=== PATIENT | female | born 1950 | race Caucasian/White ===

== ENCOUNTER 2017-11-05 11:03 | Emergency (ER) | payer MEDICARE, SELFPAY ==
[2017-11-05 11:03] VITALS: BP 169/95; PULSE 98; RESP 16; TEMP 37.2; O2SAT 100; BMI 16.8
--- NOTE | 2017-11-05 11:24 | ED.DCSUM_ITS ---
- ER Visit Summary Date of Service: 11/05/17 Chief Complaint: [] Left ankle injury stepping down from step stool History of Present Illness: The patient is a 67 F [] no past history no other complaints reports she was stepping down from a step stool and interested her left ankle this morning has pain laterally no other complaints Physical Examination: [] Head neck chest abdomen unremarkable she has full range of motion of lower extremities only issue is the left ankle laterally she complains of some discomfort here dorsi and plantar flexion limited noticeably deformity minimal foot calcaneal pain no Achilles pain the tib-fib and knee and hip are unremarkable skin is intact sensations intact Test Results: [] Emergency Department Course and Treatment: [] X-rays obtained [facility] for pain , the x-ray shows a nondisplaced calcaneus fracture nothing acute ankle x-ray unremarkable, discussed although the patient this time she is placed in a long walking boot crutches ice elevation [facility] for the rescue medicine she will follow-up with Dr. Martínez orthopedics and return for change in symptoms Treatment Plan: [] Disposition: [] Home stable Impression: [] Nondisplaced calcaneus fracture after fall above This note was generated with [employer] dictation software. It may contain incorrect words, spelling, and punctuation that were not noted in review of the chart prior to signing ED Disposition - Plan for ED Patient: Chief Complaint: Lower Extremity Injury Referrals: Larry Rich MD [Primary Care Provider] -
[2017-11-05] MEDS: Naproxen 500 MG Tablet PO (11:25)
--- NOTE | 2017-11-05 11:28 | RAD_ITS ---
STUDY: X-RAY - LEFT ANKLE REASON FOR EXAM: Female, 67 years old. Trauma, status post fall with lateral pain TECHNIQUE: 3 view(s) of the ankle. COMPARISON: None. FINDINGS: The bones are demineralized. Normal medial and lateral malleoli. Normal tibiotalar articulation and ankle mortise. There is a nondisplaced fracture through the calcaneus. This appears to extend into the subtalar joint. The visualized subtalar, talonavicular, calcaneocuboid and tarsal articulations are normal. The soft tissue structures are unremarkable. RAD/Ankle min 3 Views IMPRESSION: Nondisplaced calcaneal fracture. Electronically Signed: Harley Chi DO at 12:10 EDT Tel , Service support ,
--- NOTE | 2017-11-05 12:45 | RAD_ITS ---
STUDY: X-RAY - LEFT FOOT CLINICAL: Female, 67 years old. Trauma, pain TECHNIQUE: 3 view(s) of the foot. COMPARISON: Left ankle films, same date FINDINGS: There is a comminuted fracture of the calcaneus. No significant impaction. The fracture appears to extend into the subtalar joint. Normal metatarsi. Normal metatarsophalangeal joint of the great toe. Normal tibial and fibular sesamoid bones. Normal interphalangeal joint of the great toe. Normal phalanges of the great toe. Normal second through fifth metatarsophalangeal joints. Normal interphalangeal joints and phalanges of the lesser toes. There may be some soft tissue swelling along the plantar aspect of the foot. RAD/Foot min 3 Views IMPRESSION: Comminuted, nondisplaced calcaneal fracture. Electronically Signed: Harley Chi DO at 14:02 EDT Tel , Service support ,
--- NOTE | 2017-11-05 12:49 | ED.DEP ---
ED Disposition - Plan for ED Patient: Chief Complaint: Lower Extremity Injury Instructions: ED Fx Foot Prescriptions: Hydrocodone Bitart/Apap 5-325 [[place] 5MG-325MG] 1 tab PO Q4H PRN PRN 2 Days #10 tab PRN Reason: Pain Naproxen [Naprosyn] 500 mg PO BID PRN #20 tab Referrals: Larry Rich MD [Primary Care Provider] - Neil Martínez MD [STAFF PHYSICIAN] -
[2017-11-05 14:30] VITALS: BP 161/74; PULSE 78; RESP 18; O2SAT 97
== END 2017-11-05 14:31 | disposition home or self-care (01) ==
PROVIDERS: Emergency Provider Emergency Medicine; Family Provider Family Medicine; PCP Family Medicine
DX: S92.002A Unspecified fracture of left calcaneus, initial encounter for closed fracture (principal); W17.89XA Other fall from one level to another, initial encounter; Y93.9 Activity, unspecified; Y92.9 Unspecified place or not applicable
CPT/HCPCS: 73610; 73630; 99284

== ENCOUNTER → 2017-11-12 06:51 | Outpatient (CLI) | payer MEDICARE, SELFPAY ==
--- NOTE | 2017-11-12 07:00 | CT_ITS ---
STUDY: CT LEFT FOOT REASON FOR EXAM: Female, 67 years old. Status post fall. Left calcaneal fracture. RADIATION DOSAGE (If Supplied By Facility): CTDIvol = ( 15.35 ) mGy, DLP = ( 384.46 ) mGycm TECHNIQUE: Thin section transaxial imaging of the foot was obtained, with sagittal and coronal reconstructed images. Individualized dose optimization techniques were used for this CT. COMPARISON: X-ray left foot: 11/05/2017. FINDINGS: There is a minimally displaced intra-articular/subtalar comminuted fracture of the calcaneus demonstrated with somewhat sclerotic fracture margins. Bones are diffusely demineralized. The talus and tarsal bones appear intact. There is mild subluxation of the talonavicular articulation. Normal visualized tibiotalar, calcaneocuboid, tarsal and tarsometatarsal articulations. There is demineralization of the metatarsi. There is mild/moderate degenerative arthrosis of the metatarsophalangeal joint of the great toe. Normal tibial and fibular sesamoid bones. Normal interphalangeal joint of the great toe. Unremarkable phalanges of the great toe and lesser toes. Normal second through fifth metatarsophalangeal joints. There is soft tissue edema/swelling of the hindfoot and in dorsum foot. CT/Extremity Lower without Contra IMPRESSION: 1. Intra-articular/subtalar minimally displaced comminuted fractures of the calcaneus. 2. Diffuse bony demineralization. 3. Soft tissue swelling of the ankle and foot.. Electronically Signed: Nitza Lam MD at 7:47 EDT Tel , Service support ,
== END ==
PROVIDERS: Family Provider Family Medicine; PCP Family Medicine; Visit Provider Physician Assistant Surgical
DX: S92.015A Nondisplaced fracture of body of left calcaneus, initial encounter for closed fracture (principal)
CPT/HCPCS: 73700

== ENCOUNTER 2017-12-24 20:11 | Inpatient (IN) | payer MEDICARE, SELFPAY ==
[2017-12-24 20:12] VITALS: BP 149/93; PULSE 90; RESP 16; TEMP 36.7; O2SAT 95; BMI 16.2
--- NOTE | 2017-12-24 20:12 | RAD_ITS ---
STUDY: X-RAY - PELVIS AND RIGHT HIP REASON FOR EXAM: Female, 67 years old. Pain after fall. TECHNIQUE: Radiological exam, hip, unilateral, with pelvis when performed; 2 or 3 views. COMPARISON: None. FINDINGS: There is a non-specific bowel gas pattern. There are multiple calcified phleboliths. The bones are diffusely demineralized. There is an oblique fracture within the proximal right femur that extends into the right greater trochanter. There is no dislocation visualized. RAD/HIP, UNI W/ Pelvis 2-3 Views IMPRESSION: Proximal right femur fracture. Electronically Signed: Sheila Astorga MD at 21:32 EDT Tel , Service support ,
--- NOTE | 2017-12-24 21:04 | RAD_ITS ---
STUDY: X-RAY CHEST REASON FOR EXAM: Female, 67 years old. Cough. TECHNIQUE: Portable upright COMPARISON: None. FINDINGS: The lungs are hyperinflated. There is a density projecting over the left hemithorax which may be a surgical clip. Normal size heart. Normal mediastinum and julius. Normal visualized pulmonary arteries. Normal visualized aortic arch and descending thoracic aorta. Normal visualized thoracic spine. Normal visualized ribs, clavicles, and shoulders. There is no demonstrated abnormality of the visualized soft tissue structures of the upper abdomen. RAD/Chest 1 View (Portable) IMPRESSION: Hyperinflated lungs suggestive of underlying COPD. Electronically Signed: Sheila Astorga MD at 22:04 EDT Tel , Service support ,
--- NOTE | 2017-12-24 21:04 | EKG12_ITS ---
Test Reason : LOWER EXTREMITY Blood Pressure : / mmHG Vent. Rate : 091 BPM Atrial Rate : 091 BPM P-R Int : 126 ms QRS Dur : 082 ms QT Int : 360 ms P-R-T Axes : 063 -30 053 degrees QTc Int : 442 ms Normal sinus rhythm Left axis deviation Abnormal ECG Confirmed by SAVITA GIVENS, MINA ([id number]), writer editor CHARLES CEBALLOS ([id number]) on 12/26/2017 3:31:41 PM Referred By: MATTHEW Confirmed By:MINA BARNEY MD
[2017-12-24] MEDS: Morphine 4 MG/ML Syringe IV ×2 (21:19→21:59)
[2017-12-24] MEDS: Ondansetron 4 MG/2 ML Vial IV (21:19)
[2017-12-24 21:27] LABS: Absolute Lymphocyte Count 1.58 X10^3/ul (0.83-4.51); Absolute Neutrophil Count 6.8 X10^3/uL (2.0-7.7); Basophil# 0.02 X10^3/uL; Basophil% 0.2 % (0-1); Eosinophil# 0.05 X10^3/uL; Eosinophils% 0.6 % (0-5); Hematocrit 39.7 % (37-47); Hemoglobin 13.5 g/dl (12.0-15.0); Lymphocyte # 1.58 X10^3/ul (4.0); Lymphocyte % 17.6 % (19-41); Mean Corpuscular Hgb 31.8 pg (27.0-32.0); Mean Corpuscular Volume 93.4 fL (81-99); Mean Platelet Vol. 9.2 fl (6.2-12.0); Monocyte# 0.54 X10^3/uL; Neutrophil # 6.77 X10^3/uL (2.7-7.7); Neutrophil % 75.5 % (47-70); Platelet Count 443 K/mm3 (150-450); RBC Distribution Width CV 12.6 % (11.6-14.6); Red Blood Count 4.25 M/mm3 (4.2-5.4)
[2017-12-24 21:28] LABS: POSITIVE COUNT NO; POSITIVE DIFFERENTIAL NO; POSITIVE MORPHOLOGY NO
[2017-12-24 21:34] LABS: Prothrombin Time (Protime)PT. 12.7 SECONDS (11.7-14.9)
[2017-12-24 21:43] LABS: Anion Gap 8 (5-15); BUN 9 mg/dL (7-18); BUN/Creat Ratio 15.7 RATIO (10-20); Chloride 96 mmol/L (98-107); Creatinine, Serum 0.57 mg/dL (0.55-1.02); EST Glomerular Filtration Rate 112 mL/min (>60); Est Glom Filt Rate - Afr Amer 136 mL/min (>60); Estimated Creatinine Clearance 37.64 ml/min; Glucose 87 mg/dL (74-106); Sodium Level 132 mmol/L (136-145)
--- NOTE | 2017-12-24 21:53 | ED.VISSUMM ---
- ER Visit Summary Date of Service: 12/24/17 Chief Complaint: Right hip pain History of Present Illness: The patient is a 67 F who presents with right hip pain. She recently had a fall and had a calcaneus fracture on the left. She is using crutches. Her crutch slipped and she fell injuring her right hip today. She has been unable to bear weight. She complains of pain at 6-7 out of 10 currently in the right hip. No other injuries. No head injury. She is not anticoagulated. Physical Examination: Afebrile vitals unremarkable Heart regular rate and rhythm Lungs clear Abdomen soft Right hip is shortened and rotated she has limited painful range of motion of the pelvis is stable to compression she has a palpable dorsalis pedis pulse brisk capillary refill and normal sensation to light touch Test Results: EKG shows sinus rhythm at a rate of 91. Right hip x-ray does show an intertrochanteric hip fracture. Chest x-ray on my review shows no acute process. CBC BMP unremarkable and INR normal. Emergency Department Course and Treatment: Patient was treated with morphine and Zofran. She began to have some spasm and increased pain and was given a second dose of morphine. We will also place a Wolf catheter. I did speak to Dr. Sharma who asked that we admit the patient to the hospitalist service and keep the patient n.p.o. after midnight. Treatment Plan: [] Disposition: Admit Impression: Right hip fracture This note was generated with [employer] dictation software. It may contain incorrect words, spelling, and punctuation that were not noted in review of the chart prior to signing ED Disposition - Plan for ED Patient: Chief Complaint: Lower Extremity Injury Referrals: Larry Rich MD [Primary Care Provider] -
--- NOTE | 2017-12-24 22:13 | PCM.HP.STD ---
Problem List (1) Hip fracture, right Status: Acute (2) HTN (hypertension) Status: Chronic History of Present Illness Date of Admission: 12/24/17 Chief Complaint: Fall The patient is a 67 year old F with a significant history of hypertension; and left calcaneus fracture in a boot immobilizer who presented to the emergency department today because of a fall. Patient uses clutches to walk. Patient reported that while walking her dog, her clutches slid on weights grass and she fell. She landed on her right lower extremities. She complains of pain in her right thigh and the right hip. X-ray of pelvis and right hip showed proximal right femur fracture. Past Medical History Past Medical History (Chronic Problems): Chronic Problems HTN (hypertension) (Chronic) Allergies No Known Allergies Allergy (Verified 11/05/17 11:06) Home Medications: Ambulatory Orders Medication Instructions Recorded Acetaminophen [Tylenol] 650 mg PO Q6H PRN 12/24/17 Aspirin [Aspirin, Baby] 81 mg PO DAILY@0800 12/24/17 Surgical History: - - Hysterectomy Lives: With Family Smoking Status: Current every day smoker Alcohol: Occasional - *Family History Maternal History Items: No pertinent history Paternal History Items: No pertinent history Review of Systems Constitutional: Denies: Chills, Fever, Weight Change HEENT: Denies: Head Aches, Sinus Congestion, Sinus Drainage Cardiovascular: Denies: Chest Pain, Palpitations Respiratory: Denies: Cough, Shortness of breath at rest, Sputum production Gastrointestinal: Denies: Abdominal Pain, Nausea, Vomiting Genitourinary: Denies: Dysuria Musculoskeletal: Reports: - - right hip and right thigh pain, - Skin: Denies: Rash, Wounds Neurological: Denies: Numbness, Tingling, Focal weakness Psychiatric: Denies: Anxiety, Depression, Homicidal Ideations, Suicidal Ideations Hematologic/ Lymphatic: Denies: Easy Bruising, Easy Bleeding VTE Information - Inpt Only VTE Present on Admission: No VTE Mechan Device Prophylaxis: None VTE Pharm Prophylaxis ordered?: Yes Patient Problems: Active and Suspected Problems Hip fracture, right (Acute) - Physical Exam General: Alert, Oriented x3, Cooperative HEENT: Atraumatic, PERRLA, EOMI, Normocephalic Neck: Supple, No JVD, Negative Carotid Bruits Lungs: Clear to auscultation, Normal air movement Cardiovascular: Regular rate, No murmurs Abdomen: Bowel Sounds Present, Soft, Non Tender Extremities: Tenderness - Right hip and right thigh; no swelling or redness noted., - - Left lower leg and left foot in immobilizer boots Skin: No rashes, No breakdown Musculoskeletal: No Tenderness to Palpation of Joints or Extremities Neurological: Cranial nerves II-XII grossly intact Psych/Mental Status: Normal Affect, Appropriate Vital Signs Temp Pulse Resp BP Pulse Ox 98.1 F 90 16 149/93 H 95 12/24/17 20:12 12/24/17 20:12 12/24/17 20:12 12/24/17 20:12 12/24/17 20:12 Oxygen Delivery Method Room Air Weight: 43.091 kg Body Mass Index (BMI) 16.2 Laboratory Tests Past 24 Hrs 12/24/17 12/24/17 12/24/17 21:20 21:20 21:20 WBC 9.0 RBC 4.25 Hgb 13.5 Hct 39.7 MCV 93.4 MCH 31.8 MCHC 34.0 RDW 12.6 RDW Differential 43.0 Plt Count 443 MPV 9.2 Immature Gran % (Auto) 0.100 Neut % (Auto) 75.5 H Lymph % (Auto) 17.6 L [place] % (Auto) 6.0 Eos % (Auto) 0.6 Baso % (Auto) 0.2 Absolute Neuts (auto) 6.8 Absolute Lymphs (auto) 1.58 Total Counted Not Reportable PT 12.7 INR 1.0 Sodium 132 L Potassium 4.0 Chloride 96 L Carbon Dioxide 28.0 Anion Gap 8 BUN 9 Creatinine 0.57 Estim Creat Clear Calc 37.64 Est GFR (MDRD) Af Amer 136 Est GFR (MDRD) Non-Af 112 BUN/Creatinine Ratio 15.7 Glucose 87 Calcium 9.0 Assessment/Plan All Active Problems Hip fracture, right (Acute) The patient is a 67 year old F with a significant history of hypertension; and left calcaneus fracture in a boot immobilizer who presented to the emergency department today because of a fall landing on her right side and found to have radiographic evidence of proximal right femur fracture.. Proximal right femur fracture Pain control with as needed oxycodone and as needed morphine. Orthopedic doctor consulted. N.p.o. after midnight for possible orthopedic procedure Orthopedic surgery consult. Preop evaluation Patient has no active chest pain or previous history of heart disease or lung disease. EKG is unremarkable Hip surgery is not of high risk. Patient may proceed with hip surgery. Hypertension Blood pressure at admission was done within goal. Low blood pressure medication on file Amlodipine 5 mg started Labetalol as needed Left calcaneal fracture Placed in mobilizing boots 5 weeks ago. Patient to follow outpatient with orthopedic doctor. Moderate to severe protein calorie malnutrition N.p.o. for surgery consulted Dietitian consult for recommendation. DVT prophylaxis Subcutaneous heparin Code Visit Inpatient E&M: 07900 Init Hosp L3
[2017-12-24 22:14] VITALS: BP 159/108; PULSE 91; RESP 18; O2SAT 92
[2017-12-24 22:30] VITALS: O2SAT 86
[2017-12-24 22:32] VITALS: O2SAT 98
--- NOTE | 2017-12-24 22:46 | ED.RN ---
called to inform of room number and pt update.
[2017-12-24 23:26] VITALS: BMI 16.1
[2017-12-24 23:40] VITALS: BP 162/96; PULSE 85; RESP 18; TEMP 37.4; O2SAT 86
[2017-12-24 23:41] VITALS: BMI 16.2
[2017-12-24 23:54] VITALS: O2SAT 96
[2017-12-25] VITALS (14 sets, daily range): BP systolic 104–156; BP diastolic 69–86; PULSE 69–93; RESP 16–19; TEMP 36.1–37.6; O2SAT 91–100; BMI 16.0; BMI 16.2
[2017-12-25] MEDS: Lactated Ringers 1,000 ML 90 ML IV ×2 (01:38→12:40)
[2017-12-25] MEDS: Morphine 2 MG/ML Syringe IV ×5 (01:39→18:37)
[2017-12-25 04:24] LABS: Absolute Lymphocyte Count 2.32 X10^3/ul (0.83-4.51); Basophil# 0.01 X10^3/uL; Basophil% 0.1 % (0-1); Eosinophil# 0.05 X10^3/uL; Eosinophils% 0.5 % (0-5); Hematocrit 35.8 % (37-47); Hemoglobin 12.1 g/dl (12.0-15.0); Lymphocyte # 2.32 X10^3/ul (4.0); Lymphocyte % 24.6 % (19-41); Mean Corp Hgb Conc 33.8 g/gl (32-36); Mean Corpuscular Hgb 31.9 pg (27.0-32.0); Mean Corpuscular Volume 94.5 fL (81-99); Mean Platelet Vol. 9.3 fl (6.2-12.0); Monocyte# 1.01 X10^3/uL; Monocyte% 10.7 % (0-10); Neutrophil # 6.04 X10^3/uL (2.7-7.7); Platelet Count 416 K/mm3 (150-450); RBC Distribution Width CV 12.7 % (11.6-14.6); RBC Distribution Width SD 43.6 fl (35.1-43.9); Red Blood Count 3.79 M/mm3 (4.2-5.4); White Blood Count 9.4 K/mm3 (4.4-11.0)
[2017-12-25 04:25] LABS: POSITIVE COUNT NO; POSITIVE DIFFERENTIAL NO; POSITIVE MORPHOLOGY NO
[2017-12-25 05:18] LABS: Anion Gap 7 (5-15); BUN 11 mg/dL (7-18); BUN/Creat Ratio 18.7 RATIO (10-20); Calcium,Total 8.9 mg/dL (8.5-10.1); Chloride 100 mmol/L (98-107); Creatinine, Serum 0.59 mg/dL (0.55-1.02); EST Glomerular Filtration Rate 109 mL/min (>60); Est Glom Filt Rate - Afr Amer 132 mL/min (>60); Estimated Creatinine Clearance 37.33 ml/min; Glucose 104 mg/dL (74-106); Potassium 4.4 mmol/L (3.5-5.1); Sodium Level 136 mmol/L (136-145)
--- NOTE | 2017-12-25 07:15 | PCM.PN.HOSP ---
Patient Problems: Active and Suspected Problems Hip fracture, right (Acute) Subjective: Patient states she has ongoing discomfort to the right lower extremity hip region but primarily with movement and is currently able to sit upright and appears comfortable. She states that she fell when she was returning inside and suspects that likely her crutch was wet from the grass while taking her dog out. She states that she is still supposed to be nonweightbearing to the left lower extremity and is in a boot currently following with orthopedic surgery outpatient secondary to calcaneal fracture. Patient understands planned operative intervention per Dr. Sharma shortly. Discussed suspected chronic COPD which patient will laughed but did not decline set up of aerosols. Also discussed importance of nutrition as patient is cachectic appearing. Patient denies fevers, chills, nausea, emesis, abdominal pain, chest pain or dyspnea. Objective: Physical Examination: General: awake, alert, oriented x 3 and cooperative, seated upright in bed in no apparent distress despite awaiting operative intervention for right hip fracture. Skin: normal color, turgor, no icterus, cyanosis. HEENT: AT/NC, EOMI, PERRLA, MMM. Lungs: Breath sounds bilaterally, greater bilateral bases, poor effort, no rales, ronchi or wheezing. Heart: Regular rate and rhythm; no gallop, rub audible. Abdomen: soft, thin, cachectic habitus, NTTP, ND. Extremities: no cyanosis, clubbing, or edema. Neurological: patient awake, alert, oriented x 3; cognitive function intact; pupils equally reactive to light and accomodation; cranial nerves II-XII grossly normal, moving all 4 extremities limited right lower extremity secondary to recent hip fracture and left lower extremity secondary to recent calcaneal fracture with heel boot in place, accordingly severely globally decreased. Psychiatric: affect appears normal, no acute evidence of depressive or anxiety feelings. Vitals/I&O's: Vital Signs Temp Pulse Resp BP Pulse Ox 98.9 F 74 18 151/83 H 95 12/25/17 05:51 12/25/17 05:51 12/25/17 05:51 12/25/17 05:51 12/25/17 05:51 Oxygen Flow Rate (L/min) 2 Oxygen Delivery Method Nasal Cannula Weight: 94 lb 3.2 oz Body Mass Index (BMI) 16.0 Intake and Output for Last 24 Hours 12/23/17 12/24/17 12/25/17 23:59 23:59 23:59 Intake Total 476 / 476 Output Total 1250 / 1250 Balance -774 / -774 Laboratory Results 12/25/17 04:00: WBC 9.4, RBC 3.79 L, Hgb 12.1, Hct 35.8 L, MCV 94.5, MCH 31.9, MCHC 33.8, RDW 12.7, RDW Differential 43.6, Plt Count 416, MPV 9.3, Immature Gran % (Auto) 0.100, Neut % (Auto) 64.0, Lymph % (Auto) 24.6, [place] % (Auto) 10.7 H, Eos % (Auto) 0.5, Baso % (Auto) 0.1, Absolute Neuts (auto) 6.0, Absolute Lymphs (auto) 2.32, Total Counted Not Reportable 12/25/17 04:00: Sodium 136, Potassium 4.4, Chloride 100, Carbon Dioxide 29.0, Anion Gap 7, BUN 11, Creatinine 0.59, Estim Creat Clear Calc 37.33, Est GFR (MDRD) Af Amer 132, Est GFR (MDRD) Non-Af 109, BUN/Creatinine Ratio 18.7, Glucose 104, Calcium 8.9 12/25/17 04:00: Blood Type A POSITIVE, Antibody Screen NEGATIVE Current Medications Acetaminophen (Tylenol) 650 mg PO Q6H PRN PRN PRN Reason: PAIN Amlodipine Besylate (Norvasc) 5 mg PO DAILY [facility] Last Admin: 12/25/17 05:57 Dose: Not Given Heparin Sodium (Porcine) (Heparin Na) 5,000 unit SC Q8 [facility] Last Admin: 12/25/17 04:44 Dose: Not Given Sodium Chloride () 250 mls @ 15 mls/hr IV .[id number] PRN PRN Reason: SALINE FLUSH Lactated Ringer's () 1,000 mls @ 90 mls/hr IV .[id number] [facility] Last Admin: 12/25/17 01:38 Dose: 90 mls/hr Labetalol HCl (Trandate) 10 mg IV Q4H PRN PRN PRN Reason: SBP > 160 Magnesium Hydroxide (Milk Of Magnesia) 30 ml PO DAILY PRN PRN PRN Reason: Constipation Morphine Sulfate () 1 - 3 mg IV Q3H PRN PRN PRN Reason: SEVERE PAIN (6-10/10) Last Admin: 12/25/17 06:01 Dose: 2 mg Nicotine (Nicoderm Cq (Pbkc)) 14 mg TRANSDERM. DAILY DIANE Nutritional Formula (Lactose Free) (Ensure Enlive) 120 ml PO 4X/DAY DIANE Ondansetron HCl (Zofran) 4 mg IV Q8H PRN PRN PRN Reason: NAUSEA Oxycodone HCl (Oxyir) 5 mg PO Q6H PRN PRN PRN Reason: MODERATE PAIN (4-5/10) Sodium Chloride () 5 - 30 ml IV UD PRN PRN Reason: SALINE FLUSH Medical Necessity - Tobacco Use Smoking Status: Current every day smoker Tobacco Use: Cigarettes Assessment/Plan All Active Problems Hip fracture, right (Acute) The patient is a 67 y/o F w/ PMHx: HTN, Recent L Calcaneous Fx in boot, Tobacco use, Severe Protein-Calorie Malnutrition who presents to the [facility] ED on 12/24/17 with history of falling while walking her dog secondary to her crutches sliding on wet grass, falling on her right side with intractable R hip pain following. (1) General debility, R hip pain s/p mechanical fall w/ Proximal R Femur fracture: Plain film noting proximal right femur fracture. Orthopedic surgery consulted from ED, Dr. Sharma. Admitted to [place], maintained NPO for OR this AM 12/25/17, continue gentle IVFs, will obtain TSH, Mag level, UA, post placement, monitor I/Os, frequent positioning, fall precautions. Pain, anti-emetic regimen. PT/OT following operative intervention. CM consulted for discharge planning. (2) Suspected Chronic COPD: CXR w/ chronic COPD changes, initiate ATC duonebs, PRN albuterol, HOB, IS parameters. (3) Tobacco Abuse: Encouraged cessation, inpatient consultation per RT, NR if desired. (4) Hypertension: Continue home regimen including Norvasc, PRN beta loll. (5) Recent L Calcaneal Fx: Continue usage of immobilization boot, continue outpatient evaluation w/ Orthopedic surgery. (6) Severe Protein-Calorie Malnutrition: Evidenced per habitus, low BMI, muscle and fat loss, nutrition consulted, supplementations. (7) DVT Prophylaxis: SCDs, lovenox w/ hold on day of OR. Code Visit Inpatient E&M: 24269 Subs Hosp L2
--- NOTE | 2017-12-25 07:23 | PN_ITS ---
Patient Problems: Active and Suspected Problems Hip fracture, right (Acute) Subjective: Patient states she has ongoing discomfort to the right lower extremity hip region but primarily with movement and is currently able to sit upright and appears comfortable. She states that she fell when she was returning inside and suspects that likely her crutch was wet from the grass while taking her dog out. She states that she is still supposed to be nonweightbearing to the left lower extremity and is in a boot currently following with orthopedic surgery outpatient secondary to calcaneal fracture. Patient understands planned operative intervention per Dr. Sharma shortly. Discussed suspected chronic COPD which patient will laughed but did not decline set up of aerosols. Also discussed importance of nutrition as patient is cachectic appearing. Patient denies fevers, chills, nausea, emesis, abdominal pain, chest pain or dyspnea. Objective: Physical Examination: General: awake, alert, oriented x 3 and cooperative, seated upright in bed in no apparent distress despite awaiting operative intervention for right hip fracture. Skin: normal color, turgor, no icterus, cyanosis. HEENT: AT/NC, EOMI, PERRLA, MMM. Lungs: Breath sounds bilaterally, greater bilateral bases, poor effort, no rales , ronchi or wheezing. Heart: Regular rate and rhythm; no gallop, rub audible. Abdomen: soft, thin, cachectic habitus, NTTP, ND. Extremities: no cyanosis, clubbing, or edema. Neurological: patient awake, alert, oriented x 3; cognitive function intact; pupils equally reactive to light and accomodation; cranial nerves II-XII grossly normal, moving all 4 extremities limited right lower extremity secondary to recent hip fracture and left lower extremity secondary to recent calcaneal fracture with heel boot in place, accordingly severely globally decreased. Psychiatric: affect appears normal, no acute evidence of depressive or anxiety feelings. Vitals/I&O's: Vital Signs Temp Pulse Resp BP Pulse Ox 98.9 F 74 18 151/83 H 95 12/25/17 05:51 12/25/17 05:51 12/25/17 05:51 12/25/17 05:51 12/25/17 05:51 Oxygen Flow Rate (L/min) 2 Oxygen Delivery Method Nasal Cannula Weight: 94 lb 3.2 oz Body Mass Index (BMI) 16.0 Intake and Output for Last 24 Hours 12/23/17 12/24/17 12/25/17 23:59 23:59 23:59 Intake Total 476 / 476 Output Total 1250 / 1250 Balance -774 / -774 Laboratory Results 12/25/17 04:00: WBC 9.4, RBC 3.79 L, Hgb 12.1, Hct 35.8 L, MCV 94.5, MCH 31.9, MCHC 33.8, RDW 12.7, RDW Differential 43.6, Plt Count 416, MPV 9.3, Immature Gran % (Auto) 0.100, Neut % (Auto) 64.0, Lymph % (Auto) 24.6, [place] % (Auto) 10.7 H, Eos % (Auto) 0.5, Baso % (Auto) 0.1, Absolute Neuts (auto) 6.0, Absolute Lymphs (auto) 2.32, Total Counted Not Reportable 12/25/17 04:00: Sodium 136, Potassium 4.4, Chloride 100, Carbon Dioxide 29.0, Anion Gap 7, BUN 11, Creatinine 0.59, Estim Creat Clear Calc 37.33, Est GFR ( MDRD) Af Amer 132, Est GFR (MDRD) Non-Af 109, BUN/Creatinine Ratio 18.7, Glucose 104, Calcium 8.9 12/25/17 04:00: Blood Type A POSITIVE, Antibody Screen NEGATIVE Current Medications Acetaminophen (Tylenol) 650 mg PO Q6H PRN PRN PRN Reason: PAIN Amlodipine Besylate (Norvasc) 5 mg PO DAILY [facility] Last Admin: 12/25/17 05:57 Dose: Not Given Heparin Sodium (Porcine) (Heparin Na) 5,000 unit SC Q8 [facility] Last Admin: 12/25/17 04:44 Dose: Not Given Sodium Chloride () 250 mls @ 15 mls/hr IV .[id number] PRN PRN Reason: SALINE FLUSH Lactated Ringer's () 1,000 mls @ 90 mls/hr IV .[id number] [facility] Last Admin: 12/25/17 01:38 Dose: 90 mls/hr Labetalol HCl (Trandate) 10 mg IV Q4H PRN PRN PRN Reason: SBP > 160 Magnesium Hydroxide (Milk Of Magnesia) 30 ml PO DAILY PRN PRN PRN Reason: Constipation Morphine Sulfate () 1 - 3 mg IV Q3H PRN PRN PRN Reason: SEVERE PAIN (6-10/10) Last Admin: 12/25/17 06:01 Dose: 2 mg Nicotine (Nicoderm Cq (Pbkc)) 14 mg TRANSDERM. DAILY DIANE Nutritional Formula (Lactose Free) (Ensure Enlive) 120 ml PO 4X/DAY DIANE Ondansetron HCl (Zofran) 4 mg IV Q8H PRN PRN PRN Reason: NAUSEA Oxycodone HCl (Oxyir) 5 mg PO Q6H PRN PRN PRN Reason: MODERATE PAIN (4-5/10) Sodium Chloride () 5 - 30 ml IV UD PRN PRN Reason: SALINE FLUSH Medical Necessity - Tobacco Use Smoking Status: Current every day smoker Tobacco Use: Cigarettes Assessment/Plan All Active Problems Hip fracture, right (Acute) The patient is a 67 y/o F w/ PMHx: HTN, Recent L Calcaneous Fx in boot, Tobacco use, Severe Protein-Calorie Malnutrition who presents to the [facility] ED on 12/24/17 with history of falling while walking her dog secondary to her crutches sliding on wet grass, falling on her right side with intractable R hip pain following. (1) General debility, R hip pain s/p mechanical fall w/ Proximal R Femur fracture: Plain film noting proximal right femur fracture. Orthopedic surgery consulted from ED, Dr. Sharma. Admitted to [facility], maintained NPO for OR this AM , continue gentle IVFs, will obtain TSH, Mag level, UA, post placement, monitor I/Os, frequent positioning, fall precautions. Pain, anti-emetic regimen. PT/OT following operative intervention. CM consulted for discharge planning. (2) Suspected Chronic COPD: CXR w/ chronic COPD changes, initiate ATC duonebs, PRN albuterol, HOB, IS parameters. (3) Tobacco Abuse: Encouraged cessation, inpatient consultation per RT, NR if desired. (4) Hypertension: Continue home regimen including Norvasc, PRN beta loll. (5) Recent L Calcaneal Fx: Continue usage of immobilization boot, continue outpatient evaluation w/ Orthopedic surgery. (6) Severe Protein-Calorie Malnutrition: Evidenced per habitus, low BMI, muscle and fat loss, nutrition consulted, supplementations. (7) DVT Prophylaxis: SCDs, lovenox w/ hold on day of OR. Code Visit Inpatient E&M: 55050 Subs Hosp L2
[2017-12-25 07:55] LABS: Magnesium 1.7 mg/dL (1.6-2.6); Thyroid Stim Hormone (TSH) 4.16 uIU/mL (0.358-3.74)
[2017-12-25] MEDS: 0.9% NaCl Peripheral Flush Adult/Peds IV ×2 (09:06→16:27)
[2017-12-25 09:43] LABS: Bacteria 0 SEEN /hpf (None Seen); Mucous, Urine 0 SEEN /hpf (<or=2+); Red Blood Cells-Urine 0 SEEN /hpf (0-5); Squamous Epithelial Cells - UA 0 SEEN /hpf (5-10); White Blood Cells 0 SEEN /hpf (0-5)
[2017-12-25 09:47] LABS: Color, Urine Yellow (Yellow); Glucose, Dipstick Normal (Normal); Ketone-Dipstick Negative (Negative); Leukocyte Esterase-Dipstick Negative /ul (Negative); Nitrite-Dipstick Negative (Negative); Occult Blood-Urine Negative /ul (Negative); Protein-Dipstick Negative (Negative); Urine Bilirubin Dipstick Negative (Negative); Urine Clarity Clear (Clear); Urine Urobilinogen Normal (Normal)
--- NOTE | 2017-12-25 10:15 | RAD_ITS ---
STUDY: X-RAY - PELVIS AND RIGHT HIP REASON FOR EXAM: Female, 67 years old. ORIF right hip. TECHNIQUE: 5 fluoroscopic images of the right hip. COMPARISON: December 24, 2017. FINDINGS: Postoperative changes of right hip pinning for intertrochanteric fracture. An intramedullary mari is present. Compression screw terminates in the femoral head. The femur is in near normal anatomic alignment. RAD/Hip Min 2 Views (Portable) IMPRESSION: Postoperative changes of ORIF intertrochanteric fracture. Electronically Signed: Dejan Pruitt MD at 7:24 EDT , Service support ,
[2017-12-25] MEDS: Cefazolin 1 GM/50 ML BAG IV ×3 (10:24→22:15)
--- NOTE | 2017-12-25 11:40 | PCM.OP.BLANK ---
Operative Report Date of Procedure: 12/25/17 Preoperative diagnosis: Right hip displaced unstable intertrochanteric fracture Postoperative diagnosis: Same Title of operation: Right hip open reduction internal fixation, intramedullary nail fixation, locked Surgeon: Dr. John Sharma Senior Technical Trainer: Nalini Terrazas PA-C Anesthesia: Spinal Anesthesiologist Dr. Ihsan Lyons Medications: Ancef Indications for surgery: Patient is an 67-year-old female sustained a Right hip fracture yesterday. Patient explained diagnosis and treatment options. Patient evaluated by the medical services. Patient did wish to have surgery. Appropriate informed consent obtained and signed. Findings: Patient had a displaced unstable intertrochanteric hip fracture. They underwent standard reduction, internal fixation using a [place] long gamma nail. X-rays taken throughout. learning and development assistant, physician unit assistant, was utilized throughout the entire procedure. They were vital to the procedure from beginning to end. They help with patient transfer, patient padding and positioning, fracture reduction, maintenance of fracture reduction, internal fixation of implants, wound closure, bandage application, patient transfer. Without medical assistant prn, surgical time would have been significantly increased and surgical outcome could have been less optimal. Procedure: Patient was taken to the operating room. Placed under a general anesthetic and transferred to the operating table with the help of the unit assistant. With the help of the unit assistant patient was prepped and padded for surgery. Left foot was well-padded and placed in the traction boot. Right lower extremity was abducted and flexed out of harm's way. LENIN hose and SCDs utilized. Fluoroscopy was brought in. With the help of the unit assistant and manipulation of the limb, reduction was nicely obtained as verified under AP lateral and oblique fluoroscopic images. Reduction was improved with anterior to posterior pressure on the fracture site. Was also done throughout the procedure with the help of the unit assistant as needed. Left hip was prepped padded draped in usual orthopedic sterile fashion for the procedure. Longitudinal incision was made just proximal to the greater trochanter. Taken through skin and subcutaneous tissue. Sharp awl was placed on the tip of the greater trochanter. Position verified under AP and lateral fluoroscopic images. This was then taken down inside the bone. Slightly bent ball-tipped guide mari was then placed from the tip of the greater trochanter into the intra-medullary canal of the femur. Its position verified radiographically. We placed the tip of the mari at about the level of the upper patella. We measured this. We decided to use an 11 x 3 60 mm nail. Reamer was then done over the tip of this with the help of the unit assistant holding the soft tissue protector appropriately. Distal reaming was done up to a size 12.5 mm reamer. Once reaming was done we placed the long 125? angle device over the guidepin. This was easily introduced. Guide mari removed. Outrigger device was utilized to position a guidepin from the lateral cortex of the femur across the fracture site and into the femoral head in a good position centrally, as noted on AP lateral and oblique fluoroscopic images. This was measured. Appropriate reaming done. Appreciate length lag screw was placed from the lateral cortex of the femur into the femoral head. A small amount of the screw was noted to be protruding laterally as planned. No cartilage penetration of the femoral head noted on any x-ray. Fracture was then compressed with the outrigger device. Screw was placed seated down completely, confirmed, and then loosened one fourth turn. Distal locking screw placed under standard technique using fluoroscopic image. Although the screw was a bit oblique it had excellent purchase in bone and was felt to be very acceptable.. This was confirmed to be of adequate length in good position on AP and lateral images. Outrigger device been previously removed. Final set of AP and lateral proximal x-rays taken and saved. His were thoroughly irrigated. Closing by the unit assistant with deep 0 Vicryl, mid layer 0 Vicryl, inverted 2-0 Vicryl, skin jose ramon. Puncture wounds closed with inverted 2-0 Vicryl and jose ramon. Xeroform 4 x 4's ABD tape applied. Patient was awoken from their anesthetic, transferred back to their own bed with the help of the unit assistant and into recovery room in satisfactory condition. Patient will continue to be admitted to the hospital under the hospitalist service.
--- NOTE | 2017-12-25 11:45 | OP.PCM_ITS ---
Operative Report Date of Procedure: 12/25/17 Preoperative diagnosis: Right hip displaced unstable intertrochanteric fracture Postoperative diagnosis: Same Title of operation: Right hip open reduction internal fixation, intramedullary nail fixation, locked Surgeon: Dr. John Sharma Stone Product Fabricator: Nalini Terrazas PA-C Anesthesia: Spinal Anesthesiologist Dr. Ihsan Lyons Medications: Ancef Indications for surgery: Patient is an 67-year-old female sustained a Right hip fracture yesterday. Patient explained diagnosis and treatment options. Patient evaluated by the medical services. Patient did wish to have surgery. Appropriate informed consent obtained and signed. Findings: Patient had a displaced unstable intertrochanteric hip fracture. They underwent standard reduction, internal fixation using a [place] long gamma nail. X-rays taken throughout. assistant shift supervisor, physician bricklayer's assistant, was utilized throughout the entire procedure. They were vital to the procedure from beginning to end. They help with patient transfer, patient padding and positioning, fracture reduction, maintenance of fracture reduction, internal fixation of implants, wound closure, bandage application, patient transfer. Without ophthalmology surgical technician, surgical time would have been significantly increased and surgical outcome could have been less optimal. Procedure: Patient was taken to the operating room. Placed under a general anesthetic and transferred to the operating table with the help of the bricklayer's assistant. With the help of the bricklayer's assistant patient was prepped and padded for surgery. Left foot was well-padded and placed in the traction boot. Right lower extremity was abducted and flexed out of harm's way. LENIN hose and SCDs utilized. Fluoroscopy was brought in. With the help of the bricklayer's assistant and manipulation of the limb, reduction was nicely obtained as verified under AP lateral and oblique fluoroscopic images. Reduction was improved with anterior to posterior pressure on the fracture site. Was also done throughout the procedure with the help of the bricklayer's assistant as needed. Left hip was prepped padded draped in usual orthopedic sterile fashion for the procedure. Longitudinal incision was made just proximal to the greater trochanter. Taken through skin and subcutaneous tissue. Sharp awl was placed on the tip of the greater trochanter. Position verified under AP and lateral fluoroscopic images. This was then taken down inside the bone. Slightly bent ball-tipped guide mari was then placed from the tip of the greater trochanter into the intra- medullary canal of the femur. Its position verified radiographically. We placed the tip of the mari at about the level of the upper patella. We measured this. We decided to use an 11 x 3 60 mm nail. Reamer was then done over the tip of this with the help of the bricklayer's assistant holding the soft tissue protector appropriately. Distal reaming was done up to a size 12.5 mm reamer. Once reaming was done we placed the long 125? angle device over the guidepin. This was easily introduced. Guide mari removed. Outrigger device was utilized to position a guidepin from the lateral cortex of the femur across the fracture site and into the femoral head in a good position centrally, as noted on AP lateral and oblique fluoroscopic images. This was measured. Appropriate reaming done. Appreciate length lag screw was placed from the lateral cortex of the femur into the femoral head. A small amount of the screw was noted to be protruding laterally as planned. No cartilage penetration of the femoral head noted on any x-ray. Fracture was then compressed with the outrigger device. Screw was placed seated down completely, confirmed, and then loosened one fourth turn. Distal locking screw placed under standard technique using fluoroscopic image. Although the screw was a bit oblique it had excellent purchase in bone and was felt to be very acceptable.. This was confirmed to be of adequate length in good position on AP and lateral images. Outrigger device been previously removed. Final set of AP and lateral proximal x-rays taken and saved. His were thoroughly irrigated. Closing by the bricklayer's assistant with deep 0 Vicryl, mid layer 0 Vicryl, inverted 2-0 Vicryl, skin jose ramon. Puncture wounds closed with inverted 2-0 Vicryl and jose ramon. Xeroform 4 x 4's ABD tape applied. Patient was awoken from their anesthetic, transferred back to their own bed with the help of the bricklayer's assistant and into recovery room in satisfactory condition. Patient will continue to be admitted to the hospital under the hospitalist service.
--- NOTE | 2017-12-25 11:48 | PCM.CONS.GEN ---
Reason for Consult Date of Consultation: 12/25/17 History of Present Illness: The patient is a 67 year old female that fell yesterday injuring her right hip. She denies significant previous right hip pain. She has been wearing a boot on her left heel due to calcaneus fracture. She has been trying to stay off her left heel. Her crutches slipped and she fell injuring her right hip. Denies chest pain or shortness of breath. She was admitted the medical service. Orthopedics was consulted for right hip fracture. Patient does admit to smoking about 10 cigarettes per day. [] Past Medical History Past Medical History (Chronic Problems): Chronic Problems HTN (hypertension) (Chronic) Allergies No Known Allergies Allergy (Verified 11/05/17 11:06) Home Medications: Ambulatory Orders Medication Instructions Recorded Acetaminophen [Tylenol] 650 mg PO Q6H PRN 12/24/17 Aspirin [Aspirin, Baby] 81 mg PO DAILY@0800 12/24/17 Surgical History: - - Hysterectomy Lives: With Family Smoking Status: Current every day smoker Tobacco Use: Cigarettes Alcohol: Occasional - *Family History Maternal History Items: No pertinent history Paternal History Items: No pertinent history Patient Problems: Active and Suspected Problems Hip fracture, right (Acute) Objective: Right hip has mild shortening and external rotation. Right hip has pain with palpation. No pain at the left hip. No pain throughout the left lower extremity. Moving the right lower extremity causes right hip and upper thigh pain. Distal pulses and sensation are intact. She has a boot on her left lower extremity. No calf pain or swelling bilaterally. Negative Homans sign bilaterally. Legs are grossly neurovascular intact. Laboratory work reviewed. Chest x-ray and EKG reports reviewed Notes from hospitalist reviewed case had been discussed with them. X-rays AP pelvis AP and lateral right hip shows a comminuted displaced intertrochanteric fracture with a large lesser trochanteric fracture fragment extending well below the lesser trochanter. Displacement noted. Osteopenia noted. - Physical Exam Vital Signs Temp Pulse Resp BP Pulse Ox 98.3 F 74 19 H 137/74 H 94 12/25/17 08:57 12/25/17 08:57 12/25/17 08:57 12/25/17 08:57 12/25/17 10:53 Oxygen Flow Rate (L/min) 2 Oxygen Delivery Method Nasal Cannula Weight: 42.728 kg Body Mass Index (BMI) 16.0 Intake and Output for Last 24 Hours 12/23/17 12/24/17 12/25/17 23:59 23:59 23:59 Intake Total 476 / 476 Output Total 1250 / 1250 Balance -774 / -774 Laboratory Tests Past 24 Hrs 12/25/17 12/25/17 12/25/17 04:00 04:00 04:00 WBC 9.4 RBC 3.79 L Hgb 12.1 Hct 35.8 L MCV 94.5 MCH 31.9 MCHC 33.8 RDW 12.7 RDW Differential 43.6 Plt Count 416 MPV 9.3 Immature Gran % (Auto) 0.100 Neut % (Auto) 64.0 Lymph % (Auto) 24.6 [place] % (Auto) 10.7 H Eos % (Auto) 0.5 Baso % (Auto) 0.1 Absolute Neuts (auto) 6.0 Absolute Lymphs (auto) 2.32 Total Counted Not Reportable Sodium 136 Potassium 4.4 Chloride 100 Carbon Dioxide 29.0 Anion Gap 7 BUN 11 Creatinine 0.59 Estim Creat Clear Calc 37.33 Est GFR (MDRD) Af Amer 132 Est GFR (MDRD) Non-Af 109 BUN/Creatinine Ratio 18.7 Glucose 104 Calcium 8.9 Magnesium TSH Urine Color Urine Clarity Urine pH Ur Specific [place] Urine Protein Urine Glucose (UA) Urine Ketones Urine Occult Blood Urine Nitrite Urine Bilirubin Urine Urobilinogen Ur Leukocyte Esterase Urine RBC Urine WBC Ur Squamous Epith Cells Urine Bacteria Urine Mucus Blood Type A POSITIVE Antibody Screen NEGATIVE 12/25/17 12/25/17 04:00 08:50 WBC RBC Hgb Hct MCV MCH MCHC RDW RDW Differential Plt Count MPV Immature Gran % (Auto) Neut % (Auto) Lymph % (Auto) [place] % (Auto) Eos % (Auto) Baso % (Auto) Absolute Neuts (auto) Absolute Lymphs (auto) Total Counted Sodium Potassium Chloride Carbon Dioxide Anion Gap BUN Creatinine Estim Creat Clear Calc Est GFR (MDRD) Af Amer Est GFR (MDRD) Non-Af BUN/Creatinine Ratio Glucose Calcium Magnesium 1.7 TSH 4.16 H Urine Color Yellow Urine Clarity Clear Urine pH 6.0 Ur Specific [place] 1.010 Urine Protein Negative Urine Glucose (UA) Normal Urine Ketones Negative Urine Occult Blood Negative Urine Nitrite Negative Urine Bilirubin Negative Urine Urobilinogen Normal Ur Leukocyte Esterase Negative Urine RBC 0 SEEN Urine WBC 0 SEEN Ur Squamous Epith Cells 0 SEEN Urine Bacteria 0 SEEN Urine Mucus 0 SEEN Blood Type Antibody Screen Assessment/Plan All Active Problems Hip fracture, right (Acute) Right hip intertrochanteric fracture displaced and unstable. Surgical options discussed. She did consent for right hip open reduction internal fixation, long intramedullary nail planned. Risk of surgery including but not limited to from operative or postoperative complications. Risk of anesthetic complications such as heart attacks, strokes, seizures, or . Risk of infections. Risk of damage to nerves arteries tendons. Risk of inadvertent fractures or dislocations. Risk of bone or wound healing complications. Possibility of nonunion malunion pain stiffness weakness. Possible need for further surgery such as hardware removal. Risk of DVT PE and other potential complications could lead to or disability explained. No guarantees were stated or implied. All of their questions were answered. Appropriate informed consent was obtained and signed for surgical intervention. She will continue under the care of the medical service. Standard plan for postoperative antibiotic and DVT preventive devices. Importance of her stopping smoking discussed.
[2017-12-25] MEDS: Ipratropium/Albuterol Sulfate 3 ML AMPUL.NEB INHALATION ×2 (13:03→20:43)
[2017-12-25] MEDS: oxyCODONE 5 MG Tablet PO (15:09)
[2017-12-25] MEDS: LORazepam 2 MG/ML Syringe 0.5 MG IV (16:27)
[2017-12-25] MEDS: Acetaminophen 325 MG Tablet 650 MG PO (18:37)
[2017-12-26] VITALS (8 sets, daily range): BP systolic 110–137; BP diastolic 58–69; PULSE 82–115; RESP 16–20; TEMP 36.9–37.2; O2SAT 94–99
[2017-12-26] MEDS: oxyCODONE 5 MG Tablet PO ×5 (00:17→23:23)
[2017-12-26] MEDS: Lactated Ringers 1,000 ML 90 ML IV (00:17)
[2017-12-26] MEDS: Acetaminophen 325 MG Tablet 650 MG PO ×4 (00:18→19:15)
[2017-12-26] MEDS: Morphine 2 MG/ML Syringe IV (01:22)
[2017-12-26] MEDS: Cefazolin 1 GM/50 ML BAG IV (04:14)
[2017-12-26] MEDS: Enoxaparin 30 MG/0.3 ML Syringe SC (06:44)
[2017-12-26] MEDS: Ipratropium/Albuterol Sulfate 3 ML AMPUL.NEB INHALATION ×3 (07:00→18:57)
[2017-12-26 07:01] LABS: Absolute Lymphocyte Count 1.61 X10^3/ul (0.83-4.51); Absolute Neutrophil Count 4.7 X10^3/uL (2.0-7.7); Basophil# 0.02 X10^3/uL; Basophil% 0.3 % (0-1); Eosinophil# 0.08 X10^3/uL; Eosinophils% 1.1 % (0-5); Hematocrit 31.1 % (37-47); Hemoglobin 10.2 g/dl (12.0-15.0); Lymphocyte # 1.61 X10^3/ul (4.0); Lymphocyte % 21.2 % (19-41); Mean Corp Hgb Conc 32.8 g/gl (32-36); Mean Corpuscular Hgb 32.1 pg (27.0-32.0); Mean Corpuscular Volume 97.8 fL (81-99); Mean Platelet Vol. 9.4 fl (6.2-12.0); Monocyte# 1.17 X10^3/uL; Monocyte% 15.4 % (0-10); Neutrophil # 4.71 X10^3/uL (2.7-7.7); Neutrophil % 61.9 % (47-70); Platelet Count 388 K/mm3 (150-450); RBC Distribution Width CV 12.5 % (11.6-14.6); Red Blood Count 3.18 M/mm3 (4.2-5.4); White Blood Count 7.6 K/mm3 (4.4-11.0)
[2017-12-26 07:05] LABS: POSITIVE COUNT NO; POSITIVE DIFFERENTIAL NO; POSITIVE MORPHOLOGY NO
[2017-12-26 07:24] LABS: Anion Gap 4 (5-15); BUN 8 mg/dL (7-18); BUN/Creat Ratio 15.5 RATIO (10-20); Calcium,Total 8.5 mg/dL (8.5-10.1); Chloride 103 mmol/L (98-107); Creatinine, Serum 0.52 mg/dL (0.55-1.02); EST Glomerular Filtration Rate 126 mL/min (>60); Est Glom Filt Rate - Afr Amer 153 mL/min (>60); Estimated Creatinine Clearance 37.33 ml/min; Glucose 102 mg/dL (74-106); Potassium 4.4 mmol/L (3.5-5.1); Sodium Level 137 mmol/L (136-145)
--- NOTE | 2017-12-26 09:37 | PCM.PN.HOSP ---
Patient Problems: Active and Suspected Problems Hip fracture, right (Acute) Subjective: still with pain in right hip as well as left heel. Vitals/I&O's: Vital Signs Temp Pulse Resp BP Pulse Ox 37.2 C 101 H 20 H 137/59 H 98 12/26/17 09:23 12/26/17 09:23 12/26/17 09:23 12/26/17 09:23 12/26/17 09:23 Oxygen Flow Rate (L/min) 2 Oxygen Delivery Method Nasal Cannula Weight: 42.728 kg Body Mass Index (BMI) 16.0 Intake and Output for Last 24 Hours 12/24/17 12/25/17 12/26/17 23:59 23:59 23:59 Intake Total 2331 / 2331 1835 / 1835 Output Total 2099 / 2099 1175 / 1175 Balance 231 / 231 660 / 660 General: Alert, No apparent distress HEENT: Atraumatic, Normocephalic Oral: Moist Mucosa, No Gingival or Mucosal Lesions/ Ulcerations Neck: No Nodes, Thyroid Normal Size and Texture Lungs: Clear to auscultation, Normal air movement, No rhonchi, No wheeze Cardiovascular: Regular rate, Regular Rhythm, Normal S1, Normal S2, No murmurs Abdomen: Bowel Sounds Present, Soft, Non Tender, Non-Distended, No Hepato-splenomegaly Extremities: No edema, No Calf Tenderness Musculoskeletal: - - immobilizer boot left leg. Psych/Mental Status: Normal Affect, Appropriate Laboratory Results 12/25/17 08:50: Urine Color Yellow, Urine Clarity Clear, Urine pH 6.0, Ur Specific [place] 1.010, Urine Protein Negative, Urine Glucose (UA) Normal, Urine Ketones Negative, Urine Occult Blood Negative, Urine Nitrite Negative, Urine Bilirubin Negative, Urine Urobilinogen Normal, Ur Leukocyte Esterase Negative, Urine RBC 0 SEEN, Urine WBC 0 SEEN, Ur Squamous Epith Cells 0 SEEN, Urine Bacteria 0 SEEN, Urine Mucus 0 SEEN 12/26/17 06:40: WBC 7.6, RBC 3.18 L, Hgb 10.2 L, Hct 31.1 L, MCV 97.8, MCH 32.1 H, MCHC 32.8, RDW 12.5, RDW Differential 43.0, Plt Count 388, MPV 9.4, Immature Gran % (Auto) 0.100, Neut % (Auto) 61.9, Lymph % (Auto) 21.2, [place] % (Auto) 15.4 H, Eos % (Auto) 1.1, Baso % (Auto) 0.3, Absolute Neuts (auto) 4.7, Absolute Lymphs (auto) 1.61, Total Counted Not Reportable 12/26/17 06:40: Sodium 137, Potassium 4.4, Chloride 103, Carbon Dioxide 30.0, Anion Gap 4 L, BUN 8, Creatinine 0.52 L, Estim Creat Clear Calc 37.33, Est GFR (MDRD) Af Amer 153, Est GFR (MDRD) Non-Af 126, BUN/Creatinine Ratio 15.5, Glucose 102, Calcium 8.5 Current Medications Acetaminophen (Tylenol) 650 mg PO Q6H PRN PRN PRN Reason: PAIN Last Admin: 12/26/17 06:44 Dose: 650 mg Albuterol Sulfate (Ventolin Aerosols) 2.5 mg INHALATION Q2H PRN PRN PRN Reason: dyspnea, wheezing Albuterol/Ipratropium (Duoneb) 3 ml INHALATION Q6HWA.RT [facility] Last Admin: 12/26/17 07:00 Dose: 3 ml Amlodipine Besylate (Norvasc) 5 mg PO DAILY [facility] Last Admin: 12/25/17 09:03 Dose: Not Given Aspirin (Aspirin, Baby) 81 mg PO DAILY@0800 [facility] Last Admin: 12/25/17 09:02 Dose: Not Given Enoxaparin Sodium (Lovenox) 30 mg SC DAILY@0600 [facility] Last Admin: 12/26/17 06:44 Dose: 30 mg Sodium Chloride () 250 mls @ 15 mls/hr IV .[id number] PRN PRN Reason: SALINE FLUSH Lactated Ringer's () 1,000 mls @ 90 mls/hr IV .[id number] [facility] Last Admin: 12/26/17 00:17 Dose: 90 mls/hr Labetalol HCl (Trandate) 10 mg IV Q4H PRN PRN PRN Reason: SBP > 160 Lorazepam (Ativan) 0.5 mg IV Q4H PRN PRN PRN Reason: MUSCLE SPASM Last Admin: 12/25/17 16:27 Dose: 0.5 mg Magnesium Hydroxide (Milk Of Magnesia) 30 ml PO DAILY PRN PRN PRN Reason: Constipation Morphine Sulfate () 1 - 3 mg IV Q3H PRN PRN PRN Reason: SEVERE PAIN (6-10/10) Last Admin: 12/26/17 01:22 Dose: 2 mg Nicotine (Nicoderm Cq (Pbkc)) 14 mg TRANSDERM. DAILY [facility] Last Admin: 12/25/17 12:38 Dose: 14 mg Nutritional Formula (Lactose Free) (Ensure Enlive) 120 ml PO 4X/DAY [facility] Last Admin: 12/25/17 22:15 Dose: 120 ml Ondansetron HCl (Zofran) 4 mg IV Q8H PRN PRN PRN Reason: NAUSEA Oxycodone HCl (Oxyir) 5 mg PO Q6H PRN PRN PRN Reason: MODERATE PAIN (4-5/10) Last Admin: 12/26/17 06:45 Dose: 5 mg Sodium Chloride () 5 - 30 ml IV UD PRN PRN Reason: SALINE FLUSH Last Admin: 12/25/17 16:27 Dose: 10 ml Medical Necessity - Tobacco Use Smoking Status: Current every day smoker Tobacco Use: Cigarettes Assessment/Plan All Active Problems Hip fracture, right (Acute) 1. Right intertrochanteric fracture s/p ORIF on 12/25 with IM nail fixation activity complicated by recent left calcaneus fracture in immobilizer explained to patient about pain control, but also being functional. Notified by nursing later that patient was requesting pain medication while somnolent activity per ortho check 25 OH d level Too somnolent with morphine, will DC. 2. Left calcaneal fracture. immobilizer weight bearing per ortho 3. DVT proph: Lovenox 4. Disposition: Pt insists on going home, stating that her and son will assist If so, then will need HHC. Code Visit Inpatient E&M: 52803 Subs Hosp L2
[2017-12-26] MEDS: Aspirin 81 MG TAB.CHEW PO (09:39)
[2017-12-26] MEDS: amLODIPine 5 MG Tablet PO (09:39)
[2017-12-26] MEDS: 0.9% NaCl Peripheral Flush Adult/Peds IV (09:40)
--- NOTE | 2017-12-26 09:47 | PN_ITS ---
Patient Problems: Active and Suspected Problems Hip fracture, right (Acute) Subjective: still with pain in right hip as well as left heel. Vitals/I&O's: Vital Signs Temp Pulse Resp BP Pulse Ox 37.2 C 101 H 20 H 137/59 H 98 12/26/17 09:23 12/26/17 09:23 12/26/17 09:23 12/26/17 09:23 12/26/17 09:23 Oxygen Flow Rate (L/min) 2 Oxygen Delivery Method Nasal Cannula Weight: 42.728 kg Body Mass Index (BMI) 16.0 Intake and Output for Last 24 Hours 12/24/17 12/25/17 12/26/17 23:59 23:59 23:59 Intake Total 2331 / 2331 1835 / 1835 Output Total 2099 / 2099 1175 / 1175 Balance 231 / 231 660 / 660 General: Alert, No apparent distress HEENT: Atraumatic, Normocephalic Oral: Moist Mucosa, No Gingival or Mucosal Lesions/ Ulcerations Neck: No Nodes, Thyroid Normal Size and Texture Lungs: Clear to auscultation, Normal air movement, No rhonchi, No wheeze Cardiovascular: Regular rate, Regular Rhythm, Normal S1, Normal S2, No murmurs Abdomen: Bowel Sounds Present, Soft, Non Tender, Non-Distended, No Hepato- splenomegaly Extremities: No edema, No Calf Tenderness Musculoskeletal: - - immobilizer boot left leg. Psych/Mental Status: Normal Affect, Appropriate Laboratory Results 12/25/17 08:50: Urine Color Yellow, Urine Clarity Clear, Urine pH 6.0, Ur Specific [place] 1.010, Urine Protein Negative, Urine Glucose (UA) Normal, Urine Ketones Negative, Urine Occult Blood Negative, Urine Nitrite Negative, Urine Bilirubin Negative, Urine Urobilinogen Normal, Ur Leukocyte Esterase Negative, Urine RBC 0 SEEN, Urine WBC 0 SEEN, Ur Squamous Epith Cells 0 SEEN, Urine Bacteria 0 SEEN, Urine Mucus 0 SEEN 12/26/17 06:40: WBC 7.6, RBC 3.18 L, Hgb 10.2 L, Hct 31.1 L, MCV 97.8, MCH 32.1 H, MCHC 32.8, RDW 12.5, RDW Differential 43.0, Plt Count 388, MPV 9.4, Immature Gran % (Auto) 0.100, Neut % (Auto) 61.9, Lymph % (Auto) 21.2, [place] % (Auto) 15.4 H, Eos % (Auto) 1.1, Baso % (Auto) 0.3, Absolute Neuts (auto) 4.7, Absolute Lymphs (auto) 1.61, Total Counted Not Reportable 12/26/17 06:40: Sodium 137, Potassium 4.4, Chloride 103, Carbon Dioxide 30.0, Anion Gap 4 L, BUN 8, Creatinine 0.52 L, Estim Creat Clear Calc 37.33, Est GFR ( MDRD) Af Amer 153, Est GFR (MDRD) Non-Af 126, BUN/Creatinine Ratio 15.5, Glucose 102, Calcium 8.5 Current Medications Acetaminophen (Tylenol) 650 mg PO Q6H PRN PRN PRN Reason: PAIN Last Admin: 12/26/17 06:44 Dose: 650 mg Albuterol Sulfate (Ventolin Aerosols) 2.5 mg INHALATION Q2H PRN PRN PRN Reason: dyspnea, wheezing Albuterol/Ipratropium (Duoneb) 3 ml INHALATION Q6HWA.RT [facility] Last Admin: 12/26/17 07:00 Dose: 3 ml Amlodipine Besylate (Norvasc) 5 mg PO DAILY [facility] Last Admin: 12/25/17 09:03 Dose: Not Given Aspirin (Aspirin, Baby) 81 mg PO DAILY@0800 [facility] Last Admin: 12/25/17 09:02 Dose: Not Given Enoxaparin Sodium (Lovenox) 30 mg SC DAILY@0600 [facility] Last Admin: 12/26/17 06:44 Dose: 30 mg Sodium Chloride () 250 mls @ 15 mls/hr IV .[id number] PRN PRN Reason: SALINE FLUSH Lactated Ringer's () 1,000 mls @ 90 mls/hr IV .Q11H7M [facility] Last Admin: 12/26/17 00:17 Dose: 90 mls/hr Labetalol HCl (Trandate) 10 mg IV Q4H PRN PRN PRN Reason: SBP > 160 Lorazepam (Ativan) 0.5 mg IV Q4H PRN PRN PRN Reason: MUSCLE SPASM Last Admin: 12/25/17 16:27 Dose: 0.5 mg Magnesium Hydroxide (Milk Of Magnesia) 30 ml PO DAILY PRN PRN PRN Reason: Constipation Morphine Sulfate () 1 - 3 mg IV Q3H PRN PRN PRN Reason: SEVERE PAIN (6-10/10) Last Admin: 12/26/17 01:22 Dose: 2 mg Nicotine (Nicoderm Cq (Pbkc)) 14 mg TRANSDERM. DAILY [facility] Last Admin: 12/25/17 12:38 Dose: 14 mg Nutritional Formula (Lactose Free) (Ensure Enlive) 120 ml PO 4X/DAY [facility] Last Admin: 12/25/17 22:15 Dose: 120 ml Ondansetron HCl (Zofran) 4 mg IV Q8H PRN PRN PRN Reason: NAUSEA Oxycodone HCl (Oxyir) 5 mg PO Q6H PRN PRN PRN Reason: MODERATE PAIN (4-5/10) Last Admin: 12/26/17 06:45 Dose: 5 mg Sodium Chloride () 5 - 30 ml IV UD PRN PRN Reason: SALINE FLUSH Last Admin: 12/25/17 16:27 Dose: 10 ml Medical Necessity - Tobacco Use Smoking Status: Current every day smoker Tobacco Use: Cigarettes Assessment/Plan All Active Problems Hip fracture, right (Acute) 1. Right intertrochanteric fracture * s/p ORIF on 12/25 with IM nail fixation * activity complicated by recent left calcaneus fracture in immobilizer * explained to patient about pain control, but also being functional. Notified by nursing later that patient was requesting pain medication while somnolent * activity per ortho * check 25 OH d level * Too somnolent with morphine, will DC. 2. Left calcaneal fracture. * immobilizer * weight bearing per ortho 3. DVT proph: * Lovenox 4. Disposition: * Pt insists on going home, stating that her and son will assist * If so, then will need C. Code Visit Inpatient E&M: 38317 Subs Hosp L2
[2017-12-26 11:39] LABS: Vitamin D,25 Hydroxy 15.5 ng/mL (29.95-100.01)
--- NOTE | 2017-12-26 13:00 | CASEMGMT ---
Addendum entered by Casper Warner 12/26/17 13:41: Left message w/CHITRA, Breonna Porter re: pt's decision to go to SNF and on pt's preferences of facility. Original Note: RN MARIAH NOTE: Introduced self and role to ALICIA LEMUS. Pt resting in bed, talking with @ bedside. Pt agreeable to going to SNF. Pt and state [facility] of facility [facility] and 2nd choice is [facility]. Nubia MARTINEZ RN, CM
--- NOTE | 2017-12-26 14:14 | CASEMGMT ---
Per CHITRA Ravi, referral to be sent to [facility] and if [facility] can accept patient, pre-cert can be started. Voicemail with same info left for Keren at [facility]. Referral faxed, confirmation received. Catalina Wright LPN Clinical Support
--- NOTE | 2017-12-26 19:30 | PN.ORTHO_ITS ---
Patient Problems: Active and Suspected Problems Hip fracture, right (Acute) Subjective: Patient states she is having some right hip pain. Denies chest pain or shortness of breath. Denies productive cough. She states she is planning on quitting smoking. She is hoping for discharge to home soon. Reportedly she did not tolerate transferred to a wheelchair today. Objective: Right hip and thigh bandage on clean dry. Good rotation of the right hip. No pain with gentle axial loading of the right hip. Some pain with hip flexion to 90?. Some hip pain with internal and external rotation 10?. No calf pain or swelling bilaterally. Negative Homans sign bilaterally. Boot on left ankle region. Legs are neurovascularly intact. Notes from hospitalist reviewed Vital signs and laboratory work reviewed - Physical Exam Vital Signs Temp Pulse Resp BP Pulse Ox 98.7 F 117 H 18 110/69 96 12/26/17 15:44 12/26/17 18:58 12/26/17 18:58 12/26/17 15:44 12/26/17 15:44 Oxygen Flow Rate (L/min) 2 Oxygen Delivery Method Nasal Cannula Weight: 42.728 kg Body Mass Index (BMI) 16.0 Intake and Output for Last 24 Hours 12/24/17 12/25/17 12/26/17 23:59 23:59 23:59 Intake Total 2331 / 2331 1835 / 1835 Output Total 2100 / 2100 2575 / 2575 Balance 231 / 231 -740 / -740 Laboratory Tests Past 24 Hrs 12/26/17 12/26/17 12/26/17 06:40 06:40 11:05 WBC 7.6 RBC 3.18 L Hgb 10.2 L Hct 31.1 L MCV 97.8 MCH 32.1 H MCHC 32.8 RDW 12.5 RDW Differential 43.0 Plt Count 388 MPV 9.4 Immature Gran % (Auto) 0.100 Neut % (Auto) 61.9 Lymph % (Auto) 21.2 [place] % (Auto) 15.4 H Eos % (Auto) 1.1 Baso % (Auto) 0.3 Absolute Neuts (auto) 4.7 Absolute Lymphs (auto) 1.61 Total Counted Not Reportable Sodium 137 Potassium 4.4 Chloride 103 Carbon Dioxide 30.0 Anion Gap 4 L BUN 8 Creatinine 0.52 L Estim Creat Clear Calc 37.33 Est GFR (MDRD) Af Amer 153 Est GFR (MDRD) Non-Af 126 BUN/Creatinine Ratio 15.5 Glucose 102 Calcium 8.5 Vitamin D 25-Hydroxy 15.5 L Medical Necessity - Tobacco Use Smoking Status: Current every day smoker Tobacco Use: Cigarettes Assessment/Plan All Active Problems Hip fracture, right (Acute) Postoperative day #1 right hip fracture internal fixation with long intramedullary nail for intertrochanteric fracture. Left calcaneus fracture- remote. Will discuss case with Jonathan Colbert regarding left calcaneus fracture. Continue with Lovenox. Continue with ice. Pain medications as needed. Therapy for transfers. Continue light touchdown weightbearing on right and left lower extremity for transferring. All of her questions answered.
[2017-12-27] VITALS (7 sets, daily range): BP systolic 108–120; BP diastolic 61–72; PULSE 96–108; RESP 16–18; TEMP 36.9–37.4; O2SAT 87–97
[2017-12-27] MEDS: Acetaminophen 325 MG Tablet 650 MG PO ×3 (02:32→16:36)
[2017-12-27] MEDS: oxyCODONE 5 MG Tablet PO ×3 (04:52→13:52)
[2017-12-27] MEDS: Enoxaparin 30 MG/0.3 ML Syringe SC (04:53)
[2017-12-27] MEDS: Ipratropium/Albuterol Sulfate 3 ML AMPUL.NEB INHALATION ×2 (07:47→13:13)
--- NOTE | 2017-12-27 08:39 | PCM.PN.HOSP ---
Patient Problems: Active and Suspected Problems Hip fracture, right (Acute) Subjective: Says a ghost is moving her TV, and if she remains here another night, that she'll need another room. Vitals/I&O's: Vital Signs Temp Pulse Resp BP Pulse Ox 37.4 C H 102 H 16 108/65 96 12/27/17 02:42 12/27/17 02:42 12/27/17 02:42 12/27/17 02:42 12/27/17 07:11 Oxygen Flow Rate (L/min) 2 Oxygen Delivery Method Nasal Cannula Weight: 42.728 kg Body Mass Index (BMI) 16.0 Intake and Output for Last 24 Hours 12/25/17 12/26/17 12/27/17 23:59 23:59 23:59 Intake Total 2331 / 2331 1835 / 1835 400 / 400 Output Total 2099 / 2099 3175 / 3175 650 / 650 Balance 231 / 231 -1340 / -1340 -250 / -250 General: Alert, No apparent distress HEENT: Atraumatic, Normocephalic Oral: Moist Mucosa, No Gingival or Mucosal Lesions/ Ulcerations Neck: No Nodes, Thyroid Normal Size and Texture Lungs: Clear to auscultation, Normal air movement, No rhonchi, No wheeze Cardiovascular: Regular rate, Regular Rhythm, Normal S1, Normal S2, No murmurs Abdomen: Bowel Sounds Present, Soft, Non Tender, Non-Distended, No Hepato-splenomegaly Extremities: - - left leg in immobilizer Psych/Mental Status: Normal Affect, Appropriate Laboratory Results 12/26/17 11:05: Vitamin D 25-Hydroxy 15.5 L Current Medications Acetaminophen (Tylenol) 650 mg PO Q6H PRN PRN PRN Reason: PAIN Last Admin: 12/27/17 02:32 Dose: 650 mg Albuterol Sulfate (Ventolin Aerosols) 2.5 mg INHALATION Q2H PRN PRN PRN Reason: dyspnea, wheezing Albuterol/Ipratropium (Duoneb) 3 ml INHALATION Q6HWA.RT [facility] Last Admin: 12/27/17 07:47 Dose: 3 ml Amlodipine Besylate (Norvasc) 5 mg PO DAILY [facility] Last Admin: 12/26/17 09:39 Dose: 5 mg Aspirin (Aspirin, Baby) 81 mg PO DAILY@0800 [facility] Last Admin: 12/26/17 09:39 Dose: 81 mg Enoxaparin Sodium (Lovenox) 30 mg SC DAILY@0600 [facility] Last Admin: 12/27/17 04:53 Dose: 30 mg Ergocalciferol (Vitamin D) 50,000 unit PO Tu@1000 [facility] Labetalol HCl (Trandate) 10 mg IV Q4H PRN PRN PRN Reason: SBP > 160 Magnesium Hydroxide (Milk Of Magnesia) 30 ml PO DAILY PRN PRN PRN Reason: Constipation Nicotine (Nicoderm Cq (Pbkc)) 14 mg TRANSDERM. DAILY [facility] Last Admin: 12/26/17 09:39 Dose: 14 mg Nutritional Formula (Lactose Free) (Ensure Enlive) 120 ml PO 4X/DAY [facility] Last Admin: 12/26/17 21:23 Dose: 120 ml Ondansetron HCl (Zofran) 4 mg IV Q8H PRN PRN PRN Reason: NAUSEA Oxycodone HCl (Oxyir) 5 mg PO Q4H PRN PRN PRN Reason: MODERATE PAIN (4-5/10) Last Admin: 12/27/17 04:52 Dose: 5 mg Sodium Chloride () 5 - 30 ml IV UD PRN PRN Reason: SALINE FLUSH Last Admin: 12/26/17 09:40 Dose: 10 ml Medical Necessity - Tobacco Use Smoking Status: Current every day smoker Tobacco Use: Cigarettes Assessment/Plan All Active Problems Hip fracture, right (Acute) 1. Right intertrochanteric fracture s/p ORIF on 12/25 with IM nail fixation activity complicated by recent left calcaneus fracture in immobilizer explained to patient about pain control, but also being functional. Notified by nursing later that patient was requesting pain medication while somnolent activity per ortho Too somnolent with morphine, will DC. 2. Left calcaneal fracture. immobilizer weight bearing per ortho 3. DVT proph: Lovenox for 30 days, or when the immobilizer can be removed, which ever comes last. 4. Disposition: to SNF, pending precertification 5. Vitamin D deficiency Ergocalciferol 50,000 units weekly through 02/14/18, then cholecalciferol 2000 units daily starting 02/21. check 25 OH-D level in 3 months Code Visit Inpatient E&M: [id number] Subs Hosp L2
[2017-12-27] MEDS: amLODIPine 5 MG Tablet PO (08:43)
[2017-12-27] MEDS: Aspirin 81 MG TAB.CHEW PO (08:43)
--- NOTE | 2017-12-27 08:43 | PN_ITS ---
Patient Problems: Active and Suspected Problems Hip fracture, right (Acute) Subjective: Says a ghost is moving her TV, and if she remains here another night, that she' ll need another room. Vitals/I&O's: Vital Signs Temp Pulse Resp BP Pulse Ox 37.4 C H 102 H 16 108/65 96 12/27/17 02:42 12/27/17 02:42 12/27/17 02:42 12/27/17 02:42 12/27/17 07:11 Oxygen Flow Rate (L/min) 2 Oxygen Delivery Method Nasal Cannula Weight: 42.728 kg Body Mass Index (BMI) 16.0 Intake and Output for Last 24 Hours 12/25/17 12/26/17 12/27/17 23:59 23:59 23:59 Intake Total 2331 / 2331 1835 / 1835 400 / 400 Output Total 2099 / 2099 3175 / 3175 650 / 650 Balance 231 / 231 -1340 / -1340 -250 / -250 General: Alert, No apparent distress HEENT: Atraumatic, Normocephalic Oral: Moist Mucosa, No Gingival or Mucosal Lesions/ Ulcerations Neck: No Nodes, Thyroid Normal Size and Texture Lungs: Clear to auscultation, Normal air movement, No rhonchi, No wheeze Cardiovascular: Regular rate, Regular Rhythm, Normal S1, Normal S2, No murmurs Abdomen: Bowel Sounds Present, Soft, Non Tender, Non-Distended, No Hepato- splenomegaly Extremities: - - left leg in immobilizer Psych/Mental Status: Normal Affect, Appropriate Laboratory Results 12/26/17 11:05: Vitamin D 25-Hydroxy 15.5 L Current Medications Acetaminophen (Tylenol) 650 mg PO Q6H PRN PRN PRN Reason: PAIN Last Admin: 12/27/17 02:32 Dose: 650 mg Albuterol Sulfate (Ventolin Aerosols) 2.5 mg INHALATION Q2H PRN PRN PRN Reason: dyspnea, wheezing Albuterol/Ipratropium (Duoneb) 3 ml INHALATION Q6HWA.RT [facility] Last Admin: 12/27/17 07:47 Dose: 3 ml Amlodipine Besylate (Norvasc) 5 mg PO DAILY [facility] Last Admin: 12/26/17 09:39 Dose: 5 mg Aspirin (Aspirin, Baby) 81 mg PO DAILY@0800 [facility] Last Admin: 12/26/17 09:39 Dose: 81 mg Enoxaparin Sodium (Lovenox) 30 mg SC DAILY@0600 [facility] Last Admin: 12/27/17 04:53 Dose: 30 mg Ergocalciferol (Vitamin D) 50,000 unit PO Tu@1000 [facility] Labetalol HCl (Trandate) 10 mg IV Q4H PRN PRN PRN Reason: SBP > 160 Magnesium Hydroxide (Milk Of Magnesia) 30 ml PO DAILY PRN PRN PRN Reason: Constipation Nicotine (Nicoderm Cq (Pbkc)) 14 mg TRANSDERM. DAILY [facility] Last Admin: 12/26/17 09:39 Dose: 14 mg Nutritional Formula (Lactose Free) (Ensure Enlive) 120 ml PO 4X/DAY [facility] Last Admin: 12/26/17 21:23 Dose: 120 ml Ondansetron HCl (Zofran) 4 mg IV Q8H PRN PRN PRN Reason: NAUSEA Oxycodone HCl (Oxyir) 5 mg PO Q4H PRN PRN PRN Reason: MODERATE PAIN (4-5/10) Last Admin: 12/27/17 04:52 Dose: 5 mg Sodium Chloride () 5 - 30 ml IV UD PRN PRN Reason: SALINE FLUSH Last Admin: 12/26/17 09:40 Dose: 10 ml Medical Necessity - Tobacco Use Smoking Status: Current every day smoker Tobacco Use: Cigarettes Assessment/Plan All Active Problems Hip fracture, right (Acute) 1. Right intertrochanteric fracture * s/p ORIF on 12/25 with IM nail fixation * activity complicated by recent left calcaneus fracture in immobilizer * explained to patient about pain control, but also being functional. Notified by nursing later that patient was requesting pain medication while somnolent * activity per ortho * Too somnolent with morphine, will DC. 2. Left calcaneal fracture. * immobilizer * weight bearing per ortho 3. DVT proph: * Lovenox for 30 days, or when the immobilizer can be removed, which ever comes last. 4. Disposition: * to SNF, pending precertification 5. Vitamin D deficiency * Ergocalciferol 50,000 units weekly through 02/14/18, then cholecalciferol 2000 units daily starting 02/21. * check 25 OH-D level in 3 months Code Visit Inpatient E&M: [id number] Subs Hosp L2
--- NOTE | 2017-12-27 08:48 | PCM.TXEXTCAR ---
- Diet 12/25/17 16:45 Diet: Regular Diet Is pt able to select menu?: Yes - Routine Orders/Code Status O2 Frequency: PRN Routine Lab Work: CBC, BMP Code Status: Full Code - Wound(s) 4TH TOE RT FOOT Wound Type: Surgical Incision Dressing Change: Dry Sterile Dressing LEFT FOREARM Wound Type: Abrasion RIGHT HIP Wound Type: Surgical Incision Dressing Change: Dry Sterile Dressing RIGHT THIGH Wound Type: Surgical Incision Dressing Change: Dry Sterile Dressing - Therapies Weight Bearing: Toe-touch weight bearing Extremity Affected:: Bilateral Lower - immobilizer of LLE when up. Physical Therapy: Eval and Treat Occupational Therapy: Eval and Treat - Allergies/Procedures Done in Hospital Allergies/Adverse Reactions: Allergies No Known Allergies Allergy (Verified 11/05/17 11:06) Procedures: - - Right hip open reduction internal fixation, intramedullary nail fixation, locked - Type of Care/Length of Stay Estimated LOS: Convalescent Care Less Than 30 days Type of Care Needed: Skilled Rehab Potential: Fair Prognosis: Fair - Additional Orders/Day of Discharge Day of Discharge: 12/27/17 - Dietary and Speech Recommendations Dietitian Recommendations/Changes: As medically able, rec RED to liberal Regular diet w/ ONS medpass. Will offer ensure pudding or magic cup w/ lunch and dinner for increased nutrition if consumed - Follow Up Care Primary Care Physician: Larry Rich MD [Primary Care Provider] - Within 2 Weeks Please Follow Up With: John Sharma MD When: 2 weeks
--- NOTE | 2017-12-27 08:52 | CASEMGMT ---
Keren at [facility] left voicemail that they can accept patient as long as patient is ok with [facility] being a non-smoking facility. CHITRA Ravi updated of same and will speak with patient. Catalina Wright LPN Clinical Support
--- NOTE | 2017-12-27 08:56 | DS.PCM_ITS ---
Discharge Date and Diagnosis - Problem List Patient Problems: Active and Suspected Problems Hip fracture, right (Acute) Date of Admission: 12/24/17 Date of Discharge: 12/27/17 - Primary Discharge Diagnosis Active and Suspected Problems Hip fracture, right (Acute) - Secondary Discharge Diagnosis Chronic Problems HTN (hypertension) (Chronic) Hospital Course and Treatment Imaging Results: Clinical Impression(s) from Imaging Studies Hip/Pelvis X-Ray 12/24/17 20:12 IMPRESSION: Proximal right femur fracture. Electronically Signed: Sheila Astorga MD at 21:32 EDT Tel , Service support , Chest X-Ray 12/24/17 21:04 IMPRESSION: Hyperinflated lungs suggestive of underlying COPD. Electronically Signed: Sheila Astorga MD at 22:04 EDT Tel , Service support , Hip X-Ray 12/25/17 10:15 IMPRESSION: Postoperative changes of ORIF intertrochanteric fracture. Electronically Signed: Dejan Pruitt MD at 7:24 EDT , Service support , Operations: - - Right hip open reduction internal fixation, intramedullary nail fixation, locked Procedures: None Summary of Care Provided: The patient is a 67 year old F who fell and sustained a proximal right femur fracture. 1. Right intertrochanteric fracture * s/p ORIF on 12/25 with IM nail fixation * activity complicated by recent left calcaneus fracture in immobilizer * explained to patient about pain control, but also being functional. Notified by nursing later that patient was requesting pain medication while somnolent * toe-touch weight bearing per ortho 2. Left calcaneal fracture. * immobilizer * weight bearing per ortho 3. DVT proph: * Lovenox for 30 days, or when the immobilizer can be removed, which ever comes last. 4. Disposition: * to SNF, pending precertification 5. Vitamin D deficiency * Ergocalciferol 50,000 units weekly through 02/14/18, then cholecalciferol 2000 units daily starting 02/21. * check 25 OH-D level in 3 months[] Discharge Diet: No Restrictions Discharge Activity: Return to Normal Activity Weight Bearing Status: Toe touch weight bearing Keep extremity elevated above heart level: Left Leg, Right Leg Call your doctor if your incision/area has: Continuous Slow Oozing, Sudden Increased Bleeding, Increased Pain/ Swelling Home Medications: Medications to take at Discharge Acetaminophen [Tylenol] 650 mg PO Q6H PRN 12/24/17 Aspirin [Aspirin, Baby] 81 mg PO DAILY@0800 12/24/17 Albuterol Aerosols [Ventolin Aerosols] 2.5 mg INHALATION Q2H PRN PRN vial.neb. 12/27/17 Amlodipine [Norvasc] 5 mg PO DAILY tablet 12/27/17 Enoxaparin [Lovenox] 30 mg SC DAILY@0600 syringe 12/27/17 Ensure Enlive 120 ml PO 4X/DAY liquid 12/27/17 Ergocalciferol [Vitamin D] 50,000 unit PO Tu@1000 capsule 12/27/17 Oxycodone [Oxyir] 5 mg PO Q6H PRN 3 Days #12 tab 12/27/17 Following Prescrptions Were Given to Patient: Oxycodone [Oxyir] 5 mg PO Q6H PRN 3 Days #12 tab PRN Reason: Moderate Pain (4-5/10) Primary Care Physician: Larry Rich MD [Primary Care Provider] - Within 2 Weeks Please Follow Up With: John Sharma MD When: 2 weeks Disposition: Jail facility Minutes spent on discharge:: 32 Patient Condition:: Fair Medical Necessity - Tobacco Use Smoking Status: Current every day smoker Tobacco Use: Cigarettes Meaningful Use Info Meaningful Use Diagnoses (Choose all that apply): None applicable Code Visit Inpatient E&M: 04127 Disch Hosp
--- NOTE | 2017-12-27 10:14 | CASEMGMT ---
Social Work Note SW in to update pt that [facility] has accepted pt. SW informed pt that [facility] is non smoking facility and that she won't be permitted to smoke at facility. Pt states understanding. Pt states I guess I will have to be fine with it. CHITRA placed a call to Keren at [facility] and updated her of this. Keren states that she will submit for pre-cert. Plan: [facility] pending pre-cert Breonna Porter CLIENT EXPERIENCE SPECIALIST, DIRECTOR TRADING
--- NOTE | 2017-12-27 15:45 | CASEMGMT ---
Social Work Note CHITRA received call from Keren at [facility] stating that pre-cert has been obtained and pt is able to discharge today to [facility]. Physician had put discharge order in earlier today. CHITRA faxed completed discharge paperwork to [facility] including transfer to extended care facility, signed medication list and any scripts. Originals in SNF folder and copy on pt's chart. CHITRA completed [facility] in [facility]. Original in SNF folder and copy on pt's chart. Guard Rail Installer Sully set up transportation for 5:00pm. CHITRA updated Keren at [facility] of transportation time. Plan: Pt to discharge to [facility] today under skilled for rehabilitation at 5:00pm Breonna Porter MSW, HEALTH EDUCATION SPECIALIST
== END 2017-12-27 17:21 | disposition skilled nursing facility (03) | DRG 480 ==
LOC: ED 21:03 → MS2 22:42
PROVIDERS: Family Medicine; Orthopaedic Surgery; Admitting Provider Hospitalist; Emergency Provider Emergency Medicine; Family Provider Family Medicine; PCP Family Medicine
PROC: 0QS606Z Reposition Right Upper Femur with Intramedullary Internal Fixation Device, Open Approach (ICD-10-PCS; CPT 27245; principal; 2017-12-25 10:00)
DX: S72.141A Displaced intertrochanteric fracture of right femur, initial encounter for closed fracture (principal); E43 Unspecified severe protein-calorie malnutrition; Z68.1 Body mass index [BMI] 19.9 or less, adult; W18.30XA Fall on same level, unspecified, initial encounter; Y93.K1 Activity, walking an animal; S92.002D Unspecified fracture of left calcaneus, subsequent encounter for fracture with routine healing; W19.XXXD Unspecified fall, subsequent encounter; I10 Essential (primary) hypertension; F17.210 Nicotine dependence, cigarettes, uncomplicated; E55.9 Vitamin D deficiency, unspecified
CPT/HCPCS: 36415; 51702; 71045; 73502; 76000; 80048; 81001; 82306; 83735; 84443; 85025; 85610; 86850; 86900; 93005; 94640; 94762; 97110; 97162; 97166; 97802; 99285; C1713; J7120; A4216; J2405

== ENCOUNTER 2017-12-29 08:50 | Inpatient (IN) | payer MEDICARE, SELFPAY ==
[2017-12-29] VITALS (7 sets, daily range): BP systolic 124–165; BP diastolic 68–94; PULSE 84–109; RESP 16–18; TEMP 37–37.5; O2SAT 94–99; BMI 17.2; BMI 17.9
--- NOTE | 2017-12-29 08:59 | ED.RN ---
PT W/HALLUCINATIONS. STATES THERE WAS A GANG AT THE [facility] LAST NIGHT THAT WAS GOING TO SHOOT UP THE PLACE. CURRENTLY SEEING BUGS CRAWLING OUT OF SINK IN HOSP ROOM, A MAN STANDING HOLDING THE PAPER TOWEL DISPENSER, A DOG IN THE CORNER, VOMIT ON THE FLOOR NEXT TO THE BUGS. NONE OF THESE THINGS ARE IN THE ROOM. PT STATES IT'S NOVEMBER 29, 1819.
--- NOTE | 2017-12-29 09:18 | CT_ITS ---
STUDY: CT BRAIN WITHOUT CONTRAST REASON FOR EXAM: Female, 67 years old. Confusion. Hallucinations. RADIATION DOSAGE (If Supplied By Facility): CTDIvol = ( 44.99 ) mGy, DLP = ( 745.49 ) mGycm TECHNIQUE: Transaxial CT imaging of the brain was performed without administration of intravenous contrast material. Individualized dose optimization techniques were used for this CT. COMPARISON: None. FINDINGS: Normal soft tissue structures. Normal calvarium. There is mild cerebral atrophy with widening of the extra-axial spaces and ventricular dilatation. There are areas of decreased attenuation within the white matter tracts of the supratentorial brain, consistent with microvascular disease changes. Small lacunar infarct in the insular cortex of the right temporal lobe. This most likely is old. Normal basal ganglia and thalami. Normal brainstem. Normal cerebellum. There is no intracranial hemorrhage. There are no findings of an acute ischemic infarction. Atherosclerotic calcification of the vertebral arteries and cavernous portions of the internal carotid arteries bilaterally. Mild degree of mucosal thickening at the base of the left maxillary sinus. CT/Brain/Head without Contrast IMPRESSION: Chronic involutional changes of the brain. 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 Electronically Signed: Sunny Forde MD at 10:28 EDT Tel [phone], Service support ,
--- NOTE | 2017-12-29 09:19 | RAD_ITS ---
STUDY: X-RAY CHEST REASON FOR EXAM: Female, 67 years old. Altered mental status TECHNIQUE: AP and lateral COMPARISON: 12/24/2017 FINDINGS: Hyperlucency and hyperinflation of lungs with flattening of the hemidiaphragms and diffuse mild coarsening of interstitium consistent with COPD/emphysema, stable compared to prior imaging, with no acute superimposed pulmonary abnormality. No acute osseous or upper abdominal process. Normal cardiomediastinal silhouette, julius and pleural margins. Normal cardiomediastinal silhouette, julius and pleural margins. No acute osseous or upper abdominal process. RAD/Chest PA and Lateral IMPRESSION: COPD/emphysema without acute superimposed cardiopulmonary process. Electronically Signed: Brad Reynoso, at 16:57 EDT Tel , Service support ,
[2017-12-29] MEDS: LORazepam 2 MG/ML Syringe 1 MG IV (09:32)
[2017-12-29 09:44] LABS: Bacteria 0 SEEN /hpf (None Seen); Mucous, Urine 0 SEEN /hpf (<or=2+); Red Blood Cells-Urine 0 SEEN /hpf (0-5); Squamous Epithelial Cells - UA 0 SEEN /hpf (5-10); White Blood Cells 0 SEEN /hpf (0-5)
[2017-12-29 09:49] LABS: Basophil# 0.02 X10^3/uL; Basophil% 0.2 % (0-1); Eosinophil# 0.03 X10^3/uL; Eosinophils% 0.3 % (0-5); Hematocrit 30.1 % (37-47); Lymphocyte % 11.1 % (19-41); Mean Corp Hgb Conc 33.2 g/gl (32-36); Mean Corpuscular Hgb 31.7 pg (27.0-32.0); Mean Corpuscular Volume 95.6 fL (81-99); Mean Platelet Vol. 9.2 fl (6.2-12.0); Monocyte# 0.91 X10^3/uL; Monocyte% 10.1 % (0-10); Neutrophil # 7.04 X10^3/uL (2.7-7.7); Neutrophil % 78.1 % (47-70); Platelet Count 587 K/mm3 (150-450); RBC Distribution Width CV 13.1 % (11.6-14.6); RBC Distribution Width SD 45.5 fl (35.1-43.9); Red Blood Count 3.15 M/mm3 (4.2-5.4)
[2017-12-29 09:49] LABS: Color, Urine Yellow (Yellow); Glucose, Dipstick Normal (Normal); Ketone-Dipstick Negative (Negative); Leukocyte Esterase-Dipstick Negative /ul (Negative); Nitrite-Dipstick Negative (Negative); Occult Blood-Urine 10 /ul (Negative); Protein-Dipstick 30 mg/dl (Negative); Urine Bilirubin Dipstick Negative (Negative); Urine Clarity Clear (Clear); Urine Urobilinogen Normal (Normal)
[2017-12-29 09:52] LABS: POSITIVE COUNT NO; POSITIVE DIFFERENTIAL NO; POSITIVE MORPHOLOGY NO
[2017-12-29 09:58] LABS: ALB/GLOB Ratio 0.8 RATIO (0.9-2.4); AST(SGOT) 91 U/L (15-37); Alanine Aminotransfer ALT/SGPT 78 U/L (13-56); Albumin, Serum 3.3 g/dL (3.2-5.0); Alkaline Phosphatase 281 U/L (45-117); Anion Gap 9 (5-15); BUN 14 mg/dL (7-18); BUN/Creat Ratio 30.8 RATIO (10-20); Calcium,Total 9.6 mg/dL (8.5-10.1); Chloride 99 mmol/L (98-107); Creatinine, Serum 0.46 mg/dL (0.55-1.02); EST Glomerular Filtration Rate 146 mL/min (>60); Est Glom Filt Rate - Afr Amer 177 mL/min (>60); Estimated Creatinine Clearance 39.75 ml/min; Globulin 4.2 g/dL (2.2-4.2); Glucose 97 mg/dL (74-106); Potassium 3.6 mmol/L (3.5-5.1); Protein, Total 7.5 g/dL (6.4-8.2); Sodium Level 135 mmol/L (136-145)
--- NOTE | 2017-12-29 11:39 | ED.VISSUMM ---
- ER Visit Summary Date of Service: 12/29/17 Chief Complaint: Hallucinations History of Present Illness: The patient is a 67 F presenting from a retirement facility with hallucinations and agitation. She suffered a right hip fracture from a fall on 915 and was admitted here for surgery. She has now been at the retirement facility for inpatient rehab for 2 days. Her reports that the day of the surgery, she began to experience slight hallucinations and these have become much worse over the past 2 days. She has been agitated and somewhat combative with staff as well. She has been having visual hallucinations as well as auditory. She is apparently talking to several people who were not really in the room and was upset about animals in the room that were also not there. Her states that this has never happened to her before. The only change in medication is that she has been taking oxycodone for pain control but she has taken this in the past without difficulty. Her does note that she typically drinks anywhere from 3-6 beers per day, sometimes more, sometimes less depending on the weather. She has not had any beer to drink since the day of her fall. Physical Examination: She is slightly hypertensive and tachycardic. She is in mild distress. There is no sign of head trauma or dehydration. Her right hip incision looks great. No evidence of infection. There is ecchymosis surrounding it but no erythema or warmth. Strong pulses distally and compartments are soft. No abdominal tenderness. No focal or lateralizing neuro findings. Moving all extremities without difficulty. On mental status examination, she does have abnormal thought content. She has visual hallucinations and somewhat paranoid. Test Results: CBC and chemistries essentially unremarkable except for slight anemia and slight elevated liver enzymes, likely secondary to chronic alcohol use. MCV slightly elevated as well. Chest x-ray interpreted independently by me is negative for acute infiltrate. CT brain is negative for acute process. There is evidence of an old temporal lobe infarct but nothing acute appearing. Platelets slightly high. Urine does not appear infected. Emergency Department Course and Treatment: No evidence of an acute infection or obvious other cause for her delirium. She likely is experiencing some element of alcohol withdrawal given the timing of her symptoms but this could also be medication related. The differential diagnosis remains quite broad but I presume alcohol withdrawal to be highest on the differential at this time. I gave her a dose of IV Ativan here and she did have improvement. Given her comorbidities and nature of her presentation, I do feel she meets criteria for hospitalization, treatment of her withdrawal, and evaluation of other causes. Treatment Plan: Admit Disposition: Full admission Impression: Initial encounter acute delirium, alcohol withdrawal This note was generated with [employer] dictation software. It may contain incorrect words, spelling, and punctuation that were not noted in review of the chart prior to signing ED Disposition - Plan for ED Patient: Chief Complaint: Mental Status Change Referrals: Larry Rich MD [Primary Care Provider] -
--- NOTE | 2017-12-29 11:46 | ED.DCSUM_ITS ---
- ER Visit Summary Date of Service: 12/29/17 Chief Complaint: Hallucinations History of Present Illness: The patient is a 67 F presenting from a residential facility with hallucinations and agitation. She suffered a right hip fracture from a fall on 915 and was admitted here for surgery. She has now been at the residential facility for inpatient rehab for 2 days. Her reports that the day of the surgery, she began to experience slight hallucinations and these have become much worse over the past 2 days. She has been agitated and somewhat combative with staff as well. She has been having visual hallucinations as well as auditory. She is apparently talking to several people who were not really in the room and was upset about animals in the room that were also not there. Her states that this has never happened to her before. The only change in medication is that she has been taking oxycodone for pain control but she has taken this in the past without difficulty. Her does note that she typically drinks anywhere from 3-6 beers per day, sometimes more, sometimes less depending on the weather. She has not had any beer to drink since the day of her fall. Physical Examination: She is slightly hypertensive and tachycardic. She is in mild distress. There is no sign of head trauma or dehydration. Her right hip incision looks great. No evidence of infection. There is ecchymosis surrounding it but no erythema or warmth. Strong pulses distally and compartments are soft. No abdominal tenderness. No focal or lateralizing neuro findings. Moving all extremities without difficulty. On mental status examination, she does have abnormal thought content. She has visual hallucinations and somewhat paranoid. Test Results: CBC and chemistries essentially unremarkable except for slight anemia and slight elevated liver enzymes, likely secondary to chronic alcohol use. MCV slightly elevated as well. Chest x-ray interpreted independently by me is negative for acute infiltrate. CT brain is negative for acute process. There is evidence of an old temporal lobe infarct but nothing acute appearing. Platelets slightly high. Urine does not appear infected. Emergency Department Course and Treatment: No evidence of an acute infection or obvious other cause for her delirium. She likely is experiencing some element of alcohol withdrawal given the timing of her symptoms but this could also be medication related. The differential diagnosis remains quite broad but I presume alcohol withdrawal to be highest on the differential at this time. I gave her a dose of IV Ativan here and she did have improvement. Given her comorbidities and nature of her presentation, I do feel she meets criteria for hospitalization, treatment of her withdrawal, and evaluation of other causes. Treatment Plan: Admit Disposition: Full admission Impression: Initial encounter acute delirium, alcohol withdrawal This note was generated with Clear[employer] dictation software. It may contain incorrect words, spelling, and punctuation that were not noted in review of the chart prior to signing ED Disposition - Plan for ED Patient: Chief Complaint: Mental Status Change Referrals: Larry Rich MD [Primary Care Provider] -
--- NOTE | 2017-12-29 12:50 | CASEMGMT ---
Addendum entered by Jessica Foreman 12/29/17 13:16: SW spoke w/Keren at [facility], she states it will depend on pt's behavior and diagnoses if they will take pt back. She states pt was exit seeking at [facility], and that pt was hallucinating. SW explained will keep [facility] informed as to how pt is doing. SW will continue to follow. ASHVIN Cristina, [employer] CONVERTER HELPER Original Note: Pt is here from [facility] with hallucinations and agitation. SW called [facility], message left for Keren inquiring if they will take pt back. SW will continue to follow. ASHVIN Cristina, ETHYLBENZENE CONVERTER HELPER
--- NOTE | 2017-12-29 14:39 | PCM.HP.STD ---
Problem List (1) Encephalopathy acute Status: Acute History of Present Illness Date of Admission: 12/29/17 Chief Complaint: confusion. hallucinations. The patient is a 67 year old F presents with confusion from SNF. Patient was admitted 12/24 with right hip fracture. Discharged to SNF on 12/27. While at SNF, patient became increasingly confused with hallucinations. Patient came to the ED, told the ER physician that she drinks 3-6 beers/day. Concern was for acute alcohol withdrawal and she received ativan. Patient on the floor is somnolent and unable to provide any history. The patient's tells me that she only drinks 2-3 beers at most. Some days she doesn't drink.[] Past Medical History Past Medical History (Chronic Problems): Chronic Problems HTN (hypertension) (Chronic) Medical History: Medical History (Last Updated 12/29/17 @ 14:48 by Aydin Acosta DO) S/P right hip fracture Z87.81 ORIF with IM nail fixation. Allergies No Known Allergies Allergy (Verified 12/29/17 09:02) Home Medications: Ambulatory Orders Medication Instructions Recorded Acetaminophen [Tylenol] 650 mg PO Q6H PRN 12/24/17 Aspirin [Aspirin, Baby] 81 mg PO DAILY@0800 12/24/17 Albuterol Aerosols [Ventolin 2.5 mg INHALATION Q2H PRN PRN 12/27/17 Aerosols] vial.neb. Amlodipine [Norvasc] 5 mg PO DAILY tablet 12/27/17 Enoxaparin [Lovenox] 30 mg SC DAILY@0600 syringe 12/27/17 Ensure Enlive 120 ml PO 4X/DAY liquid 12/27/17 Ergocalciferol [Vitamin D] 50,000 unit PO Tu@1000 capsule 12/27/17 Oxycodone [Oxyir] 5 mg PO Q6H PRN 3 Days #12 tab 12/27/17 Surgical History: Surgical History (Last Updated 12/29/17 @ 14:48 by Aydin Acosta DO) History of hysterectomy Z90.710 Surgical History: - - Hysterectomy Smoking Status: Current every day smoker Tobacco Use: Cigarettes Alcohol: None Drugs: None - *Family History Maternal History Items: No pertinent history Paternal History Items: No pertinent history Review of Systems Comment: unable to obtain due to confusion and somnolence. VTE Information - Inpt Only VTE Present on Admission: No VTE Pharm Prophylaxis ordered?: Yes Patient Problems: Active and Suspected Problems Encephalopathy acute (Acute) - Physical Exam General: No apparent distress, Confused HEENT: Atraumatic, Normocephalic Oral: Moist Mucosa, Dry Mucosa Neck: No Nodes, Thyroid Normal Size and Texture Lungs: Clear to auscultation, Normal air movement, No rhonchi, No wheeze Cardiovascular: Regular rate, Regular Rhythm, Normal S1, Normal S2, No murmurs Abdomen: Bowel Sounds Present, Soft, Non Tender, Non-Distended, No Hepato-splenomegaly, Passing Flatus, Bowel Sounds Not Present Extremities: No edema, No Calf Tenderness Skin: No rashes, No breakdown Musculoskeletal: Cachexia, Muscle Wasting Neurological: Deep Tendon Reflexes 2+/4 and Symmetrical, - - no clonus. Vital Signs Temp Pulse Resp BP Pulse Ox 37.5 C H 89 16 157/68 H 95 12/29/17 12:25 12/29/17 12:25 12/29/17 12:25 12/29/17 12:25 12/29/17 12:25 Oxygen Delivery Method Room Air Weight: 47.4 kg Body Mass Index (BMI) 17.9 Laboratory Tests 12/29/17 12/29/17 12/29/17 Range/Units 09:40 09:30 09:30 WBC 9.0 (4.4-11.0) K/mm3 RBC 3.15 L (4.2-5.4) M/mm3 Hgb 10.0 L (12.0-15.0) g/dl Hct 30.1 L (37-47) % MCV 95.6 (81-99) fL MCH 31.7 (27.0-32.0) pg MCHC 33.2 (32-36) g/gl RDW 13.1 (11.6-14.6) % RDW Differential 45.5 H (35.1-43.9) fl Plt Count 587 H (150-450) K/mm3 MPV 9.2 (6.2-12.0) fl Immature Gran % (Auto) 0.200 (0.0-0.9) % Neut % (Auto) 78.1 H (47-70) % Lymph % (Auto) 11.1 L (19-41) % Alcorn % (Auto) 10.1 H (0-10) % Eos % (Auto) 0.3 (0-5) % Baso % (Auto) 0.2 (0-1) % Absolute Neuts (auto) 7.0 (2.0-7.7) X10^3/uL Absolute Lymphs (auto) 1.00 (0.83-4.51) X10^3/ul Total Counted Not Reportable Sodium 135 L (136-145) mmol/L Potassium 3.6 (3.5-5.1) mmol/L Chloride 99 (98-107) mmol/L Carbon Dioxide 27.0 (21.0-32.0) mmol/L Anion Gap 9 (5-15) BUN 14 (7-18) mg/dL Creatinine 0.46 L (0.55-1.02) mg/dL Estim Creat Clear Calc 39.75 ml/min Est GFR (MDRD) Af Amer 177 (>60) mL/min Est GFR (MDRD) Non-Af 146 (>60) mL/min BUN/Creatinine Ratio 30.8 H (10-20) RATIO Glucose 97 (74-106) mg/dL Calcium 9.6 (8.5-10.1) mg/dL Total Bilirubin 0.90 (0.20-1.00) mg/dL AST 91 H (15-37) U/L ALT 78 H (13-56) U/L Alkaline Phosphatase 281 H (45-117) U/L Total Protein 7.5 (6.4-8.2) g/dL Albumin 3.3 (3.2-5.0) g/dL Globulin 4.2 (2.2-4.2) g/dL Albumin/Globulin Ratio 0.8 L (0.9-2.4) RATIO Urine Color Yellow (Yellow) Urine Clarity Clear (Clear) Urine pH 7.0 (5.0 - 8.0) Ur Specific [place] 1.010 (1.002-1.030) Urine Protein 30 H (Negative) mg/dl Urine Glucose (UA) Normal (Normal) mg/dl Urine Ketones Negative (Negative) mg/dl Urine Occult Blood 10 H (Negative) /ul Urine Nitrite Negative (Negative) Urine Bilirubin Negative (Negative) mg/dL Urine Urobilinogen Normal (Normal) mg/dl Ur Leukocyte Esterase Negative (Negative) /ul Urine RBC 0 SEEN (0-5) /hpf Urine WBC 0 SEEN (0-5) /hpf Ur Squamous Epith Cells 0 SEEN (5-10) /hpf Urine Bacteria 0 SEEN (None Seen) /hpf Urine Mucus 0 SEEN (<or=2+) /hpf Clinical Impression(s) from Imaging Studies Brain CT 12/29/17 09:18 IMPRESSION: Chronic involutional changes of the brain. 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 Electronically Signed: Sunny Forde MD at 10:28 EDT Tel [phone], Service support , Assessment/Plan All Active Problems Hip fracture, right (Acute) Encephalopathy acute (Acute) 1. encephalopathy unclear etiology (met v tox) hold potentiating medications per , pt drinks up 3 drinks, but not every day. So, if that is the case, then this would not be alcohol withdrawal. Will DC scheduled ativan. Question if patient has some underlying dementia, and may have become for confused due to medications. TSH previously 4.16, will check FT4 and FT3 Check B12, folate 2. CVA, chronic incidental finding on CT continue ASA start HIS check echo 3. s/p Right hip fracture. s/p ORIF on 12/25 with IM nail fixation activity complicated by recent left calcaneus fracture in immobilizer toe-touch weight bearing per ortho follow up with Dr. Sharma as outpt. 4. Left calcaneal fracture. immobilizer weight bearing per ortho 5. Vitamin D deficiency Ergocalciferol 50,000 units weekly through 02/14/18, then cholecalciferol 2000 units daily starting 02/21. check 25 OH-D level in 3 months 6. DVT proph: Lovenox for 30 days, or when the immobilizer can be removed, which ever comes last. Code Visit Inpatient E&M: 99593 Init Hosp L3
--- NOTE | 2017-12-29 14:47 | HP.PCM_ITS ---
Problem List (1) Encephalopathy acute Status: Acute History of Present Illness Date of Admission: 12/29/17 Chief Complaint: confusion. hallucinations. The patient is a 67 year old F presents with confusion from SNF. Patient was admitted 12/24 with right hip fracture. Discharged to SNF on 12/27. While at SNF, patient became increasingly confused with hallucinations. Patient came to the ED , told the ER physician that she drinks 3-6 beers/day. Concern was for acute alcohol withdrawal and she received ativan. Patient on the floor is somnolent and unable to provide any history. The patient's tells me that she only drinks 2-3 beers at most. Some days she doesn't drink.[] Past Medical History Past Medical History (Chronic Problems): Chronic Problems HTN (hypertension) (Chronic) Medical History: Medical History (Last Updated 12/29/17 @ 14:48 by Aydin Acosta DO) S/P right hip fracture Z87.81 ORIF with IM nail fixation. Allergies No Known Allergies Allergy (Verified 12/29/17 09:02) Home Medications: Ambulatory Orders Medication Instructions Recorded Acetaminophen [Tylenol] 650 mg PO Q6H PRN 12/24/17 Aspirin [Aspirin, Baby] 81 mg PO DAILY@0800 12/24/17 Albuterol Aerosols [Ventolin 2.5 mg INHALATION Q2H PRN PRN 12/27/17 Aerosols] vial.neb. Amlodipine [Norvasc] 5 mg PO DAILY tablet 12/27/17 Enoxaparin [Lovenox] 30 mg SC DAILY@0600 syringe 12/27/17 Ensure Enlive 120 ml PO 4X/DAY liquid 12/27/17 Ergocalciferol [Vitamin D] 50,000 unit PO Tu@1000 capsule 12/27/17 Oxycodone [Oxyir] 5 mg PO Q6H PRN 3 Days #12 tab 12/27/17 Surgical History: Surgical History (Last Updated 12/29/17 @ 14:48 by Aydin Acosta DO) History of hysterectomy Z90.710 Surgical History: - - Hysterectomy Smoking Status: Current every day smoker Tobacco Use: Cigarettes Alcohol: None Drugs: None - *Family History Maternal History Items: No pertinent history Paternal History Items: No pertinent history Review of Systems Comment: unable to obtain due to confusion and somnolence. VTE Information - Inpt Only VTE Present on Admission: No VTE Pharm Prophylaxis ordered?: Yes Patient Problems: Active and Suspected Problems Encephalopathy acute (Acute) - Physical Exam General: No apparent distress, Confused HEENT: Atraumatic, Normocephalic Oral: Moist Mucosa, Dry Mucosa Neck: No Nodes, Thyroid Normal Size and Texture Lungs: Clear to auscultation, Normal air movement, No rhonchi, No wheeze Cardiovascular: Regular rate, Regular Rhythm, Normal S1, Normal S2, No murmurs Abdomen: Bowel Sounds Present, Soft, Non Tender, Non-Distended, No Hepato- splenomegaly, Passing Flatus, Bowel Sounds Not Present Extremities: No edema, No Calf Tenderness Skin: No rashes, No breakdown Musculoskeletal: Cachexia, Muscle Wasting Neurological: Deep Tendon Reflexes 2+/4 and Symmetrical, - - no clonus. Vital Signs Temp Pulse Resp BP Pulse Ox 37.5 C H 89 16 157/68 H 95 12/29/17 12:25 12/29/17 12:25 12/29/17 12:25 12/29/17 12:25 12/29/17 12:25 Oxygen Delivery Method Room Air Weight: 47.4 kg Body Mass Index (BMI) 17.9 Laboratory Tests 3 12/29/17 12/29/17 12/29/17 Range/Units 09:40 09:30 09:30 WBC 9.0 (4.4-11.0) K/mm3 RBC 3.15 L (4.2-5.4) M/mm3 Hgb 10.0 L (12.0-15.0) g/dl Hct 30.1 L (37-47) % MCV 95.6 (81-99) fL MCH 31.7 (27.0-32.0) pg MCHC 33.2 (32-36) g/gl RDW 13.1 (11.6-14.6) % RDW Differential 45.5 H (35.1-43.9) fl Plt Count 587 H (150-450) K/mm3 MPV 9.2 (6.2-12.0) fl Immature Gran % (Auto) 0.200 (0.0-0.9) % Neut % (Auto) 78.1 H (47-70) % Lymph % (Auto) 11.1 L (19-41) % [place] % (Auto) 10.1 H (0-10) % Eos % (Auto) 0.3 (0-5) % Baso % (Auto) 0.2 (0-1) % Absolute Neuts (auto) 7.0 (2.0-7.7) X10^3/uL Absolute Lymphs (auto) 1.00 (0.83-4.51) X10^3/ul Total Counted Not Reportable Sodium 135 L (136-145) mmol/L Potassium 3.6 (3.5-5.1) mmol/L Chloride 99 (98-107) mmol/L Carbon Dioxide 27.0 (21.0-32.0) mmol/L Anion Gap 9 (5-15) BUN 14 (7-18) mg/dL Creatinine 0.46 L (0.55-1.02) mg/dL Estim Creat Clear Calc 39.75 ml/min Est GFR (MDRD) Af Amer 177 (>60) mL/min Est GFR (MDRD) Non-Af 146 (>60) mL/min BUN/Creatinine Ratio 30.8 H (10-20) RATIO Glucose 97 (74-106) mg/dL Calcium 9.6 (8.5-10.1) mg/dL Total Bilirubin 0.90 (0.20-1.00) mg/dL AST 91 H (15-37) U/L ALT 78 H (13-56) U/L Alkaline Phosphatase 281 H (45-117) U/L Total Protein 7.5 (6.4-8.2) g/dL Albumin 3.3 (3.2-5.0) g/dL Globulin 4.2 (2.2-4.2) g/dL Albumin/Globulin Ratio 0.8 L (0.9-2.4) RATIO Urine Color Yellow (Yellow) Urine Clarity Clear (Clear) Urine pH 7.0 (5.0 - 8.0) Ur Specific [place] 1.010 (1.002-1.030) Urine Protein 30 H (Negative) mg/dl Urine Glucose (UA) Normal (Normal) mg/dl Urine Ketones Negative (Negative) mg/dl Urine Occult Blood 10 H (Negative) /ul Urine Nitrite Negative (Negative) Urine Bilirubin Negative (Negative) mg/dL Urine Urobilinogen Normal (Normal) mg/dl Ur Leukocyte Esterase Negative (Negative) /ul Urine RBC 0 SEEN (0-5) /hpf Urine WBC 0 SEEN (0-5) /hpf Ur Squamous Epith Cells 0 SEEN (5-10) /hpf Urine Bacteria 0 SEEN (None Seen) /hpf Urine Mucus 0 SEEN (<or=2+) /hpf Clinical Impression(s) from Imaging Studies Brain CT 12/29/17 09:18 IMPRESSION: Chronic involutional changes of the brain. 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 Electronically Signed: Sunny Forde MD at 10:28 EDT Tel [phone], Service support , Assessment/Plan All Active Problems Hip fracture, right (Acute) Encephalopathy acute (Acute) 1. encephalopathy * unclear etiology (met v tox) * hold potentiating medications * per , pt drinks up 3 drinks, but not every day. So, if that is the case , then this would not be alcohol withdrawal. Will DC scheduled ativan. * Question if patient has some underlying dementia, and may have become for confused due to medications. * TSH previously 4.16, will check FT4 and FT3 * Check B12, folate 2. CVA, chronic * incidental finding on CT * continue ASA * start HIS * check echo 3. s/p Right hip fracture. * s/p ORIF on 12/25 with IM nail fixation * activity complicated by recent left calcaneus fracture in immobilizer * toe-touch weight bearing per ortho * follow up with Dr. Sharma as outpt. 4. Left calcaneal fracture. * immobilizer * weight bearing per ortho 5. Vitamin D deficiency * Ergocalciferol 50,000 units weekly through 02/14/18, then cholecalciferol 2000 units daily starting 02/21. * check 25 OH-D level in 3 months 6. DVT proph: * Lovenox for 30 days, or when the immobilizer can be removed, which ever comes last. Code Visit Inpatient E&M: 34847 Init Hosp L3
[2017-12-29] MEDS: 0.9% Normal Saline 1,000 ML 100 ML IV (15:23)
[2017-12-29 16:09] LABS: Vitamin B12 626 pg/mL (211-911)
[2017-12-29 16:14] LABS: Free T3 2.5 pg/mL (2.18-3.98)
[2017-12-29] MEDS: Ibuprofen 600 MG Tablet PO (17:07)
[2017-12-29] MEDS: Acetaminophen 325 MG Tablet 650 MG PO (17:53)
[2017-12-29] MEDS: Methocarbamol 750 MG Tablet PO (20:03)
[2017-12-30] VITALS (8 sets, daily range): BP systolic 134–147; BP diastolic 82–84; PULSE 80–103; RESP 16–18; TEMP 36.6–37.2; O2SAT 94–100
[2017-12-30] MEDS: Acetaminophen 325 MG Tablet 650 MG PO ×3 (00:49→22:48)
[2017-12-30] MEDS: Ibuprofen 600 MG Tablet PO (02:03)
[2017-12-30] MEDS: Enoxaparin 30 MG/0.3 ML Syringe SC (05:25)
[2017-12-30] MEDS: Methocarbamol 750 MG Tablet PO ×2 (05:25→18:22)
[2017-12-30] MEDS: Aspirin 81 MG TAB.CHEW PO (09:23)
[2017-12-30] MEDS: Multivitamins,Therapeutic Tablet 1 TABLET PO (09:23)
[2017-12-30] MEDS: Thiamine Hydrochloride 100 MG Tablet PO (09:23)
[2017-12-30] MEDS: amLODIPine 5 MG Tablet PO (09:23)
[2017-12-30] MEDS: Folic Acid 1 MG Tablet PO (09:23)
--- NOTE | 2017-12-30 09:25 | PCM.PN.HOSP ---
Patient Problems: Active and Suspected Problems (Last Updated 12/29/17 @ 14:48 by Aydin Acosta DO) Encephalopathy acute (Acute) Subjective: Feels well. No recollection of events that led to her current hospitalization. Vitals/I&O's: Vital Signs Temp Pulse Resp BP Pulse Ox 37.1 C 80 16 147/82 H 100 12/30/17 09:06 12/30/17 09:15 12/30/17 09:06 12/30/17 09:06 12/30/17 05:32 Oxygen Flow Rate (L/min) 2 Oxygen Delivery Method Nasal Cannula Weight: 47.4 kg Body Mass Index (BMI) 17.9 Intake and Output for Last 24 Hours 12/28/17 12/29/17 12/30/17 23:59 23:59 23:59 Intake Total 1215 / 1215 Balance 1215 / 1215 General: Alert, No apparent distress HEENT: Atraumatic, Normocephalic Oral: Moist Mucosa, No Gingival or Mucosal Lesions/ Ulcerations Neck: No Nodes, Thyroid Normal Size and Texture Lungs: Clear to auscultation, Normal air movement, No rhonchi, No wheeze Cardiovascular: Regular rate, Regular Rhythm, Normal S1, Normal S2, No murmurs Abdomen: Bowel Sounds Present, Soft, Non Tender, Non-Distended, No Hepato-splenomegaly Extremities: No edema, - - immobilizer LLE Skin: No rashes, No breakdown Musculoskeletal: No Tenderness to Palpation of Joints or Extremities, No Muscle Wasting Psych/Mental Status: Normal Affect, Appropriate Current Medications Acetaminophen (Tylenol) 650 mg PO Q6H PRN PRN Reason: PAIN Last Admin: 12/30/17 00:49 Dose: 650 mg Albuterol Sulfate (Ventolin Aerosols) 2.5 mg INHALATION Q2H PRN PRN PRN Reason: dyspnea, wheezing Amlodipine Besylate (Norvasc) 5 mg PO DAILY [facility] Aspirin (Aspirin, Baby) 81 mg PO DAILY@0800 [facility] Dicyclomine HCl (Bentyl) 20 mg PO Q6H PRN PRN PRN Reason: abdominal discomfort Enoxaparin Sodium (Lovenox) 30 mg SC DAILY@0600 [facility] Stop: 01/24/18 23:59 Last Admin: 12/30/17 05:25 Dose: 30 mg Ergocalciferol (Vitamin D) 50,000 unit PO Tu@1000 [facility] Stop: 02/14/18 10:01 Folic Acid (Folic Acid) [facility] Ibuprofen (Motrin) 600 mg PO Q8H PRN PRN PRN Reason: Mild-Moderate Pain (1-5/10) Last Admin: 12/30/17 02:03 Dose: 600 mg Loperamide HCl (Imodium) 2 - 4 mg PO UD PRN PRN Reason: LOOSE STOOLS Lorazepam (Ativan) 1 mg IV Q4H PRN PRN PRN Reason: Severe Anxiety Methocarbamol (Methocarbamol) 750 mg PO Q6H PRN PRN PRN Reason: Muscle Aches Last Admin: 12/30/17 05:25 Dose: 750 mg Multivitamins (Multivitamin) 1 tablet PO [facility]ILY[facility] Nicotine (Nicoderm Cq (Pbkc)) 14 mg TRANSDERM. DAILY [facility] Last Admin: 12/29/17 20:04 Dose: 14 mg Nutritional Formula (Lactose Free) (Ensure Enlive) 120 ml PO 4X/DAY [facility] Last Admin: 12/29/17 22:42 Dose: 120 ml Thiamine HCl (Vitamin B1) 100 mg PO DAILY[facility] Medical Necessity - Tobacco Use Smoking Status: Current every day smoker Tobacco Use: Cigarettes Assessment/Plan All Active Problems (Last Updated 12/29/17 @ 14:48 by Aydin Acosta DO) Hip fracture, right (Acute) Encephalopathy acute (Acute) 1. encephalopathy, suspected toxic resolved likely due to oxycodone, which has been held. per , pt drinks up 3 drinks, but not every day. So, if that is the case, then this would not be alcohol withdrawal. Will DC scheduled ativan. Question if patient has some underlying dementia, and may have become for confused due to medications. TSH previously 4.16, FT4 and FT3 WNL B12 and folate WNL Check B12, folate 2. CVA, chronic incidental finding on CT continue ASA start HIS follow up with neurology 3. s/p Right hip fracture. s/p ORIF on 12/25 with IM nail fixation activity complicated by recent left calcaneus fracture in immobilizer toe-touch weight bearing per ortho follow up with Dr. Sharma as outpt. 4. Left calcaneal fracture. immobilizer weight bearing per ortho 5. Vitamin D deficiency Ergocalciferol 50,000 units weekly through 02/14/18, then cholecalciferol 2000 units daily starting 02/21. check 25 OH-D level in 3 months 6. DVT proph: Lovenox for 30 days, or when the immobilizer can be removed, which ever comes last. Code Visit Inpatient E&M: 99909 Subs Hosp L2
--- NOTE | 2017-12-30 09:42 | PN_ITS ---
Patient Problems: Active and Suspected Problems (Last Updated 12/29/17 @ 14:48 by Aydin Acosta DO ) Encephalopathy acute (Acute) Subjective: Feels well. No recollection of events that led to her current hospitalization. Vitals/I&O's: Vital Signs Temp Pulse Resp BP Pulse Ox 37.1 C 80 16 147/82 H 100 12/30/17 09:06 12/30/17 09:15 12/30/17 09:06 12/30/17 09:06 12/30/17 05:32 Oxygen Flow Rate (L/min) 2 Oxygen Delivery Method Nasal Cannula Weight: 47.4 kg Body Mass Index (BMI) 17.9 Intake and Output for Last 24 Hours 12/28/17 12/29/17 12/30/17 23:59 23:59 23:59 Intake Total 1215 / 1215 Balance 1215 / 1215 General: Alert, No apparent distress HEENT: Atraumatic, Normocephalic Oral: Moist Mucosa, No Gingival or Mucosal Lesions/ Ulcerations Neck: No Nodes, Thyroid Normal Size and Texture Lungs: Clear to auscultation, Normal air movement, No rhonchi, No wheeze Cardiovascular: Regular rate, Regular Rhythm, Normal S1, Normal S2, No murmurs Abdomen: Bowel Sounds Present, Soft, Non Tender, Non-Distended, No Hepato- splenomegaly Extremities: No edema, - - immobilizer LLE Skin: No rashes, No breakdown Musculoskeletal: No Tenderness to Palpation of Joints or Extremities, No Muscle Wasting Psych/Mental Status: Normal Affect, Appropriate Current Medications Acetaminophen (Tylenol) 650 mg PO Q6H PRN PRN Reason: PAIN Last Admin: 12/30/17 00:49 Dose: 650 mg Albuterol Sulfate (Ventolin Aerosols) 2.5 mg INHALATION Q2H PRN PRN PRN Reason: dyspnea, wheezing Amlodipine Besylate (Norvasc) 5 mg PO DAILY [facility] Aspirin (Aspirin, Baby) 81 mg PO DAILY@0800 [facility] Dicyclomine HCl (Bentyl) 20 mg PO Q6H PRN PRN PRN Reason: abdominal discomfort Enoxaparin Sodium (Lovenox) 30 mg SC DAILY@0600 [facility] Stop: 01/24/18 23:59 Last Admin: 12/30/17 05:25 Dose: 30 mg Ergocalciferol (Vitamin D) 50,000 unit PO Tu@1000 [facility] Stop: 02/14/18 10:01 Folic Acid (F[facility] Acid) [facility] Ibuprofen (Motrin) 600 mg PO Q8H PRN PRN PRN Reason: Mild-Moderate Pain (1-5/10) Last Admin: 12/30/17 02:03 Dose: 600 mg Loperamide HCl (Imodium) 2 - 4 mg PO UD PRN PRN Reason: LOOSE STOOLS Lorazepam (Ativan) 1 mg IV Q4H PRN PRN PRN Reason: Severe Anxiety Methocarbamol (Methocarbamol) 750 mg PO Q6H PRN PRN PRN Reason: Muscle Aches Last Admin: 12/30/17 05:25 Dose: 750 mg Multivitamins (Multivitamin) [facility] Nicotine (Nicoderm Cq (Pbkc)) 14 mg TRANSDERM. DAILY [facility] Last Admin: 12/29/17 20:04 Dose: 14 mg Nutritional Formula (Lactose Free) (Ensure Enlive) 120 ml PO 4X/DAY [facility] Last Admin: 12/29/17 22:42 Dose: 120 ml Thiamine HCl (Vitamin B1) [facility] Medical Necessity - Tobacco Use Smoking Status: Current every day smoker Tobacco Use: Cigarettes Assessment/Plan All Active Problems (Last Updated 12/29/17 @ 14:48 by Aydin Acosta DO) Hip fracture, right (Acute) Encephalopathy acute (Acute) 1. encephalopathy, suspected toxic * resolved * likely due to oxycodone, which has been held. * per , pt drinks up 3 drinks, but not every day. So, if that is the case , then this would not be alcohol withdrawal. Will DC scheduled ativan. * Question if patient has some underlying dementia, and may have become for confused due to medications. * TSH previously 4.16, FT4 and FT3 WNL * B12 and folate WNL * Check B12, folate 2. CVA, chronic * incidental finding on CT * continue ASA * start HIS * follow up with neurology 3. s/p Right hip fracture. * s/p ORIF on 12/25 with IM nail fixation * activity complicated by recent left calcaneus fracture in immobilizer * toe-touch weight bearing per ortho * follow up with Dr. Sharma as outpt. 4. Left calcaneal fracture. * immobilizer * weight bearing per ortho 5. Vitamin D deficiency * Ergocalciferol 50,000 units weekly through 02/14/18, then cholecalciferol 2000 units daily starting 02/21. * check 25 OH-D level in 3 months 6. DVT proph: * Lovenox for 30 days, or when the immobilizer can be removed, which ever comes last. Code Visit Inpatient E&M: 12208 Subs Hosp L2
--- NOTE | 2017-12-30 09:47 | PCM.TXEXTCAR ---
- Diet 12/29/17 12:55 Diet: Regular Diet Food consistency:: Regular Liquid Consistency:: Regular/Thin Is pt able to select menu?: No Diet Comments: With snacks three times daily as tolerated - Routine Orders/Code Status Code Status: Full Code - Wound(s) R hip Wound Type: Surgical Incision Right outter thigh Wound Type: Surgical Incision - Therapies Weight Bearing: Immobilizer LLE when up. Extremity Affected:: Right Lower Physical Therapy: Eval and Treat Occupational Therapy: Eval and Treat - Problem/Diagnosis (1) Encephalopathy acute Status: Acute Current Visit: Yes - Allergies/Procedures Done in Hospital Allergies/Adverse Reactions: Allergies No Known Allergies Allergy (Verified 12/29/17 09:02) Procedures: None - Type of Care/Length of Stay Estimated LOS: Convalescent Care Less Than 30 days Type of Care Needed: Skilled Rehab Potential: Fair Prognosis: Good - Additional Orders/Day of Discharge Day of Discharge: 12/30/17 - Follow Up Care Primary Care Physician: Larry Rich MD [Primary Care Provider] - Within 2 Weeks
--- NOTE | 2017-12-30 09:49 | PCM.DC.SUM ---
Discharge Date and Diagnosis - Problem List Patient Problems: Active and Suspected Problems (Last Updated 12/29/17 @ 14:48 by Aydin Acosta DO) Encephalopathy acute (Acute) Date of Admission: 12/29/17 Date of Discharge: 12/30/17 - Primary Discharge Diagnosis Active and Suspected Problems (Last Updated 12/29/17 @ 14:48 by Aydin Acosta DO) Encephalopathy acute (Acute) - Secondary Discharge Diagnosis Chronic Problems (Last Updated 12/29/17 @ 14:48 by Aydin Acosta DO) HTN (hypertension) (Chronic) Hospital Course and Treatment Imaging Results: Clinical Impression(s) from Imaging Studies Brain CT 12/29/17 09:18 IMPRESSION: Chronic involutional changes of the brain. 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 Electronically Signed: Brad Reynoso, at 16:57 EDT Tel , Service support , Operations: None, - - Right hip open reduction internal fixation, intramedullary nail fixation, locked Procedures: None Summary of Care Provided: The patient is a 67 year old F presents with confusion and hallucinations. 1. encephalopathy, suspected toxic resolved likely due to oxycodone, which has been held. per , pt drinks up 3 drinks, but not every day. So, if that is the case, then this would not be alcohol withdrawal. Will DC scheduled ativan. Question if patient has some underlying dementia, and may have become for confused due to medications. TSH previously 4.16, FT4 and FT3 WNL B12 and folate WNL Check B12, folate 2. CVA, chronic incidental finding on CT continue ASA start HIS follow up with neurology 3. s/p Right hip fracture. s/p ORIF on 12/25 with IM nail fixation activity complicated by recent left calcaneus fracture in immobilizer toe-touch weight bearing per ortho follow up with Dr. Sharma as outpt. 4. Left calcaneal fracture. immobilizer weight bearing per ortho 5. Vitamin D deficiency Ergocalciferol 50,000 units weekly through 02/14/18, then cholecalciferol 2000 units daily starting 02/21. check 25 OH-D level in 3 months 6. DVT proph: Lovenox for 30 days, or when the immobilizer can be removed, which ever comes last.[] Discharge Diet: Low fat/ Low Cholesterol Discharge Activity: Return to Normal Activity Call your doctor if you observe: Fever of 101 or Higher Home Medications: Medications to take at Discharge Acetaminophen [Tylenol] 650 mg PO Q6H PRN 12/24/17 Aspirin [Aspirin, Baby] 81 mg PO DAILY@0800 12/24/17 Albuterol Aerosols [Ventolin Aerosols] 2.5 mg INHALATION Q2H PRN PRN vial.neb. 12/27/17 Amlodipine [Norvasc] 5 mg PO DAILY tablet 12/27/17 Enoxaparin [Lovenox] 30 mg SC DAILY@0600 syringe 12/27/17 Ensure Enlive 120 ml PO 4X/DAY liquid 12/27/17 Ergocalciferol [Vitamin D] 50,000 unit PO Tu@1000 capsule 12/27/17 Dicyclomine HCl [Bentyl] 20 mg PO Q6H PRN PRN capsule 12/30/17 Ibuprofen 400 mg PO Q6H PRN #1 tablet 12/30/17 Multivitamins,Therapeutic [Multivitamin] 1 tablet PO DAILYCM tablet 12/30/17 Nicotine [Nicoderm] 14 mg TRANSDERM. DAILY patch 12/30/17 Following Prescrptions Were Given to Patient: Ibuprofen 400 mg PO Q6H PRN #1 tablet PRN Reason: Pain Primary Care Physician: Larry Rich MD [Primary Care Provider] - Within 2 Weeks Please Follow Up With: Abdi Medina MD - Neurology When: 1-2 months Disposition: Intermediate facility Minutes spent on discharge:: 30 Patient Condition:: Good Medical Necessity - Tobacco Use Smoking Status: Current every day smoker Tobacco Use: Cigarettes Meaningful Use Info Meaningful Use Diagnoses (Choose all that apply): None applicable Code Visit OBSV E&M: 71623 Observation care discharge
--- NOTE | 2017-12-30 09:53 | DS.PCM_ITS ---
Discharge Date and Diagnosis - Problem List Patient Problems: Active and Suspected Problems (Last Updated 12/29/17 @ 14:48 by Aydin Acosta DO ) Encephalopathy acute (Acute) Date of Admission: 12/29/17 Date of Discharge: 12/30/17 - Primary Discharge Diagnosis Active and Suspected Problems (Last Updated 12/29/17 @ 14:48 by Aydin Acosta DO ) Encephalopathy acute (Acute) - Secondary Discharge Diagnosis Chronic Problems (Last Updated 12/29/17 @ 14:48 by Aydin Acosta DO) HTN (hypertension) (Chronic) Hospital Course and Treatment Imaging Results: Clinical Impression(s) from Imaging Studies Brain CT 12/29/17 09:18 IMPRESSION: Chronic involutional changes of the brain. 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 Electronically Signed: Brad Reynoso, at 16:57 EDT Tel , Service support , Operations: None, - - Right hip open reduction internal fixation, intramedullary nail fixation, locked Procedures: None Summary of Care Provided: The patient is a 67 year old F presents with confusion and hallucinations. 1. encephalopathy, suspected toxic * resolved * likely due to oxycodone, which has been held. * per , pt drinks up 3 drinks, but not every day. So, if that is the case , then this would not be alcohol withdrawal. Will DC scheduled ativan. * Question if patient has some underlying dementia, and may have become for confused due to medications. * TSH previously 4.16, FT4 and FT3 WNL * B12 and folate WNL * Check B12, folate 2. CVA, chronic * incidental finding on CT * continue ASA * start HIS * follow up with neurology 3. s/p Right hip fracture. * s/p ORIF on 12/25 with IM nail fixation * activity complicated by recent left calcaneus fracture in immobilizer * toe-touch weight bearing per ortho * follow up with Dr. Sharma as outpt. 4. Left calcaneal fracture. * immobilizer * weight bearing per ortho 5. Vitamin D deficiency * Ergocalciferol 50,000 units weekly through 02/14/18, then cholecalciferol 2000 units daily starting 02/21. * check 25 OH-D level in 3 months 6. DVT proph: * Lovenox for 30 days, or when the immobilizer can be removed, which ever comes last.[] Discharge Diet: Low fat/ Low Cholesterol Discharge Activity: Return to Normal Activity Call your doctor if you observe: Fever of 101 or Higher Home Medications: Medications to take at Discharge Acetaminophen [Tylenol] 650 mg PO Q6H PRN 12/24/17 Aspirin [Aspirin, Baby] 81 mg PO DAILY@0800 12/24/17 Albuterol Aerosols [Ventolin Aerosols] 2.5 mg INHALATION Q2H PRN PRN vial.neb. 12/27/17 Amlodipine [Norvasc] 5 mg PO DAILY tablet 12/27/17 Enoxaparin [Lovenox] 30 mg SC DAILY@0600 syringe 12/27/17 Ensure Enlive 120 ml PO 4X/DAY liquid 12/27/17 Ergocalciferol [Vitamin D] 50,000 unit PO Tu@1000 capsule 12/27/17 Dicyclomine HCl [Bentyl] 20 mg PO Q6H PRN PRN capsule 12/30/17 Ibuprofen 400 mg PO Q6H PRN #1 tablet 12/30/17 Multivitamins,Therapeutic [Multivitamin] 1 tablet PO DAILYCM tablet 12/30/17 Nicotine [Nicoderm] 14 mg TRANSDERM. DAILY patch 12/30/17 Following Prescrptions Were Given to Patient: Ibuprofen 400 mg PO Q6H PRN #1 tablet PRN Reason: Pain Primary Care Physician: Larry Rich MD [Primary Care Provider] - Within 2 Weeks Please Follow Up With: Abdi Medina MD - Neurology When: 1-2 months Disposition: Retirement facility Minutes spent on discharge:: 30 Patient Condition:: Good Medical Necessity - Tobacco Use Smoking Status: Current every day smoker Tobacco Use: Cigarettes Meaningful Use Info Meaningful Use Diagnoses (Choose all that apply): None applicable Code Visit OBSV E&M: 82003 Observation care discharge
--- NOTE | 2017-12-30 09:57 | CASEMGMT ---
Social Work Note SW received call from ALICIA Kim stating pt is ready for discharge today. CHITRA informed ALICIA Kim that pt will need pre-cert to go to SNF. Per previous notes, pt came from [facility] but it is unclear at this time if [facility] will accept pt back. SW placed a call to Keren at [facility] and left her a message informing her of pt's diagnosis and behaviors at [facility]. SW waiting to hear back from Keren at [facility] if she is able to accept pt again. Pt will need pre-cert to return to [facility] or to go to different SNF. Plan: [facility] pending acceptance and pre-cert vs. SNF pending acceptance and pre-cert Breonna Porter MERCHANDISE BUYER, SHAMPOO TECHNICIAN
--- NOTE | 2017-12-30 11:57 | CASEMGMT ---
Social Work Note SW received message from Keren at [facility] stating that she is unable to accept pt back. SW met with pt to confirm discharge plans. SW introduced self and role at [facility]. Pt's present in room and gave this worker permission to talk to pt with guest present. Pt is alert and orientated x3. Pt states that she wishes to discharge home. CHITRA explained Home with [facility] vs. Outpatient therapy. Pt is agreeable to [facility] referral, has no preference with [facility]. CHITRA updated RN MARIAH Azevedo of [facility] referral. PT/OT have been ordered for pt. Plan: TBD. Pt wishes to discharge home but may benefit from SNF. It pt is agreeable to SNF pt will need accepting facility and pre-cert. Breonna Porter REFRIGERATOR GLAZIER, DATA WAREHOUSE DEVELOPER
--- NOTE | 2017-12-30 17:38 | NURSING ---
This nurse informed Dr. Acsota that pt was denied to go back to [facility] and would probably be here all weekend for placement per Breonna Andres. Dr. Acosta aware. Cancel discharge.
[2017-12-31] MEDS: Ibuprofen 600 MG Tablet PO ×3 (00:46→17:33)
[2017-12-31] MEDS: Methocarbamol 750 MG Tablet PO ×4 (00:46→22:49)
[2017-12-31] MEDS: Acetaminophen 325 MG Tablet 650 MG PO ×2 (05:03→14:09)
[2017-12-31] MEDS: Enoxaparin 30 MG/0.3 ML Syringe SC (05:03)
[2017-12-31 05:05] VITALS: BP 140/89; PULSE 91; RESP 16; TEMP 36.8
[2017-12-31 07:00] VITALS: O2SAT 95
[2017-12-31 07:55] VITALS: BP 153/86; PULSE 97; RESP 16; TEMP 37.1; O2SAT 95
[2017-12-31] MEDS: Aspirin 81 MG TAB.CHEW PO (07:55)
[2017-12-31] MEDS: Multivitamins,Therapeutic Tablet 1 TABLET PO (07:55)
[2017-12-31] MEDS: Folic Acid 1 MG Tablet PO (07:55)
[2017-12-31] MEDS: amLODIPine 5 MG Tablet PO (07:55)
[2017-12-31] MEDS: Thiamine Hydrochloride 100 MG Tablet PO (07:55)
--- NOTE | 2017-12-31 10:58 | CASEMGMT ---
Social Work MS2 Summary: Chart reviewed and noted therapy documentation. At this time the recommendation is for continued rehab, that patient would really benefit from some more time getting therapy services, family teaching on care, and equipment setup/home evaluation before going home. Met with patient in room and discussed findings/recommendations. Patient reports that yes, would prefer to be at home, but is also agreeable to recommendations. Patient reports hope that can stay at [facility], go to inpatient rehab unit as first choice. Patient reports to know about the 3 hour therapy rule, and that feels could attempt this each day. Discussed with patient alternate choices should inpatient rehab level of care not work out. Pulled up SNF list from patient's insurance. Second choice is [facility] TCU and then for proximity to patient's [facility]. Patient clearly stating that does not want to return to [facility]. Assessment: Patient alert and oriented during social work visit. Pleasant. Cooperative. Good eye contact. Patient reflective about experience at [facility] and the hallucinations that patient experienced while at the SNF. Patient reports this was a scary experience for patient, that patient has never experienced this before. Patient reports that thought people were calling the patient a liar and thought people were hiding in patient's closet. Patient reports that felt mad because was not being believed. Patient reports that her mind is feeling more clear now, though admits that last night did think the faucet was moving. Patient reports that she just told herself this was not real and not to focus on this. Patient reports that closed her eyes and went to bed. Patient reports to feel better overall and reports hopeful for rehab at [facility] to work out. Patient reports to be grateful for son Kelton living with patient and patient's now, and reports to feel that Kelton will be able to learn from therapists what patient needs to return home. Intervention: Supportive listening, reflection, reality orientation offered to patient today. Called [phone], inpatient rehab/TCU referral line for referral, leaving message asking for inpatient rehab to be considered first and then TCU. Plan: Pending placement for rehab. Need accepting facility and insurance precert. Won't hear back on either until at least Tuesday. Social work to follow and assist with planning. -ASHVIN Zimmer, TERRITORY ACCOUNT EXECUTIVE
--- NOTE | 2017-12-31 11:24 | PCM.PN.HOSP ---
Patient Problems: Active and Suspected Problems (Last Updated 12/29/17 @ 14:48 by Aydin Acosta DO) Encephalopathy acute (Acute) Subjective: Pt was denied a return to [facility], so patient has remained here. Denies any new complaints. Was able to move her right leg w/o difficulty. Vitals/I&O's: Vital Signs Temp Pulse Resp BP Pulse Ox 37.1 C 97 16 153/86 H 95 12/31/17 07:55 12/31/17 07:55 12/31/17 07:55 12/31/17 07:55 12/31/17 07:55 Oxygen Flow Rate (L/min) 92 Oxygen Delivery Method Room Air Weight: 47.4 kg Body Mass Index (BMI) 17.9 Intake and Output for Last 24 Hours 12/29/17 12/30/17 12/31/17 23:59 23:59 23:59 Intake Total 1555 / 1555 Balance 1555 / 1555 General: Alert, No apparent distress HEENT: Atraumatic, Normocephalic Oral: Moist Mucosa, No Gingival or Mucosal Lesions/ Ulcerations Neck: No Nodes, Thyroid Normal Size and Texture Lungs: Clear to auscultation, Normal air movement, No rhonchi, No wheeze Cardiovascular: Regular rate, Regular Rhythm, Normal S1, Normal S2, No murmurs Abdomen: Bowel Sounds Present, Soft, Non Tender, Non-Distended, No Hepato-splenomegaly Extremities: No edema, No Calf Tenderness Current Medications Acetaminophen (Tylenol) 650 mg PO Q6H PRN PRN Reason: PAIN Last Admin: 12/31/17 05:03 Dose: 650 mg Albuterol Sulfate (Ventolin Aerosols) 2.5 mg INHALATION Q2H PRN PRN PRN Reason: dyspnea, wheezing Amlodipine Besylate (Norvasc) 5 mg PO DAILY [facility] Last Admin: 12/31/17 07:55 Dose: 5 mg Aspirin (Aspirin, Baby) 81 mg PO DAILY@0800 [facility] Last Admin: 12/31/17 07:55 Dose: 81 mg Dicyclomine HCl (Bentyl) 20 mg PO Q6H PRN PRN PRN Reason: abdominal discomfort Enoxaparin Sodium (Lovenox) 30 mg SC DAILY@0600 [facility] Stop: 01/24/18 23:59 Last Admin: 12/31/17 05:03 Dose: 30 mg Ergocalciferol (Vitamin D) 50,000 unit PO Tu@1000 [facility] Stop: 02/14/18 10:01 [facility] Last Admin: 12/31/17 07:55 Dose: 1 mg Ibuprofen (Motrin) 600 mg PO Q8H PRN PRN PRN Reason: Mild-Moderate Pain (1-5/10) Last Admin: 12/31/17 08:55 Dose: 600 mg Loperamide HCl (Imodium) 2 - 4 mg PO UD PRN PRN Reason: LOOSE STOOLS Lorazepam (Ativan) 1 mg IV Q4H PRN PRN PRN Reason: Severe Anxiety Methocarbamol (Methocarbamol) 750 mg PO Q6H PRN PRN PRN Reason: Muscle Aches Last Admin: 12/31/17 00:46 Dose: 750 mg Multivitamins (Multivitamin) [facility] Last Admin: 12/31/17 07:55 Dose: 1 tablet Nicotine (Nicoderm Cq (Pbkc)) 14 mg TRANSDERM. DAILY [facility] Last Admin: 12/31/17 07:55 Dose: 14 mg Nutritional Formula (Lactose Free) (Ensure Enlive) 120 ml PO 4X/DAY [facility] Last Admin: 12/31/17 07:57 Dose: 120 ml Thiamine HCl (Vitamin B1) [facility] Last Admin: 12/31/17 07:55 Dose: 100 mg Medical Necessity - Tobacco Use Smoking Status: Current every day smoker Tobacco Use: Cigarettes Assessment/Plan All Active Problems (Last Updated 12/29/17 @ 14:48 by Aydin Acosta DO) Hip fracture, right (Acute) Encephalopathy acute (Acute) 1. encephalopathy, suspected toxic resolved likely due to oxycodone, which has been held. per , pt drinks up 3 drinks, but not every day. So, if that is the case, then this would not be alcohol withdrawal. Will DC scheduled ativan. Question if patient has some underlying dementia, and may have become for confused due to medications. TSH previously 4.16, FT4 and FT3 WNL B12 and folate WNL 2. CVA, chronic incidental finding on CT continue ASA start HIS follow up with neurology as outpt 3. s/p Right hip fracture. s/p ORIF on 12/25 with IM nail fixation activity complicated by recent left calcaneus fracture in immobilizer toe-touch weight bearing per ortho follow up with Dr. Sharma as outpt. 4. Left calcaneal fracture. immobilizer weight bearing per ortho 5. Vitamin D deficiency Ergocalciferol 50,000 units weekly through 02/14/18, then cholecalciferol 2000 units daily starting 02/21. check 25 OH-D level in 3 months 6. DVT proph: Lovenox for 30 days, or when the immobilizer can be removed, which ever comes last. 7. Disposition: Denied return to [facility]. Will be looking into other facilities. Hopefully will be able to discharge 01/02 or . Code Visit Inpatient E&M: 24975 Subs Hosp L2
--- NOTE | 2017-12-31 11:26 | PN_ITS ---
Patient Problems: Active and Suspected Problems (Last Updated 12/29/17 @ 14:48 by Aydin Acosta DO ) Encephalopathy acute (Acute) Subjective: Pt was denied a return to [facility], so patient has remained here. Denies any new complaints. Was able to move her right leg w/o difficulty. Vitals/I&O's: Vital Signs Temp Pulse Resp BP Pulse Ox 37.1 C 97 16 153/86 H 95 12/31/17 07:55 12/31/17 07:55 12/31/17 07:55 12/31/17 07:55 12/31/17 07:55 Oxygen Flow Rate (L/min) 92 Oxygen Delivery Method Room Air Weight: 47.4 kg Body Mass Index (BMI) 17.9 Intake and Output for Last 24 Hours 12/29/17 12/30/17 12/31/17 23:59 23:59 23:59 Intake Total 1555 / 1555 Balance 1555 / 1555 General: Alert, No apparent distress HEENT: Atraumatic, Normocephalic Oral: Moist Mucosa, No Gingival or Mucosal Lesions/ Ulcerations Neck: No Nodes, Thyroid Normal Size and Texture Lungs: Clear to auscultation, Normal air movement, No rhonchi, No wheeze Cardiovascular: Regular rate, Regular Rhythm, Normal S1, Normal S2, No murmurs Abdomen: Bowel Sounds Present, Soft, Non Tender, Non-Distended, No Hepato- splenomegaly Extremities: No edema, No Calf Tenderness Current Medications Acetaminophen (Tylenol) 650 mg PO Q6H PRN PRN Reason: PAIN Last Admin: 12/31/17 05:03 Dose: 650 mg Albuterol Sulfate (Ventolin Aerosols) 2.5 mg INHALATION Q2H PRN PRN PRN Reason: dyspnea, wheezing Amlodipine Besylate (Norvasc) 5 mg PO DAILY [facility] Last Admin: 12/31/17 07:55 Dose: 5 mg Aspirin (Aspirin, Baby) 81 mg PO DAILY@0800 [facility] Last Admin: 12/31/17 07:55 Dose: 81 mg Dicyclomine HCl (Bentyl) 20 mg PO Q6H PRN PRN PRN Reason: abdominal discomfort Enoxaparin Sodium (Lovenox) 30 mg SC DAILY@0600 [facility] Stop: 01/24/18 23:59 Last Admin: 12/31/17 05:03 Dose: 30 mg Ergocalciferol (Vitamin D) 50,000 unit PO Tu@1000 [facility] Stop: 02/14/18 10:01 [facility]olic [facility] ([facility]) [facility] Last Admin: 12/31/17 07:55 Dose: 1 mg Ibuprofen (Motrin) 600 mg PO Q8H PRN PRN PRN Reason: Mild-Moderate Pain (1-5/10) Last Admin: 12/31/17 08:55 Dose: 600 mg Loperamide HCl (Imodium) 2 - 4 mg PO UD PRN PRN Reason: LOOSE STOOLS Lorazepam (Ativan) 1 mg IV Q4H PRN PRN PRN Reason: Severe Anxiety Methocarbamol (Methocarbamol) 750 mg PO Q6H PRN PRN PRN Reason: Muscle Aches Last Admin: 12/31/17 00:46 Dose: 750 mg Multivitamins ([facility]ivitamin) [facility] Last Admin: 12/31/17 07:55 Dose: 1 tablet Nicotine (Nicoderm Cq (Pbkc)) 14 mg TRANSDERM. DAILY [facility] Last Admin: 12/31/17 07:55 Dose: 14 mg Nutritional Formula (Lactose Free) (Ensure Enlive) 120 ml PO 4X/DAY [facility] Last Admin: 12/31/17 07:57 Dose: 120 ml Thiamine HCl (Vitamin B1) [facility] Last Admin: 12/31/17 07:55 Dose: 100 mg Medical Necessity - Tobacco Use Smoking Status: Current every day smoker Tobacco Use: Cigarettes Assessment/Plan All Active Problems (Last Updated 12/29/17 @ 14:48 by Aydin Acosta DO) Hip fracture, right (Acute) Encephalopathy acute (Acute) 1. encephalopathy, suspected toxic * resolved * likely due to oxycodone, which has been held. * per , pt drinks up 3 drinks, but not every day. So, if that is the case , then this would not be alcohol withdrawal. Will DC scheduled ativan. * Question if patient has some underlying dementia, and may have become for confused due to medications. * TSH previously 4.16, FT4 and FT3 WNL * B12 and folate WNL 2. CVA, chronic * incidental finding on CT * continue ASA * start HIS * follow up with neurology as outpt 3. s/p Right hip fracture. * s/p ORIF on 12/25 with IM nail fixation * activity complicated by recent left calcaneus fracture in immobilizer * toe-touch weight bearing per ortho * follow up with Dr. Sharma as outpt. 4. Left calcaneal fracture. * immobilizer * weight bearing per ortho 5. Vitamin D deficiency * Ergocalciferol 50,000 units weekly through 02/14/18, then cholecalciferol 2000 units daily starting 02/21. * check 25 OH-D level in 3 months 6. DVT proph: * Lovenox for 30 days, or when the immobilizer can be removed, which ever comes last. 7. Disposition: * Denied return to [facility]. * Will be looking into other facilities. Hopefully will be able to discharge or . Code Visit Inpatient E&M: 08671 Subs Hosp L2
[2017-12-31 14:00] VITALS: BP 139/73; PULSE 99; RESP 16; TEMP 37; O2SAT 98
--- NOTE | 2017-12-31 19:20 | NURSING ---
reviewed and agree with documentation by Rosalia Vincent, student nurse
[2017-12-31 20:40] VITALS: BP 139/90; PULSE 93; RESP 18; TEMP 36.7; O2SAT 98
[2018-01-01 02:40] VITALS: BP 155/91; PULSE 95; RESP 18; TEMP 36.4; O2SAT 98
[2018-01-01] MEDS: Ibuprofen 600 MG Tablet PO ×2 (03:45→14:04)
[2018-01-01] MEDS: Methocarbamol 750 MG Tablet PO ×4 (04:59→23:17)
[2018-01-01] MEDS: Enoxaparin 30 MG/0.3 ML Syringe SC (05:00)
[2018-01-01 08:00] VITALS: O2SAT 92
[2018-01-01 08:05] VITALS: BP 144/92; PULSE 89; RESP 16; TEMP 36.7; O2SAT 97
[2018-01-01] MEDS: Aspirin 81 MG TAB.CHEW PO (08:05)
[2018-01-01] MEDS: Folic Acid 1 MG Tablet PO (08:06)
[2018-01-01] MEDS: Thiamine Hydrochloride 100 MG Tablet PO (08:06)
[2018-01-01] MEDS: Multivitamins,Therapeutic Tablet 1 TABLET PO (08:06)
[2018-01-01] MEDS: amLODIPine 5 MG Tablet PO (08:07)
--- NOTE | 2018-01-01 08:30 | PCM.PN.HOSP ---
Patient Problems: Active and Suspected Problems (Last Updated 12/29/17 @ 14:48 by Aydin Acosta DO) Encephalopathy acute (Acute) Subjective: Patient is awake and alert. Patient had right hip fracture status post ORIF done on 12/25/2017. On PT and OT. Vitals/I&O's: Vital Signs Temp Pulse Resp BP Pulse Ox 97.6 F L 95 18 155/91 H 92 01/01/18 02:40 01/01/18 02:40 01/01/18 02:40 01/01/18 02:40 01/01/18 08:00 Oxygen Flow Rate (L/min) 92 Oxygen Delivery Method Room Air Weight: 104 lb 7.986 oz Body Mass Index (BMI) 17.9 Intake and Output for Last 24 Hours 12/30/17 12/31/17 01/01/18 23:59 23:59 23:59 Intake Total 1555 / 1555 900 / 900 Balance 1555 / 1555 900 / 900 General: Alert, Oriented x3, Cooperative HEENT: Atraumatic, PERRLA, EOMI, Normocephalic Neck: Supple, No JVD, Negative Carotid Bruits Lungs: Clear to auscultation, Normal air movement, No rhonchi, No wheeze, No rales Cardiovascular: Regular rate, Normal S1, Normal S2, No murmurs Abdomen: Bowel Sounds Present, Soft, Non Tender, Non-Distended Extremities: No edema, Capillary Refill Less than 3 Seconds Skin: - - Dressing present on the right hip after right ovary surgery. Musculoskeletal: Arthritic Changes, Muscle Wasting Neurological: Cranial nerves II-XII grossly intact Psych/Mental Status: Normal Affect, Appropriate Current Medications Acetaminophen (Tylenol) 650 mg PO Q6H PRN PRN Reason: PAIN Last Admin: 12/31/17 14:09 Dose: 650 mg Albuterol Sulfate (Ventolin Aerosols) 2.5 mg INHALATION Q2H PRN PRN PRN Reason: dyspnea, wheezing Amlodipine Besylate (Norvasc) 5 mg PO DAILY [facility] Last Admin: 01/01/18 08:07 Dose: 5 mg Aspirin (Aspirin, Baby) 81 mg PO DAILY@0800 [facility] Last Admin: 01/01/18 08:05 Dose: 81 mg Dicyclomine HCl (Bentyl) 20 mg PO Q6H PRN PRN PRN Reason: abdominal discomfort Enoxaparin Sodium (Lovenox) 30 mg SC DAILY@0600 [facility] Stop: 01/24/18 23:59 Last Admin: 01/01/18 05:00 Dose: 30 mg Ergocalciferol (Vitamin D) 50,000 unit PO Tu@1000 [facility] Stop: 02/14/18 10:01 Folic Acid (Folic Acid) [facility] Last Admin: 01/01/18 08:06 Dose: 1 mg Ibuprofen (Motrin) 600 mg PO Q8H PRN PRN PRN Reason: Mild-Moderate Pain (1-5/10) Last Admin: 01/01/18 03:45 Dose: 600 mg Loperamide HCl (Imodium) 2 - 4 mg PO UD PRN PRN Reason: LOOSE STOOLS Lorazepam (Ativan) 1 mg IV Q4H PRN PRN PRN Reason: Severe Anxiety Methocarbamol (Methocarbamol) 750 mg PO Q6H PRN PRN PRN Reason: Muscle Aches Last Admin: 01/01/18 04:59 Dose: 750 mg Multivitamins (Multivitamin) 1 tablet [facility] Last Admin: 01/01/18 08:06 Dose: 1 tablet Nicotine (Nicoderm Cq (Pbkc)) 14 mg TRANSDERM. DAILY [facility] Last Admin: 01/01/18 08:07 Dose: 14 mg Nutritional Formula (Lactose Free) (Ensure Enlive) 120 ml PO 4X/DAY [facility] Last Admin: 01/01/18 08:06 Dose: 120 ml Thiamine HCl (Vitamin B1) 100 mg [facility] Last Admin: 01/01/18 08:06 Dose: 100 mg Medical Necessity - Tobacco Use Smoking Status: Current every day smoker Tobacco Use: Cigarettes Assessment/Plan All Active Problems (Last Updated 12/29/17 @ 14:48 by Aydin Acosta DO) Hip fracture, right (Acute) Encephalopathy acute (Acute) This 67-year-old female was admitted with confusion and hallucination, suggestive of acute encephalopathy most probably secondary to oxycodone. 1. encephalopathy, suspected toxic resolved likely due to oxycodone, which has been held. As per pt drinks up 3 drinks, but not every day. This was not consistent with alcohol withdrawal. No need for scheduled Ativan. Question if patient has some underlying dementia, and may have become for confused due to medications. TSH previously 4.16, FT4 and FT3 WNL B12 and folate WNL 2. CVA, chronic incidental finding on CT continue ASA start HIS follow up with neurology as outpt 3. s/p Right hip fracture. s/p ORIF on 12/25 with IM nail fixation activity complicated by recent left calcaneus fracture in immobilizer toe-touch weight bearing per ortho follow up with Dr. Sharma as outpt. 4. Left calcaneal fracture. immobilizer weight bearing per ortho 5. Vitamin D deficiency Ergocalciferol 50,000 units weekly through 02/14/18, then cholecalciferol 2000 units daily starting 02/21. check 25 OH-D level in 3 months 6. DVT proph: Lovenox for 30 days, or when the immobilizer can be removed, which ever comes last. 7. Disposition: The [facility] refused to take her back. Will be looking into other facilities. Hopefully will be able to discharge 01/02 or . Code Visit Inpatient E&M: 10245 Subs Hosp L2
--- NOTE | 2018-01-01 08:31 | PN_ITS ---
Patient Problems: Active and Suspected Problems (Last Updated 12/29/17 @ 14:48 by Aydin Acosta DO ) Encephalopathy acute (Acute) Subjective: Patient is awake and alert. Patient had right hip fracture status post ORIF done on 12/25/2017. On PT and OT. Vitals/I&O's: Vital Signs Temp Pulse Resp BP Pulse Ox 97.6 F L 95 18 155/91 H 92 01/01/18 02:40 01/01/18 02:40 01/01/18 02:40 01/01/18 02:40 01/01/18 08:00 Oxygen Flow Rate (L/min) 92 Oxygen Delivery Method Room Air Weight: 104 lb 7.986 oz Body Mass Index (BMI) 17.9 Intake and Output for Last 24 Hours 12/30/17 12/31/17 01/01/18 23:59 23:59 23:59 Intake Total 1555 / 1555 900 / 900 Balance 1555 / 1555 900 / 900 General: Alert, Oriented x3, Cooperative HEENT: Atraumatic, PERRLA, EOMI, Normocephalic Neck: Supple, No JVD, Negative Carotid Bruits Lungs: Clear to auscultation, Normal air movement, No rhonchi, No wheeze, No rales Cardiovascular: Regular rate, Normal S1, Normal S2, No murmurs Abdomen: Bowel Sounds Present, Soft, Non Tender, Non-Distended Extremities: No edema, Capillary Refill Less than 3 Seconds Skin: - - Dressing present on the right hip after right ovary surgery. Musculoskeletal: Arthritic Changes, Muscle Wasting Neurological: Cranial nerves II-XII grossly intact Psych/Mental Status: Normal Affect, Appropriate Current Medications Acetaminophen (Tylenol) 650 mg PO Q6H PRN PRN Reason: PAIN Last Admin: 12/31/17 14:09 Dose: 650 mg Albuterol Sulfate (Ventolin Aerosols) 2.5 mg INHALATION Q2H PRN PRN PRN Reason: dyspnea, wheezing Amlodipine Besylate (Norvasc) [address] [facility] Last Admin: 01/01/18 08:07 Dose: 5 mg Aspirin (Aspirin, Baby) 81 mg PO DAILY@0800 [facility] Last Admin: 01/01/18 08:05 Dose: 81 mg Dicyclomine HCl (Bentyl) 20 mg PO Q6H PRN PRN PRN Reason: abdominal discomfort Enoxaparin Sodium (Lovenox) 30 mg SC DAILY@0600 [facility] Stop: 01/24/18 23:59 Last Admin: 01/01/18 05:00 Dose: 30 mg Ergocalciferol (Vitamin D) 50,000 unit PO Tu@1000 [facility] Stop: 02/14/18 10:01 Folic Acid ([facility]) [facility] Last Admin: 01/01/18 08:06 Dose: 1 mg Ibuprofen (Motrin) 600 mg PO Q8H PRN PRN PRN Reason: Mild-Moderate Pain (1-5/10) Last Admin: 01/01/18 03:45 Dose: 600 mg Loperamide HCl (Imodium) 2 - 4 mg PO UD PRN PRN Reason: LOOSE STOOLS Lorazepam (Ativan) 1 mg IV Q4H PRN PRN PRN Reason: Severe Anxiety Methocarbamol (Methocarbamol) 750 mg PO Q6H PRN PRN PRN Reason: Muscle Aches Last Admin: 01/01/18 04:59 Dose: 750 mg Multivitamins (Multivitamin) [facility] Last Admin: 01/01/18 08:06 Dose: 1 tablet Nicotine (Nicoderm Cq (Pbkc)) [address] [facility] Last Admin: 01/01/18 08:07 Dose: 14 mg Nutritional Formula (Lactose Free) (Ensure Enlive) 120 ml PO 4X/DAY [facility] Last Admin: 01/01/18 08:06 Dose: 120 ml Thiamine HCl (Vitamin B1) [facility] Last Admin: 01/01/18 08:06 Dose: 100 mg Medical Necessity - Tobacco Use Smoking Status: Current every day smoker Tobacco Use: Cigarettes Assessment/Plan All Active Problems (Last Updated 12/29/17 @ 14:48 by Aydin Acosta DO) Hip fracture, right (Acute) Encephalopathy acute (Acute) This 67-year-old female was admitted with confusion and hallucination , suggestive of acute encephalopathy most probably secondary to oxycodone. 1. encephalopathy, suspected toxic * resolved * likely due to oxycodone, which has been held. * As per pt drinks up 3 drinks, but not every day. This was not consistent with alcohol withdrawal. No need for scheduled Ativan. * Question if patient has some underlying dementia, and may have become for confused due to medications. * TSH previously 4.16, FT4 and FT3 WNL * B12 and folate WNL 2. CVA, chronic * incidental finding on CT * continue ASA * start HIS * follow up with neurology as outpt 3. s/p Right hip fracture. * s/p ORIF on 12/25 with IM nail fixation * activity complicated by recent left calcaneus fracture in immobilizer * toe-touch weight bearing per ortho * follow up with Dr. Sharma as outpt. 4. Left calcaneal fracture. * immobilizer * weight bearing per ortho 5. Vitamin D deficiency * Ergocalciferol 50,000 units weekly through 02/14/18, then cholecalciferol 2000 units daily starting 02/21. * check 25 OH-D level in 3 months 6. DVT proph: * Lovenox for 30 days, or when the immobilizer can be removed, which ever comes last. 7. Disposition: * The SN[facility] refused to take her back. * Will be looking into other facilities. Hopefully will be able to discharge or . Code Visit Inpatient E&M: 22730 Subs Hosp L2
[2018-01-01 14:00] VITALS: BP 124/75; PULSE 88; RESP 16; TEMP 36.7; O2SAT 96
[2018-01-01 20:15] VITALS: BP 138/86; PULSE 94; RESP 16; TEMP 36.8; O2SAT 97
[2018-01-02] MEDS: Ibuprofen 600 MG Tablet PO ×3 (01:32→18:15)
[2018-01-02 01:50] VITALS: BP 135/80; PULSE 83; RESP 18; TEMP 37.1; O2SAT 96
[2018-01-02] MEDS: Enoxaparin 30 MG/0.3 ML Syringe SC (06:20)
[2018-01-02] MEDS: Methocarbamol 750 MG Tablet PO ×3 (06:22→21:48)
[2018-01-02 06:35] VITALS: O2SAT 92
[2018-01-02 08:12] VITALS: BP 143/80; PULSE 82; RESP 18; TEMP 36.8; O2SAT 96
[2018-01-02] MEDS: Multivitamins,Therapeutic Tablet 1 TABLET PO (08:14)
[2018-01-02] MEDS: Thiamine Hydrochloride 100 MG Tablet PO (08:14)
[2018-01-02] MEDS: Aspirin 81 MG TAB.CHEW PO (08:14)
[2018-01-02] MEDS: Folic Acid 1 MG Tablet PO (08:14)
--- NOTE | 2018-01-02 09:35 | PCM.TXEXTCAR ---
- Diet 12/29/17 12:55 Diet: Regular Diet Food consistency:: Regular Liquid Consistency:: Regular/Thin Is pt able to select menu?: No Diet Comments: With snacks three times daily as tolerated - Routine Orders/Code Status Suppository Type: Dulcolax 10mg Suppository Frequency: Daily PRN Routine Lab Work: CBC - Every 2 weeks while on Lovenox, BMP - Every 2 weeks Code Status: Full Code - Wound(s) R hip Wound Type: Surgical Incision Right outter thigh Wound Type: Surgical Incision - Therapies Weight Bearing: Immobilizer LLE when up. Extremity Affected:: Right Lower Physical Therapy: Eval and Treat Occupational Therapy: Eval and Treat - Allergies/Procedures Done in Hospital Allergies/Adverse Reactions: Allergies No Known Allergies Allergy (Verified 12/29/17 09:02) Procedures: None - Type of Care/Length of Stay Estimated LOS: Convalescent Care Less Than 30 days Type of Care Needed: Skilled Rehab Potential: Fair Prognosis: Good - Additional Orders/Day of Discharge Additional Orders: Check vitamin D 25-hydroxy after 3 months Day of Discharge: 01/02/18 - Follow Up Care Primary Care Physician: Larry Rich MD [Primary Care Provider] - Within 2 Weeks Please Follow Up With: Abdi Medina MD - Neurology When: 1-2 months
--- NOTE | 2018-01-02 09:37 | DS.PCM_ITS ---
Discharge Date and Diagnosis - Problem List Patient Problems: Active and Suspected Problems (Last Updated 12/29/17 @ 14:48 by Aydin Acosta DO) Encephalopathy acute (Acute) Date of Admission: 12/29/17 Date of Discharge: 01/03/18 - Primary Discharge Diagnosis Active and Suspected Problems (Last Updated 12/29/17 @ 14:48 by Aydin Acosta DO) Encephalopathy acute (Acute) - Secondary Discharge Diagnosis Chronic Problems (Last Updated 12/29/17 @ 14:48 by Aydin Acosta DO) HTN (hypertension) (Chronic) Hospital Course and Treatment Operations: None, - - Right hip open reduction internal fixation, intramedullary nail fixation, locked Summary of Care Provided: [] This 67-year-old female was admitted with confusion and hallucination, suggestive of acute encephalopathy most probably secondary to oxycodone. 1. encephalopathy, suspected toxic * resolved * likely due to oxycodone, which has been held. * As per pt drinks up 3 drinks, but not every day. This was not consistent with alcohol withdrawal. No need for scheduled Ativan. * Question if patient has some underlying dementia, and may have become for confused due to medications. * TSH previously 4.16, FT4 and FT3 WNL * B12 and folate WNL 2. CVA, chronic * incidental finding on CT * continue ASA * start HIS * follow up with neurology as outpt 3. s/p Right hip fracture. * s/p ORIF on 12/25 with IM nail fixation * activity complicated by recent left calcaneus fracture in immobilizer * toe-touch weight bearing per ortho * follow up with Dr. Sharma as outpatient in 2 weeks 4. Left calcaneal fracture. * immobilizer * Patient is on nonweightbearing as per orthopedics. * Follow-up instruction as per orthopedic surgeon when to start partial weightbearing 5. Vitamin D deficiency * Ergocalciferol 50,000 units weekly through 02/14/18, then cholecalciferol 2000 units daily starting 02/21. * check 25 OH-D level in 3 months 6. DVT proph: * Lovenox for 30 days, or when the immobilizer can be removed, which ever comes last. Discharge medication reconciliation done. Follow-up instructions completed. Total time spent, exact 35 minutes on discharge meds reconciliation, examination, review of imaging and blood test and discussion with the patient on follow-up instructions. Discharge Diet: Low fat/ Low Cholesterol Discharge Activity: Return to Normal Activity Call your doctor if you observe: Fever of 101 or Higher Home Medications: Medications to take at Discharge Acetaminophen [Tylenol] 650 mg PO Q6H PRN 12/24/17 Aspirin [Aspirin, Baby] 81 mg PO DAILY@0800 12/24/17 Albuterol Aerosols [Ventolin Aerosols] 2.5 mg INHALATION Q2H PRN PRN vial.neb. 12/27/17 Amlodipine [Norvasc] 5 mg PO DAILY tablet 12/27/17 Enoxaparin [Lovenox] 30 mg SC DAILY@0600 syringe 12/27/17 Ensure Enlive 120 ml PO 4X/DAY liquid 12/27/17 Ergocalciferol [Vitamin D] 50,000 unit PO Tu@1000 capsule 12/27/17 Atorvastatin Calcium 40 mg PO QHS #1 tablet 12/30/17 Dicyclomine HCl [Bentyl] 20 mg PO Q6H PRN PRN capsule 12/30/17 Ibuprofen 400 mg PO Q6H PRN #1 tablet 12/30/17 Multivitamins,Therapeutic [Multivitamin] 1 tablet PO DAILYCM tablet 12/30/17 Nicotine [Nicoderm] 14 mg TRANSDERM. DAILY patch 12/30/17 Enoxaparin [Lovenox] 30 mg SC DAILY@0600 #28 syringe 01/02/18 Folic Acid 1 mg PO DAILYCM tablet 01/02/18 Following Prescrptions Were Given to Patient: Atorvastatin Calcium 40 mg PO QHS #1 tablet Enoxaparin [Lovenox] 30 mg SC DAILY@0600 #28 syringe Ibuprofen 400 mg PO Q6H PRN #1 tablet PRN Reason: Pain Primary Care Physician: Larry Rich MD [Primary Care Provider] - Within 2 Weeks Please Follow Up With: Abdi Medina MD - Neurology When: 1-2 months Disposition: Halfway facility Medical Necessity - Tobacco Use Smoking Status: Current every day smoker Tobacco Use: Cigarettes Meaningful Use Info Meaningful Use Diagnoses (Choose all that apply): None applicable Code Visit Inpatient E&M: 15682 Disch Hosp
[2018-01-02] MEDS: amLODIPine 5 MG Tablet PO (10:54)
--- NOTE | 2018-01-02 13:33 | CASEMGMT ---
Addendum entered by Breonna Porter 01/02/18 15:49: SW received message from Marie at [facility] who is covering for Sully who states that she is able to accept pt and will submit for pre-cert. Original Note: Social Work Note SW received call from Ramonita with [facility] stating pt doesn't meet criteria for [facility] and TCU doesn't have any beds until . Per previous notes, pt's third choice if [facility] or TCU can't accept pt is [facility]. CHITRA faxed referral to Sully at [facility]. Plan: [facility] pending acceptance and pre-cert Breonna Porter GENERATOR OPERATOR, GOLDSMITH APPRENTICE
--- NOTE | 2018-01-02 13:45 | PCM.PN.HOSP ---
Patient Problems: Active and Suspected Problems (Last Updated 12/29/17 @ 14:48 by Aydin Acosta DO) Encephalopathy acute (Acute) Subjective: Patient seen and examined. She is doing good with the physical therapy. Waiting for case folder waiting for precertification for SNF. Vitals/I&O's: Vital Signs Temp Pulse Resp BP Pulse Ox 98.2 F 82 18 143/80 H 96 01/02/18 08:12 01/02/18 08:12 01/02/18 08:12 01/02/18 08:12 01/02/18 08:12 Oxygen Flow Rate (L/min) 92 Oxygen Delivery Method Room Air Weight: 104 lb 7.986 oz Body Mass Index (BMI) 17.9 Intake and Output for Last 24 Hours 12/31/17 01/01/18 01/02/18 23:59 23:59 23:59 Intake Total 900 / 900 1989 800 / 800 Balance 900 / 900 1989 800 / 800 General: Alert, Oriented x3, Cooperative HEENT: Atraumatic, PERRLA, EOMI, Normocephalic Neck: Supple, No JVD, Negative Carotid Bruits Lungs: Clear to auscultation, Normal air movement Cardiovascular: Regular rate, Normal S1, Normal S2, No murmurs Abdomen: Bowel Sounds Present, Soft, Non Tender, Non-Distended Extremities: No edema, Capillary Refill Less than 3 Seconds Skin: No rashes, No breakdown Musculoskeletal: No Tenderness to Palpation of Joints or Extremities, Arthritic Changes Neurological: Cranial nerves II-XII grossly intact Psych/Mental Status: Normal Affect, Appropriate Current Medications Acetaminophen (Tylenol) 650 mg PO Q6H PRN PRN Reason: PAIN Last Admin: 12/31/17 14:09 Dose: 650 mg Albuterol Sulfate (Ventolin Aerosols) 2.5 mg INHALATION Q2H PRN PRN PRN Reason: dyspnea, wheezing Amlodipine Besylate (Norvasc) 5 mg PO DAILY [facility] Last Admin: 01/02/18 10:54 Dose: 5 mg Aspirin (Aspirin, Baby) 81 mg PO DAILY@0800 [facility] Last Admin: 01/02/18 08:14 Dose: 81 mg Dicyclomine HCl (Bentyl) 20 mg PO Q6H PRN PRN PRN Reason: abdominal discomfort Enoxaparin Sodium (Lovenox) 30 mg SC DAILY@0600 [facility] Stop: 01/24/18 23:59 Last Admin: 01/02/18 06:20 Dose: 30 mg Ergocalciferol (Vitamin D) 50,000 unit PO Tu@1000 [facility] Stop: 02/14/18 10:01 [facility]olic [facility] ([facility]) [facility] Last Admin: 01/02/18 08:14 Dose: 1 mg Ibuprofen (Motrin) 600 mg PO Q8H PRN PRN PRN Reason: Mild-Moderate Pain (1-5/10) Last Admin: 01/02/18 10:55 Dose: 600 mg Loperamide HCl (Imodium) 2 - 4 mg PO UD PRN PRN Reason: LOOSE STOOLS Lorazepam (Ativan) 1 mg IV Q4H PRN PRN PRN Reason: Severe Anxiety Methocarbamol (Methocarbamol) 750 mg PO Q6H PRN PRN PRN Reason: Muscle Aches Last Admin: 01/02/18 06:22 Dose: 750 mg Multivitamins (Multivitamin) [facility] Last Admin: 01/02/18 08:14 Dose: 1 tablet Nicotine (Nicoderm Cq (Pbkc)) 14 mg TRANSDERM. DAILY [facility] Last Admin: 01/02/18 10:54 Dose: 14 mg Nutritional Formula (Lactose Free) (Ensure Enlive) 120 ml PO 4X/DAY [facility] Last Admin: 01/02/18 10:54 Dose: 120 ml Thiamine HCl (Vitamin B1) [facility] Last Admin: 01/02/18 08:14 Dose: 100 mg Medical Necessity - Tobacco Use Smoking Status: Current every day smoker Tobacco Use: Cigarettes Assessment/Plan All Active Problems (Last Updated 12/29/17 @ 14:48 by Aydin Acosta DO) Hip fracture, right (Acute) Encephalopathy acute (Acute) This 67-year-old female was admitted with confusion and hallucination, suggestive of acute encephalopathy most probably secondary to oxycodone. 1. encephalopathy, suspected toxic resolved likely due to oxycodone, which has been held. As per pt drinks up 3 drinks, but not every day. This was not consistent with alcohol withdrawal. No need for scheduled Ativan. Question if patient has some underlying dementia, and may have become for confused due to medications. TSH previously 4.16, FT4 and FT3 WNL B12 and folate WNL 2. CVA, chronic incidental finding on CT continue ASA start HIS follow up with neurology as outpt 3. s/p Right hip fracture. s/p ORIF on 12/25 with IM nail fixation activity complicated by recent left calcaneus fracture in immobilizer toe-touch weight bearing per ortho follow up with Dr. Sharma as outpt. Waiting for further rehab and subacute setting 4. Left calcaneal fracture. immobilizer weight bearing per ortho 5. Vitamin D deficiency Ergocalciferol 50,000 units weekly through 02/14/18, then cholecalciferol 2000 units daily starting 02/21. check 25 OH-D level in 3 months 6. DVT proph: Lovenox for 30 days, or when the immobilizer can be removed, which ever comes last. 7. Disposition: The SNF [facility] refused to take her back. Waiting for precertification. Code Visit Inpatient E&M: 23848 Subs Hosp L2
--- NOTE | 2018-01-02 13:48 | PN_ITS ---
Patient Problems: Active and Suspected Problems (Last Updated 12/29/17 @ 14:48 by Aydin Acosta DO ) Encephalopathy acute (Acute) Subjective: Patient seen and examined. She is doing good with the physical therapy. Waiting for rehabilitation caseworker waiting for precertification for SNF. Vitals/I&O's: Vital Signs Temp Pulse Resp BP Pulse Ox 98.2 F 82 18 143/80 H 96 01/02/18 08:12 01/02/18 08:12 01/02/18 08:12 01/02/18 08:12 01/02/18 08:12 Oxygen Flow Rate (L/min) 92 Oxygen Delivery Method Room Air Weight: 104 lb 7.986 oz Body Mass Index (BMI) 17.9 Intake and Output for Last 24 Hours 12/31/17 01/01/18 01/02/18 23:59 23:59 23:59 Intake Total 900 / 900 1989 800 / 800 Balance 900 / 900 1989 800 / 800 General: Alert, Oriented x3, Cooperative HEENT: Atraumatic, PERRLA, EOMI, Normocephalic Neck: Supple, No JVD, Negative Carotid Bruits Lungs: Clear to auscultation, Normal air movement Cardiovascular: Regular rate, Normal S1, Normal S2, No murmurs Abdomen: Bowel Sounds Present, Soft, Non Tender, Non-Distended Extremities: No edema, Capillary Refill Less than 3 Seconds Skin: No rashes, No breakdown Musculoskeletal: No Tenderness to Palpation of Joints or Extremities, Arthritic Changes Neurological: Cranial nerves II-XII grossly intact Psych/Mental Status: Normal Affect, Appropriate Current Medications Acetaminophen (Tylenol) 650 mg PO Q6H PRN PRN Reason: PAIN Last Admin: 12/31/17 14:09 Dose: 650 mg Albuterol Sulfate (Ventolin Aerosols) 2.5 mg INHALATION Q2H PRN PRN PRN Reason: dyspnea, wheezing Amlodipine Besylate (Norvasc) 5 mg PO DAILY [facility] Last Admin: 01/02/18 10:54 Dose: 5 mg Aspirin (Aspirin, Baby) 81 mg PO DAILY@0800 [facility] Last Admin: 01/02/18 08:14 Dose: 81 mg Dicyclomine HCl (Bentyl) 20 mg PO Q6H PRN PRN PRN Reason: abdominal discomfort Enoxaparin Sodium (Lovenox) 30 mg SC DAILY@0600 [facility] Stop: 01/24/18 23:59 Last Admin: 01/02/18 06:20 Dose: 30 mg Ergocalciferol (Vitamin D) 50,000 unit PO Tu@1000 [facility] Stop: 02/14/18 10:01 Folic [facility] ([facility] Acid) [facility] Last Admin: 01/02/18 08:14 Dose: 1 mg Ibuprofen (Motrin) 600 mg PO Q8H PRN PRN PRN Reason: Mild-Moderate Pain (1-5/10) Last Admin: 01/02/18 10:55 Dose: 600 mg Loperamide HCl (Imodium) 2 - 4 mg PO UD PRN PRN Reason: LOOSE STOOLS Lorazepam (Ativan) 1 mg IV Q4H PRN PRN PRN Reason: Severe Anxiety Methocarbamol (Methocarbamol) 750 mg PO Q6H PRN PRN PRN Reason: Muscle Aches Last Admin: 01/02/18 06:22 Dose: 750 mg Multivitamins (Multivitamin) [facility] Last Admin: 01/02/18 08:14 Dose: 1 tablet Nicotine (Nicoderm Cq (Pbkc)) 14 mg TRANSDERM. DAILY [facility] Last Admin: 01/02/18 10:54 Dose: 14 mg Nutritional Formula (Lactose Free) (Ensure Enlive) 120 ml PO 4X/DAY [facility] Last Admin: 01/02/18 10:54 Dose: 120 ml Thiamine HCl (Vitamin B1) [facility] Last Admin: 01/02/18 08:14 Dose: 100 mg Medical Necessity - Tobacco Use Smoking Status: Current every day smoker Tobacco Use: Cigarettes Assessment/Plan All Active Problems (Last Updated 12/29/17 @ 14:48 by Aydin Acosta DO) Hip fracture, right (Acute) Encephalopathy acute (Acute) This 67-year-old female was admitted with confusion and hallucination , suggestive of acute encephalopathy most probably secondary to oxycodone. 1. encephalopathy, suspected toxic * resolved * likely due to oxycodone, which has been held. * As per pt drinks up 3 drinks, but not every day. This was not consistent with alcohol withdrawal. No need for scheduled Ativan. * Question if patient has some underlying dementia, and may have become for confused due to medications. * TSH previously 4.16, FT4 and FT3 WNL * B12 and folate WNL 2. CVA, chronic * incidental finding on CT * continue ASA * start HIS * follow up with neurology as outpt 3. s/p Right hip fracture. * s/p ORIF on 12/25 with IM nail fixation * activity complicated by recent left calcaneus fracture in immobilizer * toe-touch weight bearing per ortho * follow up with Dr. Sharma as outpt. * Waiting for further rehab and subacute setting 4. Left calcaneal fracture. * immobilizer * weight bearing per ortho 5. Vitamin D deficiency * Ergocalciferol 50,000 units weekly through 02/14/18, then cholecalciferol 2000 units daily starting 02/21. * check 25 OH-D level in 3 months 6. DVT proph: * Lovenox for 30 days, or when the immobilizer can be removed, which ever comes last. 7. Disposition: * The SNF [facility] refused to take her back. * Waiting for precertification. Code Visit Inpatient E&M: 47937 Subs Hosp L2
[2018-01-02 15:38] VITALS: BP 127/77; PULSE 84; RESP 18; TEMP 36.9; O2SAT 97
[2018-01-02 21:52] VITALS: BP 115/67; PULSE 92; RESP 16; TEMP 36.7; O2SAT 96
[2018-01-03] MEDS: Ibuprofen 600 MG Tablet PO ×3 (01:32→18:40)
[2018-01-03 01:40] VITALS: BP 141/81; PULSE 85; RESP 16; TEMP 36.9; O2SAT 99
[2018-01-03] MEDS: Methocarbamol 750 MG Tablet PO ×2 (07:37→13:36)
[2018-01-03 08:25] VITALS: BP 131/86; PULSE 81; RESP 18; TEMP 36.7; O2SAT 100
[2018-01-03] MEDS: Aspirin 81 MG TAB.CHEW PO (08:26)
[2018-01-03] MEDS: amLODIPine 5 MG Tablet PO (08:26)
[2018-01-03] MEDS: Thiamine Hydrochloride 100 MG Tablet PO (08:26)
[2018-01-03] MEDS: Multivitamins,Therapeutic Tablet 1 TABLET PO (08:26)
[2018-01-03] MEDS: Folic Acid 1 MG Tablet PO (08:26)
--- NOTE | 2018-01-03 12:14 | NURSING ---
assist patient up to wheelchair. States she is bored sitting in the bed. [place] self around room and hallways. No needs at this time.
[2018-01-03 14:02] VITALS: O2SAT 97
--- NOTE | 2018-01-03 14:22 | CASEMGMT ---
Social Work Note CHITRA spoke with Marie at [facility] who states she hasn't heard anything from pt's insurance yet. CHITRA faxed updated clinicals to Marie at [facility]. Plan: [facility] pending pre-cert Breonna Porter EMPLOYEE BENEFITS INSURANCE AGENT, HEAD OF RESEARCH & INSIGHTS
--- NOTE | 2018-01-03 14:24 | PN_ITS ---
Patient Problems: Active and Suspected Problems (Last Updated 12/29/17 @ 14:48 by Aydin Acosta DO) Encephalopathy acute (Acute) Subjective: Patient is doing good with physical therapy still on nonweightbearing for right calcaneal fracture. Patient also had left hip fracture. Vitals/I&O's: Vital Signs Temp Pulse Resp BP Pulse Ox 98.1 F 81 18 131/86 H 97 01/03/18 08:25 01/03/18 08:25 01/03/18 08:25 01/03/18 08:25 01/03/18 14:02 Oxygen Flow Rate (L/min) 92 Oxygen Delivery Method Room Air Weight: 104 lb 7.986 oz Body Mass Index (BMI) 17.9 Intake and Output for Last 24 Hours 01/01/18 01/02/18 01/03/18 23:59 23:59 23:59 Intake Total 1989 1650 / 1650 400 / 400 Balance 1989 1650 / 1650 400 / 400 General: Alert, Oriented x3, Cooperative HEENT: Atraumatic, PERRLA, EOMI, Normocephalic Neck: Supple, No JVD, Negative Carotid Bruits Lungs: Clear to auscultation, Normal air movement Cardiovascular: Regular rate, Normal S1, Normal S2, No murmurs Abdomen: Bowel Sounds Present, Soft, Non Tender Extremities: No edema, Capillary Refill Less than 3 Seconds Skin: No rashes, No breakdown Musculoskeletal: No Tenderness to Palpation of Joints or Extremities, Arthritic Changes, - - Left leg boot Neurological: Cranial nerves II-XII grossly intact Psych/Mental Status: Normal Affect, Appropriate Current Medications Acetaminophen (Tylenol) 650 mg PO Q6H PRN PRN Reason: PAIN Last Admin: 12/31/17 14:09 Dose: 650 mg Albuterol Sulfate (Ventolin Aerosols) 2.5 mg INHALATION Q2H PRN PRN PRN Reason: dyspnea, wheezing Amlodipine Besylate (Norvasc) 5 mg PO DAILY [facility] Last Admin: 01/03/18 08:26 Dose: 5 mg Aspirin (Aspirin, Baby) 81 mg PO DAILY@0800 [facility] Last Admin: 01/03/18 08:26 Dose: 81 mg Dicyclomine HCl (Bentyl) 20 mg PO Q6H PRN PRN PRN Reason: abdominal discomfort Enoxaparin Sodium (Lovenox) 30 mg SC DAILY@0600 [facility] Stop: 01/24/18 23:59 Last Admin: 01/02/18 21:58 Dose: Not Given Ergocalciferol (Vitamin D) 50,000 unit PO Tu@1000 [facility] Stop: 02/14/18 10:01 Last Admin: 01/03/18 08:27 Dose: 50,000 unit [facility] Last Admin: 01/03/18 08:26 Dose: 1 mg Ibuprofen (Motrin) 600 mg PO Q8H PRN PRN PRN Reason: Mild-Moderate Pain (1-5/10) Last Admin: 01/03/18 10:54 Dose: 600 mg Loperamide HCl (Imodium) 2 - 4 mg PO UD PRN PRN Reason: LOOSE STOOLS Lorazepam (Ativan) 1 mg IV Q4H PRN PRN PRN Reason: Severe Anxiety Methocarbamol (Methocarbamol) 750 mg PO Q6H PRN PRN PRN Reason: Muscle Aches Last Admin: 01/03/18 13:36 Dose: 750 mg Multivitamins (Mult[facility]itamin) [facility] Last Admin: 01/03/18 08:26 Dose: 1 tablet Nicotine (Nicoderm Cq (Pbkc)) 14 mg TRANSDERM. DAILY [facility] Last Admin: 01/03/18 08:26 Dose: 14 mg Nutritional Formula (Lactose Free) (Ensure Enlive) 120 ml PO 4X/DAY [facility] Last Admin: 01/03/18 13:33 Dose: 120 ml Thiamine HCl (Vitamin B1) [facility] Last Admin: 01/03/18 08:26 Dose: 100 mg Medical Necessity - Tobacco Use Smoking Status: Current every day smoker Tobacco Use: Cigarettes Assessment/Plan All Active Problems (Last Updated 12/29/17 @ 14:48 by Aydin Acosta DO) Hip fracture, right (Acute) Encephalopathy acute (Acute) This 67-year-old female was admitted with confusion and hallucination, suggestive of acute encephalopathy most probably secondary to oxycodone. 1. encephalopathy, suspected toxic * resolved * likely due to oxycodone, which has been held. * As per pt drinks up 3 drinks, but not every day. This was not consistent with alcohol withdrawal. No need for scheduled Ativan. * Question if patient has some underlying dementia, and may have become for conf used due to medications. * TSH previously 4.16, FT4 and FT3 WNL * B12 and folate WNL 2. CVA, chronic * incidental finding on CT * continue ASA * start HIS * follow up with neurology as outpt 3. s/p Right hip fracture. * s/p ORIF on 12/25 with IM nail fixation * activity complicated by recent left calcaneus fracture in immobilizer * toe-touch weight bearing per ortho * follow up with Dr. Sharma as outpt. * Waiting for further rehab and subacute setting 4. Left calcaneal fracture. * immobilizer * weight bearing per ortho 5. Vitamin D deficiency * Ergocalciferol 50,000 units weekly through 02/14/18, then cholecalciferol 2000 units daily starting 02/21. * check 25 OH-D level in 3 months 6. DVT proph: * Lovenox for 30 days, or when the immobilizer can be removed, which ever comes last. 7. Disposition: * The [facility] refused to take her back. * Waiting for precertification. Code Visit Inpatient E&M: 14406 Subs Hosp L2
[2018-01-03 14:40] VITALS: BP 112/71; PULSE 90; RESP 16; TEMP 37; O2SAT 98
--- NOTE | 2018-01-03 16:22 | CASEMGMT ---
Social Work Note SW received message from Marie at [facility] that pre-cert has been obtained and pt is able to discharge today. CHITRA updated CHITRA Hallie as this worker is leaving for the day. Plan: Pt to discharge to [facility] today under skilled for rehabilitation Breonna Porter BIOMETRICS TECHNICIAN, PAN DEVULCANIZER HELPER
--- NOTE | 2018-01-03 16:25 | PCM.DC.SUM ---
Discharge Date and Diagnosis - Problem List Patient Problems: Active and Suspected Problems (Last Updated 12/29/17 @ 14:48 by Aydin Acosta DO) Encephalopathy acute (Acute) Date of Admission: 12/29/17 Date of Discharge: 01/03/18 - Primary Discharge Diagnosis Active and Suspected Problems (Last Updated 12/29/17 @ 14:48 by Aydin Acosta DO) Encephalopathy acute (Acute) - Secondary Discharge Diagnosis Chronic Problems (Last Updated 12/29/17 @ 14:48 by Aydin Acosta DO) HTN (hypertension) (Chronic) Hospital Course and Treatment Operations: None, - - Right hip open reduction internal fixation, intramedullary nail fixation, locked Summary of Care Provided: [] This 67-year-old female was admitted with confusion and hallucination, suggestive of acute encephalopathy most probably secondary to oxycodone. 1. encephalopathy, suspected toxic resolved likely due to oxycodone, which has been held. As per pt drinks up 3 drinks, but not every day. This was not consistent with alcohol withdrawal. No need for scheduled Ativan. Question if patient has some underlying dementia, and may have become for confused due to medications. TSH previously 4.16, FT4 and FT3 WNL B12 and folate WNL 2. CVA, chronic incidental finding on CT continue ASA start HIS follow up with neurology as outpt 3. s/p Right hip fracture. s/p ORIF on 12/25 with IM nail fixation activity complicated by recent left calcaneus fracture in immobilizer toe-touch weight bearing per ortho follow up with Dr. Sharma as outpatient in 2 weeks 4. Left calcaneal fracture. immobilizer Patient is on nonweightbearing as per orthopedics. Follow-up instruction as per orthopedic surgeon when to start partial weightbearing 5. Vitamin D deficiency Ergocalciferol 50,000 units weekly through 02/14/18, then cholecalciferol 2000 units daily starting 02/21. check 25 OH-D level in 3 months 6. DVT proph: Lovenox for 30 days, or when the immobilizer can be removed, which ever comes last. Discharge medication reconciliation done. Follow-up instructions completed. Total time spent, exact 35 minutes on discharge meds reconciliation, examination, review of imaging and blood test and discussion with the patient on follow-up instructions. Discharge Diet: Low fat/ Low Cholesterol Discharge Activity: Return to Normal Activity Call your doctor if you observe: Fever of 101 or Higher Home Medications: Medications to take at Discharge Acetaminophen [Tylenol] 650 mg PO Q6H PRN 12/24/17 Aspirin [Aspirin, Baby] 81 mg PO DAILY@0800 12/24/17 Albuterol Aerosols [Ventolin Aerosols] 2.5 mg INHALATION Q2H PRN PRN vial.neb. 12/27/17 Amlodipine [Norvasc] 5 mg PO DAILY tablet 12/27/17 Enoxaparin [Lovenox] 30 mg SC DAILY@0600 syringe 12/27/17 Ensure Enlive 120 ml PO 4X/DAY liquid 12/27/17 Ergocalciferol [Vitamin D] 50,000 unit PO Tu@1000 capsule 12/27/17 Atorvastatin Calcium 40 mg PO QHS #1 tablet 12/30/17 Dicyclomine HCl [Bentyl] 20 mg PO Q6H PRN PRN capsule 12/30/17 Ibuprofen 400 mg PO Q6H PRN #1 tablet 12/30/17 Multivitamins,Therapeutic [Multivitamin] 1 tablet PO DAILYCM tablet 12/30/17 Nicotine [Nicoderm] 14 mg TRANSDERM. DAILY patch 12/30/17 Enoxaparin [Lovenox] 30 mg SC DAILY@0600 #28 syringe 01/02/18 Folic Acid 1 mg PO DAILYCM tablet 01/02/18 Following Prescrptions Were Given to Patient: Atorvastatin Calcium 40 mg PO QHS #1 tablet Enoxaparin [Lovenox] 30 mg SC DAILY@0600 #28 syringe Ibuprofen 400 mg PO Q6H PRN #1 tablet PRN Reason: Pain Primary Care Physician: Larry Rich MD [Primary Care Provider] - Within 2 Weeks Please Follow Up With: Abdi Medina MD - Neurology When: 1-2 months Disposition: Group Home facility Medical Necessity - Tobacco Use Smoking Status: Current every day smoker Tobacco Use: Cigarettes Meaningful Use Info Meaningful Use Diagnoses (Choose all that apply): None applicable Code Visit Inpatient E&M: 25970 Disch Hosp
--- NOTE | 2018-01-03 16:38 | CASEMGMT ---
Faxed orders to [facility]. Completed convalescent on [facility]. [facility] and arranged for patient to get picked up at 6p via cot. SW notified RN who notified patient, left a message for Marie at [facility], and travel nurse. Plan: d/c to [facility] under skilled level of care on a convalescent stay. [facility]. Hallie MESA
--- NOTE | 2018-01-03 17:14 | NURSING ---
REPORT CALLED TO ALICIA CHERY AT [facility] FOR DISCHARGE.
== END 2018-01-03 19:19 | disposition skilled nursing facility (03) | DRG 92 ==
LOC: ED 09:27 → MS2 12:01
PROVIDERS: Emergency Provider Emergency Medicine; Family Provider Family Medicine; PCP Family Medicine; Visit Provider Internal Medicine
DX: G92 Toxic encephalopathy (principal); Z68.1 Body mass index [BMI] 19.9 or less, adult; R64 Cachexia; S72.001D Fracture of unspecified part of neck of right femur, subsequent encounter for closed fracture with routine healing; S92.002D Unspecified fracture of left calcaneus, subsequent encounter for fracture with routine healing; E55.9 Vitamin D deficiency, unspecified; W19.XXXD Unspecified fall, subsequent encounter; T40.2X5A Adverse effect of other opioids, initial encounter; R63.6 Underweight; R44.1 Visual hallucinations
CPT/HCPCS: 70450; 71046; 80053; 81001; 82607; 82746; 84439; 84481; 85025; 97110; 97163; 97166; 97530; 99285; 99406; J7030; J7040; P9612; A4216

== ENCOUNTER 2019-07-17 15:33 | Emergency (ER) | payer MEDICARE, SELFPAY ==
[2019-07-17 15:35] VITALS: BP 164/105; PULSE 107; PULSE 108; RESP 18; TEMP 36.5; O2SAT 95; BMI 15.6
--- NOTE | 2019-07-17 15:49 | ED.VIS.GEN ---
History of Present Illness Chief Complaint: Back Informant: Patient Onset: Yesterday Current Severity: Mild Maximum Severity: Moderate Narrative: Patient presents with upper back pain that started last evening. She states last night it seemed to dry off but then woke this morning with increased pain again. Pain does seem to be worse with movement. She denies shortness of breath. She is a smoker. She denies any known injury to her back. She denies radiation of pain to her arms. She took Tylenol this morning with mild improvement. - Past Medical History (1) Hip fracture, right Status: Resolved (2) HTN (hypertension) Status: Chronic Past Medical History - Allergies and Home Meds Allergies/Adverse Reactions: Allergies oxycodone Adverse Reaction (Verified 07/17/19 15:59) hallucinations Primary Care Physician: Larry Rich MD [Primary Care Provider] - Prior records reviewed: Yes Surgical History: - - Hysterectomy Smoking Status: Current every day smoker - Family History Maternal Family History: Reports: No pertinent history Paternal Family History: Reports: No pertinent history Review of Systems General: Denies: Chills, Fever Eyes: Denies: Visual changes - bilaterally ENT: Denies: Bilateral ear pain Cardiovascular: Denies: Chest pain Respiratory: Denies: Dyspnea, Cough Gastrointestinal: Denies: Abdominal pain, Nausea, Vomiting, Diarrhea Genitourinary: Denies: Dysuria Musculoskeletal: Reports: Back pain Skin: Denies: Rash Neurological: Denies: Weakness, Parasthesia, Numbness Hematologic: Denies: Easy bruising Allergy: Denies: Uticaria Physical Exam Vital Signs/Narrative: Vital Signs Temp Pulse Resp BP Pulse Ox 07/17/19 15:35 97.7 F L 108 H 18 164/105 H 95 Inital Vital Signs reviewed: Yes General: Well nourished, Well developed Head: Normocephalic ENT: Moist mucous membranes Neck: Supple Cardiovascular: Regular rate, Regular rhythm, - - Strong distal pulses throughout. Respiratory: No distress, CTA bilaterally Abdomen: Soft, Nontender Back: - - Mild tenderness of the upper thoracic paraspinal muscles. No overlying skin changes. Extremities: Nontender Skin: Normal color Neurological: Alert, Oriented x3, Normal Strength, Normal Sensation Psychological: Normal affect Diagnostic/Tx/Re-eval Impressions Chest X-Ray 07/17/19 16:00 IMPRESSION: 1. Emphysema without pneumonia or atelectasis. 2. Worsening thoracic spine compression fractures which may be acute, subacute, chronic. Clinical correlation and correlation MRI may be useful. Electronically Signed: Brad Lino MD at 16:28 EDT Tel , Service support , 07/17/19 16:00 Chest PA and Lateral [RAD] Stat - Medical Decision Making Patient was given 1 tab of [place] here for pain. On oars report she had not had any prescriptions since November 2017. On repeat evaluation she is resting comfortably. We did discuss her x-ray findings. She has had a couple falls over the past 2 years that may have led to the compression fractures. She will be treated with a course of [place]. She is referred to Dr. Ny if not improving. ED Disposition - Plan for ED Patient: Disposition: Home or Assisted Living Diagnosis: Back pain Instructions: ED Neck Back Pain General Prescriptions: Hydrocodone Bitart/Apap 5-325 [[place] 5MG-325MG] 1 tablet PO Q6H PRN PRN 3 Days #10 tablet PRN Reason: Pain Transmission Status: Sent to [facility] Referrals: Larry Rich MD [Primary Care Provider] - Elvie Thomas MD [STAFF PHYSICIAN] - As Needed
[2019-07-17] MEDS: HYDROcodone Bitartrate/Apap 5/325 Tablet PO (15:57)
--- NOTE | 2019-07-17 16:00 | RAD_ITS ---
STUDY: X-RAY CHEST REASON FOR EXAM: Female, 68 years old. CHEST PAINS POSTERIORLY ACROSS UPPER BACK. TECHNIQUE: PA and lateral views of the chest. COMPARISON: 12/29/2017 FINDINGS: There is hyperinflation of the lungs consistent with chronic obstructive lung disease (COPD). Bilateral apical scarring. There is no demonstrated pleural abnormality. Normal size heart. Normal mediastinum and julius. Normal visualized pulmonary arteries. Normal visualized aortic arch and descending thoracic aorta. Increase in the number of compression fractures of the thoracic spine any which may be acute, subacute, or chronic. Normal visualized ribs, clavicles, and shoulders. There is no demonstrated abnormality of the visualized soft tissue structures of the upper abdomen. RAD/Chest PA and Lateral IMPRESSION: 1. Emphysema without pneumonia or atelectasis. 2. Worsening thoracic spine compression fractures which may be acute, subacute, chronic. Clinical correlation and correlation MRI may be useful. Electronically Signed: Brad Lino MD at 16:28 EDT Tel , Service support ,
[2019-07-17 17:11] VITALS: BP 144/97; PULSE 112; RESP 18; O2SAT 97
== END 2019-07-17 17:12 | disposition home or self-care (01) ==
PROVIDERS: Emergency Provider Emergency Medicine; PCP Family Medicine
DX: M54.9 Dorsalgia, unspecified (principal); I10 Essential (primary) hypertension; J43.9 Emphysema, unspecified; Z91.81 History of falling; Z79.82 Long term (current) use of aspirin; Z79.899 Other long term (current) drug therapy; F17.200 Nicotine dependence, unspecified, uncomplicated
CPT/HCPCS: 71046; 99283

== ENCOUNTER 2020-05-19 19:08 | Emergency (ER) | payer MEDICARE, SELFPAY ==
[2020-05-19 19:08] VITALS: RESP 18
[2020-05-19 19:09] VITALS: BP 145/86; PULSE 108; RESP 16; TEMP 36.2; O2SAT 97; BMI 22.0
--- NOTE | 2020-05-19 19:24 | RAD_ITS ---
STUDY: X-RAY - RIGHT WRIST REASON FOR EXAM: Female, 69 years old. FELL ON ICE THIS EVENING. WRIST PAIN TECHNIQUE: 3 view(s) of the wrist were obtained. COMPARISON: None. FINDINGS: There is comminuted intra-articular mildly impacted distal radial metaphyseal fracture with moderate dorsal angulation of the articular surface. Nondisplaced fracture through the base of the ulnar styloid. Diffuse demineralization. No dislocation. Grossly normal carpal bones and metacarpals. Diffuse soft tissue swelling. RAD/Wrist min 3 Views IMPRESSION: Fracture of the distal radial metaphysis and the ulnar styloid. Electronically Signed: Ricardo Hanson MD at 19:48 EST , Service support ,
[2020-05-19] MEDS: HYDROcodone Bitartrate/Apap 5/325 Tablet PO (19:52)
--- NOTE | 2020-05-19 20:16 | ED.VIS.GEN ---
History of Present Illness Chief Complaint: Upper Extremity Injury Informant: Patient Narrative: 69-year-old female slipped and fell on the ice landing on right wrist. She notes deformity and swelling. She denies any other injuries. She is right-handed. - Past Medical History (1) HTN (hypertension) Status: Chronic Past Medical History - Allergies and Home Meds Allergies/Adverse Reactions: Allergies oxycodone Adverse Reaction (Verified 05/19/20 19:08) hallucinations Primary Care Physician: Larry Rich MD [Primary Care Provider] - Surgical History: noncontributory, - - Hysterectomy Smoking Status: Current every day smoker Drugs: None - Family History Maternal Family History: Reports: No pertinent history Paternal Family History: Reports: No pertinent history Review of Systems General: Denies: Chills, Fever, Sweats Eyes: Denies: Visual changes - bilaterally, Diplopia ENT: Denies: Rhinorrhea, Sore throat Cardiovascular: Denies: Chest pain, Palpitations Respiratory: Denies: Dyspnea, Cough, Dyspnea on exertion Gastrointestinal: Denies: Abdominal pain, Nausea, Vomiting, Diarrhea, Melena, Hematochezia Genitourinary: Denies: Dysuria, Hematuria, Frequency Musculoskeletal: Reports: Swelling, Extremity Pain. Denies: Back pain Skin: Denies: Rash, Wounds Neurological: Denies: Headache, Weakness, Numbness Physical Exam Vital Signs/Narrative: Vital Signs Temp Pulse Resp BP Pulse Ox 05/19/20 19:09 97.2 F L 108 H 16 145/86 H 97 05/19/20 19:08 18 Inital Vital Signs reviewed: Yes General: Well nourished, Well developed, No Acute Distress Head: Normocephalic, Atraumatic Eyes: Perrl, EOMI ENT: Moist mucous membranes, No rhinorrhea Neck: Supple, Nontender Cardiovascular: Regular rate, Regular rhythm, No murmurs Respiratory: No distress, CTA bilaterally, Chest nontender Abdomen: Soft, Nontender, Nondistended, Normal bowel sounds Back: Nontender, Normal Inspection Extremities: Tenderness - Tenderness and swelling over the dorsum of the right wrist. Limited range of motion due to pain. Neurovascular intact distal. Skin: Normal color, No rash Neurological: Alert, Oriented x3, Cranial nerves II-XII grossly intact, Normal Strength, Normal Sensation Psychological: Normal affect, Normal Mood Diagnostic/Tx/Re-eval Clinical Impression(s) from Imaging Studies Wrist X-Ray 05/19/20 19:24 IMPRESSION: Fracture of the distal radial metaphysis and the ulnar styloid. Electronically Signed: Ricardo Hanson MD at 19:48 EST , Service support , - Medical Decision Making My interpretation of the wrist x-rays are for ulnar styloid fracture and distal radius fracture. Patient was placed in AP plaster splint made by this physician. She will follow-up with orthopedics. ED Disposition - Plan for ED Patient: Disposition: Home or Assisted Living Diagnosis: Right wrist fracture Instructions: ED Fracture, Wrist, General Prescriptions: Hydrocodone Bitart/Apap 5-325 [[place] 5MG-325MG] 1 tab PO Q6H PRN PRN 3 Days #12 tab PRN Reason: Pain Prescription Printed Referrals: Larry Rich MD [Primary Care Provider] - John Sharma MD [STAFF PHYSICIAN] - As soon as possible Additional Instructions: Follow-up with Dr. Sharma (referral above) order with orthopedist of your choice
[2020-05-19 20:33] VITALS: RESP 18
== END 2020-05-19 20:34 | disposition home or self-care (01) ==
PROVIDERS: Emergency Provider Emergency Medicine; PCP Family Medicine
DX: S52.611A Displaced fracture of right ulna styloid process, initial encounter for closed fracture (principal); S52.501A Unspecified fracture of the lower end of right radius, initial encounter for closed fracture; W00.0XXA Fall on same level due to ice and snow, initial encounter; Y93.9 Activity, unspecified; Y92.9 Unspecified place or not applicable; I10 Essential (primary) hypertension; Z79.82 Long term (current) use of aspirin; Z79.899 Other long term (current) drug therapy; F17.200 Nicotine dependence, unspecified, uncomplicated
CPT/HCPCS: 29125; 73110; 99283

== ENCOUNTER 2020-09-07 13:24 | Emergency (ER) | payer MEDICARE, SELFPAY ==
[2020-09-07 13:25] VITALS: BP 147/82; PULSE 106; RESP 17; TEMP 37.2; O2SAT 91; BMI 16.8
--- NOTE | 2020-09-07 13:50 | EX.ED.GENINJ ---
HPI History of Present Illness Chief Complaint: Fall Detail of Chief Complaint: Fall with injury to left arm Informant: patient Onset/Context/Timing Onset: Yesterday Narrative Narrative: Patient presents to the emergency department complaint of left shoulder and arm pain. She had a fall last evening and states that she was playing with her grandson and think she may have slipped on an Easter egg that he was playing with causing her to fall. Patient landed on her left shoulder. She denies wreck in her head or loss of consciousness. She is right-hand dominant. She denies neck pain or chest pain or abdominal pain. [facility] Medical History (Updated 09/07/20 @ 15:[address] Yadiel Albert, DO) Hypertension S/P right hip fracture Home Medications aspirin 81 mg PO DAILY@0800 12/24/17 [History Last Taken 12/24/17 08:00] amlodipine 5 mg PO DAILY tablet 12/27/17 [Rx Last Taken Unknown] hydrocodone-acetaminophen 1 tab PO Q4H PRN PRN 3 Days #15 tablet 09/07/20 [Rx Last Taken Unknown] Allergy/AdvReac Type Severity Reaction Status Date / Time oxycodone AdvReac hallucinati Verified 09/07/20 13:25 ons Surgical History History of hysterectomy Social History Smoking Status: Current every day smoker tobacco type: cigarettes ROS ROS ED Constitutional Constitutional ED: Reports systems reviewed and no addt'l complaints, except as documented; Denies body ache(s), change in weight or chills Eyes Eyes: Denies acute decrease in peripheral vision, change in vision, double vision or loss of vision ENT ENT ED: Reports none; Denies ear pain, lip swelling, loss taste/smell, neck pain, otalgia or sore throat Cardiovascular Cardiovascular: Reports none; Denies abdominal pain, chest pain with activity, leg edema, lightheadedness, palpitations, rapid heart rate or syncope Respiratory/Chest Respiratory/Chest: Reports none; Denies change in mental status, dry cough, dyspnea, hemoptysis, shortness of breath at rest or shortness of breath with exertion Gastrointestinal Gastrointestinal: Reports none; Denies abdominal pain, change in stool character, diarrhea, hematemesis, hematochezia, melena, rectal bleeding or vomiting Genitourinary Genitourinary ED: Reports none; Denies abdominal discomfort, anuria, dysuria, genital pain or polyuria Musculoskeletal Musculoskeletal: Reports none and other Details: Left arm pain ; Denies arthralgias, back pain, difficulty walking, extremity pain, muscle weakness or myalgias Integumentary Reports none; Denies abscess or rash Neurologic Neurologic: Reports none; Denies abnormal gait, confusion, focal weakness, frequent falls, headache(s), loss of vision, numbness, paresthesias, radicular pain, vertigo or weakness Psychiatric Psychiatric: Reports systems reviewed and no addt'l complaints, except as documented and none; Denies behavioral changes, confusion, difficulty concentrating, hallucinations, suicidal ideation, tactile hallucinations or visual hallucinations Endocrine Endocrinology: Denies none, cold intolerance, excessive sweating, fatigue or heat intolerance Hematologic/Lymphatic Hematologic/Lymphatic: Reports none; Denies anemia, easy bleeding or easy bruising Allergic/Immunologic Allergic/Immunologic ED: Denies as per HPI, none, lip swelling, mouth swelling, throat swelling, tongue swelling or hives EXAM Physical Exam Const Vital Signs: 09/07/20 13:25 Temperature 98.9 F Temperature Source Temporal Pulse Rate 106 H Respiratory Rate 17 Blood Pressure 147/82 H Blood Pressure Mean 103 Pulse Ox 91 Oxygen Delivery Method Room Air Positive well nourished and well developed General Appearance ED: well developed and NAD HEENT Reports TM's clear and moist mucous membranes normocephalic and atraumatic; Negative for trauma or tenderness Tympanic Membrane ED: Yes TM's clear Eyes PERRL and EOMs intact bilaterally General Eye ED: Negative for pale conjunctiva or scleral icterus Neck no lymphadenopathy, supple and no JVD General: Negative for tenderness Chest Wall inspection of chest normal and palpation of chest normal Chest: Negative for tenderness Resp normal respiratory effort and clear to auscultation bilaterally Effort and Inspection: Negative for respiratory distress or pain with movement Auscultation: Negative for rhonchi, wheezes or diminished lung sounds Cardio regular rate, regular rhythm, S1 normal heart sound, S2 normal heart sound and no murmurs Peripheral Pulses: pulses 2+ throughout GI normal to inspection, nondistended, normoactive bowel sounds, soft to palpation, non-tender, non-distended and no masses Back/Spine no CVA tenderness and no thoracic nor lumbar tenderness Extremity Extremity Narrative: Left arm-patient has tenderness to the proximal humerus and shoulder at the glenohumeral joint. She has limited range of motion secondary to pain. Mild soft tissue swelling noted. No significant ecchymosis or bruising noted. No sulcus sign noted. She is neurovascular intact distally. General Extremety ED: Negative for edema General Extremity: Negative for edema Neuro oriented x3, CN's II-XII intact bilaterally, no sensory deficits noted and gait normal Sensorium / Orientation: awake, alert, oriented to person, oriented to place and oriented to time Motor Exam: strength 5/5 throughout and strength abnormal Psych mental status grossly normal Skin no rashes or lesions noted and no wounds MDM MDM MDM Narrative Medical decision making narrative: Patient will be given a sling. Patient will be given a prescription for [place]. She will be given referral to orthopedics for follow-up. Radiography Diagnostic Testing: Radiology Impression Humerus X-Ray 09/07/20 13:55 IMPRESSION: Acute impacted humeral neck fracture. Electronically Signed: Brad Lino MD at 14:37 EDT Tel , Service support , 2 view x-rays of the left humerus obtained showed an impacted humeral neck fracture. Radiology in agreement. Discharge Plan Triage Chief Complaint: Fall ED Provider: Yadiel Albert Dx/Rx/DC Orders Clinical Impression: Fracture of proximal end of left humerus Instructions: ED Mechanical Fall, ED Fracture, Upper Extremity, ED Fracture, Shoulder Prescriptions: New hydrocodone-acetaminophen [hydrocodone-acetaminophen] 1 TABLET tablet 1 tab PO Q4H PRN PRN (Reason: Pain) 3 Days Qty: 15 RF: 0 No Action aspirin 81 MG tablet,chewable 81 mg PO DAILY@0800 RF: 0 amlodipine 5 MG tablet 5 mg PO DAILY RF: 0 Primary Care Provider: Larry Rich Referrals: John Sharma MD [STAFF PHYSICIAN] - Larry Rich MD [Primary Care Provider] - Disposition Disposition: Home, self care
--- NOTE | 2020-09-07 13:55 | RAD_ITS ---
STUDY: X-RAY - LEFT HUMERUS REASON FOR EXAM: Female, 69 years old. injury TECHNIQUE: 2 view(s) of the humerus. COMPARISON: None. FINDINGS: Acute impacted fracture the humeral neck. There is no demonstrated fracture or osseous destructive process. There is no demonstrated soft tissue abnormality. RAD/Humerus min 2 Views IMPRESSION: Acute impacted humeral neck fracture. Electronically Signed: Brad Lino MD at 14:37 EDT Tel , Service support ,
[2020-09-07] MEDS: Ondansetron ODT 4 MG Tablet PO (14:45)
[2020-09-07] MEDS: HYDROcodone Bitartrate/Apap 5/325 Tablet PO (14:45)
== END 2020-09-07 15:19 | disposition home or self-care (01) ==
PROVIDERS: Emergency Provider Emergency Medicine; PCP Family Medicine
DX: S42.202A Unspecified fracture of upper end of left humerus, initial encounter for closed fracture (principal); W01.0XXA Fall on same level from slipping, tripping and stumbling without subsequent striking against object, initial encounter; Y93.9 Activity, unspecified; Y92.9 Unspecified place or not applicable; I10 Essential (primary) hypertension; Z79.82 Long term (current) use of aspirin; Z79.899 Other long term (current) drug therapy; F17.210 Nicotine dependence, cigarettes, uncomplicated
CPT/HCPCS: 73060; 99284; A4216

== ENCOUNTER 2021-02-08 11:45 | Observation (INO) | payer MEDICARE, MEDICAID, SELFPAY ==
[2021-02-08] VITALS (16 sets, daily range): BP systolic 131–166; BP diastolic 63–108; PULSE 94–115; RESP 16–26; TEMP 36.6–37.1; O2SAT 91–98; BMI 17.9; BMI 33.6
--- NOTE | 2021-02-08 12:02 | EKG12_ITS ---
Test Reason : SOB Blood Pressure : / mmHG Vent. Rate : 099 BPM Atrial Rate : 099 BPM P-R Int : 108 ms QRS Dur : 076 ms QT Int : 346 ms P-R-T Axes : 058 -14 066 degrees QTc Int : 444 ms Sinus rhythm with short IL Low voltage QRS (Limb Leads) Septal NH, age undetermined, cannot be excluded Inferior NH, age undetermined, cannot be excluded Confirmed by MERCED GIVENS, CHELSEA ([id number]), map editor ANMOL NORMAN ([id number]) on 02/10/2021 9:43:41 AM Referred By: SANTINO/MOHAN Confirmed By:CHELSEA BLACKWOOD MD
--- NOTE | 2021-02-08 12:03 | ED.VIS.DYS ---
HPI History of Present Illness Chief Complaint: Cough Narrative Narrative: 70-year-old female presenting with cough which developed on Tuesday. She also has associated shortness of breath. Patient states she initially coughed so hard that her lower back started to hurt but this resolved. She has not had a fever, chills, body aches, change in taste or smell. She states he has 1 sick contact who was evaluated and did not have Covid or other illness. Patient states that last evening she started to have chest pain which initially felt like a pressure and then started feeling like a sharp stabbing pain. She points to the center of her chest. She denies any cardiac history. She states she is a smoker but does not have any history of COPD. [facility] Medical History Hypertension S/P right hip fracture Home Medications aspirin 81 mg PO DAILY@0800 12/24/17 [History Last Taken 12/24/17 08:00] amlodipine 5 mg PO DAILY tablet 12/27/17 [Rx Last Taken Unknown] Allergy/AdvReac Type Severity Reaction Status Date / Time oxycodone AdvReac hallucinati Verified 02/08/21 12:08 ons Surgical History History of hysterectomy Social History Smoking Status: Current every day smoker tobacco type: cigarettes ROS ROS ED Constitutional Constitutional ED: Denies chills or fever(s) Eyes Eyes: Denies blurry vision or diplopia ENT ENT ED: Denies rhinorrhea or sore throat Cardiovascular Cardiovascular: Reports chest pain Respiratory/Chest Respiratory/Chest: Reports cough, dyspnea and dyspnea on exertion Gastrointestinal Gastrointestinal: Denies abdominal pain, nausea or vomiting Genitourinary Genitourinary ED: Denies dysuria or hematuria Musculoskeletal Musculoskeletal: Denies arthralgias or myalgias Integumentary Denies abscess or rash Neurologic Neurologic: Denies headache(s) or weakness Psychiatric Psychiatric: Denies anxiety or depression EXAM Physical Exam Const Vital Signs: 02/08/21 11:46 02/08/21 11:49 02/08/21 12:14 Temperature 98.8 F 98 F Temperature Source Temporal Oral Pulse Rate 115 H 102 H Respiratory Rate 20 H 19 H Respiratory Effort Normal Respiratory Pattern Normal Blood Pressure 145/98 H 157/99 H Blood Pressure Mean 113 118 Pulse Ox 95 94 Oxygen Delivery Method Room Air Room Air Room Air Oxygen Flow Rate (L/min) 02/08/21 12:34 02/08/21 12:49 02/08/21 13:46 Temperature 98 F Temperature Source Oral Pulse Rate 94 96 112 H Respiratory Rate 18 19 H 19 H Respiratory Effort Respiratory Pattern Blood Pressure 147/83 H 166/96 H Blood Pressure Mean 104 119 Pulse Ox 96 96 93 Oxygen Delivery Method Room Air Room Air Room Air Oxygen Flow Rate (L/min) 02/08/21 14:38 02/08/21 15:00 02/08/21 15:49 Temperature 98.3 F Temperature Source Oral Pulse Rate 113 H 105 H 106 H Respiratory Rate 18 18 20 H Respiratory Effort Respiratory Pattern Blood Pressure 147/85 H 147/90 H Blood Pressure Mean 105 109 Pulse Ox 91 91 93 Oxygen Delivery Method Room Air Room Air Room Air Oxygen Flow Rate (L/min) 02/08/21 16:19 Temperature Temperature Source Pulse Rate 109 H Respiratory Rate 26 H Respiratory Effort Respiratory Pattern Blood Pressure 150/86 H Blood Pressure Mean 107 Pulse Ox 94 Oxygen Delivery Method Nasal Cannula Oxygen Flow Rate (L/min) 2 Positive well nourished General Appearance ED: NAD; Negative for pallor HEENT Reports moist mucous membranes atraumatic Eyes PERRL and EOMs intact bilaterally Resp normal respiratory effort Auscultation: wheezes scattered wheezes and diminished lung sounds Cardio regular rate and regular rhythm Extremity normal to inspection General Extremety ED: Negative for tenderness Neuro oriented x3 Sensorium / Orientation: alert Psych mental status grossly normal Thought Process: normal thought process Skin General Skin Exam: Negative for jaundice or pallor MDM MDM MDM Narrative Medical decision making narrative: Patient seen and evaluated for shortness of breath. She is a long-term smoker without any diagnosis of COPD. She had an ambulatory pulse ox of 84% upon arrival. On place to the bed her oxygen did rise. She had scattered wheezes on initial examination and was given Solu-Medrol and breathing treatments. I did obtain blood work due to the dyspnea and her CBC is normal. BNP is within normal limits. Troponin is 6. EKG on my interpretation shows a sinus rhythm with a ventricular rate of 99 bpm without sign of ischemic changes. Chest x-ray my interpretation shows no acute cardiopulmonary process and the radiologist does agree. Patient's D-dimer was elevated and she did have a CTA which did not show a PE or dissection however did identify a spiculated lesion versus scarring in the right apical lung. This was interpreted by the radiologist. Patient ambulated to the bathroom after initial breathing treatment and her ambulatory pulse ox was 88%. She was given another breathing treatment and then monitored. Her pulse ox did drop to 88% while sitting in bed. Her initial rapid Covid was negative and I did obtain a Covid PCR which were both negative. At this point the patient will need to stay in the hospital for aerosols and Solu-Medrol. Although she has no diagnosis of COPD I believe that is the most likely cause of her symptoms due to cigarette smoking. Impression: 1. Hypoxic respiratory failure 2. Reactive airway disease Lab Data Labs: Laboratory Results - last 24 hr 02/08/21 02/08/21 02/08/21 12:10 12:10 12:10 WBC 9.3 RBC 4.76 Hgb 15.0 Hct 45.4 MCV 95.4 MCH 31.5 MCHC 33.0 RDW Std Deviation 42.0 RDW Coeff of Sandra 11.9 Plt Count 830 H* MPV 9.9 Immature Gran % (Auto) 0.400 Neut % (Auto) 74.2 H Lymph % (Auto) 17.9 L Kay % (Auto) 6.5 Eos % (Auto) 0.6 Baso % (Auto) 0.4 Absolute Neuts (auto) 6.9 Absolute Lymphs (auto) 1.67 Nucleated RBC % 0 Diff Path Review May foll Platelet Estimate MKD INC Plt Morphology Comment LARGE D-Dimer Quant (PE/DVT) 1.40 H* Sodium Potassium Chloride Carbon Dioxide Anion Gap BUN Creatinine Estim Creat Clear Calc Est GFR (MDRD) Af Amer Est GFR (MDRD) Non-Af BUN/Creatinine Ratio Glucose Calcium Total Bilirubin AST ALT Alkaline Phosphatase Troponin I High Sens B-Natriuretic Peptide 53.1 Total Protein Albumin Globulin Albumin/Globulin Ratio COVID-19 (RYAN) 02/08/21 02/08/21 02/08/21 12:10 14:30 14:35 WBC RBC Hgb Hct MCV MCH MCHC RDW Std Deviation RDW Coeff of Sandra Plt Count MPV Immature Gran % (Auto) Neut % (Auto) Lymph % (Auto) Kay % (Auto) Eos % (Auto) Baso % (Auto) Absolute Neuts (auto) Absolute Lymphs (auto) Nucleated RBC % Diff Path Review Platelet Estimate Plt Morphology Comment D-Dimer Quant (PE/DVT) Sodium 133 L Potassium 4.1 Chloride 98 Carbon Dioxide 23.0 Anion Gap 12 BUN 17 Creatinine 0.65 Estim Creat Clear Calc 37.26 Est GFR (MDRD) Af Amer 116 Est GFR (MDRD) Non-Af 96 BUN/Creatinine Ratio 26.2 H Glucose 87 Calcium 10.2 H Total Bilirubin 0.70 AST 33 ALT 31 Alkaline Phosphatase 226 H Troponin I High Sens 5 6 B-Natriuretic Peptide Total Protein 8.7 H Albumin 3.8 Globulin 4.9 H Albumin/Globulin Ratio 0.8 L COVID-19 (RYAN) Not Detected Radiography Diagnostic Testing: Clinical Impression(s) from Imaging Studies Chest X-Ray 02/08/21 12:21 IMPRESSION: Mild interstitial scarring of the lung apices. There is no acute pulmonary abnormality. at 1306 Reported and signed by: Juan Carlos An MD Electronically Signed: Juan Carlos An MD at 13:05 EDT Tel , Service support , Chest CTA 02/08/21 12:51 IMPRESSION: 1. No evidence of pulmonary embolus. 2. Pulmonary hyperinflation with emphysematous changes. There is a spiculated lesion in the right apex which may represent scar however malignancy cannot be excluded. Indicated further evaluation with PET CT scan may be beneficial. Individualized dose optimization techniques were used for this CT. at 1435 Reported and signed by: Juan Carlos An MD Electronically Signed: Juan Carlos An MD at 14:33 EDT Tel , Service support , Discharge Plan Disposition Disposition: Acute Care [facility] Discharge Date/Time: 02/08/21 17:26
[2021-02-08] MEDS: MethylPREDNISolone 125 MG/2 ML Vial IV (12:17)
--- NOTE | 2021-02-08 12:21 | RAD_ITS ---
EXAM: XR CHEST, 1 VIEW : 1950 CLINICAL INDICATION: cough TECHNIQUE: Frontal view of the chest. This report was created using [employer] report generation technology. COMPARISON: 07/17/2019 FINDINGS: LUNGS AND PLEURAL SPACES: There is biapical interstitial scarring. No pneumothorax. No effusion. HEART: Unremarkable. Cardiac silhouette not enlarged. MEDIASTINUM: Central airways and mediastinal contour are unremarkable. BONES/JOINTS: Unremarkable. SOFT TISSUES: Unremarkable. RAD/Chest 1 View (Portable) IMPRESSION: Mild interstitial scarring of the lung apices. There is no acute pulmonary abnormality. at 1306 Reported and signed by: Juan Carlos An MD Electronically Signed: Juan Carlos An MD at 13:05 EDT Tel , Service support ,
[2021-02-08] MEDS: Ipratropium/Albuterol Sulfate 3 ML AMPUL.NEB INHALATION ×2 (12:32→19:32)
[2021-02-08] MEDS: Albuterol 2.5 MG/3 ML VIAL.NEB. INHALATION ×2 (12:32→14:37)
[2021-02-08 12:39] LABS: ALB/GLOB Ratio 0.8 RATIO (0.9-2.4); AST(SGOT) 33 U/L (15-37); Alanine Aminotransfer ALT/SGPT 31 U/L (13-56); Albumin, Serum 3.8 g/dL (3.2-5.0); Alkaline Phosphatase 226 U/L (45-117); Anion Gap 12 (5-15); BUN 17 mg/dL (7-18); BUN/Creat Ratio 26.2 RATIO (10-20); Calcium,Total 10.2 mg/dL (8.5-10.1); Chloride 98 mmol/L (98-107); Creatinine, Serum 0.65 mg/dL (0.55-1.02); EST Glomerular Filtration Rate 96 mL/min (>60); Est Glom Filt Rate - Afr Amer 116 mL/min (>60); Estimated Creatinine Clearance 37.26 ml/min; Globulin 4.9 g/dL (2.2-4.2); Glucose 87 mg/dL (74-106); Potassium 4.1 mmol/L (3.5-5.1); Protein, Total 8.7 g/dL (6.4-8.2); Sodium Level 133 mmol/L (136-145); Troponin-I HS 5 pg/mL (3.0-54.0)
[2021-02-08 12:40] LABS: Absolute Lymphocyte Count 1.67 X10^3/uL (0.83-4.51); Absolute Neutrophil Count 6.9 X10^3/uL (2.0-7.7); BNP,B-Type NATRIURETIC PEPTIDE 53.1 pg/mL (0-100); Basophil# 0.04 X10^3/uL; Basophil% 0.4 % (0-1); Eosinophil# 0.06 X10^3/uL; Eosinophils% 0.6 % (0-5); Hematocrit 45.4 % (37-47); Lymphocyte # 1.67 X10^3/ul (0.83-4.51); Lymphocyte % 17.9 % (19-41); Mean Corpuscular Hgb 31.5 pg (27.0-32.0); Mean Corpuscular Volume 95.4 fL (81-99); Mean Platelet Vol. 9.9 fl (6.2-12.0); Monocyte# 0.61 X10^3/uL; Monocyte% 6.5 % (0-10); NRBC Flagged by Analyzer 0 % (0-5); Neutrophil # 6.91 X10^3/uL (2.7-7.7); Neutrophil % 74.2 % (47-70); POSITIVE COUNT YES; RBC Distribution Width CV 11.9 % (11.6-14.6); Red Blood Count 4.76 M/mm3 (4.2-5.4); White Blood Count 9.3 K/mm3 (4.4-11.0)
[2021-02-08 12:42] LABS: Differential Indicated SCAN CRITERIA MET; Platelet Count 830 K/mm3 (150-450)
--- NOTE | 2021-02-08 12:51 | CT_ITS ---
EXAM: CT ANGIOGRAPHY CHEST WITHOUT AND WITH INTRAVENOUS CONTRAST : 1950 CLINICAL INDICATION: chest pain TECHNIQUE: Helically acquired angiography images were obtained of the chest without and with intravenous contrast. This CT exam was performed using one or more of the following dose reduction techniques: automated exposure control, adjustment of the mA and/or kV according to patient size, and/or use of iterative reconstruction technique. This report was created using [employer] report generation technology. MIP reconstructed images were created and reviewed. CONTRAST: IV 75mL [id number] COMPARISON: None. FINDINGS: PULMONARY ARTERIES: Unremarkable. Normal in caliber. No evidence of pulmonary embolism. AORTA: Unremarkable. Normal in caliber. No evidence of dissection. GREAT VESSELS OF AORTIC ARCH: Unremarkable. Normal in caliber. No evidence of dissection. LUNGS AND PLEURAL SPACES: The lungs are hyperinflated. There are emphysematous changes in the lung apices. There is a slightly spiculated lesion in the right apex that measures 1.5 x 1.5 x 1.2 cm this may represent an area of scar however malignancy cannot be excluded. No pleural effusion or thickening. No pneumothorax. HEART: Unremarkable. Heart size is normal. No pericardial effusion. No signs of right heart strain, ratio of right ventricle to left ventricle measures less than 1. MEDIASTINUM: Unremarkable. No mediastinal or hilar adenopathy. Esophagus is unremarkable. No hiatal hernia. THYROID: Unremarkable. No thyroid lesions. BONES/JOINTS: Unremarkable. No suspicious lytic or blastic abnormality. CT/CTA Chest W/WO Contrast IMPRESSION: 1. No evidence of pulmonary embolus. 2. Pulmonary hyperinflation with emphysematous changes. There is a spiculated lesion in the right apex which may represent scar however malignancy cannot be excluded. Indicated further evaluation with PET CT scan may be beneficial. Individualized dose optimization techniques were used for this CT. at 1435 Reported and signed by: Juan Carlos An MD Electronically Signed: Juan Carlos An MD at 14:33 EDT Tel , Service support ,
[2021-02-08 13:02] LABS: Platelet Estimate MKD INC (ADEQ)
[2021-02-08 13:03] LABS: Platelet Morphology LARGE
[2021-02-08] MEDS: Ketorolac 15 MG/ML Vial IV (14:47)
[2021-02-08 14:59] LABS: Troponin-I HS 6 pg/mL (3.0-54.0)
--- NOTE | 2021-02-08 17:03 | NURSING ---
DR FONSECA FOR DR DE
--- NOTE | 2021-02-08 17:12 | NURSING ---
MED SURG OBS TERELETSRUBEN COPD, HYPOXIC RESP FAILURE
--- NOTE | 2021-02-08 17:48 | HP.PCM.HOS_ITS ---
Documented by User: Vinicius BARNEY 02/08/21 18:16 HPI - General General Date of Admission: 02/08/21 HPI Narrative NUBIA PIERRE is a 70-year-old female who presents to the ED at [facility] on 02/08/2021 with a chief complaint of shortness of breath. Patient reports that for the past 5 days she has been suffering from progressively worsening shortness of breath. Patient reports that the shortness of breath is worse with exertion, however is not aggravated or relieved with position change. Patient also endorses a productive cough, which she reports as not being too thick and white in color. Patient denies any wheezing, hemoptysis, fever, N /V/D. Patient denies prior history of COPD, does endorse a 50-year smoking history of smoking 1 pack/day. Patient is not on any breathing treatments at home and does not use supplemental oxygen. Vital signs in the ED are a temperature of 98.1 ?F, HR of 107, BP of 139/63, RR of 24. Patient is currently satting 95% on 2 L via nasal cannula. Chest x-ray does demonstrate bilaterally enlarged lungs with biapical interstitial scarring, heart is unremarkable and does not appear to be enlarged. D-dimer was elevated in the ED, CTA of the chest did not demonstrate any evidence of PE, however was consistent with hyperinflation/emphysematous change. Of note, there was also a spiculated lesion in the right apex which could represent malignancy. Patient was placed on supplemental oxygen and was given breathing treatments in the ED which did help with her shortness of breath. [facility] Medical History (Updated 02/08/21 @ 17:59 by Vinicius BARNEY) Hip fracture, right Humerus fracture Hypertension S/P right hip fracture Home Medications aspirin 81 mg PO DAILY@0800 12/24/17 [History Last Taken 02/08/21 06:30] amlodipine 5 mg PO DAILY tablet 12/27/17 [Rx Last Taken 02/08/21 06:30] Allergy/AdvReac Type Severity Reaction Status Date / Time oxycodone AdvReac hallucinati Verified 02/08/21 12:08 ons Family History Father Heart disease Cancer Mother Hypertension Surgical History (Updated 02/08/21 @ 17:57 by Vinicius BARNEY) History of hip surgery History of hysterectomy Social History (Updated 02/08/21 @ 17:58 by Vinicius BARNEY) Smoking Status: Current every day smoker tobacco type: cigarettes alcohol intake: current alcohol intake frequency: a few times a month Alcohol type: beer substance use type: does not use ROS Constitutional Constitutional: Denies anorexia, change in weight, chills, fatigue, fever(s), malaise, night sweats, weakness or other Eyes Eyes: Denies blurry vision, change in eye color, change in vision, discharge from eye(s), double vision, erythema, eye pain, loss of vision or other ENT HEENT: Denies abnormal hearing, dysphagia, ear pain, epistaxis, headache(s), hearing loss, nasal congestion, nasal discharge, post nasal drip, sinus pressure, sore throat or other Cardiovascular Cardiovascular: Reports dyspnea on exertion; Denies chest pain, claudication, edema, lightheadedness, orthopnea, palpitations, paroxysmal nocturnal dyspnea, rapid heart rate, syncope or other Respiratory/Chest Respiratory/Chest: Reports cough, dyspnea, excessive phlegm production, productive cough and shortness of breath with exertion; Denies hemoptysis, shortness of breath at rest, wheezing or other Gastrointestinal Gastrointestinal: Denies abdominal pain, coffee ground emesis, constipation, diarrhea, dyspepsia, hematemesis, hematochezia, loose stools, melena, nausea, vomiting or other Genitourinary Genitourinary: Denies burning urination, difficulty urinating, dysuria, hematuria, nocturia, urinary frequency, urinary hesitancy, urinary incontinence, urinary urgency or other Musculoskeletal Musculoskeletal: Denies arthralgias, back pain, joint pain, joint stiffness, ethel nt swelling, myalgias, neck pain or other Neurologic Neurologic: Denies abnormal gait, abnormal speech, confusion, disequilibrium, dizziness, focal weakness, headache(s), numbness, paresthesias, seizure-like activity, seizures, syncope, tingling, tremor(s) or other Psychiatric Psychiatric: Denies anxiety, depression, homicidal ideation, suicidal ideation or other Endocrine Endocrinology: Denies change in body appearance, cold intolerance, excessive sweating, heat intolerance, polydipsia, polyuria or other Hematologic/Lymphatic Hematologic/Lymphatic: Denies anemia, easy bleeding, easy bruising, lymphad enopathy or other Allergic/Immunologic Allergic/Immunologic: Denies rhinitis, hives, eczemia, asthma or other Vital Signs Vital Signs Vital Signs: 02/08/21 11:46 02/08/21 11:49 02/08/21 12:14 Temperature 98.8 F 98 F Temperature Source Temporal Oral Pulse Rate 115 H 102 H Respiratory Rate 20 H 19 H Respiratory Effort Normal Respiratory Pattern Normal Blood Pressure 145/98 H 157/99 H Blood Pressure Mean 113 118 Pulse Ox 95 94 Oxygen Delivery Method Room Air Room Air Room Air Oxygen Flow Rate (L/min) 02/08/21 12:34 02/08/21 12:49 02/08/21 13:46 Temperature 98 F Temperature Source Oral Pulse Rate 94 96 112 H Respiratory Rate 18 19 H 19 H Respiratory Effort Respiratory Pattern Blood Pressure 147/83 H 166/96 H Blood Pressure Mean 104 119 Pulse Ox 96 96 93 Oxygen Delivery Method Room Air Room Air Room Air Oxygen Flow Rate (L/min) 02/08/21 14:38 02/08/21 15:00 02/08/21 15:49 Temperature 98.3 F Temperature Source Oral Pulse Rate 113 H 105 H 106 H Respiratory Rate 18 18 20 H Respiratory Effort Respiratory Pattern Blood Pressure 147/85 H 147/90 H Blood Pressure Mean 105 109 Pulse Ox 91 91 93 Oxygen Delivery Method Room Air Room Air Room Air Oxygen Flow Rate (L/min) 02/08/21 16:19 02/08/21 17:23 Temperature 98.1 F Temperature Source Temporal Pulse Rate 109 H 107 H Respiratory Rate 26 H 24 H Respiratory Effort Respiratory Pattern Blood Pressure 150/86 H 139/63 H Blood Pressure Mean 107 88 Pulse Ox 94 95 Oxygen Delivery Method Nasal Cannula Nasal Cannula Oxygen Flow Rate (L/min) 2 2 Weight Weight: 98 lb Body Mass Index (BMI) 17.9 Physical Exam Const alert and oriented x3 General Appearance: cooperative HEENT normocephalic, head/scalp atraumatic and hearing grossly normal bilaterally Eyes PERRL, EOMs intact bilaterally and conjunctivae normal Neck no lymphadenopathy, supple and no JVD Resp normal respiratory effort, no retractions, no use of accessory muscles and clear to auscultation bilaterally Cardio regular rate, regular rhythm, no murmurs and no JVD GI normal to inspection, nondistended, normoactive bowel sounds, soft to palpation and non-tender Extremity normal to inspection, full ROM and no clubbing, cyanosis or edema Skin no rashes or lesions noted, no wounds, skin turgor normal and no jaundice Neuro CN's II-XII intact bilaterally Psych affect normal Results Lab / Micro Data Result Diagrams: 02/08/21 12:10 02/08/21 12:10 Labs: Laboratory Results - last 24 hr 02/08/21 12:10: B-Natriuretic Peptide 53.1 02/08/21 12:10: WBC 9.3, RBC 4.76, Hgb 15.0, Hct 45.4, MCV 95.4, MCH 31.5, MCHC 33.0, RDW Std Deviation 42.0, RDW Coeff of Sandra 11.9, Plt Count 830 H*, MPV 9.9, Immature Gran % (Auto) 0.400, Neut % (Auto) 74.2 H, Lymph % (Auto) 17.9 L, [place] % (Auto) 6.5, Eos % (Auto) 0.6, Baso % (Auto) 0.4, Absolute Neuts (auto) 6.9, Absolute Lymphs (auto) 1.67, Nucleated RBC % 0, Diff Path Review May anam, Platelet Estimate [employer], Plt Morphology Comment LARGE 02/08/21 12:10: D-Dimer Quant (PE/DVT) 1.40 H* 02/08/21 12:10: Sodium 133 L, Potassium 4.1, Chloride 98, Carbon Dioxide 23.0, Anion Gap 12, BUN 17, Creatinine 0.65, Estim Creat Clear Calc 37.26, Est GFR (MDRD) Af Amer 116, Est GFR (MDRD) Non-Af 96, BUN/Creatinine Ratio 26.2 H, Glucose 87, Calcium 10.2 H, Total Bilirubin 0.70, AST 33, ALT 31, Alkaline Phosphatase 226 H, Troponin I High Sens 5, Total Protein 8.7 H, Albumin 3.8, Globulin 4.9 H, Albumin/Globulin Ratio 0.8 L 02/08/21 14:30: Troponin I High Sens 6 02/08/21 14:35: COVID-19 (RYAN) Not Detected Micro: Microbiology 02/08/21 12:10 Nasal Secretion SARS-CoV-2 Antigen (Rapid) - Final Radiology Impression Chest X-Ray 02/08/21 12:21 IMPRESSION: Mild interstitial scarring of the lung apices. There is no acute pulmonary abnormality. at 1306 Reported and signed by: Juan Carlos An MD Electronically Signed: Juan Carlos An MD at 13:05 EDT Tel , Service support , Chest CTA 02/08/21 12:51 IMPRESSION: 1. No evidence of pulmonary embolus. 2. Pulmonary hyperinflation with emphysematous changes. There is a spiculated lesion in the right apex which may represent scar however malignancy cannot be excluded. Indicated further evaluation with PET CT scan may be beneficial. Individualized dose optimization techniques were used for this CT. at 1435 Reported and signed by: Juan Carlos An MD Electronically Signed: Juan Carlos An MD at 14:33 EDT Tel , Service support , Assessment & Plan Assessment/Plan (1) Smoking greater than 40 pack years: (2) HTN (hypertension): (3) Lesion of lung: (4) COPD (chronic obstructive pulmonary disease): PLAN: Patient is a 70-year-old female presents to the ED at [facility] on 02/08/2021 with a chief complaint of shortness of breath. Patient will be admitted for management of COPD exacerbation. 1) acute on chronic COPD exacerbation Patient presents with a 5-day history of progressively worsening shortness of breath and nonpurulent sputum production. Patient denies any fever, chills, N/V/D. Patient was tachypneic and tachycardic in the ED. Patient was not hypoxic on presentation, however his saturations did drop with exertion. Chest x-ray was consistent with emphysematous change and showed hyperinflated lungs, however did not demonstrate any acute cardiopulmonary process. D-dimer was elevated on presentation, but chest CTA did not demonstrate any evidence of PE. High-sensitivity troponins not elevated. BNP not elevated. CBC did demonstrate a thrombocytosis with platelets at 830,000, but did not demonstrate a leukocytosis. Rapid Covid negative. Plan; placed on MS 3 for observation, initiate Solu-Medrol, initiate breathing treatments. 2) spiculated lesion in the right lung apices Spiculated lesion was seen in the right apices and may represent a scar, however, given patient's 50-year smoking history, malignancy cannot be excluded. Patient will be referred to pulmonology for appropriate outpatient work-up. 3) HTN BP has been elevated since presenting to the ED. Amlodipine continued, as needed hydralazine ordered. 4) tobacco abuse Patient endorses smoking 1 pack/day for 50 years. Cessation advised, nicotine patch ordered. 5) hyponatremia Sodium currently 133, likely due to poor oral intake. Continue to trend BMP. CODE STATUS:DNRCC-A, no intubation Vaccination status: Patient has not been vaccinated for COVID-19, and was not interested in registering for vaccination at this time. Patient was advised of the risk/benefits of being vaccinated. Patient voiced understanding and was told that if she change her mind about vaccination that she could make an appointment while here in the hospital.' Patient seen by Vinicius Tamayo PA-C, under the supervision of Dr. Melendez Documented by User: Dr. Mannie Melendez, 02/08/21 18:57 HPI - General General Date of Admission: 02/08/21 [facility] Medical History (Updated 02/08/21 @ 17:59 by Vinicius BARNEY) Hip fracture, right Humerus fracture Hypertension S/P right hip fracture Home Medications aspirin 81 mg PO DAILY@0800 12/24/17 [History Last Taken 02/08/21 06:30] amlodipine 5 mg PO DAILY tablet 12/27/17 [Rx Last Taken 02/08/21 06:30] Allergy/AdvReac Type Severity Reaction Status Date / Time oxycodone AdvReac hallucinati Verified 02/08/21 12:08 ons Family History Father Heart disease Cancer Mother Hypertension Surgical History (Updated 02/08/21 @ 17:57 by Vinicius BARENY) History of hip surgery History of hysterectomy Social History (Updated 02/08/21 @ 17:58 by Vinicius BARNEY) Smoking Status: Current every day smoker tobacco type: cigarettes alcohol intake: current alcohol intake frequency: a few times a month Alcohol type: beer substance use type: does not use Results Lab / Micro Data Result Diagrams: 02/08/21 12:10 02/08/21 12:10 Charges/Coding Addendum Addendum: Patient was seen and examined independently of Vinicius Tamayo, she came to the ER today with complaints of shortness of breath, work-up in the emergency room included a CT of the chest which showed no evidence of pulmonary embolism but there was noted to be a lung lesion in the right upper lobe and evidence of emphysema. Patient required oxygen due to a desaturation when walking to 83% on room air. Patient was given aerosol treatments in the ER but remained hypoxic. Patient states that she has been short of breath for quite some time at home and she notices it more when walking upstairs or on exertion. Patient still smokes cigarettes. On examination she appeared in good health and spirits, she does not appear to be in any distress on 2 L oxygen, she appeared cachectic and older than her stated age. Patient appears cachectic. Vital signs as documented. Skin warm and dry and without overt rashes. Neck without JVD, thyroid appears normal, trachea is midline, neck is supple. Lungs clear, decreased breath sounds were noted bilaterally. Heart exam notable for regular rhythm, normal sounds and absence of murmurs, rubs or gallops. Abdomen unremarkable and without evidence of organomegaly, masses, or abdominal aortic enlargement, bowel sounds are present in all 4 quadrants, no abdominal tenderness was noted. Extremities nonedematous, no cyanosis was noted, no clubbing was noted. Neuro: Cranial nerves II through XII are grossly intact, no focal motor deficits were noted, sensation to light touch and pinprick is intact, motor exam 5/5 throughout. Psych: Patient is alert and oriented x3, she does not appear anxious or depressed, she does not appear agitated. I talked with the patient at length about taking the Covid vaccine, she finally agreed to take it and I ordered the [employer] 1 dose regimen Covid vaccination. Patient was placed in the observation status on PCU, she received aerosol treatments and IV corticosteroids, she will be seen by pulmonary medicine concerning her right lung apical spiculated lesion-this is 1.5 x 1.5 x 1.2 cm. Patient knows about this lung lesion because I informed her it was present, I told her she will need follow-up concerning this. I have reviewed Vinicius Tamayo's history and physical including his medical assessment and plan of care and endorse it. Visit Charges OBSV E&M: 38409 Initial observation care L3
[2021-02-08] MEDS: COVID-19 VAC,AD26(JANSSEN)/PF 0.5 ML SYRINGE IM (19:54)
[2021-02-08] MEDS: Acetaminophen 325 MG Tablet 650 MG PO (20:26)
[2021-02-09] VITALS (11 sets, daily range): BP systolic 136–144; BP diastolic 84–98; PULSE 94–111; RESP 16–20; TEMP 36.3–37; O2SAT 92–98
[2021-02-09] MEDS: Ipratropium/Albuterol Sulfate 3 ML AMPUL.NEB INHALATION ×5 (00:27→23:51)
[2021-02-09] MEDS: Acetaminophen 325 MG Tablet 650 MG PO ×3 (02:26→19:42)
--- NOTE | 2021-02-09 07:08 | CON.PCM.CC_ITS ---
Assessment & Plan Assessment/Plan (1) Lung nodule: PLAN: RECOMMENDATIONS: 1. Proceed with CT-guided lung biopsy. Orders have been placed accordingly. 2. Continue scheduled bronchodilator therapy and steroids. 3. Wean supplemental oxygen as tolerated. 4. Perform walking oximetry study prior to consideration for discharge home. 5. Continue nicotine replacement therapy. 6. Follow-up in the pulmonary medicine clinic within 2 weeks of discharge. IMPRESSIONS: 1. Right upper lobe lung nodule CT imaging of the chest revealed a spiculated lung nodule in excess of 1 cm in the right lung apex. These findings are concerning given the patient's extensive smoking history and upper lobe location. Accordingly, I would recommend that we proceed with CT-guided lung biopsy. Given the upper lobe predominant emphysematous changes, CT-guided biopsy would be safest completed while the patient is still admitted to the hospital. I did explain that pneumothorax is a potential complication of the procedure. The patient is in agreement to proceed. 2. Chronic tobacco dependency The patient has an extensive smoking history and likely has a component of underlying obstructive lung disease. I would recommend that she follow-up in the pulmonary medicine clinic after discharge so that baseline PFTs can be obta ined. She could then be placed on an inhaler regimen to optimize her respiratory status and help eliminate symptoms. I personally spent 3 minutes discussing the deleterious effects of continued tobacco use with the patient, including modalities which could be utilized to achieve a smoke-free lifestyle. I do anticipate that the patient may have a home-going supplemental oxygen requirement as well. For now, it is reasonable to continue scheduled bronchodilators and steroids. This note was generated with [employer] dictation software. It may contain incorrect words, spelling, and punctuation that were not noted in checking the note before signing. HPI Consult Data Date of Consult: 02/09/21 HPI Narrative Reason for Consultation: Lung mass HPI Narrative: The patient is a 70-year-old female, with a history as outlined below, who presented to the emergency department on February 08 with cough, back pain and dyspnea. The patient does have an extensive smoking history of 1.5 packs of cigarettes per day since the age of 16. She denies that she utilizes supplemental oxygen at her baseline. 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 She does not utilize supplemental oxygen at her baseline. On presentation to the emergency department, the patient was noted to be afebrile but was tachycardic and tachypneic. Laboratory evaluation revealed an elevated platelet count 830,000. D-dimer was mildly elevated at 1.4. Chemistry profile was unrevealing. Coronavirus PCR was negative. CTA chest showed no evidence for pulmonary embolism. The lung [place] were hyperinflated bilaterally with bilateral upper lobe predominant emphysematous changes and a spiculated lung nodule in the right lung apex. The patient was placed on scheduled bronchodilators and IV steroids. She was admitted to the progressive care unit for further management. [facility] Medical History (Updated 02/09/21 @ 13:[address] Keegan Preston DO) Hip fracture, right Humerus fracture Hypertension S/P right hip fracture Home Medications aspirin 81 mg PO DAILY@0800 12/24/17 [History Last Taken 02/08/21 06:30] amlodipine 5 mg PO DAILY tablet 12/27/17 [Rx Last Taken 02/08/21 06:30] Allergy/AdvReac Type Severity Reaction Status Date / Time oxycodone AdvReac hallucinati Verified 02/08/21 12:08 ons Family History Father Heart disease Cancer Mother Hypertension Surgical History (Updated 02/08/21 @ 17:57 by Vinicius BARNEY) History of hip surgery History of hysterectomy Social History (Updated 02/08/21 @ 17:58 by Vinicius BARNEY) Smoking Status: Current every day smoker tobacco type: cigarettes alcohol intake: current alcohol intake frequency: a few times a month Alcohol type: beer substance use type: does not use ROS Constitutional Constitutional: Denies chills, fatigue or fever(s) Eyes Eyes: Denies blurry vision or change in vision ENT HEENT: Denies dysphagia or headache(s) Cardiovascular Cardiovascular: Reports dyspnea; Denies chest pain Respiratory/Chest Respiratory/Chest: Reports cough and dyspnea Gastrointestinal Gastrointestinal: Denies abdominal pain, diarrhea, nausea or vomiting Genitourinary Genitourinary: Denies difficulty urinating Musculoskeletal Musculoskeletal: Reports back pain; Denies arthralgias Integumentary Integumentary: Denies lesions, rash or skin ulcer Neurologic Neurologic: Denies abnormal gait or abnormal speech Psychiatric Psychiatric: Denies anxiety or depression Endocrine Endocrinology: Denies fatigue or polydipsia Hematologic/Lymphatic Hematologic/Lymphatic: Denies easy bleeding or easy bruising Physical Exam Const alert and no apparent distress General Appearance: cooperative HEENT normocephalic and head/scalp atraumatic Eyes PERRL, EOMs intact bilaterally and conjunctivae normal Neck supple General: trachea midline Chest inspection of chest normal Chest Narrative: Increased AP diameter. Resp Resp Narrative: Globally diminished air movement throughout all lung [place]. Prolonged expiratory phase. Cardio S1 normal heart sound and S2 normal heart sound Rate: tachycardic GI normal to inspection, nondistended, normoactive bowel sounds Extremity no clubbing, cyanosis or edema Skin no rashes or lesions noted Neuro moves all extremities and no focal motor deficits Psych cooperative and affect normal Lab / Micro Data Result Diagrams: 02/08/21 12:10 02/08/21 12:10 Labs: Laboratory Results - last 24 hr 02/08/21 12:10: B-Natriuretic Peptide 53.1 02/08/21 12:10: WBC 9.3, RBC 4.76, Hgb 15.0, Hct 45.4, MCV 95.4, MCH 31.5, MCHC 33.0, RDW Std Deviation 42.0, RDW Coeff of Sandra 11.9, Plt Count 830 H*, MPV 9.9, Immature Gran % (Auto) 0.400, Neut % (Auto) 74.2 H, Lymph % (Auto) 17.9 L, [place] % (Auto) 6.5, Eos % (Auto) 0.6, Baso % (Auto) 0.4, Absolute Neuts (auto) 6.9, Absolute Lymphs (auto) 1.67, Nucleated RBC % 0, Diff Path Review May anam, Platelet Estimate [employer], Plt Morphology Comment LARGE 02/08/21 12:10: D-Dimer Quant (PE/DVT) 1.40 H* 02/08/21 12:10: Sodium 133 L, Potassium 4.1, Chloride 98, Carbon Dioxide 23.0, Anion Gap 12, BUN 17, Creatinine 0.65, Estim Creat Clear Calc 37.26, Est GFR (MDRD) Af Amer 116, Est GFR (MDRD) Non-Af 96, BUN/Creatinine Ratio 26.2 H, Glucose 87, Calcium 10.2 H, Total Bilirubin 0.70, AST 33, ALT 31, Alkaline Phosphatase 226 H, Troponin I High Sens 5, Total Protein 8.7 H, Albumin 3.8, G lobulin 4.9 H, Albumin/Globulin Ratio 0.8 L 02/08/21 14:30: Troponin I High Sens 6 02/08/21 14:35: COVID-19 (RYAN) Not Detected Micro: Microbiology 02/08/21 12:10 Nasal Secretion SARS-CoV-2 Antigen (Rapid) - Final Radiology Impression Chest X-Ray 02/08/21 12:21 IMPRESSION: Mild interstitial scarring of the lung apices. There is no acute pulmonary abnormality. at 1306 Reported and signed by: Juan Carlos An MD Electronically Signed: Juan Carlos An MD at 13:05 EDT Tel , Service support , Chest CTA 02/08/21 12:51 IMPRESSION: 1. No evidence of pulmonary embolus. 2. Pulmonary hyperinflation with emphysematous changes. There is a spiculated lesion in the right apex which may represent scar however malignancy cannot be excluded. Indicated further evaluation with PET CT scan may be beneficial. Individualized dose optimization techniques were used for this CT. at 1435 Reported and signed by: Juan Carlos An MD Electronically Signed: Juan Carlos An MD at 14:33 EDT Tel , Service support , Charges/Coding Visit Charges Inpatient E&M: 09731 Init Hosp L3 Behavior Interventions Behavior Intervention: 69374 Smoking Cessation 3-10 min
[2021-02-09] MEDS: Aspirin 81 MG TAB.CHEW PO (08:43)
[2021-02-09] MEDS: amLODIPine 5 MG Tablet PO (08:44)
--- NOTE | 2021-02-09 11:41 | PCM.PN.HOSP ---
Documented by User: Vinicius BARNEY 02/09/21 11:47 Subjective Subjective Patient is a 70-year-old female comfortably resting in bed, alert and oriented x3. Patient reports significant improvement in her shortness of breath and cough from admission. Denies development of any new symptoms overnight. Does not appear to be in acute distress. Objective Data Objective Data Vital Signs: Vital Signs Temp Pulse Resp BP Pulse Ox 97.4 F L 111 H 20 H 144/98 H 98 02/09/21 07:23 02/09/21 07:23 02/09/21 07:29 02/09/21 07:23 02/09/21 07:23 Oxygen Flow Rate (L/min) 2 Oxygen Delivery Method Nasal Cannula Weight: 190 lb 0.615 oz Body Mass Index (BMI) 33.6 Lab / Micro Data Result Diagrams: 02/08/21 12:10 02/08/21 12:10 Labs: Laboratory Results - last 24 hr 02/08/21 12:10: B-Natriuretic Peptide 53.1 02/08/21 12:10: WBC 9.3, RBC 4.76, Hgb 15.0, Hct 45.4, MCV 95.4, MCH 31.5, MCHC 33.0, RDW Std Deviation 42.0, RDW Coeff of Sandra 11.9, Plt Count 830 H*, MPV 9.9, Immature Gran % (Auto) 0.400, Neut % (Auto) 74.2 H, Lymph % (Auto) 17.9 L, Chilton % (Auto) 6.5, Eos % (Auto) 0.6, Baso % (Auto) 0.4, Absolute Neuts (auto) 6.9, Absolute Lymphs (auto) 1.67, Nucleated RBC % 0, Diff Path Review May anam, Platelet Estimate [employer], Plt Morphology Comment LARGE 02/08/21 12:10: D-Dimer Quant (PE/DVT) 1.40 H* 02/08/21 12:10: Sodium 133 L, Potassium 4.1, Chloride 98, Carbon Dioxide 23.0, Anion Gap 12, BUN 17, Creatinine 0.65, Estim Creat Clear Calc 37.26, Est GFR (MDRD) Af Amer 116, Est GFR (MDRD) Non-Af 96, BUN/Creatinine Ratio 26.2 H, Glucose 87, Calcium 10.2 H, Total Bilirubin 0.70, AST 33, ALT 31, Alkaline Phosphatase 226 H, Troponin I High Sens 5, Total Protein 8.7 H, Albumin 3.8, Globulin 4.9 H, Albumin/Globulin Ratio 0.8 L 02/08/21 14:30: Troponin I High Sens 6 02/08/21 14:35: COVID-19 (RYAN) Not Detected Micro: Microbiology 02/08/21 12:10 Nasal Secretion SARS-CoV-2 Antigen (Rapid) - Final Radiography Diagnostic Testing: Radiology Impression Chest X-Ray 02/08/21 12:21 IMPRESSION: Mild interstitial scarring of the lung apices. There is no acute pulmonary abnormality. at 1306 Reported and signed by: Juan Carlos An MD Electronically Signed: Juan Carlos An MD at 13:05 EDT Tel , Service support , Chest CTA 02/08/21 12:51 IMPRESSION: 1. No evidence of pulmonary embolus. 2. Pulmonary hyperinflation with emphysematous changes. There is a spiculated lesion in the right apex which may represent scar however malignancy cannot be excluded. Indicated further evaluation with PET CT scan may be beneficial. Individualized dose optimization techniques were used for this CT. at 1435 Reported and signed by: Juan Carlos An MD Electronically Signed: Juan Carlos An MD at 14:33 EDT Tel , Service support , Physical Exam Const alert, oriented x3 and no apparent distress HEENT head/scalp atraumatic, moist oral mucous membranes and oropharynx normal Head and Scalp: normocephalic Eyes PERRL, EOMs intact bilaterally and conjunctivae normal Neck no lymphadenopathy, supple and no JVD Resp normal respiratory effort, no retractions and no use of accessory muscles Resp Narrative: Tachypneic at a respiratory rate of 20, although satting at 98% on 2 L via nasal cannula. Auscultation: diminished lung sounds bilateral lower Cardio regular rate, regular rhythm, no murmurs and no JVD GI normal to inspection, nondistended, normoactive bowel sounds, soft to palpation and non-tender Extremity normal to inspection, full ROM and no clubbing, cyanosis or edema Skin no rashes or lesions noted, no wounds, skin turgor normal and no jaundice Neuro CN's II-XII intact bilaterally Psych affect normal Assessment & Plan Assessment/Plan (1) Lesion of lung: (2) COPD (chronic obstructive pulmonary disease): QUALIFIERS: COPD type: COPD with acute exacerbation Qualified Code(s): J44.1 - Chronic obstructive pulmonary disease with (acute) exacerbation PLAN: Day 1 Discharge planning: Current plan is for patient to return home, possible discharge on 02/10 pending patient course. 1) acute on chronic COPD exacerbation Patient reports significant improvement in her shortness of breath and cough from admission. Patient's respiratory rate is elevated at 20 breaths/min, although it patient is currently satting 98% on 2 L via nasal cannula. Chest x-ray was consistent with emphysematous change and showed hyperinflated lungs, however did not demonstrate any acute cardiopulmonary process. D-dimer was elevated on presentation, but chest CTA did not demonstrate any evidence of PE. High-sensitivity troponins not elevated. BNP not elevated. CBC did demonstrate a thrombocytosis with platelets at 830,000, but did not demonstrate a leukocytosis. Rapid Covid negative. Plan; remain admitted overnight for monitoring, continue breathing treatments, continue steroids, 2) spiculated lesion in the right lung apices Spiculated lesion was seen in the right apices and may represent a scar, however, given patient's 50-year smoking history, malignancy cannot be excluded. Pulmonology consulted. 3) HTN Currently 144/98, stable. Amlodipine continued, as needed hydralazine ordered. 4) tobacco abuse Patient endorses smoking 1 pack/day for 50 years. Cessation advised, nicotine patch ordered. 5) hyponatremia Sodium currently 133, likely due to poor oral intake. Continue to trend BMP. Vaccination status: Patient was initially reluctant to receive the Covid vaccine, however was able to be convinced by admitting clinician team. [employer] vaccine schedule for patient. Patient seen by Vinicius Tamayo PA-C, under the supervision of Dr. Randle. Documented by User: Dr. John Randle MD 02/09/21 17:32 Subjective Subjective Patient has improvement in her shortness of breath. Still a smoker since teenage. CT showed 1 cm right lung apex spiculated lung nodule. Supervisor [employer] consulted. Objective Data Lab / Micro Data Result Diagrams: 02/08/21 12:10 02/08/21 12:10 Physical Exam Narrative General: Alert, Oriented x3, Cooperative, BMI 15.3 kg/m? HEENT: Atraumatic, PERRLA, EOMI, Normocephalic Oral: No Gingival or Mucosal Lesions/ Ulcerations Neck: Supple, No JVD, Negative Carotid Bruits Lungs: Air entry severely diminished in bilateral lung bases. Bilateral expiratory rhonchi. Cardiovascular: Regular rate, Regular Rhythm, Normal S1, Normal S2, No murmurs Abdomen: Bowel Sounds Present, Soft, Non Tender, Non-Distended : No renal angle tenderness. No suprapubic tenderness. Extremities: No edema, Capillary Refill Less than 3 Seconds Skin: No rashes, No breakdown Musculoskeletal: Mild atrophy of muscles of extremity. Loss of subcutaneous fat. No Tenderness to Palpation of Joints or Extremities Neurological: Cranial nerves II-XII grossly intact, DTR 2+/4 and Symmetrical, Neuro grossly intact Psych/Mental Status: Normal Affect, Appropriate. Assessment & Plan Assessment/Plan (1) COPD (chronic obstructive pulmonary disease): QUALIFIERS: COPD type: COPD with acute exacerbation Qualified Code(s): J44.1 - Chronic obstructive pulmonary disease with (acute) exacerbation (2) Lung nodule: PLAN: This patient was seen in conjunction with ECTOR Oneal. I have independently interviewed and examined the patient and reviewed pertinent history, examination findings, laboratory and plan of management. I have reviewed the note and agree with the documented findings with the few additional points. In brief, patient is admitted for COPD exacerbation with extensive smoking history since teenage. Patient currently on scheduled bronchodilator along with steroid. On oxygen therapy. Supervisor [employer] consult reviewed and appreciated. Advised CT-guided biopsy of the spiculated nodule of more than 1 cm of right lung apex with potential complication of pneumothorax. CT shows upper lobe predominant emphysematous changes. Overall patient respiratory status is improved after admission. Patient other comorbidities as mentioned above. I have discussed my assessment with ECTOR Oneal and orders have been reviewed. Charges/Coding Visit Charges Inpatient E&M: 61752 Subs Hosp L2
--- NOTE | 2021-02-09 11:50 | CASEMGMT ---
ALICIA LEMUS assessment: Face to Face with patient for initial transition planning/care coordination assessment. ALICIA LEMUS introduced self and role at [facility], pt voices understanding and consents to assessment. Pt is sitting up in bed in no distress on 2L nc. Pt is A/Ox4 and answers all questions appropriately. Care providers, pharmacy, and demographics verified. Presentation: Increased SOB w/ exertion, increased cough/CP, low back pain Admitting dx: COPD exac PCP: Layla Specialists: None currently Preferred [facility]acy: [facility] Insurance: [facility] Prescription Benefit: Yes Living Will/HPOA: Pt states has LW/HPOA info at home but has not completed. Pt states plans to work on. LNOK: Reanna Fuller, granddaughter Living Arrangements: Pt lives with granddaughter in bilevel apt and pt states struggles with stairs at times but they are working on getting pt a 1 story apartment. Pt is independent w/ ADL's. Transportation: Pt states family drives and states no transportation concerns. DME/HHC: Pt states has grab bars and shower chair. Pt states no need for any further DME and states no preference for DME company, if qualifies for home oxygen at discharge. Pt states no hx of HHC but has been to [facility] in the past. Pt states no concerns with going home at time of discharge. Pt is retired. Pt smokes 1-1.5 pack cigarettes daily and drinks about a 12 pack beer monthly. Pt states no further concerns/needs. CM to follow for any further discharge planning/needs. Advised pt to ask for CM if any further questions/concerns/needs arise, voices understanding. Pt Goal: Home Plan[place] ALICIA LEMUS
[2021-02-09 13:36] LABS: Pathologist Review Reviewed
[2021-02-09] MEDS: 0.9% Saline Lock 10 ML Syringe IV ×2 (14:02→21:58)
--- NOTE | 2021-02-09 14:55 | NURSING ---
This RN reviewed all SN charting
[2021-02-10] VITALS (25 sets, daily range): BP systolic 118–180; BP diastolic 70–102; PULSE 63–133; RESP 14–36; TEMP 36.3–36.9; O2SAT 87–100; BMI 15.3
--- NOTE | 2021-02-10 | IMM_PTH ---
PATIENT: NUBIA PIERRE LOC: MS2 U#:[id number] AGE/SX: 70/F ROOM: [facility] [place] RE02/08/[address]: Dr. Ole Whitney MD : 1950 BED: 1 DIS: 02/21/2021 SPEC #: [id number] RECD: 02/11/21 10:30 STATUS: CLIFF REMatthew #: [id number] LORENA: 02/10/21 00:[address]: John Randle DEPT: IMMUNOHISTOCHEMISTRY RECD BY: Thea Allen ENTERED: 02/11/21 10:31 SP TYPE: IMMUNO OTHR DR: MD Dr. Keegan David, DO MD Dr. Mannie Talbot, DO MD Chen Espinoza, FEED MANAGEMENT ADVISOR-C Tissues: Right upper lobe of lung, NOS Procedures: BCL-2 (add) BCL-6 (add) CD10 (add) CD20 (add) CD23 (add) CD43 (add) CD45 (add) CD5 (add) CD79A (add) CYCLIN (add) KI-67 (add) CD3 (initial) PHYSICIAN & [place] [id number] SPECIMEN INFORMATION: Tissue Source: Right upper lobe of lung, CT-guided biopsy Clinical Info: Spiculated nodule Specimen Number: [id number] CPT code: 46748, 18377 x11 METHODOLOGY: Deparaffinized sections of prefer/formalin-fixed tissue or PAP/DQ stained slides are incubated with monoclonal/polyclonal antibodies/oligonucleotide probes. Localization is made via biotin free immunoperoxidase method. Appropriate controls are performed and reacted as expected. Results on target cell population are indicated in the following table: RESULTS: ANTIBODY / CLONE RESULT CD3 (PS1) negative CD5 (SP10) negative CD20 (L26) positive CD45 (RP2/18) positive CD79a (11E3) positive CD43 (L60) positive CD23 (1B12) negative CD10 (56C6) negative BCL-2 (bcl-2/100/D5) positive BCL-6 (HV352M/A8) negative Cyclin D1/BCL-1 (SP4) negative Ki-67 (30-9) positive, very low These tests were developed and their performance characteristics determined by [facility]. They may not have been cleared or approved by the U.S. Food and Drug Administration. The FDA has determined that such clearance or approval is not necessary. The above immunohistochemical/dualISH markers are ordered and reviewed by the Pathologist. INTERPRETATION: Lung, right upper lobe, needle core biopsy: Limited specimen showing multiple atypical B-cell rich lymphoid aggregates. 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 See comment. SJ:jose 02/13/2021 SJ:jose 04/16/2021 Comment: The specimen is sent to [facility] for expert opinion, reviewed by Dr. Morgan and the above diagnosis is rendered. The complete report is viewable in the patient's EMR. Clinical correlation and appropriate follow up are necessary. Case has been reviewed in consultation with Dr. Worrell who concurs with the above diagnosis. IDC:[email or web address]
--- NOTE | 2021-02-10 | IMM_PTH ---
PATIENT: NUBIA PIERRE LOC: MS2 U#:[id number] AGE/SX: 70/F ROOM: [place] RE02/08/[address]: Dr. Ole Whitney MD : 1950 BED: 1 DIS: 02/21/2021 SPEC #: [id number] RECD: 02/11/21 10:30 STATUS: CLIFF REMatthew #: [id number] LORENA: 02/10/21 00:[address]: John Randle DEPT: IMMUNOHISTOCHEMISTRY RECD BY: Thea Allen ENTERED: 02/11/21 10:31 SP TYPE: IMMUNO OTHR DR: MD Dr. Keegan David, DO MD Dr. Mannie Talbot, DO MD Chen Espinoza, COBBLER APPRENTICE-C Tissues: Right upper lobe of lung, NOS Procedures: BCL-2 (add) BCL-6 (add) CD10 (add) CD20 (add) CD23 (add) CD43 (add) CD45 (add) CD5 (add) CD79A (add) CYCLIN (add) KI-67 (add) CD3 (initial) PHYSICIAN & [place] [id number] SPECIMEN INFORMATION: Tissue Source: Right upper lobe of lung, CT-guided biopsy Clinical Info: Spiculated nodule Specimen Number: [id number] CPT code: 10948, 82211 x11 METHODOLOGY: Deparaffinized sections of prefer/formalin-fixed tissue or PAP/DQ stained slides are incubated with monoclonal/polyclonal antibodies/oligonucleotide probes. Localization is made via biotin free immunoperoxidase method. Appropriate controls are performed and reacted as expected. Results on target cell population are indicated in the following table: RESULTS: ANTIBODY / CLONE RESULT CD3 (PS1) negative CD5 (SP10) negative CD20 (L26) positive CD45 (RP2/18) positive CD79a (11E3) positive CD43 (L60) positive CD23 (1B12) negative CD10 (56C6) negative BCL-2 (bcl-2/100/D5) positive BCL-6 (TA054C/A8) negative Cyclin D1/BCL-1 (SP4) negative Ki-67 (30-9) positive, very low These tests were developed and their performance characteristics determined by [facility]. They may not have been cleared or approved by the U.S. Food and Drug Administration. The FDA has determined that such clearance or approval is not necessary. The above immunohistochemical/dualISH markers are ordered and reviewed by the Pathologist. 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 SJ:jose 02/13/2021 Comment: Clinical correlation is necessary. Case has been reviewed in consultation with Dr. Worrell who concurs with the above diagnosis. IDC:AM
[2021-02-10] MEDS: Acetaminophen 325 MG Tablet 650 MG PO ×2 (05:55→19:33)
[2021-02-10 06:09] LABS: Absolute Lymphocyte Count 0.68 X10^3/uL (0.83-4.51); Absolute Neutrophil Count 22.7 X10^3/uL (2.0-7.7); Basophil# 0.04 X10^3/uL; Basophil% 0.2 % (0-1); Hematocrit 41.2 % (37-47); Hemoglobin 13.6 g/dL (12.0-15.0); Lymphocyte # 0.68 X10^3/ul (0.83-4.51); Lymphocyte % 2.7 % (19-41); Mean Corpuscular Hgb 31.6 pg (27.0-32.0); Mean Corpuscular Volume 95.8 fL (81-99); Monocyte# 0.92 X10^3/uL; Monocyte% 3.7 % (0-10); NRBC Flagged by Analyzer 0 % (0-5); Neutrophil # 22.73 X10^3/uL (2.7-7.7); Neutrophil % 91.9 % (47-70); POSITIVE COUNT YES; POSITIVE DIFFERENTIAL YES; Platelet Count 940 K/mm3 (150-450); RBC Distribution Width CV 12.3 % (11.6-14.6); RBC Distribution Width SD 43.3 fl (35.1-43.9); White Blood Count 24.7 K/mm3 (4.4-11.0)
[2021-02-10 06:19] LABS: Differential Indicated SCAN CRITERIA MET
[2021-02-10 06:49] LABS: Differential Comment SCANNED; Platelet Estimate MKD INC (ADEQ)
[2021-02-10] MEDS: Ipratropium/Albuterol Sulfate 3 ML AMPUL.NEB INHALATION ×3 (06:50→19:50)
[2021-02-10] MEDS: amLODIPine 5 MG Tablet PO (07:58)
--- NOTE | 2021-02-10 08:44 | PCS.PANDOC ---
PANDEMIC DOCUMENTATION INITIATED: Date: 11/24/2020 Time: 190
--- NOTE | 2021-02-10 10:04 | NURSING ---
pt to radiology
[2021-02-10] MEDS: Midazolam 2 MG/2 ML Syringe IV (10:59)
[2021-02-10] MEDS: fentaNYL 100 MCG/2 ML Ampul IV (11:00)
--- NOTE | 2021-02-10 11:00 | ASPIGT_PTH ---
PATIENT: NUBIA PIERRE LOC: MS2 U#:[id number] AGE/SX: 70/F ROOM: [facility] [place]02/08/[address]: Dr. Ole Whitney MD : 1950 BED: 1 DIS: 02/21/2021 SPEC #: [id number] RECD: 02/10/21 11:38 STATUS: CLIFF BROOKS #: [id number] LORENA: 02/10/21 11:[address]: John Randle DEPT: SURGICAL PATHOLOGY RECD BY: Louann Rogers ENTERED: 02/10/21 11:39 SP TYPE: ASP RAD OTHR DR: MD Dr. Keegan David, DO Dr. Mannie Melendez, DO MD Chen Espinoza, CONCRETE PIPE PLANT SUPERVISOR-C Tissues: Lung, NOS Procedures: FNA Specimen Adequacy Elastin Stain (control) Trichrome (control) Special Stain Group II PAS Stain (control) Surgery Specimen Level IV Amyloid Stain (control) Retic (control) Iron Stain (control) Imprint (control) HEADER OPERATION: CT-guided lung biopsy PRE-OP DIAGNOSIS: Spiculated nodule TISSUE SUBMITTED: Right upper lobe 20-gauge x7 MICROSCOPIC DIAGNOSIS Lung, right upper lobe, needle core biopsy: Limited specimen showing multiple atypical B-cell rich lymphoid aggregates. 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 Lung tissue showing marked fibrosis and elastosis. See microscopic description and comment. SJ:rg 02/13/2021 SJ:rg 04/16/2021 COMMENT The specimen is evaluated at the time of biopsy by Dr. Mancera. Immediate Evaluation = Numerous lymphocytes are noted. Immunohistochemistry ([id number]) supports the above diagnosis. Flow cytometry study from [email or web address] was cancelled due to no viable cells present. The specimen is sent to [email or web address] for expert opinion, reviewed by Dr. Morgan and the above diagnosis is rendered. The complete report is viewable in the patient's EMR. Dr. Morgan commented that ?subsequent PCR (IgH) testing reveals molecular evidence of a clonal B-cell gene rearrangement. This positive result, in conjunction with the morphology, supports a diagnosis of a B-cell neoplasm. 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 There are no features to suggest a high grade or large cell lymphoma in the sample. Recommend clinical correlation.? This case is discussed with Dr. Cross on 03/04/21 and 04/15/21. This case is discussed with Dr. Preston on 02/13/2021. Case has been reviewed in consultation with Dr. Worrell who concurs with the above diagnosis. IDC:AM MICROSCOPIC DESCRIPTION Slides are reviewed. Sections of the lung needle core biopsy show predominantly lung tissue with marked fibrosis and elastosis with few foci of lymphoid aggregates. These lymphoid aggregates are composed of predominantly small CD20+ B-cells with fewer scattered small T-cells. These B-cells lack CD5 and CD10 and focally show equivocal CD43 expression. Although these aggregates are ultimately small, given the B-cell rich nature of these aggregates, a B-cell lymphoproliferative cannot be excluded. Trichrome, PAS, reticulin, elastin stains supports the diagnosis of fibrosis and elastosis. Iron stain is negative for iron deposition. Congo red stain is negative for amyloid deposition. All stains are performed with appropriate matched controls. GROSS DESCRIPTION Received is one container labeled with the patient's name and not further designated. The specimen consists of multiple irregular fragments of bishop soft tissue that in aggregate measure 1 x 0.2 x 0.1 cm. The specimen is totally submitted in one cassette. 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 Please see complete report in e-chart or EMR
--- NOTE | 2021-02-10 11:00 | ASPIGT_PTH ---
PATIENT: NUBIA PIERRE LOC: MS2 U#:[id number] AGE/SX: 70/F ROOM: [facility] [place] RE02/08/[address]: Dr. Ole Whitney MD : 1950 BED: 1 DIS: 02/21/2021 SPEC #: [id number] RECD: 02/10/21 11:38 STATUS: CLIFF BROOKS #: [id number] LORENA: 02/10/21 11:[address]: John Randle DEPT: SURGICAL PATHOLOGY RECD BY: Louann Rogers ENTERED: 02/10/21 11:39 SP TYPE: ASP RAD OTHR DR: MD Dr. Keegan David, DO Dr. 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 Extensive fibrosis and elastosis. Negative for carcinoma. See microscopic description and comment. SJ:jose 02/13/2021 COMMENT The specimen is evaluated at the time of biopsy by Dr. Mancera. Immediate Evaluation = Numerous lymphocytes are noted. Immunohistochemistry ([id number]) supports the above diagnosis. Flow cytometry study from [employer] was cancelled due to no viable cells present. This case is discussed with Dr. Cross on 03/04/21. This case is discussed with Dr. Preston on 02/13/2021. Case has been reviewed in consultation with Dr. Worrell who concurs with the above diagnosis. IDC:AM MICROSCOPIC DESCRIPTION Slides are reviewed. The specimen shows fragments of fibroconnective tissue with extensive fibrosis and elastosis and moderate lymphocytic infiltrates. The immunohistochemistry is consistent with involvement by B-cell lymphoproliferative disorder, unclassifiable. Trichrome, PAS, reticulin, elastin stains supports the diagnosis of fibrosis and elastosis. Iron stain is negative for iron deposition. Congo red stain is negative for amyloid deposition. All stains are performed with appropriate matched controls. GROSS DESCRIPTION Received is one container labeled with the patient's name and not further designated. The specimen consists of multiple irregular fragments of bishop soft tissue that in aggregate measure 1 x 0.2 x 0.1 cm. The specimen is totally submitted in one cassette. / SJ:rg 02/10/21 TC:5 CPT: 67318, 13013, 75329 x6 ADDENDUM ADDENDUM ADDENDUM ADDENDUM ADDENDUM ADDENDUM ADDENDUM 03/31/2021 10:16 ADDENDUM 03/31/2021 10:16 ADDENDUM 03/31/2021 10:16 ADDENDUM 03/31/2021 10:16 ADDENDUM 03/31/2021 10:16 B-CELL GENE REARRANGEMENT BY PCR FROM [employer] RESULTS: B-cell gene rearrangement: Positive - A clonal B-cell gene rearrangement is detected. Please see complete report in e-chart or EMR
[2021-02-10] MEDS: Lidocaine 2% (20 ml mdv) 20 ML Vial INFILT (11:02)
--- NOTE | 2021-02-10 11:20 | RAD_ITS ---
STUDY: X-RAY CHEST REASON FOR EXAM: Female, 70 years old. Pneumothorax -- immediately post lung biopsy TECHNIQUE: AP inspiration and expiration view. COMPARISON: Comparison is made with prior examination dated 02/08/2021. FINDINGS: 5-10% right pneumothorax and the immediate postright lung biopsy radiograph. The patient is asymptomatic. RAD/Chest Insp/Exp 2 View IMPRESSION: Immediate postright lung biopsy radiograph demonstrates a right-sided 5-10% pneumothorax. Electronically Signed: Sunny Forde MD at 13:06 EDT , Service support ,
--- NOTE | 2021-02-10 12:10 | CT_ITS ---
PROCEDURE: CT GUIDED CORE NEEDLE BIOPSY OF A right apical LUNG LESION INDICATION: Female, 70 years old. Spiculated Lung Nodule PHYSICIAN: Dr. TREMAINE Escobar CONSENT: Written informed consent was obtained having explained the risks, benefits and alternatives in detail with the patient who accepted the risks and agreed to proceed. Laboratory review and clinical assessment was performed. CONSCIOUS SEDATION PROTOCOL: The Drugs used were: 1 mg Versed, IV., and 25 mcg Fentanyl, IV. The sedation time was: 15 minutes. Conscious sedation was started at 11:00 AM and terminated at 11:15 a.m. The conscious sedation protocol was independently monitored. RADIATION DOSAGE (If Supplied By Facility): CTDIvol = ( 9.95 ) mGy, DLP = ( 178.76 ) mGycm Individualized dose optimization techniques were used for this CT. TECHNIQUE: The patient was placed in the prone position. A noncontrast CT was performed to localize the lesion in the right lung apex . The skin surface was prepped and draped in a sterile fashion. 1% lidocaine was used for local anesthesia. Using CT guidance, a 20-gauge coaxial biopsy device was advanced to the periphery of the lesion. A total of 7 core specimens were obtained. The specimens were placed in a formalin solution. A post procedure CT demonstrated no adverse sequelae or pneumothorax. The patient tolerated the procedure well without adverse event. A negative biopsy does not exclude malignancy. Further imaging or clinical followup based on patient condition and degree of clinical suspicion for malignancy. Suggest rebiopsy, if biopsy results do not match with clinical scenario. CT/Biopsy/Inj or Needle Placement IMPRESSION: 1. CT directed core needle biopsy of the right apical lung nodule using CT image guidance with image documentation as described. Pathology results are pending. 2. Conscious Sedation protocol utilized with independent monitoring. Electronically Signed: Sunny Forde MD at 11:27 EDT , Service support ,
--- NOTE | 2021-02-10 13:30 | RAD_ITS ---
STUDY: X-RAY CHEST REASON FOR EXAM: Female, 70 years old. Pneumothorax -- 2 hours post lung biopsy TECHNIQUE: AP inspiration and expiration views. COMPARISON: Comparison is made with prior examination done earlier today. FINDINGS: 2 hour post right lung biopsy radiograph demonstrates an approximately 50% right-sided pneumothorax. RAD/Chest Insp/Exp 2 View IMPRESSION: 50% right pneumothorax. This has progressed as compared to prior study. Electronically Signed: Sunny Forde MD at 14:13 EDT , Service support ,
[2021-02-10] MEDS: Metoprolol Tartrate 5 MG/5 ML Vial IV (13:32)
[2021-02-10 13:48] LABS: Pathologist Review Reviewed
--- NOTE | 2021-02-10 13:55 | CON.PCM.SX_ITS ---
Assessment & Plan Assessment/Plan (1) Pneumothorax after biopsy: (2) Lesion of lung: (3) COPD (chronic obstructive pulmonary disease): QUALIFIERS: COPD type: COPD with acute exacerbation Qualified Code(s): J44.1 - Chronic obstructive pulmonary disease with (acute) exacerbation PLAN: Discussed right percutaneous chest tube placement with the patient. Including risk of bleeding, need for a larger chest tube, need for transfer if leak continues for a thoracic surgeon. Patient no further questions this time. Agreed to proceed. Danitza Barr M.D. Pager: [phone] [facility] [address] [place] [address], [facility], [address] [place] [address] Office: [phone] HPI Consult Data Date of Consult: 02/10/21 HPI Narrative HPI Narrative: NUBIA PIERRE, is a 70 F who had a right lung biopsy this morning and she had a spiculated right lung lesion also has a history of COPD. Post biopsy chest x-ray showed a large right pneumothorax with no mediastinal shift. Patient is currently 94% on 4 L which prior to biopsy she was on room ai r. Patient does admit to some shortness of breath. [facility] Medical History (Updated 02/10/21 @ 14:05 by Vinicius BARNEY) Hip fracture, right Humerus fracture Hypertension S/P right hip fracture Home Medications aspirin 81 mg PO DAILY@0800 12/24/17 [History Last Taken 02/08/21 06:30] amlodipine 5 mg PO DAILY tablet 12/27/17 [Rx Last Taken 02/08/21 06:30] Allergy/AdvReac Type Severity Reaction Status Date / Time oxycodone AdvReac hallucinati Verified 02/08/21 12:08 ons Family History Father Heart disease Cancer Mother Hypertension Surgical History (Updated 02/08/21 @ 17:57 by Vinicius BARNEY) History of hip surgery History of hysterectomy Social History (Updated 02/08/21 @ 17:58 by Vinicius BARNEY) Smoking Status: Current every day smoker tobacco type: cigarettes alcohol intake: current alcohol intake frequency: a few times a month Alcohol type: beer substance use type: does not use ROS Constitutional Constitutional: Denies anorexia, chills or fatigue Eyes Eyes: Denies loss of vision Cardiovascular Cardiovascular: Denies palpitations Respiratory/Chest Respiratory/Chest: Reports shortness of breath at rest; Denies cough Gastrointestinal Gastrointestinal: Denies abdominal pain Genitourinary Genitourinary: Denies dysuria Musculoskeletal Musculoskeletal: Denies numbness Integumentary Integumentary: Denies jaundice Neurologic Neurologic: Denies focal weakness Hematologic/Lymphatic Hematologic/Lymphatic: Denies easy bleeding Physical Exam Const alert, oriented x3 and no apparent distress Constitutional Narrative: BMI 15.3 HEENT normocephalic and head/scalp atraumatic Resp Resp Narrative: decreased breath sounds on the right Cardio regular rate Rate: regular rate GI soft to palpation and non-tender; Negative for non-distended Palpation: Negative for guarding Extremity normal to inspection and no clubbing, cyanosis or edema Skin no rashes or lesions noted Neuro CN's II-XII intact bilaterally Psych mental status grossly normal Lab / Micro Data Result Diagrams: 02/10/21 05:42 02/08/21 12:10 Labs: Laboratory Results - last 24 hr 02/10/21 05:42: WBC 24.7 H, RBC 4.30, Hgb 13.6, Hct 41.2, MCV 95.8, MCH 31.6, MCHC 33.0, RDW Std Deviation 43.3, RDW Coeff of Sandra 12.3, Plt Count 940 H*, MPV 10.0, Immature Gran % (Auto) 1.500 H, Neut % (Auto) 91.9 H, Lymph % (Auto) 2.7 L , [place] % (Auto) 3.7, Eos % (Auto) 0.0, Baso % (Auto) 0.2, Absolute Neuts (auto) 22.7 H, Absolute Lymphs (auto) 0.68 L, Nucleated RBC % 0, Differential Comment SCANNED, Diff Path Review Reviewed, Platelet Estimate [employer] Radiology Impression Chest X-Ray 02/10/21 11:20 IMPRESSION: Immediate postright lung biopsy radiograph demonstrates a right-sided 5-10% pneumothorax. Electronically Signed: Sunny Forde MD at 13:06 EDT , Service support , Biopsy CT 02/10/21 12:10 IMPRESSION: 1. CT directed core needle biopsy of the right apical lung nodule using CT image guidance with image documentation as described. Pathology results are pending. 2. Conscious Sedation protocol utilized with independent monitoring. Electronically Signed: Sunny Forde MD at 11:27 EDT , Service support , Charges/Coding Visit Charges Inpatient E&M: 85647 Init Hosp L3
--- NOTE | 2021-02-10 13:58 | PN.HOSP_ITS ---
Documented by User: Vinicius BARNEY 02/10/21 14:02 Hospitalist Note Patient is a 70-year-old female who has returned from CT-guided biopsy of the right lung. On return back to room, patient began to develop shortness of breath and oxygen saturations were in the low 80s on room air and they were 92% this morning on room air. Biopsy revealed a pneumothorax at the right lung base. Hospitalist were notified patient and chest x-ray were reviewed. On- call general surgeon, Dr. Barr, was consulted and agreed to evaluate patient for chest tube placement. Patient seen by Vinicius Tamayo PA-C, under the supervision of Dr. Randle.
--- NOTE | 2021-02-10 13:58 | PCM.PN.HOSP ---
Documented by User: Vinicius BARNEY 02/10/21 14:10 Subjective Subjective On my evaluation this morning patient was comfortably resting in the bed, alert and orient x3. Upon returning from a CT-guided biopsy in the right lung, patient began to become short of breath and required oxygen to maintain oxygen saturations. This was a change from this morning as patient was satting 95% on room air. Objective Data Objective Data Vital Signs: Vital Signs Temp Pulse Resp BP Pulse Ox 98.2 F 102 H 24 H 155/96 H 93 02/10/21 13:51 02/10/21 13:51 02/10/21 13:51 02/10/21 13:51 02/10/21 13:51 Oxygen Flow Rate (L/min) [3] 2 Oxygen Flow Rate (L/min) [2] 2 Oxygen Flow Rate (L/min) [1 ( 2 Initial Baseline)] Oxygen Flow Rate (L/min) [At 2 REST with Oxygen] Oxygen Flow Rate (L/min) 4 Oxygen Delivery Method [3] Nasal Cannula Oxygen Delivery Method [2] Nasal Cannula Oxygen Delivery Method [1 ( Nasal Cannula Initial Baseline)] Oxygen Delivery Method Nasal Cannula Weight: 86 lb 3.212 oz Body Mass Index (BMI) 15.3 Intake & Output: Intake and Output for Last 24 Hours 02/08/21 02/09/21 02/10/21 23:59 23:59 23:59 Intake Total 600 / 600 50 / 50 Balance 600 / 600 50 / 50 Lab / Micro Data Result Diagrams: 02/10/21 05:42 02/08/21 12:10 Labs: Laboratory Results - last 24 hr 02/10/21 05:42: WBC 24.7 H, RBC 4.30, Hgb 13.6, Hct 41.2, MCV 95.8, MCH 31.6, MCHC 33.0, RDW Std Deviation 43.3, RDW Coeff of Sandra 12.3, Plt Count 940 H*, MPV 10.0, Immature Gran % (Auto) 1.500 H, Neut % (Auto) 91.9 H, Lymph % (Auto) 2.7 L, [place] % (Auto) 3.7, Eos % (Auto) 0.0, Baso % (Auto) 0.2, Absolute Neuts (auto) 22.7 H, Absolute Lymphs (auto) 0.68 L, Nucleated RBC % 0, Differential Comment SCANNED, Diff Path Review Reviewed, Platelet Estimate [employer] Micro: Microbiology 02/08/21 12:10 Nasal Secretion SARS-CoV-2 Antigen (Rapid) - Final Radiography Diagnostic Testing: Radiology Impression Chest X-Ray 02/10/21 11:20 IMPRESSION: Immediate postright lung biopsy radiograph demonstrates a right-sided 5-10% pneumothorax. Electronically Signed: Sunny Forde MD at 13:06 EDT , Service support , Biopsy CT 02/10/21 12:10 IMPRESSION: 1. CT directed core needle biopsy of the right apical lung nodule using CT image guidance with image documentation as described. Pathology results are pending. 2. Conscious Sedation protocol utilized with independent monitoring. Electronically Signed: Sunny Forde MD at 11:27 EDT , Service support , Physical Exam Const alert and oriented x3 Nutritional Appearance: cachectic HEENT head/scalp atraumatic and moist oral mucous membranes Head and Scalp: normocephalic Eyes PERRL, EOMs intact bilaterally and conjunctivae normal Neck no lymphadenopathy, supple and no JVD Resp Effort and Inspection: abnormal respiratory pattern, tachypneic and respiratory distress Auscultation: diminished lung sounds Cardio no murmurs and no JVD Rate: tachycardic GI normal to inspection, nondistended, normoactive bowel sounds, soft to palpation and non-tender Extremity normal to inspection, full ROM and no clubbing, cyanosis or edema Peripheral Pulses: Yes pulses 2+ throughout Skin no rashes or lesions noted, no wounds, skin turgor normal and no jaundice Neuro CN's II-XII intact bilaterally Psych affect normal Assessment & Plan Assessment/Plan (1) Lung nodule: (2) Lesion of lung: (3) COPD (chronic obstructive pulmonary disease): QUALIFIERS: COPD type: COPD with acute exacerbation Qualified Code(s): J44.1 - Chronic obstructive pulmonary disease with (acute) exacerbation (4) Pneumothorax after biopsy: PLAN: Day 2 Discharge planning: Current plan is for patient to return home, possible discharge on 02/10 pending patient course. 1) acute on chronic COPD exacerbation This morning patient was well and satting at 95% on room air. Course was complicated by #2. Plan; remain admitted overnight for monitoring, continue breathing treatments, continue steroids. 2) Pneumothorax of the right lung s/p CT guided biopsy Upon return from CT-guided biopsy of right lung, patient began to become hypoxic, tachycardic and dyspneic. Follow-up chest x-ray was ordered in pneumothorax was evident at the right lung base. General surgery was consulted and agreed to evaluate patient for possible chest tube placement. 3) spiculated lesion in the right lung apices Spiculated lesion was seen in the right apices and may represent a scar, however, given patient's 50-year smoking history, malignancy cannot be excluded. CT-guided biopsy completed and pathology reports are pending. 3) HTN Currently 144/98, stable. Amlodipine continued, as needed hydralazine ordered. 4) tobacco abuse Patient endorses smoking 1 pack/day for 50 years. Cessation advised, nicotine patch ordered. 5) hyponatremia Sodium currently 133, likely due to poor oral intake. Continue to trend BMP. 6) Thrombocytosis Platelets remain elevated, currently 940,000. Consider inpatient versus outpatient hematology follow-up. Vaccination status: Patient was initially reluctant to receive the Covid vaccine, however was able to be convinced by admitting clinician team. [employer] vaccine schedule for patient. Patient seen by Vinicius Tamayo PA-C, under the supervision of Dr. Randle. Documented by User: Dr. John Randle MD 02/10/21 15:43 Subjective Subjective Patient had CT-guided lung biopsy and after that patient very short of breath, dyspnea at rest, tachycardia, heart rate in 120s to 130s, tachypnea RR 26 to 36/min and chest x-ray revealed right-sided pneumothorax. Official report shows 50% right-sided pneumothorax 2 hours after lung biopsy. Surgeon was called and I was there when she was putting chest tube. Objective Data Lab / Micro Data Result Diagrams: 02/10/21 05:42 02/08/21 12:10 Physical Exam Narrative General: Alert, Oriented x3, Cooperative, BMI 15.3 kg/m? HEENT: Atraumatic, PERRLA, EOMI, Normocephalic Oral: No Gingival or Mucosal Lesions/ Ulcerations Neck: Supple, No JVD, Negative Carotid Bruits Lungs: Dyspnea at rest, tachycardia, tachypnea with large pneumothorax. Chest tube inserted. Cardiovascular: Sinus tachycardia, Normal S1, Normal S2, No murmurs Abdomen: Bowel Sounds Present, Soft, Non Tender, Non-Distended : No renal angle tenderness. No suprapubic tenderness. Extremities: No edema, Capillary Refill Less than 3 Seconds Skin: No rashes, No breakdown Musculoskeletal: Mild atrophy of muscles of extremity. Loss of subcutaneous fat. No Tenderness to Palpation of Joints or Extremities Neurological: Cranial nerves II-XII grossly intact, DTR 2+/4 and Symmetrical, Neuro grossly intact Psych/Mental Status: Normal Affect, Appropriate. Assessment & Plan Assessment/Plan (1) Lung nodule: (2) Pneumothorax after biopsy: PLAN: This patient was seen in conjunction with ECTOR Oneal. I have independently interviewed and examined the patient and reviewed pertinent history, examination findings, laboratory and plan of management. I have reviewed the note and agree with the documented findings with the few additional points. In brief, patient is admitted for COPD exacerbation with extensive smoking history since teenage. Patient on scheduled bronchodilator along with steroid. On oxygen therapy. Associate Professor Of Kinesiology consult reviewed and appreciated. Advised CT-guided biopsy of the spiculated nodule of more than 1 cm of right lung apex with potential complication of pneumothorax. CT shows upper lobe predominant emphysematous changes. 02/10: Patient had CT-guided lung biopsy subsequently developed large right-sided pneumothorax. Surgeon was consulted and she promptly did right percutaneous chest tube and appreciated. I was present there during the procedure. After chest tube patient had good air bubble and repeat chest x-ray shows significant improvement in pneumothorax. Patient suction was -40 and then decreased to -20. Plan for repeat chest x-ray tomorrow morning. Patient has improvement in shortness of breath, tachypnea and tachycardia after chest tube. Overall patient respiratory status is improved after admission. Patient other comorbidities as mentioned above. I have discussed my assessment with ECTOR Oneal and orders have been reviewed. Charges/Coding Visit Charges Inpatient E&M: 61538 Subs Hosp L2
--- NOTE | 2021-02-10 14:36 | OP.PCM_ITS ---
Report of Operation Date of Procedure: 02/10/21 Pre-Operative Diagnosis: Right pneumothorax status post right lung biopsy Post-Operative Diagnosis: Same Surgery/Procedure Performed:: Right percutaneous chest tube Surgeon: Danitza Barr Type of Anesthesia: Local Estimated Blood Loss (mL): < 10 cc Description of Procedure: Consent was obtained after procedure reviewed with patient. Patient no further questions. Right anterior lateral chest prepped and draped in the usual sterile fashion with chlorhexidine. Lidocaine 1% total of 10 cc were used. Small incision was made at planned site of injury. Percutaneous chest tube was placed over the rib and air was aspirated. Needle removed and the catheter placed. Did have up to a Pleur-evac and air leak was seen. This did slow down to only a slow couple bubbles occasionally. Will check chest x-ray. Catheter was sutured with 3-0 nylon to the skin. Patient tolerated procedure well. Addendum: Patient's chest x-ray that showed lung expanded laterally looks to still small pneumo at the apex. Did go in and adjust patient suction up to -40 and got additional air bubbles moved back to -20 and no further air bubbles even with patient coughing. We will not order another chest x-ray at this time we will plan to get one in the a.m. Unless patient has any changes. Patient sta kavya she is feeling better and it is easier to breathe.
--- NOTE | 2021-02-10 14:55 | RAD_ITS ---
STUDY: X-RAY CHEST REASON FOR EXAM: Female, 70 years old. Right PTx s/p tube -- portable TECHNIQUE: Single AP portable view of the chest. COMPARISON: Comparison is made with prior chest radiograph done earlier today. FINDINGS: A small caliber right-sided chest tube has been placed. The tip is in the mid lateral aspect of the right hemithorax. The pneumothorax has cleared. Small amount of subcutaneous emphysema overlying the inferior right lateral chest wall. RAD/Chest 1 View (Portable) IMPRESSION: Status post placement of a small-caliber chest tube along the right lateral chest with resolution of the right pneumothorax. Electronically Signed: Sunny Forde MD at 15:20 EDT , Service support ,
--- NOTE | 2021-02-10 17:33 | ONC.CONSULT ---
Assessment & Plan Assessment/Plan (1) Thrombocytosis: Status: Chronic Code(s): D75.839 - Thrombocytosis, unspecified Plan: First noted in December 2017, acutely developing. No records available between 2017 in 2020. Differential diagnosis is between reactive thrombocytosis or a primary myeloproliferative neoplasm. Patient has no history of arterial or venous thrombotic disease, she is above age 60, smoker and hypertensive. Even if she has a primary myeloproliferative neoplasm, she is considered intermediate risk and therefore urgent cytoreductive therapy is not indicated. Recommendation: 1. Continue low-dose aspirin daily. 2. VTE standard medical prophylaxis during hospital stay until she is fully ambulant for example low-dose Lovenox daily. 3. We will order a myeloproliferative reflexive panel to be drawn. 4. Follow-up as outpatient. Discussed with Dr. Lopez over the phone and with the patient at the bedside. (2) Lung nodule: Status: Acute Code(s): R91.1 - Solitary pulmonary nodule Plan: And a smoker concerning for primary lung cancer. Will review pathology once available and further work-up will be indicated if cancer is confirmed. This can be accomplished as outpatient (3) Pneumothorax after biopsy: Status: Acute Code(s): J95.811 - Postprocedural pneumothorax Plan: Patient has a chest tube, defer to surgery and primary service for further management. HPI Consult Data Date of Service:: 02/10/21 PCP / Referring Provider: Dr. Larry Rich MD Attending: Dr. John Randle MD Chief Complaint Chief Complaint: Cough, shortness of breath and chest pain History of Present Illness History of Present Illness: 70-year-old female smoker was hospitalized through the emergency room on 02/08/2021 presenting with increasing cough, increasing dyspnea and right-sided chest pain. Working diagnosis was acute exacerbation of COPD CT scan of the chest 02/08/2021 : IMPRESSION: 1. No evidence of pulmonary embolus. 2. Pulmonary hyperinflation with emphysematous changes. There is a spiculated lesion in the right apex which may represent scar however malignancy cannot be excluded. 02/10/2021 CT-guided core needle biopsy right apical nodule. 02/10/2021 chest x-ray: IMPRESSION: 50% right pneumothorax. This has progressed . 02/10/2021 patient had a chest tube placed. Patient was noted to have an elevated platelet count. She has no prior history of venous or arterial thrombotic disease. She is unaware of this abnormality although it has been noted since 2018. She has been on low-dose aspirin for vascular prophylaxis. 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 Andreea Cross MD) Hip fracture, right Humerus fracture Hypertension S/P right hip fracture Home Medications aspirin 81 mg PO DAILY@0800 12/24/17 [History Last Taken 02/08/21 06:30] amlodipine 5 mg PO DAILY tablet 12/27/17 [Rx Last Taken 02/08/21 06:30] Allergy/AdvReac Type Severity Reaction Status Date / Time oxycodone AdvReac hallucinati Verified 02/08/21 12:08 ons Family History Father Heart disease Cancer Mother Hypertension Surgical History (Updated 02/08/21 @ 17:57 by Vinicius BARNEY) History of hip surgery History of hysterectomy Social History (Updated 02/08/21 @ 17:58 by Vinicius BARNEY) Smoking Status: Current every day smoker tobacco type: cigarettes alcohol intake: current alcohol intake frequency: a few times a month Alcohol type: beer substance use type: does not use ROS Constitutional Constitutional: Denies fatigue, fever(s), night sweats, poor appetite or weight loss ENT HEENT: Denies dysphagia Cardiovascular Cardiovascular: Reports chest pain, dyspnea and dyspnea on exertion; Denies edema or palpitations Respiratory/Chest Respiratory/Chest: Reports cough and dyspnea; Denies chest tightness, hemoptysis, pain on inspiration or breast mass Gastrointestinal Gastrointestinal: Reports abdominal pain; Denies change in bowel habits, hematochezia, melena, nausea or vomiting Genitourinary Genitourinary: Reports change in urinary stream; Denies hematuria Musculoskeletal Musculoskeletal: Denies back pain or muscle weakness Integumentary Integumentary: Denies rash Neurologic Neurologic: Denies abnormal speech, focal weakness, headache(s), numbness or tingling Psychiatric Psychiatric: Denies anxiety Endocrine Endocrinology: Denies flushing Hematologic/Lymphatic Hematologic/Lymphatic: Denies easy bleeding, easy bruising or lymphadenopathy Physical Exam Narrative ECOG 1 Const alert, oriented x3 and no apparent distress General Appearance: appears older than stated age Nutritional Appearance: thin HEENT normocephalic and oropharynx normal Eyes conjunctivae normal and no scleral icterus Neck no lymphadenopathy and no JVD Lymph Lymphatic: no lymphadenopathy noted Chest Chest Narrative: Right chest tube Resp clear to auscultation bilaterally Auscultation: diminished lung sounds bilateral and diffuse Cardio regular rate, regular rhythm and no murmurs GI soft to palpation, non-tender and no masses Palpation: Negative for hepatomegaly or splenomegaly Bladder / Kidney Exam: no CVA tenderness Extremity no clubbing, cyanosis or edema Skin no rashes or lesions noted Neuro CN's II-XII intact bilaterally, moves all extremities and no focal motor deficits Psych mental status grossly normal and cooperative Vital Signs Temperature 98.3 F 02/10/21 14:36 Temperature Source Oral 02/10/21 14:36 Pulse Rate 106 H 02/10/21 16:39 Respiratory Rate 24 H 02/10/21 14:36 Respiratory Effort 02/10/21 08:06 Respiratory Depth Normal 02/10/21 08:06 Respiratory Pattern Tachypnea 02/10/21 14:36 Blood Pressure 153/97 H 02/10/21 14:36 Blood Pressure Mean 115 02/10/21 14:36 Blood Pressure Source Monitor 02/10/21 14:36 Blood Pressure Position Semi-Fowlers 02/10/21 14:36 Blood Pressure Location Left Arm 02/10/21 14:36 Baseline BP 137/70 02/10/21 12:00 Pulse Ox 98 02/10/21 14:36 Oxygen Delivery Method Venturi Mask 02/10/21 14:36 Oxygen Flow Rate (L/min) 4 02/10/21 14:36 Laboratory Results - last 24 hr 02/10/21 05:42: WBC 24.7 H, RBC 4.30, Hgb 13.6, Hct 41.2, MCV 95.8, MCH 31.6, MCHC 33.0, RDW Std Deviation 43.3, RDW Coeff of Sandra 12.3, Plt Count 940 H*, MPV 10.0, Immature Gran % (Auto) 1.500 H, Neut % (Auto) 91.9 H, Lymph % (Auto) 2.7 L, [place] % (Auto) 3.7, Eos % (Auto) 0.0, Baso % (Auto) 0.2, Absolute Neuts (auto) 22.7 H, Absolute Lymphs (auto) 0.68 L, Nucleated RBC % 0, Differential Comment SCANNED, Diff Path Review Reviewed, Platelet Estimate [employer] Laboratory Tests 12/26/17 12/29/17 12/29/17 06:40 05:45 09:30 WBC Hgb Plt Count 388 632 H 587 H 02/08/21 02/10/21 12:10 05:42 WBC 9.3 24.7 H Hgb 15.0 13.6 Plt Count 830 H* 940 H* Diagnostic Data I personally reviewed patient's CTA images and concur with the reported findings Chest CTA 02/08/21 12:51 IMPRESSION: 1. No evidence of pulmonary embolus. 2. Pulmonary hyperinflation with emphysematous changes. There is a spiculated lesion in the right apex which may represent scar however malignancy cannot be excluded. Indicated further evaluation with PET CT scan may be beneficial. Individualized dose optimization techniques were used for this CT. at 1435 Reported and signed by: Juan Carlos An MD Electronically Signed: Juan Carlos An MD at 14:33 EDT Tel , Service support , Biopsy CT 02/10/21 12:10 IMPRESSION: 1. CT directed core needle biopsy of the right apical lung nodule using CT image guidance with image documentation as described. Pathology results are pending. 2. Conscious Sedation protocol utilized with independent monitoring. Electronically Signed: Sunny Forde MD at 11:27 EDT , Service support , Chest X-Ray 02/10/21 14:55 IMPRESSION: Status post placement of a small-caliber chest tube along the right lateral chest with resolution of the right pneumothorax. Electronically Signed: Sunny Forde MD at 15:20 EDT , Service support ,
[2021-02-10] MEDS: 0.9% Saline Lock 10 ML Syringe IV (22:21)
[2021-02-11] VITALS (17 sets, daily range): BP systolic 152–159; BP diastolic 83–97; PULSE 97–110; RESP 16–20; TEMP 36.6–36.9; O2SAT 96–99
[2021-02-11 05:19] LABS: Absolute Lymphocyte Count 0.51 X10^3/uL (0.83-4.51); Absolute Neutrophil Count 17.3 X10^3/uL (2.0-7.7); Basophil# 0.01 X10^3/uL; Basophil% 0.1 % (0-1); Hematocrit 42.7 % (37-47); Hemoglobin 13.9 g/dL (12.0-15.0); Lymphocyte # 0.51 X10^3/ul (0.83-4.51); Lymphocyte % 2.8 % (19-41); Mean Corp Hgb Conc 32.6 g/dL (32-36); Mean Corpuscular Hgb 31.4 pg (27.0-32.0); Mean Corpuscular Volume 96.6 fL (81-99); Mean Platelet Vol. 9.9 fl (6.2-12.0); Monocyte# 0.52 X10^3/uL; Monocyte% 2.8 % (0-10); NRBC Flagged by Analyzer 0 % (0-5); Neutrophil % 93.2 % (47-70); POSITIVE COUNT YES; POSITIVE DIFFERENTIAL YES; Platelet Count 956 K/mm3 (150-450); RBC Distribution Width CV 12.6 % (11.6-14.6); RBC Distribution Width SD 44.6 fl (35.1-43.9); Red Blood Count 4.42 M/mm3 (4.2-5.4); White Blood Count 18.5 K/mm3 (4.4-11.0)
[2021-02-11 05:34] LABS: Differential Indicated SCAN CRITERIA MET
[2021-02-11 05:44] LABS: Anion Gap 6 (5-15); BUN 22 mg/dL (7-18); BUN/Creat Ratio 34.6 RATIO (10-20); Calcium,Total 9.9 mg/dL (8.5-10.1); Chloride 98 mmol/L (98-107); Creatinine, Serum 0.64 mg/dL (0.55-1.02); EST Glomerular Filtration Rate 99 mL/min (>60); Est Glom Filt Rate - Afr Amer 119 mL/min (>60); Estimated Creatinine Clearance 32.77 ml/min; Glucose 148 mg/dL (74-106); Sodium Level 133 mmol/L (136-145)
[2021-02-11] MEDS: 0.9% Saline Lock 10 ML Syringe IV ×2 (05:51→14:36)
--- NOTE | 2021-02-11 05:55 | RAD_ITS ---
STUDY: X-RAY CHEST REASON FOR EXAM: Female, 70 years old. Right PTX -- portable TECHNIQUE: Single AP portable view of the chest. COMPARISON: February 10, 2021, chest x-ray, CTA chest February 08, 2021 FINDINGS: There is a visualized right-sided chest tube mid right peripheral chest. There is subcutaneous gas. There is a small focal patchy density in the right middle lobe. There is a small focus of interstitial thickening in the right apex similar to the prior study. There is a suggestion of a trace right apical pneumothorax. Normal size heart. Normal mediastinum and julius. Normal visualized pulmonary arteries. Normal visualized aortic arch and descending thoracic aorta. There are diffuse degenerative changes of the visualized thoracic spine. Normal visualized ribs, clavicles, and shoulders. There is no demonstrated abnormality of the visualized soft tissue structures of the upper abdomen. RAD/Chest 1 View (Portable) IMPRESSION: Persistent right apical density. Persistent pulmonary emphysema chronic obstructive pulmonary disease. Small focus of density within the right middle lobe which may represent a small focus of atelectasis and/or infiltrate. Trace right apical pneumothorax. Right-sided small caliber chest tube. Electronically Signed: Edith Bob MD at 6:18 EDT Tel , Service support ,
[2021-02-11] MEDS: Acetaminophen 325 MG Tablet 650 MG PO ×2 (05:57→21:57)
--- NOTE | 2021-02-11 07:12 | PCM.PN.SRG ---
Subjective Subjective Patient's morning x-ray did show a trace pneumothorax at the apices. Patient did not have an air leak with coughing at -20 did move up to -30/40 for short bit and did have some air bubbles at that time. Patient is 97% on 4 L. She admits to coughing up some maroon-colored mucus Objective Data Objective Data Vital Signs: Vital Signs Temp Pulse Resp BP Pulse Ox 98.1 F 102 H 20 H 155/97 H 97 02/11/21 01:57 02/11/21 03:00 02/11/21 01:57 02/11/21 01:57 02/11/21 01:57 Oxygen Flow Rate (L/min) [3] 2 Oxygen Flow Rate (L/min) [2] 2 Oxygen Flow Rate (L/min) [1 ( 2 Initial Baseline)] Oxygen Flow Rate (L/min) [At 2 REST with Oxygen] Oxygen Flow Rate (L/min) 4 Oxygen Delivery Method [3] Nasal Cannula Oxygen Delivery Method [2] Nasal Cannula Oxygen Delivery Method [1 ( Nasal Cannula Initial Baseline)] Oxygen Delivery Method Nasal Cannula Weight: 86 lb 3.212 oz Body Mass Index (BMI) 15.3 Intake & Output: Intake and Output for Last 24 Hours 02/09/21 02/10/21 02/11/21 23:59 23:59 23:59 Intake Total 600 / 600 320 / 320 100 / 100 Output Total 100 / 100 Balance 600 / 600 220 / 220 100 / 100 Lab / Micro Data Result Diagrams: 02/11/21 04:38 02/11/21 04:38 Labs: Laboratory Results - last 24 hr 02/10/21 05:42: Diff Path Review Reviewed 02/11/21 04:38: WBC 18.5 H, RBC 4.42, Hgb 13.9, Hct 42.7, MCV 96.6, MCH 31.4, MCHC 32.6, RDW Std Deviation 44.6 H, RDW Coeff of Sandra 12.6, Plt Count 956 H*, MPV 9.9, Immature Gran % (Auto) 1.100 H, Neut % (Auto) 93.2 H, Lymph % (Auto) 2.8 L, [place] % (Auto) 2.8, Eos % (Auto) 0.0, Baso % (Auto) 0.1, Absolute Neuts (auto) 17.3 H, Absolute Lymphs (auto) 0.51 L, Nucleated RBC % 0, Diff Path Review August02/11/21 04:38: Sodium 133 L, Potassium 5.0, Chloride 98, Carbon Dioxide 29.0, Anion Gap 6, BUN 22 H, Creatinine 0.64, Estim Creat Clear Calc 32.77, Est GFR (MDRD) Af Amer 119, Est GFR (MDRD) Non-Af 99, BUN/Creatinine Ratio 34.6 H, Glucose 148 H, Calcium 9.9 Micro: Microbiology 02/08/21 12:10 Nasal Secretion SARS-CoV-2 Antigen (Rapid) - Final Radiography Diagnostic Testing: Radiology Impression Chest X-Ray 02/10/21 11:20 IMPRESSION: Immediate postright lung biopsy radiograph demonstrates a right-sided 5-10% pneumothorax. Electronically Signed: Sunny Forde MD at 13:06 EDT , Service support , Biopsy CT 02/10/21 12:10 IMPRESSION: 1. CT directed core needle biopsy of the right apical lung nodule using CT image guidance with image documentation as described. Pathology results are pending. 2. Conscious Sedation protocol utilized with independent monitoring. Electronically Signed: Sunny Forde MD at 11:27 EDT , Service support , Chest X-Ray 02/10/21 13:30 IMPRESSION: 50% right pneumothorax. This has progressed as compared to prior study. Electronically Signed: Sunny Forde MD at 14:13 EDT , Service support , Chest X-Ray 02/10/21 14:55 IMPRESSION: Status post placement of a small-caliber chest tube along the right lateral chest with resolution of the right pneumothorax. Electronically Signed: Sunny Forde MD at 15:20 EDT , Service support , Chest X-Ray 02/11/21 05:55 IMPRESSION: Persistent right apical density. Persistent pulmonary emphysema chronic obstructive pulmonary disease. Small focus of density within the right middle lobe which may represent a small focus of atelectasis and/or infiltrate. Trace right apical pneumothorax. Right-sided small caliber chest tube. Electronically Signed: Edith Bob MD at 6:18 EDT Tel , Service support , Physical Exam Const oriented x3 and no apparent distress Resp normal respiratory effort Resp Narrative: No leak right chest tube, currently on -30 Assessment & Plan Assessment/Plan (1) Pneumothorax after biopsy: (2) Lesion of lung: (3) COPD (chronic obstructive pulmonary disease): QUALIFIERS: COPD type: COPD with acute exacerbation Qualified Code(s): J44.1 - Chronic obstructive pulmonary disease with (acute) exacerbation PLAN: Did move up the suction to -30 plan to repeat chest x-ray in 2 hours see if this trace pneumothorax has improved. Danitza Barr M.D. Pager: [phone] [facility] [address] [place] [address], [facility], [address] [place] [id number] Office: [phone] Charges/Coding Visit Charges Inpatient E&M: 62446 Subs Hosp L3
[2021-02-11] MEDS: Ipratropium/Albuterol Sulfate 3 ML AMPUL.NEB INHALATION ×3 (07:14→19:06)
[2021-02-11] MEDS: Aspirin 81 MG TAB.CHEW PO (07:55)
--- NOTE | 2021-02-11 08:33 | PCM.PN.INT ---
Assessment & Plan Assessment/Plan (1) Lung nodule: PLAN: RECOMMENDATIONS: 1. Await pathology results from CT-guided lung biopsy. 2. Continue scheduled bronchodilator therapy and steroids. 3. Wean supplemental oxygen as tolerated. 4. Perform walking oximetry study prior to consideration for discharge home. 5. Continue nicotine replacement therapy. 6. Chest tube management per surgery. 7. Follow-up in the pulmonary medicine clinic within 2 weeks of discharge. IMPRESSIONS: 1. Right upper lobe lung nodule CT imaging of the chest revealed a spiculated lung nodule in excess of 1 cm in the right lung apex. These findings are concerning given the patient's extensive smoking history and upper lobe location. Accordingly, the patient underwent a CT-guided lung biopsy on February 10. Pathology is still pending. Unfortunately, she did develop an iatrogenic pneumothorax, which required tube thoracotomy. 2. Iatrogenic pneumothorax status post CT-guided lung biopsy The patient is status chest tube placement on February 10. General surgery is still following to assist with chest tube management. 3. Chronic tobacco dependency The patient has an extensive smoking history and likely has a component of underlying obstructive lung disease. I would recommend that she follow-up in the pulmonary medicine clinic after discharge so that baseline PFTs can be obtained. She could then be placed on an inhaler regimen to optimize her respiratory status and help eliminate symptoms. Smoking cessation counseling was provided. I do anticipate that the patient may have a home-going supplemental oxygen requirement as well. For now, it is reasonable to continue scheduled bronchodilators and steroids. This note was generated with [employer] dictation software. It may contain incorrect words, spelling, and punctuation that were not noted in checking the note before signing. Subjective Subjective The patient was seen and examined at the bedside this morning. Events from the last 24 hours have been reviewed. The patient is currently afebrile, hemodynamically stable and maintaining appropriate oxygen saturations on 4 L/min via nasal cannula. The patient did undergo successful CT-guided lung biopsy yesterday. Unfortunately, she developed an iatrogenic pneumothorax, which did require tube thoracotomy. Platelet count remains elevated at 956,000 this morning. Objective Data Objective Data The patient's most recent lab work, culture data and imaging studies have all been personally reviewed. Vital Signs: Vital Signs Temp Pulse Resp BP Pulse Ox 98.2 F 99 18 152/89 H 99 02/11/21 07:48 02/11/21 07:48 02/11/21 07:48 02/11/21 07:48 02/11/21 07:48 Oxygen Flow Rate (L/min) [3] 2 Oxygen Flow Rate (L/min) [2] 2 Oxygen Flow Rate (L/min) [1 ( 2 Initial Baseline)] Oxygen Flow Rate (L/min) [At 2 REST with Oxygen] Oxygen Flow Rate (L/min) 4 Oxygen Delivery Method [3] Nasal Cannula Oxygen Delivery Method [2] Nasal Cannula Oxygen Delivery Method [1 ( Nasal Cannula Initial Baseline)] Oxygen Delivery Method Nasal Cannula Weight: 39.1 kg Body Mass Index (BMI) 15.3 Intake & Output: Intake and Output for Last 24 Hours 02/09/21 02/10/21 02/11/21 23:59 23:59 23:59 Intake Total 600 / 600 320 / 320 100 / 100 Output Total 100 / 100 Balance 600 / 600 220 / 220 100 / 100 Lab / Micro Data Attestation: I reviewed the patient's lab results. Result Diagrams: 02/11/21 04:38 02/11/21 04:38 Labs: Laboratory Results - last 24 hr 02/10/21 05:42: Diff Path Review Reviewed 02/11/21 04:38: WBC 18.5 H, RBC 4.42, Hgb 13.9, Hct 42.7, MCV 96.6, MCH 31.4, MCHC 32.6, RDW Std Deviation 44.6 H, RDW Coeff of Sandra 12.6, Plt Count 956 H*, MPV 9.9, Immature Gran % (Auto) 1.100 H, Neut % (Auto) 93.2 H, Lymph % (Auto) 2.8 L, [place] % (Auto) 2.8, Eos % (Auto) 0.0, Baso % (Auto) 0.1, Absolute Neuts (auto) 17.3 H, Absolute Lymphs (auto) 0.51 L, Nucleated RBC % 0, Diff Path Review May 02/11/21 04:38: Sodium 133 L, Potassium 5.0, Chloride 98, Carbon Dioxide 29.0, Anion Gap 6, BUN 22 H, Creatinine 0.64, Estim Creat Clear Calc 32.77, Est GFR (MDRD) Af Amer 119, Est GFR (MDRD) Non-Af 99, BUN/Creatinine Ratio 34.6 H, Glucose 148 H, Calcium 9.9 Micro: Microbiology 02/08/21 12:10 Nasal Secretion SARS-CoV-2 Antigen (Rapid) - Final Radiography Diagnostic Testing: Radiology Impression Chest X-Ray 02/10/21 11:20 IMPRESSION: Immediate postright lung biopsy radiograph demonstrates a right-sided 5-10% pneumothorax. Electronically Signed: Sunny Forde MD at 13:06 EDT , Service support , Biopsy CT 02/10/21 12:10 IMPRESSION: 1. CT directed core needle biopsy of the right apical lung nodule using CT image guidance with image documentation as described. Pathology results are pending. 2. Conscious Sedation protocol utilized with independent monitoring. Electronically Signed: Sunny Forde MD at 11:27 EDT , Service support , Chest X-Ray 02/10/21 13:30 IMPRESSION: 50% right pneumothorax. This has progressed as compared to prior study. Electronically Signed: Sunny Forde MD at 14:13 EDT , Service support , Chest X-Ray 02/10/21 14:55 IMPRESSION: Status post placement of a small-caliber chest tube along the right lateral chest with resolution of the right pneumothorax. Electronically Signed: Sunny Forde MD at 15:20 EDT , Service support , Chest X-Ray 02/11/21 05:55 IMPRESSION: Persistent right apical density. Persistent pulmonary emphysema chronic obstructive pulmonary disease. Small focus of density within the right middle lobe which may represent a small focus of atelectasis and/or infiltrate. Trace right apical pneumothorax. Right-sided small caliber chest tube. Electronically Signed: Edith Bob MD at 6:18 EDT Tel , Service support , Physical Exam Const alert and no apparent distress General Appearance: cooperative HEENT normocephalic and head/scalp atraumatic Eyes PERRL, EOMs intact bilaterally and conjunctivae normal Neck supple General: trachea midline Chest inspection of chest normal Chest Narrative: Increased AP diameter. Chest: chest tube Resp Resp Narrative: Globally diminished air movement throughout all lung [place]. Prolonged expiratory phase. Cardio S1 normal heart sound and S2 normal heart sound Rate: tachycardic GI normal to inspection, nondistended, normoactive bowel sounds Extremity no clubbing, cyanosis or edema Skin no rashes or lesions noted Neuro moves all extremities and no focal motor deficits Psych cooperative and affect normal Charges/Coding Visit Charges Inpatient E&M: 45822 Subs Hosp L2
--- NOTE | 2021-02-11 08:54 | RAD_ITS ---
STUDY: X-RAY CHEST REASON FOR EXAM: Female, 70 years old. Pneumothorax TECHNIQUE: Single AP portable view of the chest. COMPARISON: Comparison is made with prior study dated 02/11/2021 at 5:54 AM. FINDINGS: EKG electrodes are seen. A small caliber chest tube is seen along the right lateral chest wall. Stable trace right apical pneumothorax. Mild residual right basilar atelectasis. Persistent nodular density in the right lung apex. Normal size heart. Normal mediastinum and julius. Normal visualized pulmonary arteries. There is atherosclerotic calcification of the aortic arch with tortuosity. There are diffuse degenerative changes of the visualized thoracic spine. Small amount of residual subcutaneous emphysema overlying the right lateral chest wall. There is no demonstrated abnormality of the visualized soft tissue structures of the upper abdomen. RAD/Chest 1 View (Portable) IMPRESSION: Stable trace right apical pneumothorax. Electronically Signed: Sunny Forde MD at 12:47 EDT , Service support ,
[2021-02-11] MEDS: amLODIPine 5 MG Tablet PO (09:40)
--- NOTE | 2021-02-11 12:42 | PCM.PN.HOSP ---
Documented by User: Vinicius BARNEY 02/11/21 12:53 Subjective Subjective Patient is a 70-year-old female comfortably resting in a chair, alert and orient x3. Patient reports her shortness of breath is stable, however still present. Patient denies development of any new symptoms overnight. Does not appear in acute distress. Objective Data Objective Data Vital Signs: Vital Signs Temp Pulse Resp BP Pulse Ox 98.4 F 103 H 18 156/84 H 96 02/11/21 11:15 02/11/21 12:23 02/11/21 11:15 02/11/21 11:15 02/11/21 11:15 Oxygen Flow Rate (L/min) [3] 2 Oxygen Flow Rate (L/min) [2] 2 Oxygen Flow Rate (L/min) [1 ( 2 Initial Baseline)] Oxygen Flow Rate (L/min) [At 2 REST with Oxygen] Oxygen Flow Rate (L/min) 4 Oxygen Delivery Method [3] Nasal Cannula Oxygen Delivery Method [2] Nasal Cannula Oxygen Delivery Method [1 ( Nasal Cannula Initial Baseline)] Oxygen Delivery Method Room Air Weight: 86 lb 3.212 oz Body Mass Index (BMI) 15.3 Intake & Output: Intake and Output for Last 24 Hours 02/09/21 02/10/21 02/11/21 23:59 23:59 23:59 Intake Total 600 / 600 320 / 320 340 / 340 Output Total 100 / 100 Balance 600 / 600 220 / 220 340 / 340 Lab / Micro Data Result Diagrams: 02/11/21 04:38 02/11/21 04:38 Labs: Laboratory Results - last 24 hr 02/10/21 05:42: Diff Path Review Reviewed 02/11/21 04:38: WBC 18.5 H, RBC 4.42, Hgb 13.9, Hct 42.7, MCV 96.6, MCH 31.4, MCHC 32.6, RDW Std Deviation 44.6 H, RDW Coeff of Sandra 12.6, Plt Count 956 H*, MPV 9.9, Immature Gran % (Auto) 1.100 H, Neut % (Auto) 93.2 H, Lymph % (Auto) 2.8 L, [place] % (Auto) 2.8, Eos % (Auto) 0.0, Baso % (Auto) 0.1, Absolute Neuts (auto) 17.3 H, Absolute Lymphs (auto) 0.51 L, Nucleated RBC % 0, Diff Path Review August02/11/21 04:38: Sodium 133 L, Potassium 5.0, Chloride 98, Carbon Dioxide 29.0, Anion Gap 6, BUN 22 H, Creatinine 0.64, Estim Creat Clear Calc 32.77, Est GFR (MDRD) Af Amer 119, Est GFR (MDRD) Non-Af 99, BUN/Creatinine Ratio 34.6 H, Glucose 148 H, Calcium 9.9 Micro: Microbiology 02/08/21 12:10 Nasal Secretion SARS-CoV-2 Antigen (Rapid) - Final Radiography Diagnostic Testing: Radiology Impression Chest X-Ray 02/10/21 11:20 IMPRESSION: Immediate postright lung biopsy radiograph demonstrates a right-sided 5-10% pneumothorax. Electronically Signed: Sunny Forde MD at 13:06 EDT , Service support , Chest X-Ray 02/10/21 13:30 IMPRESSION: 50% right pneumothorax. This has progressed as compared to prior study. Electronically Signed: Sunny Forde MD at 14:13 EDT , Service support , Chest X-Ray 02/10/21 14:55 IMPRESSION: Status post placement of a small-caliber chest tube along the right lateral chest with resolution of the right pneumothorax. Electronically Signed: Sunny Forde MD at 15:20 EDT , Service support , Chest X-Ray 02/11/21 05:55 IMPRESSION: Persistent right apical density. Persistent pulmonary emphysema chronic obstructive pulmonary disease. Small focus of density within the right middle lobe which may represent a small focus of atelectasis and/or infiltrate. Trace right apical pneumothorax. Right-sided small caliber chest tube. Electronically Signed: Edith Bob MD at 6:18 EDT Tel , Service support , Physical Exam Const alert, oriented x3 and no apparent distress HEENT head/scalp atraumatic and moist oral mucous membranes Head and Scalp: normocephalic Eyes PERRL, EOMs intact bilaterally and conjunctivae normal Neck no lymphadenopathy, supple and no JVD Resp normal respiratory effort, no retractions, no use of accessory muscles and clear to auscultation bilaterally Cardio regular rhythm, no murmurs and no JVD Rate: tachycardic GI normal to inspection, nondistended, normoactive bowel sounds, soft to palpation and non-tender Extremity normal to inspection, full ROM and no clubbing, cyanosis or edema Peripheral Pulses: Yes pulses 2+ throughout Skin no rashes or lesions noted, no wounds and skin turgor normal Neuro CN's II-XII intact bilaterally Psych affect normal Assessment & Plan Assessment/Plan (1) Thrombocytosis: (2) Lung nodule: (3) Pneumothorax after biopsy: (4) COPD (chronic obstructive pulmonary disease): QUALIFIERS: COPD type: COPD with acute exacerbation Qualified Code(s): J44.1 - Chronic obstructive pulmonary disease with (acute) exacerbation PLAN: Day 3 Discharge planning: Current plan is for patient to return home, possible discharge on 02/11 pending patient course and chest tube removal. 1) acute on chronic COPD exacerbation Currently satting at 96% on room air, no longer requiring oxygen. Overall, course was complicated by #2. Plan; remain admitted overnight for monitoring, continue breathing treatments, continue steroids, ambulatory pulse ox in a.m. 2) Pneumothorax of the right lung s/p CT guided biopsy Management per general surgery, trace pneumothorax has improved after suction was increased. Pending removal at this time. 3) spiculated lesion in the right lung apices Spiculated lesion was seen in the right apices and may represent a scar, however, given patient's 50-year smoking history, malignancy cannot be excluded. CT-guided biopsy completed and pathology reports are pending. 3) HTN Currently 144/98, stable. Amlodipine continued, as needed hydralazine ordered. 4) tobacco abuse Patient endorses smoking 1 pack/day for 50 years. Cessation advised, nicotine patch ordered. 5) hyponatremia Sodium currently 133, likely due to poor oral intake. Continue to trend BMP. 6) Thrombocytosis Platelets remain elevated, currently 940,000. Possibly due to reactive thrombocytosis or primary myeloproliferative neoplasm. Dr. Doran was consulted and agreed to follow-up on an outpatient basis, recommendations are to continue low-dose aspirin and current VTE prophylaxis. Vaccination status: Patient was initially reluctant to receive the Covid vaccine, however was able to be convinced by admitting clinician team. [facility] vaccine schedule for patient. Patient seen by Vinicius Tamayo PA-C, under the supervision of Dr. Randle. Documented by User: Dr. John Randle MD 02/11/21 15:46 Subjective Subjective Patient had chest x-ray in the morning shows stable trace right apical pneumothorax. Patient did not want to take Lovenox but agreed for Eliquis 2.5 mg twice daily. Shortness of breath is improved. Objective Data Lab / Micro Data Result Diagrams: 02/11/21 04:38 02/11/21 04:38 Physical Exam Narrative General: Alert, Oriented x3, Cooperative, BMI 15.3 kg/m? HEENT: Atraumatic, PERRLA, EOMI, Normocephalic Oral: No Gingival or Mucosal Lesions/ Ulcerations Neck: Supple, No JVD, Negative Carotid Bruits Lungs: Dyspnea at rest, tachycardia, tachypnea with large pneumothorax. Chest tube inserted. Cardiovascular: Sinus tachycardia, Normal S1, Normal S2, No murmurs Abdomen: Bowel Sounds Present, Soft, Non Tender, Non-Distended : No renal angle tenderness. No suprapubic tenderness. Extremities: No edema, Capillary Refill Less than 3 Seconds Skin: No rashes, No breakdown Musculoskeletal: Mild atrophy of muscles of extremity. Loss of subcutaneous fat. No Tenderness to Palpation of Joints or Extremities Neurological: Cranial nerves II-XII grossly intact, DTR 2+/4 and Symmetrical, Neuro grossly intact Psych/Mental Status: Normal Affect, Appropriate. Assessment & Plan Assessment/Plan (1) Thrombocytosis: (2) Pneumothorax after biopsy: (3) COPD (chronic obstructive pulmonary disease): QUALIFIERS: COPD type: COPD with acute exacerbation Qualified Code(s): J44.1 - Chronic obstructive pulmonary disease with (acute) exacerbation PLAN: This patient was seen in conjunction with ECTOR Oneal. I have independently interviewed and examined the patient and reviewed pertinent history, examination findings, laboratory and plan of management. I have reviewed the note and agree with the documented findings with the few additional points. In brief, patient is admitted for COPD exacerbation with extensive smoking history since teenage. Patient on scheduled bronchodilator along with steroid. On oxygen therapy. Sketch Artist consult reviewed and appreciated. Advised CT-guided biopsy of the spiculated nodule of more than 1 cm of right lung apex with potential complication of pneumothorax. CT shows upper lobe predominant emphysematous changes. 02/10: Patient had CT-guided lung biopsy subsequently developed large right-sided pneumothorax. Surgeon was consulted and she promptly did right percutaneous chest tube and appreciated. I was present there during the procedure. After chest tube patient had good air bubble and repeat chest x-ray shows significant improvement in pneumothorax. Patient suction was -40 and then decreased to -20. Plan for repeat chest x-ray tomorrow morning. Patient has improvement in shortness of breath, tachypnea and tachycardia after chest tube. 02/11: Repeat chest x-ray shows trace apical pneumothorax. Patient still has chest tube. I discussed with maintenance carpenter last evening. He is going to order work-up to rule out essential thrombocythemia/myeloproliferative disorder including JAK2 V600 but it seems patient mainly has reactive thrombocytosis. This happened similar her platelet count was high for few days about 3 years ago and then returned to normal. Patient risk stratification shows no history of arterial venous thrombosis but age above 60 with a smoker and hypertension. Overall patient respiratory status is improved after admission. Patient other comorbidities as mentioned above. I have discussed my assessment with ECTOR Oneal and orders have been reviewed. Charges/Coding Visit Charges Inpatient E&M: 91878 Subs Hosp L2
[2021-02-11] MEDS: APIXABAN 2.5 MG TABLET PO ×2 (17:24→21:58)
--- NOTE | 2021-02-11 17:33 | PCM.PN.BLA ---
Progress Note Repeat chest x-ray still called trace apical pneumothorax on report, difficult to visualize on my read. We will plan to keep patient at -30 suction still does not have an air leak on exam. Possible waterseal tomorrow if exam stable.
--- NOTE | 2021-02-11 19:08 | CPS ---
decreased oxygen to 3 lpm nasal cannula
[2021-02-12] VITALS (16 sets, daily range): BP systolic 135–173; BP diastolic 74–98; PULSE 93–114; RESP 18–23; TEMP 36.6–36.8; O2SAT 91–98
[2021-02-12] MEDS: Ipratropium/Albuterol Sulfate 3 ML AMPUL.NEB INHALATION ×4 (01:45→20:25)
--- NOTE | 2021-02-12 01:50 | CPS ---
decreased oxygen to 2 lpm NC
--- NOTE | 2021-02-12 02:25 | NURSING ---
PT WOKE, CONFUSED, DID NOT KNOW WERE SHE WAS, STATED SHE WAS HALLUCINATING OR DREAMING. PT NOW AWARE OF HER SURROUNDINGS, BED ALARM IN USE.
--- NOTE | 2021-02-12 04:43 | NURSING ---
pt chest tube suction was increased to -45 bubbling WAS seen in the chamber. xray up to get the chest xray.
--- NOTE | 2021-02-12 05:00 | RAD_ITS ---
STUDY: X-RAY CHEST REASON FOR EXAM: Female, 70 years old. CHEST TUBE, SOB, TO CHECK PROGRESSION -- SINGLE VIEW TECHNIQUE: Single AP portable view of the chest. COMPARISON: Comparison is made with prior study dated 02/11/2021. FINDINGS: A small caliber right-sided chest tube is seen with the tip in the lateral midportion of the right hemithorax. Tiny residual right apical pneumothorax. Stable spiculated nodule in the right lung apex. Stable increased markings at the right lung base suggestive of atelectasis. RAD/Chest 1 View (Portable) IMPRESSION: Stable examination with evidence of a tiny right apical pneumothorax. Electronically Signed: Sunny Forde MD at 9:13 EDT , Service support ,
[2021-02-12 06:07] LABS: Absolute Lymphocyte Count 0.68 X10^3/uL (0.83-4.51); Absolute Neutrophil Count 13.5 X10^3/uL (2.0-7.7); Basophil# 0.02 X10^3/uL; Basophil% 0.1 % (0-1); Hematocrit 41.1 % (37-47); Hemoglobin 13.5 g/dL (12.0-15.0); Lymphocyte # 0.68 X10^3/ul (0.83-4.51); Lymphocyte % 4.5 % (19-41); Mean Corp Hgb Conc 32.8 g/dL (32-36); Mean Corpuscular Hgb 31.4 pg (27.0-32.0); Mean Corpuscular Volume 95.6 fL (81-99); Mean Platelet Vol. 9.6 fl (6.2-12.0); Monocyte% 5.3 % (0-10); NRBC Flagged by Analyzer 0 % (0-5); Neutrophil # 13.53 X10^3/uL (2.7-7.7); Neutrophil % 89.2 % (47-70); POSITIVE COUNT YES; Platelet Count 957 K/mm3 (150-450); RBC Distribution Width CV 12.4 % (11.6-14.6); RBC Distribution Width SD 43.8 fl (35.1-43.9); White Blood Count 15.2 K/mm3 (4.4-11.0)
[2021-02-12 06:41] LABS: Differential Indicated SCAN CRITERIA MET
[2021-02-12 06:56] LABS: Anion Gap 5 (5-15); BUN 20 mg/dL (7-18); BUN/Creat Ratio 32.1 RATIO (10-20); Calcium,Total 9.9 mg/dL (8.5-10.1); Chloride 98 mmol/L (98-107); Creatinine, Serum 0.62 mg/dL (0.55-1.02); EST Glomerular Filtration Rate 101 mL/min (>60); Est Glom Filt Rate - Afr Amer 122 mL/min (>60); Estimated Creatinine Clearance 32.77 ml/min; Glucose 115 mg/dL (74-106); Potassium 4.4 mmol/L (3.5-5.1); Sodium Level 134 mmol/L (136-145)
--- NOTE | 2021-02-12 08:06 | PCM.PN.SRG ---
Subjective Subjective Patient is doing well denies any pain. Patient's morning x-ray only shows may be a trace pneumothorax which has been stable. Patient does not have an obvious air leak. Objective Data Objective Data Vital Signs: Vital Signs Temp Pulse Resp BP Pulse Ox 97.9 F 101 H 22 H 142/84 H 96 02/12/21 02:20 02/12/21 07:26 02/12/21 07:26 02/12/21 02:20 02/12/21 07:26 Oxygen Flow Rate (L/min) [3] 2 Oxygen Flow Rate (L/min) [2] 2 Oxygen Flow Rate (L/min) [1 ( 2 Initial Baseline)] Oxygen Flow Rate (L/min) [At 2 REST with Oxygen] Oxygen Flow Rate (L/min) 2 Oxygen Delivery Method [3] Nasal Cannula Oxygen Delivery Method [2] Nasal Cannula Oxygen Delivery Method [1 ( Nasal Cannula Initial Baseline)] Oxygen Delivery Method Nasal Cannula Weight: 86 lb 3.212 oz Body Mass Index (BMI) 15.3 Intake & Output: Intake and Output for Last 24 Hours 02/10/21 02/11/21 02/12/21 23:59 23:59 23:59 Intake Total 320 / 320 640 / 640 Output Total 100 / 100 Balance 220 / 220 640 / 640 Lab / Micro Data Result Diagrams: 02/12/21 05:45 02/12/21 05:45 Labs: Laboratory Results - last 24 hr 02/12/21 05:45: WBC 15.2 H, RBC 4.30, Hgb 13.5, Hct 41.1, MCV 95.6, MCH 31.4, MCHC 32.8, RDW Std Deviation 43.8, RDW Coeff of Sandra 12.4, Plt Count 957 H*, MPV 9.6, Immature Gran % (Auto) 0.900, Neut % (Auto) 89.2 H, Lymph % (Auto) 4.5 L, [place] % (Auto) 5.3, Eos % (Auto) 0.0, Baso % (Auto) 0.1, Absolute Neuts (auto) 13.5 H, Absolute Lymphs (auto) 0.68 L, Nucleated RBC % 0, Diff Path Review August02/12/21 05:45: Sodium 134 L, Potassium 4.4, Chloride 98, Carbon Dioxide 31.0, Anion Gap 5, BUN 20 H, Creatinine 0.62, Estim Creat Clear Calc 32.77, Est GFR (MDRD) Af Amer 122, Est GFR (MDRD) Non-Af 101, BUN/Creatinine Ratio 32.1 H, Glucose 115 H, Calcium 9.9 Micro: Microbiology 02/08/21 12:10 Nasal Secretion SARS-CoV-2 Antigen (Rapid) - Final Radiography Diagnostic Testing: Radiology Impression Chest X-Ray 02/11/21 08:54 IMPRESSION: Stable trace right apical pneumothorax. Electronically Signed: Sunny Forde MD at 12:47 EDT , Service support , Physical Exam Const oriented x3 and no apparent distress Resp normal respiratory effort Resp Narrative: Right percutaneous chest tube in place, no obvious leak to waterseal. Assessment & Plan Assessment/Plan (1) Pneumothorax after biopsy: (2) Lesion of lung: (3) COPD (chronic obstructive pulmonary disease): QUALIFIERS: COPD type: COPD with acute exacerbation Qualified Code(s): J44.1 - Chronic obstructive pulmonary disease with (acute) exacerbation PLAN: Difficult to see a PTX on CXR will try waterseal and 2 view CXR in 2 hrs--d/w pt if still PTX may need larger CT. Addendum; there was a larger right pneumothorax on the repeat chest x-ray cussed with patient the need to place a larger chest tube. Danitza Barr M.D. Pager: [phone] [facility] [address] [place] [address], Outpatient [facility], [address] [place] [address] Office: [phone]
--- NOTE | 2021-02-12 09:27 | RAD_ITS ---
STUDY: X-RAY CHEST REASON FOR EXAM: Female, 70 years old. CHEST TUBE -- 2 HRS POST CHEST TUBE TO WATER SEAL TECHNIQUE: Single AP portable view of the chest. COMPARISON: Comparison is made with prior examination dated 02/12/2001 at 4:26 AM. FINDINGS: A small caliber right-sided chest tube is once again seen in the lateral midportion of the right hemithorax. Since prior study, there has been mild increase in the size of the right apical pneumothorax. The remainder of the examination is unchanged. Healed fracture of the surgical neck of the left humerus. RAD/Chest 1 View (Portable) IMPRESSION: Mild progression of the right apical pneumothorax. Electronically Signed: Sunny Forde MD at 9:47 EDT , Service support ,
--- NOTE | 2021-02-12 10:29 | PN.CC_ITS ---
Assessment & Plan Assessment/Plan (1) Lung nodule: PLAN: RECOMMENDATIONS: 1. Await pathology results from CT-guided lung biopsy. 2. Continue scheduled bronchodilator therapy and steroids. 3. Wean supplemental oxygen as tolerated. 4. Perform walking oximetry study prior to consideration for discharge home. 5. Continue nicotine replacement therapy. 6. Chest tube management per surgery. 7. Follow-up in the pulmonary medicine clinic within 2 weeks of discharge. IMPRESSIONS: 1. Right upper lobe lung nodule CT imaging of the chest revealed a spiculated lung nodule in excess of 1 cm in the right lung apex. These findings are concerning given the patient's extensive smoking history and upper lobe location. Accordingly, the patient underwent a CT-guided lung biopsy on February 10. Pathology is still pending. Unfortunately, she did develop an iatrogenic pneumothorax, which required tube thoracotomy. 2. Iatrogenic pneumothorax status post CT-guided lung biopsy The patient is status chest tube placement on February 10. General surgery is still following to assist with chest tube management. 3. Chronic tobacco dependency The patient has an extensive smoking history and likely has a component of underlying obstructive lung disease. I would recommend that she follow-up in the pulmonary medicine clinic after discharge so that baseline PFTs can be obtained. She could then be placed on an inhaler regimen to optimize her respiratory status and help eliminate symptoms. Smoking cessation counseling was provided. This note was generated with [employer] dictation software. It may contain incorrect words, spelling, and punctuation that were not noted in checking the note before signing. Subjective Subjective The patient was seen and examined at the bedside this morning. Events from the last 24 hours have been reviewed. The patient is currently afebrile, hemodynamically stable and maintaining appropriate oxygen saturations on 2 L/min via nasal cannula. The patient was initially placed on waterseal this morning and follow-up x-ray revealed interval enlargement of the pneumothorax. Therefore, the patient was placed back on wall suction. She does not currently have an air leak. She appears quite comfortable in bed from a clinical perspective. She is anxious to be discharged home. Objective Data Objective Data The patient's most recent lab work, culture data and imaging studies have all been personally reviewed. Vital Signs: Vital Signs Temp Pulse Resp BP Pulse Ox 98.0 F 105 H 18 173/98 H 93 02/12/21 09:21 02/12/21 09:21 02/12/21 09:21 02/12/21 09:21 02/12/21 09:21 Oxygen Flow Rate (L/min) [3] 2 Oxygen Flow Rate (L/min) [2] 2 Oxygen Flow Rate (L/min) [1 ( 2 Initial Baseline)] Oxygen Flow Rate (L/min) [At 2 REST with Oxygen] Oxygen Flow Rate (L/min) 1 Oxygen Delivery Method [3] Nasal Cannula Oxygen Delivery Method [2] Nasal Cannula Oxygen Delivery Method [1 ( Nasal Cannula Initial Baseline)] Oxygen Delivery Method Nasal Cannula Weight: 39.1 kg Body Mass Index (BMI) 15.3 Intake & Output: Intake and Output for Last 24 Hours 02/10/21 02/11/21 02/12/21 23:59 23:59 23:59 Intake Total 320 / 320 640 / 640 Output Total 100 / 100 Balance 220 / 220 640 / 640 Lab / Micro Data Attestation: I reviewed the patient's lab results. Result Diagrams: 02/12/21 05:45 02/12/21 05:45 Labs: Laboratory Results - last 24 hr 02/12/21 05:45: WBC 15.2 H, RBC 4.30, Hgb 13.5, Hct 41.1, MCV 95.6, MCH 31.4, MCHC 32.8, RDW Std Deviation 43.8, RDW Coeff of Sandra 12.4, Plt Count 957 H*, MPV 9.6, Immature Gran % (Auto) 0.900, Neut % (Auto) 89.2 H, Lymph % (Auto) 4.5 L, [place] % (Auto) 5.3, Eos % (Auto) 0.0, Baso % (Auto) 0.1, Absolute Neuts (auto) 13.5 H, Absolute Lymphs (auto) 0.68 L, Nucleated RBC % 0, Diff Path Review August02/12/21 05:45: Sodium 134 L, Potassium 4.4, Chloride 98, Carbon Dioxide 31.0, Anion Gap 5, BUN 20 H, Creatinine 0.62, Estim Creat Clear Calc 32.77, Est GFR (MDRD) Af Amer 122, Est GFR (MDRD) Non-Af 101, BUN/Creatinine Ratio 32.1 H, Glucose 115 H, Calcium 9.9 Micro: Microbiology 02/08/21 12:10 Nasal Secretion SARS-CoV-2 Antigen (Rapid) - Final Radiography Diagnostic Testing: Radiology Impression Chest X-Ray 02/11/21 08:54 IMPRESSION: Stable trace right apical pneumothorax. Electronically Signed: Sunny Forde MD at 12:47 EDT , Service support , Chest X-Ray 02/12/21 05:00 IMPRESSION: Stable examination with evidence of a tiny right apical pneumothorax. Electronically Signed: Sunny Forde MD at 9:13 EDT , Service support , Chest X-Ray 02/12/21 09:27 IMPRESSION: Mild progression of the right apical pneumothorax. Electronically Signed: Sunny Forde MD at 9:47 EDT , Service support , Physical Exam Const alert and no apparent distress General Appearance: cooperative HEENT normocephalic and head/scalp atraumatic Eyes PERRL, EOMs intact bilaterally and conjunctivae normal Neck supple General: trachea midline Chest inspection of chest normal Chest Narrative: Increased AP diameter. Chest: chest tube Resp Resp Narrative: Globally diminished air movement throughout all lung [place]. Prolonged expiratory phase. Cardio S1 normal heart sound and S2 normal heart sound Rate: tachycardic GI normal to inspection, nondistended, normoactive bowel sounds Extremity no clubbing, cyanosis or edema Skin no rashes or lesions noted Neuro moves all extremities and no focal motor deficits Psych cooperative and affect normal Charges/Coding Visit Charges Inpatient E&M: 14458 Subs Hosp L2
[2021-02-12] MEDS: Acetaminophen 325 MG Tablet 650 MG PO (10:41)
[2021-02-12] MEDS: amLODIPine 5 MG Tablet PO (10:42)
[2021-02-12] MEDS: Aspirin 81 MG TAB.CHEW PO (10:42)
[2021-02-12] MEDS: APIXABAN 2.5 MG TABLET PO ×2 (10:42→21:16)
--- NOTE | 2021-02-12 12:15 | RAD_ITS ---
STUDY: X-RAY CHEST REASON FOR EXAM: Female, 70 years old. Chest tube placement -- PORTABLE TECHNIQUE: Single AP portable view of the chest. COMPARISON: Comparison is made with prior study done earlier today at 9:16 AM.. FINDINGS: A large caliber chest tube has been placed with the tip in the medial aspect of the upper right hemithorax. There is no evidence of pneumothorax at this time. RAD/Chest 1 View (Portable) IMPRESSION: Status post placement of a large caliber chest tube with tip along the superior medial aspect of the right hemithorax. There is no evidence of pneumothorax at this time. Electronically Signed: Sunny Forde MD at 12:42 EDT , Service support ,
--- NOTE | 2021-02-12 12:48 | PCM.OPRPT ---
Report of Operation Date of Procedure: 02/12/21 Pre-Operative Diagnosis: Right pneumothorax Post-Operative Diagnosis: Same Surgery/Procedure Performed:: Placement of 20 [place] right chest tube Surgeon: Danitza Barr Type of Anesthesia: Local Estimated Blood Loss (mL): < 10 cc Description of Procedure: Patient still had pneumothorax with the percutaneous chest tube did discuss with the patient that we would need to place a larger tube. Discussed the procedure with the patient had no further questions time. Verbal consent obtained. Patient was supine with her right arm raised the right anterior lateral chest was prepped draped in usual sterile fashion with Betadine. Local anesthesia 1% lidocaine was used total of 10 cc. Incision was made with 15 blade scalpel. Tonsils were used to enter into the peritoneum there was a small barber of air. The 20 [place] chest tube was placed in it about 18 skin. This was hooked up to the Pleur-evac?bubbles were seen. Sutured to the skin with 2-0 silk suture. Pleur-evac was on -20 patient would occasionally have bubbles with some deep breaths or movement but it was not continuous. Chest x-ray was completed to verify the tube was in place and it. The lung was reexpanded. She tolerated procedure well.
--- NOTE | 2021-02-12 13:14 | PN.HOSP_ITS ---
Documented by User: Basilia Atwood NP-C 02/12/21 13:32 Subjective Subjective Patient seen and examined. Patient denies complaints at this time, no pain at chest tube site. Patient states that she is feeling better and feels less short of breath today. Objective Data Objective Data Vital Signs: Vital Signs Temp Pulse Resp BP Pulse Ox 98.0 F 105 H 18 173/98 H 93 02/12/21 09:21 02/12/21 09:21 02/12/21 09:21 02/12/21 09:21 02/12/21 09:21 Oxygen Flow Rate (L/min) [3] 2 Oxygen Flow Rate (L/min) [2] 2 Oxygen Flow Rate (L/min) [1 ( 2 Initial Baseline)] Oxygen Flow Rate (L/min) [At 2 REST with Oxygen] Oxygen Flow Rate (L/min) 1 Oxygen Delivery Method [3] Nasal Cannula Oxygen Delivery Method [2] Nasal Cannula Oxygen Delivery Method [1 ( Nasal Cannula Initial Baseline)] Oxygen Delivery Method Nasal Cannula Weight: 86 lb 3.212 oz Body Mass Index (BMI) 15.3 Intake & Output: Intake and Output for Last 24 Hours 02/10/21 02/11/21 02/12/21 23:59 23:59 23:59 Intake Total 320 / 320 640 / 640 Output Total 100 / 100 Balance 220 / 220 640 / 640 Lab / Micro Data Result Diagrams: 02/12/21 05:45 02/12/21 05:45 Labs: Laboratory Results - last 24 hr 02/12/21 05:45: WBC 15.2 H, RBC 4.30, Hgb 13.5, Hct 41.1, MCV 95.6, MCH 31.4, MCHC 32.8, RDW Std Deviation 43.8, RDW Coeff of Sandra 12.4, Plt Count 957 H*, MPV 9.6, Immature Gran % (Auto) 0.900, Neut % (Auto) 89.2 H, Lymph % (Auto) 4.5 L, [place] % (Auto) 5.3, Eos % (Auto) 0.0, Baso % (Auto) 0.1, Absolute Neuts (auto) 13.5 H, Absolute Lymphs (auto) 0.68 L, Nucleated RBC % 0, Diff Path Review August02/12/21 05:45: Sodium 134 L, Potassium 4.4, Chloride 98, Carbon Dioxide 31.0, Anion Gap 5, BUN 20 H, Creatinine 0.62, Estim Creat Clear Calc 32.77, Est GFR (MDRD) Af Amer 122, Est GFR (MDRD) Non-Af 101, BUN/Creatinine Ratio 32.1 H, Glucose 115 H, Calcium 9.9 Micro: Microbiology 02/08/21 12:10 Nasal Secretion SARS-CoV-2 Antigen (Rapid) - Final Radiography Diagnostic Testing: Radiology Impression Chest X-Ray 02/12/21 05:00 IMPRESSION: Stable examination with evidence of a tiny right apical pneumothorax. Electronically Signed: Sunny Forde MD at 9:13 EDT , Service support , Chest X-Ray 02/12/21 09:27 IMPRESSION: Mild progression of the right apical pneumothorax. Electronically Signed: Sunny Forde MD at 9:47 EDT , Service support , Chest X-Ray 02/12/21 12:15 IMPRESSION: Status post placement of a large caliber chest tube with tip along the superior medial aspect of the right hemithorax. There is no evidence of pneumothorax at this time. Electronically Signed: Sunny Forde MD at 12:42 EDT , Service support , Physical Exam Const alert, oriented x3 and no apparent distress HEENT head/scalp atraumatic Head and Scalp: normocephalic Eyes conjunctivae normal and no scleral icterus Neck full ROM and supple Resp normal respiratory effort and normal air movement Effort and Inspection: able to speak in complete sentences and symmetric chest movement Auscultation: diminished lung sounds Cardio regular rate, regular rhythm, S1 normal heart sound, S2 normal heart sound and peripheral pulses 2+ throughout GI normal to inspection, nondistended, normoactive bowel sounds, soft to palpation and non-tender Extremity normal to inspection, full ROM and no clubbing, cyanosis or edema Peripheral Pulses: Yes pulses 2+ throughout Skin no rashes or lesions noted and skin turgor normal Neuro oriented x3, moves all extremities, no focal motor deficits and no sensory deficits noted Sensorium / Orientation: awake and alert Speech: speech normal Psych affect normal Assessment & Plan Assessment/Plan (1) Pneumothorax after biopsy: (2) Thrombocytosis: (3) COPD (chronic obstructive pulmonary disease): QUALIFIERS: COPD type: COPD with acute exacerbation Qualified Code(s): J44.1 - Chronic obstructive pulmonary disease with (acute) exacerbation PLAN: 1. Acute on chronic COPD exacerbation -Nasal cannula 1 to 2 L -Continue breathing treatments and steroids 2. Pneumothorax of the right lung status post CT-guided biopsy -General surgery managing, -chest tube today exchanged for a larger tube due to continued pneumothorax. 3. Spiculated lesion in the right lung apex -Biopsy completed, pathology pending -Patient has a 50-year smoking history 4. Hypertension -Continue amlodipine -Vital signs stable -as needed hydralazine ordered 5. Tobacco abuse -Patient is 1 pack/day smoker x50 years -Cessation encouraged -Nicotine patch ordered 6. Thrombocytosis -Dr. Cross following -Likely reactive thrombocytosis -We will follow up outpatient with . -Continue low-dose aspirin and VTE prophylaxis DVT prophylaxis-subcu Lovenox This patient was seen by Basilia Atwood NP-Zacarias under the supervision of Dr. Randle. Documented by User: Dr. John Randle MD 02/12/21 15:15 Subjective Subjective Repeat chest x-ray shows increasing right apical pneumothorax therefore larger bore 20 Serbian chest tube catheter was inserted. Repeat chest x-ray shows no evidence of pneumothorax. Patient is not short of breath. Wants to go home Objective Data Lab / Micro Data Result Diagrams: 02/12/21 05:45 02/12/21 05:45 Physical Exam Narrative General: Alert, Oriented x3, Cooperative, BMI 15.3 kg/m? HEENT: Atraumatic, PERRLA, EOMI, Normocephalic Oral: No Gingival or Mucosal Lesions/ Ulcerations Neck: Supple, No JVD, Negative Carotid Bruits Lungs: larger chest tube inserted. No shortness of breath. No crepitation/rhonchi or wheezing. Cardiovascular: Sinus tachycardia, Normal S1, Normal S2, No murmurs Abdomen: Bowel Sounds Present, Soft, Non Tender, Non-Distended : No renal angle tenderness. No suprapubic tenderness. Extremities: No edema, Capillary Refill Less than 3 Seconds Skin: No rashes, No breakdown Musculoskeletal: Mild atrophy of muscles of extremity. Loss of subcutaneous fat. No Tenderness to Palpation of Joints or Extremities Neurological: Cranial nerves II-XII grossly intact, DTR 2+/4 and Symmetrical, Neuro grossly intact Psych/Mental Status: Normal Affect, Appropriate. Assessment & Plan Assessment/Plan (1) Pneumothorax after biopsy: PLAN: This patient was seen in conjunction with SOPHIE Cui. I have independently interviewed and examined the patient and reviewed pertinent history, examination findings, laboratory and plan of management. I have reviewed the note and agree with the documented findings with the few additional points. In brief, patient is admitted for COPD exacerbation with extensive smoking history since teenage. Patient on scheduled bronchodilator along with steroid. On oxygen therapy. Telegraphic Typewriter Repairer consult reviewed and appreciated. Advised CT-guided biopsy of the spiculated nodule of more than 1 cm of right lung apex with potential complication of pneumothorax. CT shows upper lobe predominant e mphysematous changes. 02/10: Patient had CT-guided lung biopsy subsequently developed large right-sided pneumothorax. Surgeon was consulted and she promptly did right percutaneous chest tube and appreciated. I was present there during the procedure. After chest tube patient had good air bubble and repeat chest x-ray shows significant improvement in pneumothorax. Patient suction was -40 and then decreased to -20. Plan for repeat chest x-ray tomorrow morning. Patient has improvement in shortness of breath, tachypnea and tachycardia after chest tube. 02/11: Repeat chest x-ray shows trace apical pneumothorax. Patient still has chest tube. I discussed with manufacturing technology professor last evening. He is going to order work-up to rule out essential thrombocythemia/myeloproliferative disorder including JAK2 V600 but it seems patient mainly has reactive thrombocytosis. This happened similar her platelet count was high for few days about 3 years ago and then returned to normal. Patient risk stratification shows no history of arterial venous thrombosis but age above 60 with a smoker and hypertension. 02/12: Patient had right apical pneumothorax of chest x-ray in the morning. Large bore 20 Serbian chest tube inserted. Repeat chest x-ray shows no evidence of pneumothorax. COPD exacerbation has improved and almost resolved. Follow-up lung biopsy with Dr. Preston in pulmonary clinic within 2 weeks after discharge. Thrombocythemia stable at 950 K for last 3 days. Patient other comorbidities as mentioned above. I have discussed my assessment with SOPHIE Cui and orders have been reviewed. Charges/Coding Visit Charges Inpatient E&M: 29041 Subs Hosp L2
[2021-02-12] MEDS: HYDROcodone Bitartrate/Apap 5/325 Tablet PO ×2 (15:06→21:16)
[2021-02-12] MEDS: Lidocaine 2% /Epi 1:100 (20ml) 20 ML VIAL 10 ML INFILT (15:22)
[2021-02-12] MEDS: 0.9% Saline Lock 10 ML Syringe IV (21:18)
[2021-02-13] VITALS (13 sets, daily range): BP systolic 137–159; BP diastolic 82–91; PULSE 88–121; RESP 16–26; TEMP 36.6–36.8; O2SAT 94–96
[2021-02-13] MEDS: Acetaminophen 325 MG Tablet 650 MG PO (00:46)
[2021-02-13] MEDS: Ipratropium/Albuterol Sulfate 3 ML AMPUL.NEB INHALATION ×3 (01:40→19:48)
[2021-02-13] MEDS: 0.9% Saline Lock 10 ML Syringe IV ×2 (05:14→14:32)
[2021-02-13] MEDS: HYDROcodone Bitartrate/Apap 5/325 Tablet PO ×2 (05:20→19:47)
[2021-02-13 07:15] LABS: Absolute Lymphocyte Count 0.71 X10^3/uL (0.83-4.51); Absolute Neutrophil Count 11.9 X10^3/uL (2.0-7.7); Basophil# 0.02 X10^3/uL; Basophil% 0.1 % (0-1); Hematocrit 40.5 % (37-47); Hemoglobin 13.4 g/dL (12.0-15.0); Lymphocyte # 0.71 X10^3/ul (0.83-4.51); Lymphocyte % 5.2 % (19-41); Mean Corp Hgb Conc 33.1 g/dL (32-36); Mean Corpuscular Hgb 31.6 pg (27.0-32.0); Mean Corpuscular Volume 95.5 fL (81-99); Mean Platelet Vol. 9.8 fl (6.2-12.0); Monocyte# 0.98 X10^3/uL; Monocyte% 7.1 % (0-10); NRBC Flagged by Analyzer 0 % (0-5); Neutrophil % 86.9 % (47-70); POSITIVE COUNT YES; Platelet Count 974 K/mm3 (150-450); RBC Distribution Width CV 12.3 % (11.6-14.6); RBC Distribution Width SD 42.6 fl (35.1-43.9); Red Blood Count 4.24 M/mm3 (4.2-5.4); White Blood Count 13.7 K/mm3 (4.4-11.0)
--- NOTE | 2021-02-13 07:21 | PCM.PN.SRG ---
Subjective Subjective Patient has no complaints. No leak on chest tube Objective Data Objective Data Vital Signs: Vital Signs Temp Pulse Resp BP Pulse Ox 98 F 96 18 159/82 H 96 02/13/21 02:44 02/13/21 04:15 02/13/21 02:44 02/13/21 02:44 02/13/21 02:44 Oxygen Flow Rate (L/min) [3] 2 Oxygen Flow Rate (L/min) [2] 2 Oxygen Flow Rate (L/min) [1 ( 2 Initial Baseline)] Oxygen Flow Rate (L/min) [At 2 REST with Oxygen] Oxygen Flow Rate (L/min) 2 Oxygen Delivery Method [3] Nasal Cannula Oxygen Delivery Method [2] Nasal Cannula Oxygen Delivery Method [1 ( Nasal Cannula Initial Baseline)] Oxygen Delivery Method Nasal Cannula Weight: 86 lb 3.212 oz Body Mass Index (BMI) 15.3 Intake & Output: Intake and Output for Last 24 Hours 02/11/21 02/12/21 02/13/21 23:59 23:59 23:59 Intake Total 640 / 640 880 / 880 Output Total 5 / 5 Balance 640 / 640 880 / 880 -5 / -5 Lab / Micro Data Result Diagrams: 02/13/21 06:15 02/13/21 06:15 Micro: Microbiology 02/08/21 12:10 Nasal Secretion SARS-CoV-2 Antigen (Rapid) - Final Radiography Diagnostic Testing: Radiology Impression Chest X-Ray 02/12/21 05:00 IMPRESSION: Stable examination with evidence of a tiny right apical pneumothorax. Electronically Signed: Sunny Forde MD at 9:13 EDT , Service support , Chest X-Ray 02/12/21 09:27 IMPRESSION: Mild progression of the right apical pneumothorax. Electronically Signed: Sunny Forde MD at 9:47 EDT , Service support , Chest X-Ray 02/12/21 12:15 IMPRESSION: Status post placement of a large caliber chest tube with tip along the superior medial aspect of the right hemithorax. There is no evidence of pneumothorax at this time. Electronically Signed: Sunny Forde MD at 12:42 EDT , Service support , Physical Exam Const oriented x3 and no apparent distress Resp normal respiratory effort Resp Narrative: Right chest tube in place, no obvious leak to -20 Assessment & Plan Assessment/Plan (1) Pneumothorax after biopsy: (2) Lesion of lung: (3) COPD (chronic obstructive pulmonary disease): QUALIFIERS: COPD type: COPD with acute exacerbation Qualified Code(s): J44.1 - Chronic obstructive pulmonary disease with (acute) exacerbation PLAN: We will do a chest x-ray later this morning if there is no pneumo we will plan to change to waterseal for today. Would likely plan to keep to waterseal till tomorrow if that still shows no pneumo would remove the chest tube. Danitza Barr M.D. Pager: [phone] [facility] [address] [place] [address], [address] [place] [address] Office: [phone]
[2021-02-13 07:31] LABS: Differential Indicated SCAN CRITERIA MET
[2021-02-13 07:40] LABS: Anion Gap 8 (5-15); BUN 21 mg/dL (7-18); BUN/Creat Ratio 39.3 RATIO (10-20); Calcium,Total 9.4 mg/dL (8.5-10.1); Chloride 96 mmol/L (98-107); Creatinine, Serum 0.53 mg/dL (0.55-1.02); EST Glomerular Filtration Rate 120 mL/min (>60); Est Glom Filt Rate - Afr Amer 146 mL/min (>60); Estimated Creatinine Clearance 32.77 ml/min; Glucose 109 mg/dL (74-106); Potassium 4.5 mmol/L (3.5-5.1); Sodium Level 132 mmol/L (136-145)
--- NOTE | 2021-02-13 07:40 | PCM.PN.INT ---
Assessment & Plan Assessment/Plan (1) Lung nodule: PLAN: RECOMMENDATIONS: 1. Await pathology results from CT-guided lung biopsy. 2. Continue scheduled bronchodilator therapy and steroids. 3. Wean supplemental oxygen as tolerated. 4. Perform walking oximetry study prior to consideration for discharge home. 5. Continue nicotine replacement therapy. 6. Chest tube management per surgery. 7. Follow-up in the pulmonary medicine clinic within 2 weeks of discharge. 8. Will sign off at this time. Please call with any additional questions. IMPRESSIONS: 1. Right upper lobe lung nodule CT imaging of the chest revealed a spiculated lung nodule in excess of 1 cm in the right lung apex. These findings are concerning given the patient's extensive smoking history and upper lobe location. Accordingly, the patient underwent a CT-guided lung biopsy on February 10. Pathology is still pending. Unfortunately, she did develop an iatrogenic pneumothorax, which required tube thoracotomy. 2. Iatrogenic pneumothorax status post CT-guided lung biopsy The patient is status chest tube placement on February 10. General surgery is still following to assist with chest tube management. 3. Chronic tobacco dependency The patient has an extensive smoking history and likely has a component of underlying obstructive lung disease. I would recommend that she follow-up in the pulmonary medicine clinic after discharge so that baseline PFTs can be obtained. She could then be placed on an inhaler regimen to optimize her respiratory status and help eliminate symptoms. Smoking cessation counseling was provided. This note was generated with Involver dictation software. It may contain incorrect words, spelling, and punctuation that were not noted in checking the note before signing. Subjective Subjective The patient was seen and examined at the bedside this morning. Events from the last 24 hours have been reviewed. The patient is currently afebrile, hemodynamically stable and maintaining appropriate oxygen saturations on 2 L/min via nasal cannula. The patient underwent large bore chest tube placement yesterday. Follow-up chest x-ray revealed resolution of the pneumothorax. Objective Data Objective Data The patient's most recent lab work, culture data and imaging studies have all been personally reviewed. Vital Signs: Vital Signs Temp Pulse Resp BP Pulse Ox 98 F 96 18 159/82 H 96 02/13/21 02:44 02/13/21 04:15 02/13/21 02:44 02/13/21 02:44 02/13/21 02:44 Oxygen Flow Rate (L/min) [3] 2 Oxygen Flow Rate (L/min) [2] 2 Oxygen Flow Rate (L/min) [1 ( 2 Initial Baseline)] Oxygen Flow Rate (L/min) [At 2 REST with Oxygen] Oxygen Flow Rate (L/min) 2 Oxygen Delivery Method [3] Nasal Cannula Oxygen Delivery Method [2] Nasal Cannula Oxygen Delivery Method [1 ( Nasal Cannula Initial Baseline)] Oxygen Delivery Method Nasal Cannula Weight: 39.1 kg Body Mass Index (BMI) 15.3 Intake & Output: Intake and Output for Last 24 Hours 02/11/21 02/12/21 02/13/21 23:59 23:59 23:59 Intake Total 640 / 640 880 / 880 Output Total / 5 Balance 640 / 640 880 / 880 -5 / 5 Lab / Micro Data Attestation: I reviewed the patient's lab results. Result Diagrams: 02/13/21 06:15 02/13/21 06:15 Labs: Laboratory Results - last 24 hr 02/13/21 06:15: WBC 13.7 H, RBC 4.24, Hgb 13.4, Hct 40.5, MCV 95.5, MCH 31.6, MCHC 33.1, RDW Std Deviation 42.6, RDW Coeff of Sandra 12.3, Plt Count 974 H*, MPV 9.8, Immature Gran % (Auto) 0.700, Neut % (Auto) 86.9 H, Lymph % (Auto) 5.2 L, [place] % (Auto) 7.1, Eos % (Auto) 0.0, Baso % (Auto) 0.1, Absolute Neuts (auto) 11.9 H, Absolute Lymphs (auto) 0.71 L, Nucleated RBC % 0 Micro: Microbiology 02/08/21 12:10 Nasal Secretion SARS-CoV-2 Antigen (Rapid) - Final Radiography Diagnostic Testing: Radiology Impression Chest X-Ray 02/12/21 05:00 IMPRESSION: Stable examination with evidence of a tiny right apical pneumothorax. Electronically Signed: Sunny Forde MD at 9:13 EDT , Service support , Chest X-Ray 02/12/21 09:27 IMPRESSION: Mild progression of the right apical pneumothorax. Electronically Signed: Sunny Forde MD at 9:47 EDT , Service support , Chest X-Ray 02/12/21 12:15 IMPRESSION: Status post placement of a large caliber chest tube with tip along the superior medial aspect of the right hemithorax. There is no evidence of pneumothorax at this time. Electronically Signed: Sunny Forde MD at 12:42 EDT , Service support , Physical Exam Const alert and no apparent distress General Appearance: cooperative HEENT normocephalic and head/scalp atraumatic Eyes PERRL, EOMs intact bilaterally and conjunctivae normal Neck supple General: trachea midline Chest inspection of chest normal Chest Narrative: Increased AP diameter. No air leak noted from chest tube. Chest: chest tube Resp Resp Narrative: Globally diminished air movement throughout all lung [place]. Prolonged expiratory phase. Cardio S1 normal heart sound and S2 normal heart sound Rate: tachycardic GI normal to inspection, nondistended, normoactive bowel sounds Extremity no clubbing, cyanosis or edema Skin no rashes or lesions noted Neuro moves all extremities and no focal motor deficits Psych cooperative and affect normal Charges/Coding Visit Charges Inpatient E&M: 63732 Subs Hosp L2
[2021-02-13 08:33] LABS: Platelet Estimate MKD INC (ADEQ)
[2021-02-13 09:16] LABS: Pathologist Review Reviewed
[2021-02-13 09:39] LABS: Pathologist Review Reviewed
--- NOTE | 2021-02-13 10:00 | RAD_ITS ---
History: right ptx- s/p ct -- portable EXAMINATION/TECHNIQUE: XR Chest 1 View: Portable COMPARISON: February 12, 2021 FINDINGS: LINES/DEVICES: Right chest tube remains in place. LUNGS: Residual airspace opacification within the right lower lobe noted. Small right pleural effusion mild right lower lobe atelectasis. Question tiny right apical pneumothorax. MEDIASTINUM AND CARDIOVASCULAR STRUCTURES: Cardiac silhouette not enlarged. Central airways and mediastinal contour are unremarkable. BONES AND SOFT TISSUES: Unremarkable. RAD/Chest 1 View (Portable) IMPRESSION: No significant interval change. at 1648 Reported and signed by: Jovon Key MD Electronically Signed: Jovon Key MD at 16:47 EDT Tel , Service support ,
[2021-02-13] MEDS: APIXABAN 2.5 MG TABLET PO ×2 (10:11→21:20)
[2021-02-13] MEDS: Aspirin 81 MG TAB.CHEW PO (10:11)
[2021-02-13] MEDS: amLODIPine 5 MG Tablet PO (10:12)
--- NOTE | 2021-02-13 12:52 | PCM.PN.HOSP ---
Documented by User: Basilia Atwood NP-Zacarias 02/13/21 12:56 Subjective Subjective Patient seen and examined. No distress noted, patient has no complaints. Patient sitting in chair watching TV. Per Dr. Sanchez's note plan is to switch patient to [facility] later today repeat chest x-ray in the morning and if no pneumothorax remove the chest tube on 02/14/2021. Plan discussed with patient Objective Data Objective Data Vital Signs: Vital Signs Temp Pulse Resp BP Pulse Ox 98.1 F 103 H 16 138/91 H 95 02/13/21 10:06 02/13/21 10:06 02/13/21 10:06 02/13/21 10:06 02/13/21 10:06 Oxygen Flow Rate (L/min) [3] 2 Oxygen Flow Rate (L/min) [2] 2 Oxygen Flow Rate (L/min) [1 ( 2 Initial Baseline)] Oxygen Flow Rate (L/min) [At 2 REST with Oxygen] Oxygen Flow Rate (L/min) 2 Oxygen Delivery Method [3] Nasal Cannula Oxygen Delivery Method [2] Nasal Cannula Oxygen Delivery Method [1 ( Nasal Cannula Initial Baseline)] Oxygen Delivery Method Nasal Cannula Weight: 86 lb 3.212 oz Body Mass Index (BMI) 15.3 Intake & Output: Intake and Output for Last 24 Hours 02/11/21 02/12/21 02/13/21 23:59 23:59 23:59 Intake Total 640 / 640 880 / 880 Output Total 5 / 5 Balance 640 / 640 880 / 880 -5 / -5 Lab / Micro Data Result Diagrams: 02/13/21 06:15 02/13/21 06:15 Labs: Laboratory Results - last 24 hr 02/11/21 04:38: Diff Path Review Reviewed 02/12/21 05:45: Diff Path Review Reviewed 02/13/21 06:15: WBC 13.7 H, RBC 4.24, Hgb 13.4, Hct 40.5, MCV 95.5, MCH 31.6, MCHC 33.1, RDW Std Deviation 42.6, RDW Coeff of Sandra 12.3, Plt Count 974 H*, MPV 9.8, Immature Gran % (Auto) 0.700, Neut % (Auto) 86.9 H, Lymph % (Auto) 5.2 L, [place] % (Auto) 7.1, Eos % (Auto) 0.0, Baso % (Auto) 0.1, Absolute Neuts (auto) 11.9 H, Absolute Lymphs (auto) 0.71 L, Nucleated RBC % 0, Platelet Estimate MKD INC 02/13/21 06:15: Sodium 132 L, Potassium 4.5, Chloride 96 L, Carbon Dioxide 28.0, Anion Gap 8, BUN 21 H, Creatinine 0.53 L, Estim Creat Clear Calc 32.77, Est GFR (MDRD) Af Amer 146, Est GFR (MDRD) Non-Af 120, BUN/Creatinine Ratio 39.3 H, Glucose 109 H, Calcium 9.4 Micro: Microbiology 02/08/21 12:10 Nasal Secretion SARS-CoV-2 Antigen (Rapid) - Final Physical Exam Const alert, oriented x3 and no apparent distress HEENT head/scalp atraumatic Eyes conjunctivae normal and no scleral icterus Neck full ROM and supple Resp normal respiratory effort and normal air movement Effort and Inspection: able to speak in complete sentences and symmetric chest movement Auscultation: diminished lung sounds Cardio regular rate, regular rhythm, S1 normal heart sound, S2 normal heart sound and peripheral pulses 2+ throughout GI normal to inspection, nondistended, normoactive bowel sounds, soft to palpation and non-tender Extremity normal to inspection, full ROM and no clubbing, cyanosis or edema Skin no rashes or lesions noted and skin turgor normal Neuro oriented x3, moves all extremities, no focal motor deficits and no sensory deficits noted Sensorium / Orientation: awake and alert Speech: speech normal Psych affect normal Assessment & Plan Assessment/Plan (1) Pneumothorax after biopsy: (2) Lung nodule: (3) COPD (chronic obstructive pulmonary disease): QUALIFIERS: COPD type: COPD with acute exacerbation Qualified Code(s): J44.1 - Chronic obstructive pulmonary disease with (acute) exacerbation PLAN: 1. Acute on chronic COPD exacerbation -Nasal cannula 1 to 2 L, continue to wean oxygen as tolerated -Continue breathing treatments and steroids 2. Pneumothorax of the right lung status post CT-guided biopsy -General surgery managing, -Chest tube exchange yesterday for a larger tube, patient doing well this morning. Plan is to change patient to [facility] today and if chest x-ray okay in a.m. to remove chest tube on 02/14/2021 3. Spiculated lesion in the right lung apex -Biopsy completed, pathology pending -Patient has a 50-year smoking history 4. Hypertension -Continue amlodipine -Vital signs stable -as needed hydralazine ordered 5. Tobacco abuse -Patient is 1 pack/day smoker x50 years -Cessation encouraged -Nicotine patch ordered 6. Thrombocytosis -Dr. Cross following -Likely reactive thrombocytosis -We will follow up outpatient with . -Continue low-dose aspirin and VTE prophylaxis DVT prophylaxis-subcu Lovenox This patient was seen by Basilia Atwood NP-C under the supervision of Dr. Randle. Documented by User: Dr. John Randle MD 02/13/21 16:00 Subjective Subjective Seen and examined. No air bubble noticed when patient coughs but was noted if leaning forward or up moving. Objective Data Lab / Micro Data Result Diagrams: 02/13/21 06:15 02/13/21 06:15 Physical Exam Narrative General: Alert, Oriented x3, Cooperative, BMI 15.3 kg/m? HEENT: Atraumatic, PERRLA, EOMI, Normocephalic Oral: No Gingival or Mucosal Lesions/ Ulcerations Neck: Supple, No JVD, Negative Carotid Bruits Lungs: larger chest tube inserted. No shortness of breath. No crepitation/rhonchi or wheezing. Cardiovascular: Sinus tachycardia, Normal S1, Normal S2, No murmurs Abdomen: Bowel Sounds Present, Soft, Non Tender, Non-Distended : No renal angle tenderness. No suprapubic tenderness. Extremities: No edema, Capillary Refill Less than 3 Seconds Skin: No rashes, No breakdown Musculoskeletal: Mild atrophy of muscles of extremity. Loss of subcutaneous fat. No Tenderness to Palpation of Joints or Extremities Neurological: Cranial nerves II-XII grossly intact, DTR 2+/4 and Symmetrical, Neuro grossly intact Psych/Mental Status: Normal Affect, Appropriate. Assessment & Plan Assessment/Plan (1) Pneumothorax after biopsy: PLAN: his patient was seen in conjunction with SOPHIE Cui. I have independently interviewed and examined the patient and reviewed pertinent history, examination findings, laboratory and plan of management. I have reviewed the note and agree with the documented findings with the few additional points. In brief, patient is admitted for COPD exacerbation with extensive smoking history since teenage. Patient on scheduled bronchodilator along with steroid. On oxygen therapy. Fireworks Display Specialist consult reviewed and appreciated. Advised CT-guided biopsy of the spiculated nodule of more than 1 cm of right lung apex with potential complication of pneumothorax. CT shows upper lobe predominant emphysematous changes. 02/10: Patient had CT-guided lung biopsy subsequently developed large right-sided pneumothorax. Surgeon was consulted and she promptly did right percutaneous chest tube and appreciated. I was present there during the procedure. After chest tube patient had good air bubble and repeat chest x-ray shows significant improvement in pneumothorax. Patient suction was -40 and then decreased to -20. Plan for repeat chest x-ray tomorrow morning. Patient has improvement in shortness of breath, tachypnea and tachycardia after chest tube. 02/11: Repeat chest x-ray shows trace apical pneumothorax. Patient still has chest tube. I discussed with teletypist last evening. He is going to order work-up to rule out essential thrombocythemia/myeloproliferative disorder including JAK2 V600 but it seems patient mainly has reactive thrombocytosis. This happened similar her platelet count was high for few days about 3 years ago and then returned to normal. Patient risk stratification shows no history of arterial venous thrombosis but age above 60 with a smoker and hypertension. 02/12: Patient had right apical pneumothorax of chest x-ray in the morning. Large bore 20 Wallisian chest tube inserted. Repeat chest x-ray shows no evidence of pneumothorax. COPD exacerbation has improved and almost resolved. Follow-up lung biopsy with Dr. Preston in pulmonary clinic within 2 weeks after discharge. Thrombocythemia stable at 950 K for last 3 days. 02/13: Dr. Barr told me that there is air bubble when patient leans forward or moves therefore we will keep the air suction. Patient other comorbidities as mentioned above. Charges/Coding Visit Charges Inpatient E&M: 28827 Subs Hosp L2
[2021-02-13] MEDS: Polyethylene Glycol 3350 17 GM PACKET PO (14:32)
[2021-02-13] MEDS: Senna/Docusate Sodium 1 Tablet 2 TABLET PO ×2 (14:32→21:20)
[2021-02-14] VITALS (12 sets, daily range): BP systolic 125–152; BP diastolic 83–100; PULSE 91–106; RESP 18–22; TEMP 36.6–36.8; O2SAT 92–95
[2021-02-14] MEDS: Acetaminophen 325 MG Tablet 650 MG PO (00:32)
[2021-02-14] MEDS: Ipratropium/Albuterol Sulfate 3 ML AMPUL.NEB INHALATION ×4 (01:17→18:51)
[2021-02-14] MEDS: 0.9% Saline Lock 10 ML Syringe IV ×3 (05:34→22:19)
[2021-02-14] MEDS: HYDROcodone Bitartrate/Apap 5/325 Tablet PO ×2 (05:42→15:04)
[2021-02-14 07:41] LABS: Absolute Lymphocyte Count 0.77 X10^3/uL (0.83-4.51); Absolute Neutrophil Count 15.5 X10^3/uL (2.0-7.7); Basophil# 0.02 X10^3/uL; Basophil% 0.1 % (0-1); Hematocrit 42.8 % (37-47); Hemoglobin 13.8 g/dL (12.0-15.0); Lymphocyte # 0.77 X10^3/ul (0.83-4.51); Lymphocyte % 4.4 % (19-41); Mean Corp Hgb Conc 32.2 g/dL (32-36); Mean Corpuscular Hgb 31.4 pg (27.0-32.0); Mean Corpuscular Volume 97.3 fL (81-99); Mean Platelet Vol. 9.6 fl (6.2-12.0); Monocyte% 6.3 % (0-10); NRBC Flagged by Analyzer 0 % (0-5); Neutrophil # 15.46 X10^3/uL (2.7-7.7); Neutrophil % 88.5 % (47-70); POSITIVE COUNT YES; RBC Distribution Width CV 12.5 % (11.6-14.6); RBC Distribution Width SD 44.8 fl (35.1-43.9); White Blood Count 17.5 K/mm3 (4.4-11.0)
[2021-02-14 08:01] LABS: Differential Indicated SCAN CRITERIA MET; Platelet Count 1103 K/mm3 (150-450)
[2021-02-14 08:12] LABS: Anion Gap 4 (5-15); BUN 25 mg/dL (7-18); BUN/Creat Ratio 40.7 RATIO (10-20); Calcium,Total 9.8 mg/dL (8.5-10.1); Chloride 95 mmol/L (98-107); Creatinine, Serum 0.61 mg/dL (0.55-1.02); EST Glomerular Filtration Rate 103 mL/min (>60); Est Glom Filt Rate - Afr Amer 124 mL/min (>60); Estimated Creatinine Clearance 32.77 ml/min; Glucose 117 mg/dL (74-106); Potassium 5.7 mmol/L (3.5-5.1); Sodium Level 131 mmol/L (136-145)
[2021-02-14 09:01] LABS: Platelet Estimate MKD INC (ADEQ)
[2021-02-14] MEDS: Senna/Docusate Sodium 1 Tablet 2 TABLET PO ×2 (10:05→22:20)
[2021-02-14] MEDS: APIXABAN 2.5 MG TABLET PO ×2 (10:06→22:20)
[2021-02-14] MEDS: Polyethylene Glycol 3350 17 GM PACKET PO (10:06)
[2021-02-14] MEDS: Aspirin 81 MG TAB.CHEW PO (10:06)
[2021-02-14] MEDS: amLODIPine 5 MG Tablet PO (10:07)
--- NOTE | 2021-02-14 10:42 | PCM.PN.SRG ---
Subjective Subjective wants to know what the plan is, she was told by another doctor that the tube can come out and she could go home There is still an air leak in the chest tube Objective Data Objective Data Vital Signs: Vital Signs Temp Pulse Resp BP Pulse Ox 97.9 F 91 18 138/100 H 92 02/14/21 02:08 02/14/21 07:16 02/14/21 07:16 02/14/21 02:08 02/14/21 07:16 Oxygen Flow Rate (L/min) [3] 2 Oxygen Flow Rate (L/min) [2] 2 Oxygen Flow Rate (L/min) [1 ( 2 Initial Baseline)] Oxygen Flow Rate (L/min) [At 2 REST with Oxygen] Oxygen Flow Rate (L/min) 2 Oxygen Delivery Method [3] Nasal Cannula Oxygen Delivery Method [2] Nasal Cannula Oxygen Delivery Method [1 ( Nasal Cannula Initial Baseline)] Oxygen Delivery Method Nasal Cannula Weight: 39.1 kg Body Mass Index (BMI) 15.3 Intake & Output: Intake and Output for Last 24 Hours 02/12/21 02/13/21 02/14/21 23:59 23:59 23:59 Intake Total 880 / 880 420 / 420 300 / 300 Output Total Balance 880 / 880 410 / 410 300 / 300 Lab / Micro Data Result Diagrams: 02/14/21 07:10 02/14/21 07:10 Labs: Laboratory Results - last 24 hr 02/14/21 07:10: WBC 17.5 H, RBC 4.40, Hgb 13.8, Hct 42.8, MCV 97.3, MCH 31.4, MCHC 32.2, RDW Std Deviation 44.8 H, RDW Coeff of Sandra 12.5, Plt Count 1103 H*, MPV 9.6, Immature Gran % (Auto) 0.700, Neut % (Auto) 88.5 H, Lymph % (Auto) 4.4 L, [place] % (Auto) 6.3, Eos % (Auto) 0.0, Baso % (Auto) 0.1, Absolute Neuts (auto) 15.5 H, Absolute Lymphs (auto) 0.77 L, Nucleated RBC % 0, Diff Path Review August, Platelet Estimate MKD INC 02/14/21 07:10: Sodium 131 L, Potassium 5.7 H, Chloride 95 L, Carbon Dioxide 32.0, Anion Gap 4 L, BUN 25 H, Creatinine 0.61, Estim Creat Clear Calc 32.77, Est GFR (MDRD) Af Amer 124, Est GFR (MDRD) Non-Af 103, BUN/Creatinine Ratio 40.7 H, Glucose 117 H, Calcium 9.8 Micro: Microbiology 02/08/21 12:10 Nasal Secretion SARS-CoV-2 Antigen (Rapid) - Final Radiography Diagnostic Testing: Radiology Impression Chest X-Ray 02/13/21 10:00 IMPRESSION: No significant interval change. at 1648 Reported and signed by: Jovon Key MD Electronically Signed: Jovon Key MD at 16:47 EDT Tel , Service support , Physical Exam Const alert and oriented x3 Resp normal respiratory effort GI non-tender Assessment & Plan Assessment/Plan (1) Pneumothorax after biopsy: PLAN: I still detect an air leak, I would therefore recommend continue chest tube on suction I told patient that once the air leak is no longer present, then the chest tube can be removed However, if the air leak persists, she may require a VATS procedure at another [facility]
--- NOTE | 2021-02-14 10:57 | PN.HOSP_ITS ---
Documented by User: Basilia Atwood NP-C 02/14/21 11:13 Subjective Subjective Patient seen and examined. Patient states that she is hoping to go home today. I discussed with patient that decision will be left to surgery regarding her chest tube. Patient verbalizes understanding but frustration that she has been in the hospital for almost a week now. Patient denies pain at the chest tube site or any other complaints at this time. Objective Data Objective Data Vital Signs: Vital Signs Temp Pulse Resp BP Pulse Ox 97.9 F 91 18 138/100 H 92 02/14/21 02:08 02/14/21 07:16 02/14/21 07:16 02/14/21 02:08 02/14/21 07:16 Oxygen Flow Rate (L/min) [3] 2 Oxygen Flow Rate (L/min) [2] 2 Oxygen Flow Rate (L/min) [1 ( 2 Initial Baseline)] Oxygen Flow Rate (L/min) [At 2 REST with Oxygen] Oxygen Flow Rate (L/min) 2 Oxygen Delivery Method [3] Nasal Cannula Oxygen Delivery Method [2] Nasal Cannula Oxygen Delivery Method [1 ( Nasal Cannula Initial Baseline)] Oxygen Delivery Method Nasal Cannula Weight: 86 lb 3.212 oz Body Mass Index (BMI) 15.3 Intake & Output: Intake and Output for Last 24 Hours 02/12/21 02/13/21 02/14/21 23:59 23:59 23:59 Intake Total 880 / 880 420 / 420 300 / 300 Output Total Balance 880 / 880 410 / 410 300 / 300 Lab / Micro Data Result Diagrams: 02/14/21 07:10 02/14/21 07:10 Labs: Laboratory Results - last 24 hr 02/14/21 07:10: WBC 17.5 H, RBC 4.40, Hgb 13.8, Hct 42.8, MCV 97.3, MCH 31.4, MCHC 32.2, RDW Std Deviation 44.8 H, RDW Coeff of Sandra 12.5, Plt Count 1103 H*, MPV 9.6, Immature Gran % (Auto) 0.700, Neut % (Auto) 88.5 H, Lymph % (Auto) 4.4 L, [place] % (Auto) 6.3, Eos % (Auto) 0.0, Baso % (Auto) 0.1, Absolute Neuts (auto) 15.5 H, Absolute Lymphs (auto) 0.77 L, Nucleated RBC % 0, Diff Path Review August foll, Platelet Estimate MKD INC 02/14/21 07:10: Sodium 131 L, Potassium 5.7 H, Chloride 95 L, Carbon Dioxide 32.0, Anion Gap 4 L, BUN 25 H, Creatinine 0.61, Estim Creat Clear Calc 32.77, Est GFR (MDRD) Af Amer 124, Est GFR (MDRD) Non-Af 103, BUN/Creatinine Ratio 40.7 H, Glucose 117 H, Calcium 9.8 Micro: Microbiology 02/08/21 12:10 Nasal Secretion SARS-CoV-2 Antigen (Rapid) - Final Radiography Diagnostic Testing: Radiology Impression Chest X-Ray 02/13/21 10:00 IMPRESSION: No significant interval change. at 1648 Reported and signed by: Jovon Key MD Electronically Signed: Jovon Key MD at 16:47 EDT Tel , Service support , Physical Exam Const alert, oriented x3 and no apparent distress HEENT head/scalp atraumatic Head and Scalp: normocephalic Eyes conjunctivae normal and no scleral icterus Neck full ROM and supple Resp normal respiratory effort and normal air movement Effort and Inspection: able to speak in complete sentences and symmetric chest movement Auscultation: diminished lung sounds Cardio regular rate, regular rhythm, S1 normal heart sound, S2 normal heart sound and peripheral pulses 2+ throughout GI normal to inspection, nondistended, normoactive bowel sounds, soft to palpation and non-tender Extremity normal to inspection, full ROM and no clubbing, cyanosis or edema Skin no rashes or lesions noted and skin turgor normal Neuro oriented x3, moves all extremities, no focal motor deficits and no sensory deficits noted Sensorium / Orientation: awake and alert Speech: speech normal Psych affect normal Assessment & Plan Assessment/Plan (1) Pneumothorax after biopsy: (2) Thrombocytosis: (3) COPD (chronic obstructive pulmonary disease): QUALIFIERS: COPD type: COPD with acute exacerbation Qualified Code(s): J44.1 - Chronic obstructive pulmonary disease with (acute) exacerbation PLAN: 1. Acute on chronic COPD exacerbation -Nasal cannula 1 to 2 L, continue to wean oxygen as tolerated -Continue breathing treatments and steroids 2. Pneumothorax of the right lung status post CT-guided biopsy -General surgery managing, -Chest tube exchange 02/12 for a larger tube, per Dr. Jacobson's note patient continues to have an air leak and will continue with chest tube to suction today. 3. Spiculated lesion in the right lung apex -Biopsy completed, pathology pending -Patient has a 50-year smoking history 4. Hypertension -Continue amlodipine -Vital signs stable -as needed hydralazine ordered 5. Tobacco abuse -Patient is 1 pack/day smoker x50 years -Cessation encouraged -Nicotine patch ordered 6. Thrombocytosis -Dr. Cross following -Likely reactive thrombocytosis -We will follow up outpatient with . -Continue low-dose aspirin and VTE prophylaxis DVT prophylaxis-subcu Lovenox This patient was seen by Basilia Atwood NP-C under the supervision of Dr. Randle. Documented by User: Dr. John Randle MD 02/14/21 14:24 Subjective Subjective Patient continues to have air leak mainly during standing up, bending forward or changing position. Was evaluated by surgeon today. Objective Data Lab / Micro Data Result Diagrams: 02/14/21 07:10 02/14/21 07:10 Physical Exam Narrative Seen and examined. General: Alert, Oriented x3, Cooperative, BMI 15.3 kg/m? HEENT: Atraumatic, PERRLA, EOMI, Normocephalic Oral: No Gingival or Mucosal Lesions/ Ulcerations Neck: Supple, No JVD, Negative Carotid Bruits Lungs: larger chest tube inserted. Continued air leak mainly on change of position. No shortness of breath. No crepitation/rhonchi or wheezing. Cardiovascular: Sinus tachycardia, Normal S1, Normal S2, No murmurs Abdomen: Bowel Sounds Present, Soft, Non Tender, Non-Distended : No renal angle tenderness. No suprapubic tenderness. Extremities: No edema, Capillary Refill Less than 3 Seconds Skin: No rashes, No breakdown Musculoskeletal: Mild atrophy of muscles of extremity. Loss of subcutaneous fat. No Tenderness to Palpation of Joints or Extremities Neurological: Cranial nerves II-XII grossly intact, DTR 2+/4 and Symmetrical, Neuro grossly intact Psych/Mental Status: Normal Affect, Appropriate. Assessment & Plan Assessment/Plan (1) Pneumothorax after biopsy: PLAN: This patient was seen in conjunction with SOPHIE Cui. I have independently interviewed and examined the patient and reviewed pertinent history, examination findings, laboratory and plan of management. I have reviewed the note and agree with the documented findings with the few additional points. In brief, patient is admitted for COPD exacerbation with extensive smoking history since teenage. Patient on scheduled bronchodilator along with steroid. On oxygen therapy. National Sales Director consult reviewed and appreciated. Advised CT-guided biopsy of the spiculated nodule of more than 1 cm of right lung apex with potential complication of pneumothorax. CT shows upper lobe predominant em physematous changes. 02/10: Patient had CT-guided lung biopsy subsequently developed large right-sided pneumothorax. Surgeon was consulted and she promptly did right percutaneous chest tube and appreciated. I was present there during the procedure. After chest tube patient had good air bubble and repeat chest x-ray shows significant improvement in pneumothorax. Patient suction was -40 and then decreased to -20. Plan for repeat chest x-ray tomorrow morning. Patient has improvement in shortness of breath, tachypnea and tachycardia after chest tube. 02/11: Repeat chest x-ray shows trace apical pneumothorax. Patient still has chest tube. I discussed with senior environmental consultant last evening. He is going to order work-up to rule out essential thrombocythemia/myeloproliferative disorder including JAK2 V600 but it seems patient mainly has reactive thrombocytosis. This happened similar her platelet count was high for few days about 3 years ago and then returned to normal. Patient risk stratification shows no history of arterial venous thrombosis but age above 60 with a smoker and hypertension. 02/12: Patient had right apical pneumothorax of chest x-ray in the morning. Large bore 20 Brazilian chest tube inserted. Repeat chest x-ray shows no evidence of pneumothorax. COPD exacerbation has improved and almost resolved. Follow-up lung biopsy with Dr. Preston in pulmonary clinic within 2 weeks after discharge. Thrombocythemia stable at 950 K for last 3 days. 02/13: Dr. Barr told me that there is air bubble when patient leans forward or moves therefore we will keep the air suction. 02/14: Patient continues to have air leak on changing position. Being evaluated by surgeon. Concern for continued air leak and if it persist might need evaluation by thoracic surgeon for VATS procedure. Patient platelet count and WBC count is also increasing. No obvious source of infection. Solu-Medrol changed to prednisone. Patient other comorbidities as mentioned above. Charges/Coding Visit Charges Inpatient E&M: 07053 Subs Hosp L2
[2021-02-15] VITALS (24 sets, daily range): BP systolic 127–157; BP diastolic 62–90; PULSE 82–113; RESP 16–22; TEMP 36.1–36.6; O2SAT 88–97
--- NOTE | 2021-02-15 01:18 | RAD_ITS ---
HISTORY: chest tube placement EXAMINATION/TECHNIQUE: XR Chest 1 View COMPARISON: [facility] chest x-ray from 02/13/21 FINDINGS: LINES/DEVICES: Stable right chest tube position. LUNGS: Trace residual right apical pneumothorax. Linear scarring versus atelectasis right upper lung and right lung base. Stable small right pleural effusion. MEDIASTINUM AND CARDIOVASCULAR STRUCTURES: Heart size within normal limits for imaging technique. Atherosclerotic calcifications along the aorta. BONES AND SOFT TISSUES: Skeletal degenerative changes. RAD/Chest 1 View (Portable) IMPRESSION: Right chest tube in place with trace residual right apical pneumothorax. at 0254 Reported and signed by: Mannie Meyer MD Electronically Signed: Mannie Meyer MD at 2:53 EST Tel , Service support ,
[2021-02-15] MEDS: Ipratropium/Albuterol Sulfate 3 ML AMPUL.NEB INHALATION ×4 (01:48→18:40)
[2021-02-15] MEDS: HYDROcodone Bitartrate/Apap 5/325 Tablet PO ×3 (01:50→18:36)
[2021-02-15] MEDS: amLODIPine 5 MG Tablet PO (07:42)
[2021-02-15] MEDS: Aspirin 81 MG TAB.CHEW PO (07:43)
[2021-02-15] MEDS: Polyethylene Glycol 3350 17 GM PACKET PO (07:43)
[2021-02-15] MEDS: APIXABAN 2.5 MG TABLET PO ×2 (07:43→21:36)
[2021-02-15] MEDS: Senna/Docusate Sodium 1 Tablet 2 TABLET PO (07:43)
[2021-02-15 08:06] LABS: Absolute Lymphocyte Count 2.73 X10^3/uL (0.83-4.51); Absolute Neutrophil Count 12.8 X10^3/uL (2.0-7.7); Basophil# 0.02 X10^3/uL; Basophil% 0.1 % (0-1); Eosinophil# 0.03 X10^3/uL; Eosinophils% 0.2 % (0-5); Hematocrit 40.6 % (37-47); Hemoglobin 13.2 g/dL (12.0-15.0); Lymphocyte # 2.73 X10^3/ul (0.83-4.51); Lymphocyte % 15.5 % (19-41); Mean Corp Hgb Conc 32.5 g/dL (32-36); Mean Corpuscular Hgb 31.6 pg (27.0-32.0); Mean Corpuscular Volume 97.1 fL (81-99); Mean Platelet Vol. 9.4 fl (6.2-12.0); Monocyte# 1.79 X10^3/uL; Monocyte% 10.2 % (0-10); NRBC Flagged by Analyzer 0 % (0-5); Neutrophil # 12.84 X10^3/uL (2.7-7.7); Neutrophil % 72.9 % (47-70); POSITIVE COUNT YES; POSITIVE DIFFERENTIAL YES; RBC Distribution Width CV 12.6 % (11.6-14.6); RBC Distribution Width SD 45.1 fl (35.1-43.9); Red Blood Count 4.18 M/mm3 (4.2-5.4); White Blood Count 17.6 K/mm3 (4.4-11.0)
[2021-02-15 08:09] LABS: Differential Indicated SCAN CRITERIA MET; Platelet Count 1013 K/mm3 (150-450)
[2021-02-15 08:25] LABS: ALB/GLOB Ratio 0.8 RATIO (0.9-2.4); AST(SGOT) 37 U/L (15-37); Alanine Aminotransfer ALT/SGPT 102 U/L (13-56); Alkaline Phosphatase 143 U/L (45-117); Anion Gap 3 (5-15); BUN 18 mg/dL (7-18); BUN/Creat Ratio 37.1 RATIO (10-20); Calcium,Total 9.4 mg/dL (8.5-10.1); Chloride 95 mmol/L (98-107); Creatinine, Serum 0.48 mg/dL (0.55-1.02); EST Glomerular Filtration Rate 135 mL/min (>60); Est Glom Filt Rate - Afr Amer 163 mL/min (>60); Estimated Creatinine Clearance 32.77 ml/min; Globulin 3.8 g/dL (2.2-4.2); Glucose 87 mg/dL (74-106); Potassium 4.2 mmol/L (3.5-5.1); Protein, Total 6.8 g/dL (6.4-8.2); Sodium Level 133 mmol/L (136-145)
[2021-02-15 08:45] LABS: Platelet Estimate MKD INC (ADEQ)
--- NOTE | 2021-02-15 09:03 | PCM.PN.SRG ---
Subjective Subjective Tolerating chest tube well very small air leak still present, albeit smaller than yesterday, I have increased the pleurevac water suction to 25 Objective Data Objective Data Vital Signs: Vital Signs Temp Pulse Resp BP Pulse Ox 97.9 F 94 20 H 157/87 H 94 02/15/21 07:57 02/15/21 07:57 02/15/21 07:57 02/15/21 07:57 02/15/21 07:57 Oxygen Flow Rate (L/min) [3] 2 Oxygen Flow Rate (L/min) [2] 2 Oxygen Flow Rate (L/min) [1 ( 2 Initial Baseline)] Oxygen Flow Rate (L/min) [At 2 REST with Oxygen] Oxygen Flow Rate (L/min) 2 Oxygen Delivery Method [3] Nasal Cannula Oxygen Delivery Method [2] Nasal Cannula Oxygen Delivery Method [1 ( Nasal Cannula Initial Baseline)] Oxygen Delivery Method Nasal Cannula Weight: 39.1 kg Body Mass Index (BMI) 15.3 Intake & Output: Intake and Output for Last 24 Hours 02/13/21 02/14/21 02/15/21 23:59 23:59 22:59 Intake Total 420 / 420 850 / 850 300 / 300 Output Total Balance 410 / 410 840 / 840 300 / 300 Lab / Micro Data Result Diagrams: 02/15/21 07:40 02/15/21 07:45 Labs: Laboratory Results - last 24 hr 02/15/21 07:40: WBC 17.6 H, RBC 4.18 L, Hgb 13.2, Hct 40.6, MCV 97.1, MCH 31.6, MCHC 32.5, RDW Std Deviation 45.1 H, RDW Coeff of Sandra 12.6, Plt Count 1013 H*, MPV 9.4, Immature Gran % (Auto) 1.100 H, Neut % (Auto) 72.9 H, Lymph % (Auto) 15.5 L, [place] % (Auto) 10.2 H, Eos % (Auto) 0.2, Baso % (Auto) 0.1, Absolute Neuts (auto) 12.8 H, Absolute Lymphs (auto) 2.73, Nucleated RBC % 0, Diff Path Review August, Platelet Estimate MKD INC 02/15/21 07:45: Sodium 133 L, Potassium 4.2, Chloride 95 L, Carbon Dioxide 35.0 H, Anion Gap 3 L, BUN 18, Creatinine 0.48 L, Estim Creat Clear Calc 32.77, Est GFR (MDRD) Af Amer 163, Est GFR (MDRD) Non-Af 135, BUN/Creatinine Ratio 37.1 H, Glucose 87, Calcium 9.4, Total Bilirubin 0.30, AST 37, ALT 102 H, Alkaline Phosphatase 143 H, Total Protein 6.8, Albumin 3.0 L, Globulin 3.8, Albumin/Globulin Ratio 0.8 L Micro: Microbiology 02/08/21 12:10 Nasal Secretion SARS-CoV-2 Antigen (Rapid) - Final Radiography Diagnostic Testing: Radiology Impression Chest X-Ray 02/15/21 01:18 EST IMPRESSION: Right chest tube in place with trace residual right apical pneumothorax. at 0254 Reported and signed by: Mannie Meyer MD Electronically Signed: Mannie Meyer MD at 2:53 EST Tel , Service support , Physical Exam Const alert and oriented x3 General Appearance: cooperative Resp normal respiratory effort Resp Narrative: very small air leak still present, much less than yesterday Assessment & Plan Assessment/Plan (1) Pneumothorax after biopsy: PLAN: very small air leak still present, albeit smaller than yesterday, I have increased the pleurevac water suction to 25
--- NOTE | 2021-02-15 12:25 | PN.HOSP_ITS ---
Documented by User: Basilia Atwood NP-C 02/15/21 12:29 Subjective Subjective Patient seen and examined. Patient states that she continues to feel well, no pain from chest tube site. Patient does express frustration at continued hospitalization but understands the need for continued chest tube. Objective Data Objective Data Vital Signs: Vital Signs Temp Pulse Resp BP Pulse Ox 97.9 F 96 20 H 157/87 H 94 02/15/21 07:57 02/15/21 12:21 02/15/21 07:57 02/15/21 07:57 02/15/21 07:57 Oxygen Flow Rate (L/min) [3] 2 Oxygen Flow Rate (L/min) [2] 2 Oxygen Flow Rate (L/min) [1 ( 2 Initial Baseline)] Oxygen Flow Rate (L/min) [At 2 REST with Oxygen] Oxygen Flow Rate (L/min) 2 Oxygen Delivery Method [3] Nasal Cannula Oxygen Delivery Method [2] Nasal Cannula Oxygen Delivery Method [1 ( Nasal Cannula Initial Baseline)] Oxygen Delivery Method Nasal Cannula Weight: 86 lb 3.212 oz Body Mass Index (BMI) 15.3 Intake & Output: Intake and Output for Last 24 Hours 02/13/21 02/14/21 02/15/21 23:59 23:59 22:59 Intake Total 420 / 420 850 / 850 300 / 300 Output Total Balance 410 / 410 840 / 840 300 / 300 Lab / Micro Data Result Diagrams: 02/15/21 07:40 02/15/21 07:45 Labs: Laboratory Results - last 24 hr 02/15/21 07:40: WBC 17.6 H, RBC 4.18 L, Hgb 13.2, Hct 40.6, MCV 97.1, MCH 31.6, MCHC 32.5, RDW Std Deviation 45.1 H, RDW Coeff of Sandra 12.6, Plt Count 1013 H*, MPV 9.4, Immature Gran % (Auto) 1.100 H, Neut % (Auto) 72.9 H, Lymph % (Auto) 15.5 L, Hyde % (Auto) 10.2 H, Eos % (Auto) 0.2, Baso % (Auto) 0.1, Absolute Neuts (auto) 12.8 H, Absolute Lymphs (auto) 2.73, Nucleated RBC % 0, Diff Path Review May foll, Platelet Estimate MKD INC 02/15/21 07:45: Sodium 133 L, Potassium 4.2, Chloride 95 L, Carbon Dioxide 35.0 H, Anion Gap 3 L, BUN 18, Creatinine 0.48 L, Estim Creat Clear Calc 32.77, Est GFR (MDRD) Af Amer 163, Est GFR (MDRD) Non-Af 135, BUN/Creatinine Ratio 37.1 H, Glucose 87, Calcium 9.4, Total Bilirubin 0.30, AST 37, ALT 102 H, Alkaline Phosphatase 143 H, Total Protein 6.8, Albumin 3.0 L, Globulin 3.8, Albumin/Globulin Ratio 0.8 L Micro: Microbiology 02/08/21 12:10 Nasal Secretion SARS-CoV-2 Antigen (Rapid) - Final Radiography Diagnostic Testing: Radiology Impression Chest X-Ray 02/15/21 01:18 EST IMPRESSION: Right chest tube in place with trace residual right apical pneumothorax. at 0254 Reported and signed by: Mannie Meyer MD Electronically Signed: Mannie Meyer MD at 2:53 EST Tel , Service support , Physical Exam Const alert, oriented x3 and no apparent distress HEENT head/scalp atraumatic Eyes conjunctivae normal and no scleral icterus Neck full ROM and supple Resp normal respiratory effort and normal air movement Effort and Inspection: able to speak in complete sentences and symmetric chest movement Auscultation: diminished lung sounds Cardio regular rate, regular rhythm, S1 normal heart sound, S2 normal heart sound and peripheral pulses 2+ throughout GI normal to inspection, nondistended, normoactive bowel sounds, soft to palpation and non-tender Extremity normal to inspection, full ROM and no clubbing, cyanosis or edema Skin no rashes or lesions noted and skin turgor normal Neuro oriented x3, moves all extremities, no focal motor deficits and no sensory deficits noted Sensorium / Orientation: awake and alert Speech: speech normal Psych affect normal Assessment & Plan Assessment/Plan (1) Pneumothorax after biopsy: (2) COPD (chronic obstructive pulmonary disease): QUALIFIERS: COPD type: COPD with acute exacerbation Qualified Code(s): J44.1 - Chronic obstructive pulmonary disease with (acute) exacerbation (3) Lesion of lung: PLAN: Patient is a 70-year-old female who initially presented with COPD exacerbation and upon CAT scan was found to have a spiculated lesion of the right lung. Patient underwent guided biopsy and developed a pneumothorax a chest tube was placed at that time and is currently being maintained. 1. Acute on chronic COPD exacerbation -Nasal cannula 1 to 2 L, continue to wean oxygen as tolerated -Continue breathing treatments and steroids 2. Pneumothorax of the right lung status post CT-guided biopsy -General surgery managing, -Chest tube exchange 02/12 for a larger tube, per Dr. Jacobson's note patient continues to have an air leak and will continue with chest tube to suction at an increased suction setting of 25mmHg 3. Spiculated lesion in the right lung apex -Biopsy completed, pathology pending -Patient has a 50-year smoking history 4. Hypertension -Continue amlodipine -Vital signs stable -as needed hydralazine ordered 5. Tobacco abuse -Patient is 1 pack/day smoker x50 years -Cessation encouraged -Nicotine patch ordered 6. Thrombocytosis -Dr. Cross following -Likely reactive thrombocytosis, appears that platelet count peaked 02/14 -We will follow up outpatient with . -Continue low-dose aspirin and VTE prophylaxis DVT prophylaxis-subcu Lovenox This patient was seen by Basilia Atwood NP-C under the supervision of Dr. Randle. Documented by User: Dr. John Randle MD 02/15/21 14:24 Subjective Subjective Patient continues to have air leak. Objective Data Lab / Micro Data Result Diagrams: 02/15/21 07:40 02/15/21 07:45 Physical Exam Narrative Seen and examined General: Alert, Oriented x3, Cooperative, BMI 15.3 kg/m? HEENT: Atraumatic, PERRLA, EOMI, Normocephalic Oral: No Gingival or Mucosal Lesions/ Ulcerations Neck: Supple, No JVD, Negative Carotid Bruits Lungs: larger chest tube inserted. Continued air leak mainly on change of position. No shortness of breath. No crepitation/rhonchi or wheezing. Cardiovascular: Sinus tachycardia, Normal S1, Normal S2, No murmurs Abdomen: Bowel Sounds Present, Soft, Non Tender, Non-Distended : No renal angle tenderness. No suprapubic tenderness. Extremities: No edema, Capillary Refill Less than 3 Seconds Skin: No rashes, No breakdown Musculoskeletal: Mild atrophy of muscles of extremity. Loss of subcutaneous fat. No Tenderness to Palpation of Joints or Extremities Neurological: Cranial nerves II-XII grossly intact, DTR 2+/4 and Symmetrical, Neuro grossly intact Psych/Mental Status: Normal Affect, Appropriate. Assessment & Plan Assessment/Plan (1) Pneumothorax after biopsy: PLAN: This patient was seen in conjunction with SOPHIE Cui. I have independently interviewed and examined the patient and reviewed pertinent history, examination findings, laboratory and plan of management. I have reviewed the note and agree with the documented findings with the few additional points. In brief, patient is admitted for COPD exacerbation with extensive smoking history since teenage. Patient on scheduled bronchodilator along with steroid. On oxygen therapy. Drafting Detailer consult reviewed and appreciated. Advised CT-guided biopsy of the spiculated nodule of more than 1 cm of right lung apex with potential complication of pneumothorax. CT shows upper lobe predominant emphysematous changes. 02/10: Patient had CT-guided lung biopsy subsequently developed large right-sided pneumothorax. Surgeon was consulted and she promptly did right percutaneous chest tube and appreciated. I was present there during the procedure. After chest tube patient had good air bubble and repeat chest x-ray shows significant improvement in pneumothorax. Patient suction was -40 and then decreased to -20. Plan for repeat chest x-ray tomorrow morning. Patient has improvement in shortness of breath, tachypnea and tachycardia after chest tube. 02/11: Repeat chest x-ray shows trace apical pneumothorax. Patient still has chest tube. I discussed with subway car repairer last evening. He is going to order work-up to rule out essential thrombocythemia/myeloproliferative disorder including JAK2 V600 but it seems patient mainly has reactive thrombocytosis. This happened similar her platelet count was high for few days about 3 years ago and then returned to normal. Patient risk stratification shows no history of arterial venous thrombosis but age above 60 with a smoker and hypertension. 02/12: Patient had right apical pneumothorax of chest x-ray in the morning. Large bore 20 Swedish chest tube inserted. Repeat chest x-ray shows no evidence of pneumothorax. COPD exacerbation has improved and almost resolved. Follow-up lung biopsy with Dr. Preston in pulmonary clinic within 2 weeks after discharge. Thrombocythemia stable at 950 K for last 3 days. 02/13: Dr. Barr told me that there is air bubble when patient leans forward or moves therefore we will keep the air suction. 02/14: Patient continues to have air leak on changing position. Being evaluated by surgeon. Concern for continued air leak and if it persist might need evaluation by thoracic surgeon for VATS procedure. Patient platelet count and WBC count is also increasing. No obvious source of infection. Solu-Medrol fuller ged to prednisone. Patient other comorbidities as mentioned above. 02/15: Continued air leak. Chest tube connected to suction. COPD exacerbation resolved. Charges/Coding Visit Charges Inpatient E&M: 33011 Subs Hosp L2
[2021-02-15] MEDS: 0.9% Saline Lock 10 ML Syringe IV (21:37)
[2021-02-16] VITALS (12 sets, daily range): BP systolic 130–152; BP diastolic 69–84; PULSE 89–104; RESP 16–20; TEMP 36.8–37.3; O2SAT 91–97
[2021-02-16] MEDS: HYDROcodone Bitartrate/Apap 5/325 Tablet PO ×4 (00:31→19:42)
[2021-02-16] MEDS: Ipratropium/Albuterol Sulfate 3 ML AMPUL.NEB INHALATION ×4 (01:25→20:09)
[2021-02-16] MEDS: Acetaminophen 325 MG Tablet 650 MG PO (05:31)
[2021-02-16 06:10] LABS: Absolute Neutrophil Count 14.1 X10^3/uL (2.0-7.7); Basophil# 0.02 X10^3/uL; Basophil% 0.1 % (0-1); Eosinophil# 0.09 X10^3/uL; Eosinophils% 0.5 % (0-5); Hematocrit 38.8 % (37-47); Hemoglobin 12.8 g/dL (12.0-15.0); Lymphocyte % 9.3 % (19-41); Mean Corpuscular Hgb 32.2 pg (27.0-32.0); Mean Corpuscular Volume 97.5 fL (81-99); Mean Platelet Vol. 9.4 fl (6.2-12.0); Monocyte# 2.05 X10^3/uL; Monocyte% 11.3 % (0-10); NRBC Flagged by Analyzer 0 % (0-5); Neutrophil # 14.14 X10^3/uL (2.7-7.7); Neutrophil % 77.6 % (47-70); POSITIVE COUNT YES; POSITIVE DIFFERENTIAL YES; Platelet Count 891 K/mm3 (150-450); RBC Distribution Width CV 12.6 % (11.6-14.6); RBC Distribution Width SD 44.9 fl (35.1-43.9); Red Blood Count 3.98 M/mm3 (4.2-5.4); White Blood Count 18.2 K/mm3 (4.4-11.0)
[2021-02-16 06:43] LABS: Anion Gap 4 (5-15); BUN 17 mg/dL (7-18); BUN/Creat Ratio 32.8 RATIO (10-20); Calcium,Total 8.8 mg/dL (8.5-10.1); Chloride 94 mmol/L (98-107); Creatinine, Serum 0.52 mg/dL (0.55-1.02); EST Glomerular Filtration Rate 125 mL/min (>60); Est Glom Filt Rate - Afr Amer 151 mL/min (>60); Estimated Creatinine Clearance 32.77 ml/min; Glucose 96 mg/dL (74-106); Potassium 4.4 mmol/L (3.5-5.1); Sodium Level 131 mmol/L (136-145)
[2021-02-16 07:07] LABS: Differential Indicated SCAN CRITERIA MET
--- NOTE | 2021-02-16 08:36 | PCM.PN.SRG ---
Subjective Subjective Minimal leak point with change of suction to -30/-40 from -25; none with position or coughing Objective Data Objective Data Vital Signs: Vital Signs Temp Pulse Resp BP Pulse Ox 99.1 F 89 20 H 138/80 H 93 02/16/21 07:42 02/16/21 08:21 02/16/21 07:42 02/16/21 07:42 02/16/21 07:42 Oxygen Flow Rate (L/min) [3] 2 Oxygen Flow Rate (L/min) [2] 2 Oxygen Flow Rate (L/min) [1 ( 2 Initial Baseline)] Oxygen Flow Rate (L/min) [At 2 REST with Oxygen] Oxygen Flow Rate (L/min) 2 Oxygen Delivery Method [3] Nasal Cannula Oxygen Delivery Method [2] Nasal Cannula Oxygen Delivery Method [1 ( Nasal Cannula Initial Baseline)] Oxygen Delivery Method Nasal Cannula Weight: 86 lb 3.212 oz Body Mass Index (BMI) 15.3 Intake & Output: Intake and Output for Last 24 Hours 02/15/21 02/15/21 02/16/21 00:59 23:59 23:59 Intake Total Output Total Balance - Lab / Micro Data Result Diagrams: 02/16/21 05:45 02/16/21 05:45 Labs: Laboratory Results - last 24 hr 02/15/21 07:40: Diff Path Review Lashay mendieta, Platelet Estimate MKD INC 02/16/21 05:45: WBC 18.2 H, RBC 3.98 L, Hgb 12.8, Hct 38.8, MCV 97.5, MCH 32.2 H, MCHC 33.0, RDW Std Deviation 44.9 H, RDW Coeff of Sandra 12.6, Plt Count 891 H*, MPV 9.4, Immature Gran % (Auto) 1.200 H, Neut % (Auto) 77.6 H, Lymph % (Auto) 9.3 L, Ada % (Auto) 11.3 H, Eos % (Auto) 0.5, Baso % (Auto) 0.1, Absolute Neuts (auto) 14.1 H, Absolute Lymphs (auto) 1.70, Nucleated RBC % 0, Diff Path Review Lashay mendieta 02/16/21 05:45: Sodium 131 L, Potassium 4.4, Chloride 94 L, Carbon Dioxide 33.0 H, Anion Gap 4 L, BUN 17, Creatinine 0.52 L, Estim Creat Clear Calc 32.77, Est GFR (MDRD) Af Amer 151, Est GFR (MDRD) Non-Af 125, BUN/Creatinine Ratio 32.8 H, Glucose 96, Calcium 8.8 Micro: Microbiology 02/08/21 12:10 Nasal Secretion SARS-CoV-2 Antigen (Rapid) - Final Physical Exam Const alert and oriented x3 General Appearance: cooperative Resp normal respiratory effort Resp Narrative: Small airleak with change of suction; no air leak with change of position or coughing Assessment & Plan Assessment/Plan (1) Pneumothorax after biopsy: (2) Lesion of lung: (3) COPD (chronic obstructive pulmonary disease): QUALIFIERS: COPD type: COPD with acute exacerbation Qualified Code(s): J44.1 - Chronic obstructive pulmonary disease with (acute) exacerbation PLAN: Chest x-ray from yesterday shows still minimal right pneumothorax, patient has a minimal air leak only with change of suction amount and that is only a few bubbles then it stops. We will continue -25 suction as the leak is minimal this may still resolve without needing surgery. Patient is aware there still is a chance that she may need transferred. Danitza Barr M.D. Pager: [phone] [facility] [address] [place] [address], [facility] [address] [place] [address] Office: [phone] Charges/Coding Visit Charges Inpatient E&M: 22891 Subs Hosp L2
[2021-02-16] MEDS: APIXABAN 2.5 MG TABLET PO ×2 (08:51→23:05)
[2021-02-16] MEDS: Polyethylene Glycol 3350 17 GM PACKET PO (08:52)
[2021-02-16] MEDS: Aspirin 81 MG TAB.CHEW PO (08:52)
[2021-02-16] MEDS: amLODIPine 5 MG Tablet PO (08:52)
--- NOTE | 2021-02-16 09:20 | PN.HOSP_ITS ---
Documented by User: Basilia Atwood NP-C 02/16/21 09:24 Subjective Subjective Examined. Patient states that she is feeling good, Dr. Barr currently at bedside discussing with patient and nurse concerns regarding chest tube. Patient denies pain at this time, denies other needs. Objective Data Objective Data Vital Signs: Vital Signs Temp Pulse Resp BP Pulse Ox 99.1 F 89 20 H 138/80 H 93 02/16/21 07:42 02/16/21 08:21 02/16/21 07:42 02/16/21 07:42 02/16/21 07:42 Oxygen Flow Rate (L/min) [3] 2 Oxygen Flow Rate (L/min) [2] 2 Oxygen Flow Rate (L/min) [1 ( 2 Initial Baseline)] Oxygen Flow Rate (L/min) [At 2 REST with Oxygen] Oxygen Flow Rate (L/min) 2 Oxygen Delivery Method [3] Nasal Cannula Oxygen Delivery Method [2] Nasal Cannula Oxygen Delivery Method [1 ( Nasal Cannula Initial Baseline)] Oxygen Delivery Method Nasal Cannula Weight: 86 lb 3.212 oz Body Mass Index (BMI) 15.3 Intake & Output: Intake and Output for Last 24 Hours 02/15/21 02/15/21 02/16/21 00:59 23:59 23:59 Intake Total Output Total Balance - Lab / Micro Data Result Diagrams: 02/16/21 05:45 02/16/21 05:45 Labs: Laboratory Results - last 24 hr 02/16/21 05:45: WBC 18.2 H, RBC 3.98 L, Hgb 12.8, Hct 38.8, MCV 97.5, MCH 32.2 H , MCHC 33.0, RDW Std Deviation 44.9 H, RDW Coeff of Sandra 12.6, Plt Count 891 H*, MPV 9.4, Immature Gran % (Auto) 1.200 H, Neut % (Auto) 77.6 H, Lymph % (Auto) 9 .3 L, Victoria % (Auto) 11.3 H, Eos % (Auto) 0.5, Baso % (Auto) 0.1, Absolute Neuts (auto) 14.1 H, Absolute Lymphs (auto) 1.70, Nucleated RBC % 0, Diff Path Review August02/16/21 05:45: Sodium 131 L, Potassium 4.4, Chloride 94 L, Carbon Dioxide 33.0 H, Anion Gap 4 L, BUN 17, Creatinine 0.52 L, Estim Creat Clear Calc 32.77, Est GFR (MDRD) Af Amer 151, Est GFR (MDRD) Non-Af 125, BUN/Creatinine Ratio 32.8 H, Glucose 96, Calcium 8.8 Micro: Microbiology 02/08/21 12:10 Nasal Secretion SARS-CoV-2 Antigen (Rapid) - Final Physical Exam Const alert, oriented x3 and no apparent distress HEENT head/scalp atraumatic Eyes conjunctivae normal and no scleral icterus Neck full ROM and supple Resp normal respiratory effort and normal air movement Effort and Inspection: able to speak in complete sentences and symmetric chest movement Auscultation: diminished lung sounds Cardio regular rate, regular rhythm, S1 normal heart sound, S2 normal heart sound and peripheral pulses 2+ throughout GI normal to inspection, nondistended, normoactive bowel sounds, soft to palpation and non-tender Extremity normal to inspection, full ROM and no clubbing, cyanosis or edema Skin no rashes or lesions noted and skin turgor normal Neuro oriented x3, moves all extremities, no focal motor deficits and no sensory deficits noted Sensorium / Orientation: awake and alert Speech: speech normal Psych affect normal Assessment & Plan Assessment/Plan (1) Thrombocytosis: (2) Lung nodule: (3) COPD (chronic obstructive pulmonary disease): QUALIFIERS: COPD type: COPD with acute exacerbation Qualified Code(s): J44.1 - Chronic obstructive pulmonary disease with (acute) exacerbation PLAN: Patient is a 70-year-old female who initially presented with COPD exacerbation and upon CAT scan was found to have a spiculated lesion of the right lung. Patient underwent guided biopsy and developed a pneumothorax a chest tube was placed at that time and is currently being maintained. 1. Acute on chronic COPD exacerbation -Nasal cannula 1 to 2 L, continue to wean oxygen as tolerated -Continue breathing treatments and steroids 2. Pneumothorax of the right lung status post CT-guided biopsy -General surgery managing, -Chest tube exchange 02/12 for a larger tube, per Dr. Barr suction increased to 35 this am and will monitor for resolution of air leak. 3. Spiculated lesion in the right lung apex -Biopsy completed, pathology pending -Patient has a 50-year smoking history 4. Hypertension -Continue amlodipine -Vital signs stable -as needed hydralazine ordered 5. Tobacco abuse -Patient is 1 pack/day smoker x50 years -Cessation encouraged -Nicotine patch ordered 6. Thrombocytosis -Dr. Cross following -Likely reactive thrombocytosis, appears that platelet count peaked 02/14 -We will follow up outpatient with . -Continue low-dose aspirin and VTE prophylaxis DVT prophylaxis-subcu Lovenox This patient was seen by SOFIE Landaverde under the supervision of Dr. Randle. Documented by User: Dr. John Randle MD 02/16/21 13:31 Subjective Subjective Patient is still having air leak while standing up. Discussed with the surgeon Objective Data Lab / Micro Data Result Diagrams: 02/16/21 05:45 02/16/21 05:45 Physical Exam Narrative Seen and examined General: Alert, Oriented x3, Cooperative, BMI 15.3 kg/m? HEENT: Atraumatic, PERRLA, EOMI, Normocephalic Oral: No Gingival or Mucosal Lesions/ Ulcerations Neck: Supple, No JVD, Negative Carotid Bruits Lungs: larger chest tube inserted. Continued air leak mainly on change of position. No shortness of breath. No crepitation/rhonchi or wheezing. Cardiovascular: Sinus tachycardia, Normal S1, Normal S2, No murmurs Abdomen: Bowel Sounds Present, Soft, Non Tender, Non-Distended : No renal angle tenderness. No suprapubic tenderness. Extremities: No edema, Capillary Refill Less than 3 Seconds Skin: No rashes, No breakdown Musculoskeletal: Mild atrophy of muscles of extremity. Loss of subcutaneous fat. No Tenderness to Palpation of Joints or Extremities Neurological: Cranial nerves II-XII grossly intact, DTR 2+/4 and Symmetrical, Neuro grossly intact Psych/Mental Status: Normal Affect, Appropriate. Assessment & Plan Assessment/Plan (1) Pneumothorax after biopsy: PLAN: This patient was seen in conjunction with SOPHIE Cui. I have independently interviewed and examined the patient and reviewed pertinent history, examination findings, laboratory and plan of management. I have reviewed the note and agree with the documented findings with the few additional points. In brief, patient is admitted for COPD exacerbation with extensive smoking history since teenage. Patient on scheduled bronchodilator along with steroid. On oxygen therapy. Herpetology Teacher consult reviewed and appreciated. Advised CT-guided biopsy of the spiculated nodule of more than 1 cm of right lung apex with potential complication of pneumothorax. CT shows upper lobe predominant emphysematous changes. 02/10: Patient had CT-guided lung biopsy subsequently developed large right-sided pneumothorax. Surgeon was consulted and she promptly did right percutaneous chest tube and appreciated. I was present there during the procedure. After chest tube patient had good air bubble and repeat chest x-ray shows significant improvement in pneumothorax. Patient suction was -40 and then decreased to -20. Plan for repeat chest x-ray tomorrow morning. Patient has improvement in shortness of breath, tachypnea and tachycardia after chest tube. 02/11: Repeat chest x-ray shows trace apical pneumothorax. Patient still has chest tube. I discussed with marine oiler last evening. He is going to order work-up to rule out essential thrombocythemia/myeloproliferative disorder including JAK2 V600 but it seems patient mainly has reactive thrombocytosis. This happened similar her platelet count was high for few days about 3 years ago and then returned to normal. Patient risk stratification shows no history of arterial venous thrombosis but age above 60 with a smoker and hypertension. 02/12: Patient had right apical pneumothorax of chest x-ray in the morning. Large bore 20 Armenian chest tube inserted. Repeat chest x-ray shows no evidence of pneumothorax. COPD exacerbation has improved and almost resolved. Follow-up lung biopsy with Dr. Preston in pulmonary clinic within 2 weeks after discharge. Thrombocythemia stable at 950 K for last 3 days. 02/13: Dr. Barr told me that there is air bubble when patient leans forward or moves therefore we will keep the air suction. 02/14: Patient continues to have air leak on changing position. Being evaluated by surgeon. Concern for continued air leak and if it persist might need evaluation by thoracic surgeon for VATS procedure. Patient platelet count and WBC count is also increasing. No obvious source of infection. Solu-Medrol changed to prednisone. Patient other comorbidities as mentioned above. 02/15: Continued air leak. Chest tube connected to suction. COPD exacerbation resolved. 02/16: No discussed with the surgeon. Chest x-ray from yesterday shows minimal right pneumothorax with minimal air leak. Continue suction and seems air leak is minimal pulmonary resolve without needing surgery. Charges/Coding Visit Charges Inpatient E&M: 13956 Subs Hosp L2
--- NOTE | 2021-02-16 15:34 | ONC.PN.INPT ---
Subjective Subjective I am feeling better looking forward to removal of the chest tube and going home. Constitutional: Denies fever(s), night sweats, poor appetite or weight loss Cardiovascular: Reports chest discomfort radiated to the chest to, dyspnea on exertion Respiratory/Chest: Reports cough and dyspnea on exertion; Denies chest tightness, hemoptysis Hematologic/Lymphatic: Denies lymphadenopathy Physical Exam Narrative ECOG 1 Right chest tube Const alert and oriented x3 Psych mental status grossly normal Vital Signs Temperature 99.1 F 02/16/21 07:42 Temperature Source Temporal 02/16/21 07:42 Pulse Rate 102 H 02/16/21 13:23 Respiratory Rate 19 H 02/16/21 13:23 Respiratory Effort 02/16/21 06:27 Respiratory Depth Normal 02/16/21 06:27 Respiratory Pattern Tachypnea 02/16/21 13:23 Blood Pressure 138/80 H 02/16/21 07:42 Blood Pressure Mean 99 02/16/21 07:42 Blood Pressure Source Monitor 02/16/21 07:42 Blood Pressure Position Sitting 02/16/21 07:42 Blood Pressure Location Left Arm 02/16/21 07:42 Baseline BP 137/70 02/10/21 12:00 Pulse Ox 93 02/16/21 07:42 Oxygen Delivery Method Nasal Cannula 02/16/21 07:42 Oxygen Flow Rate (L/min) 2 02/16/21 07:42 Laboratory Results - last 24 hr 02/16/21 05:45: WBC 18.2 H, RBC 3.98 L, Hgb 12.8, Hct 38.8, MCV 97.5, MCH 32.2 H, MCHC 33.0, RDW Std Deviation 44.9 H, RDW Coeff of Sandra 12.6, Plt Count 891 H*, MPV 9.4, Immature Gran % (Auto) 1.200 H, Neut % (Auto) 77.6 H, Lymph % (Auto) 9.3 L, [place] % (Auto) 11.3 H, Eos % (Auto) 0.5, Baso % (Auto) 0.1, Absolute Neuts (auto) 14.1 H, Absolute Lymphs (auto) 1.70, Nucleated RBC % 0, Diff Path Review August02/16/21 05:45: Sodium 131 L, Potassium 4.4, Chloride 94 L, Carbon Dioxide 33.0 H, Anion Gap 4 L, BUN 17, Creatinine 0.52 L, Estim Creat Clear Calc 32.77, Est GFR (MDRD) Af Amer 151, Est GFR (MDRD) Non-Af 125, BUN/Creatinine Ratio 32.8 H, Glucose 96, Calcium 8.8 Diagnostic Data Chest CTA 02/08/21 12:51 IMPRESSION: 1. No evidence of pulmonary embolus. 2. Pulmonary hyperinflation with emphysematous changes. There is a spiculated lesion in the right apex which may represent scar however malignancy cannot be excluded. Indicated further evaluation with PET CT scan may be beneficial. Individualized dose optimization techniques were used for this CT. at 1435 Reported and signed by: Juan Carlos An MD Electronically Signed: Juan Carlos An MD at 14:33 EDT Tel , Service support , Biopsy CT 02/10/21 12:10 IMPRESSION: 1. CT directed core needle biopsy of the right apical lung nodule using CT image guidance with image documentation as described. Pathology results are pending. 2. Conscious Sedation protocol utilized with independent monitoring. Electronically Signed: Sunny Forde MD at 11:27 EDT , Service support , Chest X-Ray 02/15/21 01:18 EST IMPRESSION: Right chest tube in place with trace residual right apical pneumothorax. at 0254 Reported and signed by: Mannie Meyer MD Electronically Signed: Mannie Meyer MD at 2:53 EST Tel , Service support , Assessment & Plan Assessment/Plan (1) Lymphoma involving lung: (2) Thrombocytosis: (3) Lung nodule: (4) Pneumothorax after biopsy: PLAN: 70-year-old female with: #1 right lung nodule: CT-guided biopsy was complicated with pneumothorax requiring chest tube placement. Patient is improving. 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 We will follow the patient after discharge, to schedule an elective outpatient PET/CT. Depending on findings she may need a bone marrow biopsy. Labs ordered: LDH and hepatitis B and C serologies. #2 thrombocytosis: First noted December 2017, differential diagnosis is between a reactive thrombocytosis or a primary myeloproliferative neoplasm. Peripheral blood myeloproliferative panel sent to reference lab and is pending. Impression and plan were discussed with the patient. Andreea Cross MD Food Safety Auditor, [facility] Divisions of Medical Oncology & Hematology Department of Internal Medicine [place] [id number] This note was generated using a voice recognition system software. Although it was reviewed by the author prior to finalization, it may still contain incorrect words, spelling, and punctuation that were not noted when reviewing prior to saving. If a clinically significant typo or inaccurately typed phrase is noted, please notify the author.
[2021-02-17] VITALS (8 sets, daily range): BP systolic 116–145; BP diastolic 72–86; PULSE 92–114; RESP 18–22; TEMP 36.3–37.9; O2SAT 94–97
[2021-02-17] MEDS: HYDROcodone Bitartrate/Apap 5/325 Tablet PO ×3 (02:28→20:18)
[2021-02-17] MEDS: Ipratropium/Albuterol Sulfate 3 ML AMPUL.NEB INHALATION ×4 (02:29→20:05)
--- NOTE | 2021-02-17 08:00 | PN.SURG_ITS ---
Subjective Subjective Patient has no complaints. Chest tube still shows a small leak with positional change at -30. Objective Data Objective Data Vital Signs: Vital Signs Temp Pulse Resp BP Pulse Ox 97.4 F L 92 18 145/77 H 97 02/17/21 06:10 02/17/21 06:10 02/17/21 06:10 02/17/21 06:10 02/17/21 06:10 Oxygen Flow Rate (L/min) [3] 2 Oxygen Flow Rate (L/min) [2] 2 Oxygen Flow Rate (L/min) [1 ( 2 Initial Baseline)] Oxygen Flow Rate (L/min) [At 2 REST with Oxygen] Oxygen Flow Rate (L/min) 2 Oxygen Delivery Method [3] Nasal Cannula Oxygen Delivery Method [2] Nasal Cannula Oxygen Delivery Method [1 ( Nasal Cannula Initial Baseline)] Oxygen Delivery Method Nasal Cannula Weight: 86 lb 3.212 oz Body Mass Index (BMI) 15.3 Intake & Output: Intake and Output for Last 24 Hours 02/15/21 02/16/21 02/17/21 23:59 23:59 23:59 Intake Total 840 / 840 Output Total Balance 820 / 820 - Lab / Micro Data Result Diagrams: 02/17/21 07:50 02/17/21 07:50 Labs: Laboratory Results - last 24 hr 02/17/21 07:50: WBC 18.9 H, RBC 3.94 L, Hgb 12.6, Hct 38.3, MCV 97.2, MCH 32.0, MCHC 32.9, RDW Std Deviation 45.7 H, RDW Coeff of Sandra 12.8, Plt Count 898 H*, MPV 9.4, Immature Gran % (Auto) 0.800, Neut % (Auto) 81.8 H, Lymph % (Auto) 7.3 L, [place] % (Auto) 9.0, Eos % (Auto) 0.9, Baso % (Auto) 0.2, Absolute Neuts (auto) 15.4 H, Absolute Lymphs (auto) 1.37, Nucleated RBC % 0, Diff Path Review August02/17/21 07:50: Sodium 132 L, Potassium 4.6, Chloride 97 L, Carbon Dioxide 33.0 H, Anion Gap 2 L, BUN 13, Creatinine 0.53 L, Estim Creat Clear Calc 32.77, Est GFR (MDRD) Af Amer 146, Est GFR (MDRD) Non-Af 120, BUN/Creatinine Ratio 24.3 H, Glucose 107 H, Calcium 8.9 02/17/21 07:50: Lactate Dehydrogenase 293 H Micro: Microbiology 02/08/21 12:10 Nasal Secretion SARS-CoV-2 Antigen (Rapid) - Final Physical Exam Const alert and oriented x3 General Appearance: cooperative Resp normal respiratory effort Resp Narrative: Small airleak change of position at -30 Assessment & Plan Assessment/Plan (1) Pneumothorax after biopsy: (2) Lesion of lung: (3) COPD (chronic obstructive pulmonary disease): QUALIFIERS: COPD type: COPD with acute exacerbation Qualified Code(s): J44.1 - Chronic obstructive pulmonary disease with (acute) exacerbation PLAN: Patient continues to have a slow leak that has not been improving would recommend transfer to a tertiary care facility as patient did have large blebs at the apices of her lungs where the biopsy was taken. Recommend transfer to a tertiary care facility with thoracic surgery. Danitza Barr M.D. Pager: [phone] [facility] [address] [place] [address], [facility], [address] [place] [id number] Office: [phone]
[2021-02-17 08:14] LABS: Absolute Lymphocyte Count 1.37 X10^3/uL (0.83-4.51); Absolute Neutrophil Count 15.4 X10^3/uL (2.0-7.7); Basophil# 0.04 X10^3/uL; Basophil% 0.2 % (0-1); Eosinophil# 0.17 X10^3/uL; Eosinophils% 0.9 % (0-5); Hematocrit 38.3 % (37-47); Hemoglobin 12.6 g/dL (12.0-15.0); Lymphocyte # 1.37 X10^3/ul (0.83-4.51); Lymphocyte % 7.3 % (19-41); Mean Corp Hgb Conc 32.9 g/dL (32-36); Mean Corpuscular Volume 97.2 fL (81-99); Mean Platelet Vol. 9.4 fl (6.2-12.0); NRBC Flagged by Analyzer 0 % (0-5); Neutrophil # 15.43 X10^3/uL (2.7-7.7); Neutrophil % 81.8 % (47-70); POSITIVE COUNT YES; POSITIVE DIFFERENTIAL YES; RBC Distribution Width CV 12.8 % (11.6-14.6); RBC Distribution Width SD 45.7 fl (35.1-43.9); Red Blood Count 3.94 M/mm3 (4.2-5.4); White Blood Count 18.9 K/mm3 (4.4-11.0)
[2021-02-17 08:18] LABS: Differential Indicated SCAN CRITERIA MET
[2021-02-17 08:21] LABS: Platelet Count 898 K/mm3 (150-450)
[2021-02-17 08:36] LABS: Anion Gap 2 (5-15); BUN 13 mg/dL (7-18); BUN/Creat Ratio 24.3 RATIO (10-20); Calcium,Total 8.9 mg/dL (8.5-10.1); Chloride 97 mmol/L (98-107); Creatinine, Serum 0.53 mg/dL (0.55-1.02); EST Glomerular Filtration Rate 120 mL/min (>60); Est Glom Filt Rate - Afr Amer 146 mL/min (>60); Estimated Creatinine Clearance 32.77 ml/min; Glucose 107 mg/dL (74-106); Potassium 4.6 mmol/L (3.5-5.1); Sodium Level 132 mmol/L (136-145)
[2021-02-17 09:34] LABS: LDH 293 U/L (84-246)
--- NOTE | 2021-02-17 09:48 | RAD_ITS ---
STUDY: X-RAY CHEST REASON FOR EXAM: Female, 70 years old. Right apical pneumothorax TECHNIQUE: Single AP portable view of the chest. COMPARISON: Comparison is made with prior study dated 08/15/2020. FINDINGS: A right-sided chest tube remains in situ with the tip in the upper medial aspect of the right upper lobe. Tiny right apical pneumothorax. Progressive atelectasis and/or infiltrate at the right lung base with blunting of the right costophrenic angle. Mild increased markings at the left lung base. Normal size heart. Normal mediastinum and julius. Normal visualized pulmonary arteries. There is atherosclerotic calcification of the aortic arch with tortuosity. There are diffuse degenerative changes of the visualized thoracic spine. Normal visualized ribs, clavicles, and shoulders. There is no demonstrated abnormality of the visualized soft tissue structures of the upper abdomen. RAD/Chest 1 View (Portable) IMPRESSION: Tiny residual right apical pneumothorax. Progressive bibasilar atelectasis and/or infiltrates worse on the right lung base. Electronically Signed: Sunny Forde MD at 14:19 EST , Service support ,
--- NOTE | 2021-02-17 09:55 | CASEMGMT ---
Tertiary facilities in-network with patient's insurance: [facility], [facility], [facility], [place], , [facility], [place].
--- NOTE | 2021-02-17 10:15 | PN.HOSP_ITS ---
Documented by User: Basilia Atwood NP-C 02/17/21 11:52 Subjective Subjective Patient seen and examined. Patient lying in bed no distress noted. Patient states that she was told that she continues to have bubbling in her chest tube, verbalizes frustration. Patient denies needs at this time. Objective Data Objective Data Vital Signs: Vital Signs Temp Pulse Resp BP Pulse Ox 97.4 F L 92 18 145/77 H 97 02/17/21 06:10 02/17/21 06:10 02/17/21 06:10 02/17/21 06:10 02/17/21 06:10 Oxygen Flow Rate (L/min) [3] 2 Oxygen Flow Rate (L/min) [2] 2 Oxygen Flow Rate (L/min) [1 ( 2 Initial Baseline)] Oxygen Flow Rate (L/min) [At 2 REST with Oxygen] Oxygen Flow Rate (L/min) 2 Oxygen Delivery Method [3] Nasal Cannula Oxygen Delivery Method [2] Nasal Cannula Oxygen Delivery Method [1 ( Nasal Cannula Initial Baseline)] Oxygen Delivery Method Nasal Cannula Weight: 86 lb 3.212 oz Body Mass Index (BMI) 15.3 Intake & Output: Intake and Output for Last 24 Hours 02/15/21 02/16/21 02/17/21 23:59 23:59 23:59 Intake Total 840 / 840 Output Total Balance 820 / 820 - Lab / Micro Data Result Diagrams: 02/17/21 07:50 02/17/21 07:50 Labs: Laboratory Results - last 24 hr 02/17/21 07:50: WBC 18.9 H, RBC 3.94 L, Hgb 12.6, Hct 38.3, MCV 97.2, MCH 32.0, MCHC 32.9, RDW Std Deviation 45.7 H, RDW Coeff of Sandra 12.8, Plt Count 898 H*, MPV 9.4, Immature Gran % (Auto) 0.800, Neut % (Auto) 81.8 H, Lymph % (Auto) 7.3 L, [place] % (Auto) 9.0, Eos % (Auto) 0.9, Baso % (Auto) 0.2, Absolute Neuts (auto) 15.4 H, Absolute Lymphs (auto) 1.37, Nucleated RBC % 0, Diff Path Review August02/17/21 07:50: Sodium 132 L, Potassium 4.6, Chloride 97 L, Carbon Dioxide 33.0 H, Anion Gap 2 L, BUN 13, Creatinine 0.53 L, Estim Creat Clear Calc 32.77, Est GFR (MDRD) Af Amer 146, Est GFR (MDRD) Non-Af 120, BUN/Creatinine Ratio 24.3 H, Glucose 107 H, Calcium 8.9 02/17/21 07:50: Lactate Dehydrogenase 293 H Micro: Microbiology 02/08/21 12:10 Nasal Secretion SARS-CoV-2 Antigen (Rapid) - Final Physical Exam Const alert, oriented x3 and no apparent distress HEENT head/scalp atraumatic Eyes conjunctivae normal and no scleral icterus Neck full ROM and supple Resp normal respiratory effort and normal air movement Effort and Inspection: able to speak in complete sentences and symmetric chest movement Auscultation: diminished lung sounds Cardio regular rate, regular rhythm, S1 normal heart sound, S2 normal heart sound and peripheral pulses 2+ throughout GI normal to inspection, nondistended, normoactive bowel sounds, soft to palpation and non-tender Extremity normal to inspection, full ROM and no clubbing, cyanosis or edema Skin no rashes or lesions noted and skin turgor normal Neuro oriented x3, moves all extremities, no focal motor deficits and no sensory deficits noted Sensorium / Orientation: awake and alert Speech: speech normal Psych affect normal Assessment & Plan Assessment/Plan (1) Pneumothorax after biopsy: (2) COPD (chronic obstructive pulmonary disease): QUALIFIERS: COPD type: COPD with acute exacerbation Qualified Code(s): J44.1 - Chronic obstructive pulmonary disease with (acute) exacerbation (3) Lymphoma involving lung: PLAN: Patient is a 70-year-old female who initially presented with COPD exacerbation and upon CAT scan was found to have a spiculated lesion of the right lung. Patient underwent guided biopsy and developed a pneumothorax a chest tube was placed at that time and is currently being maintained. 1. Acute on chronic COPD exacerbation -Nasal cannula 1 to 2 L, continue to wean oxygen as tolerated -Continue breathing treatments and steroids 2. Pneumothorax of the right lung status post CT-guided biopsy -General surgery managing, -Chest tube exchange 02/12 for a larger tube, patient continues to have air leak, continue chest tube per surgery 3. Spiculated lesion in the right lung apex -Biopsy completed, pathology pending -Patient has a 50-year smoking history 4. Hypertension -Continue amlodipine -Vital signs stable -as needed hydralazine ordered 5. Tobacco abuse -Patient is 1 pack/day smoker x50 years -Cessation encouraged -Nicotine patch ordered 6. Thrombocytosis -Likely reactive thrombocytosis, appears that platelet count peaked 02/14 -We will follow up outpatient with . -Continue low-dose aspirin and VTE prophylaxis DVT prophylaxis-subcu Lovenox This patient was seen by Basilia Atwood NP-C under the supervision of Dr. Randle. Documented by User: Dr. John Randle MD 02/17/21 16:49 Objective Data Lab / Micro Data Result Diagrams: 02/17/21 07:50 02/17/21 07:50 Assessment & Plan Assessment/Plan (1) Pneumothorax after biopsy: PLAN: This patient was seen in conjunction with SOPHIE Cui. I have independently interviewed and examined the patient and reviewed pertinent history, examination findings, laboratory and plan of management. I have reviewed the note and agree with the documented findings with the few additional points. In brief, patient is admitted for COPD exacerbation with extensive smoking hist ory since teenage. Patient on scheduled bronchodilator along with steroid. On oxygen therapy. Continuous Improvement Coordinator consult reviewed and appreciated. Advised CT- guided biopsy of the spiculated nodule of more than 1 cm of right lung apex with potential complication of pneumothorax. CT shows upper lobe predominant emphysematous changes. On 02/10, Patient had CT-guided lung biopsy subsequently developed large right- sided pneumothorax. Subsequently patient had percutaneous chest tube continue to have air bubble which required large bore 20 [place] chest tube inserted. Patient continued to have air bubble mainly on leaning forward or changing position. Recommended transfer to tertiary care hospital. [facility] called and is excepted. Thrombocythemia: I discussed with personal driver. It seems mainly reactive more likely than primary myeloproliferative neoplasm as per the personal driver. P eripheral blood myeloproliferative panel sent to reference lab is still pending. CT-guided lung biopsy showed B-cell lymphoma not otherwise characterized. Advised to follow-up Dr Cross after discharge. She will need PET CT scan. May need further bone marrow biopsy depending on the finding of PET/CT. He is going to order work-up to rule out essential thrombocythemia/myeloproliferative disorder including JAK2 V600 but it seems patient mainly has reactive thrombocytosis. This happened similar her platelet count was high for few days about 3 years ago and then returned to normal. Patient risk stratification shows no history of arterial venous thrombosis but age above 60 with a smoker a nd hypertension. Total time of the visit including total time spent in counseling or coordination of care, (more than 50% of the total time, spent in obtaining medical information from nurses and other ancillary care providers,explaining to the patient about labs, imaging, diagnosis and management), exchange of clinical information with transfer coordination to multiple different hospital and [facility], review of labs and imaging is 35 minutes. Patient other comorbidities as mentioned above. Charges/Coding Visit Charges Inpatient E&M: 52109 Subs Hosp L3
[2021-02-17 11:46] LABS: Pathologist Review Reviewed
[2021-02-17 11:47] LABS: Pathologist Review Reviewed
[2021-02-17] MEDS: Polyethylene Glycol 3350 17 GM PACKET PO (12:39)
[2021-02-17] MEDS: Aspirin 81 MG TAB.CHEW PO (12:39)
[2021-02-17] MEDS: APIXABAN 2.5 MG TABLET PO ×2 (12:39→22:02)
[2021-02-17] MEDS: amLODIPine 5 MG Tablet PO (12:40)
[2021-02-17 13:08] LABS: Pathologist Review Reviewed
[2021-02-17 14:02] LABS: Pathologist Review Reviewed
[2021-02-17 15:22] LABS: Pathologist Review Reviewed
[2021-02-17] MEDS: Senna/Docusate Sodium 1 Tablet 2 TABLET PO (22:03)
[2021-02-18] VITALS (8 sets, daily range): BP systolic 112–136; BP diastolic 70–86; PULSE 94–110; RESP 16–20; TEMP 36.2–37.5; O2SAT 94–98
[2021-02-18] MEDS: HYDROcodone Bitartrate/Apap 5/325 Tablet PO ×3 (05:03→20:19)
[2021-02-18] MEDS: Ipratropium/Albuterol Sulfate 3 ML AMPUL.NEB INHALATION ×3 (06:50→18:50)
--- NOTE | 2021-02-18 07:54 | PCM.PN.SRG ---
Subjective Subjective Patient denies any changes with her breathing, awaiting transfer Objective Data Objective Data Vital Signs: Vital Signs Temp Pulse Resp BP Pulse Ox 98.8 F 94 16 136/86 H 96 02/18/21 05:00 02/18/21 06:50 02/18/21 06:50 02/18/21 05:00 02/18/21 06:50 Oxygen Flow Rate (L/min) [3] 2 Oxygen Flow Rate (L/min) [2] 2 Oxygen Flow Rate (L/min) [1 ( 2 Initial Baseline)] Oxygen Flow Rate (L/min) [At 2 REST with Oxygen] Oxygen Flow Rate (L/min) 3 Oxygen Delivery Method [3] Nasal Cannula Oxygen Delivery Method [2] Nasal Cannula Oxygen Delivery Method [1 ( Nasal Cannula Initial Baseline)] Oxygen Delivery Method Nasal Cannula Weight: 86 lb 3.212 oz Body Mass Index (BMI) 15.3 Intake & Output: Intake and Output for Last 24 Hours 02/16/21 02/17/21 02/18/21 23:59 23:59 23:59 Intake Total 840 / 840 200 / 200 Output Total 154 / 229 95 / 95 Balance 820 / 820 46 / -29 -95 / -95 Medical Nutrition Assessment Dietitian: Malnutrition Criteria Met Start: 02/17/21 14:46 Freq: Status: Active Protocol: Document 02/17/21 14:47 RMA (Rec: 02/17/21 14:47 RMA [id number]) Nutrition Malnutrition Evidence of Malnutrition Exists Yes Malnutrition (severe): Acute Illness/Injury,Chronic Evidenced By Suboptimal Energy Intake ( Severe),Weight Loss (Severe), Physical Changes (Severe) Intake Problem Inadequate Oral Intake Etiology related to increased needs of COPD and pt inability to consume adequate nutrition to meet estimated nutritional needs Signs/Symptoms as evidenced 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 Status Active Problem Recommendation Dietitian Recommendations/Changes Will continue liberalized regular diet as ordered. Will continue ensure pudding w / lunch/dinnner and 120 ml ensure enlive 4x/day with medpass as ordered. Will add magic cup BID w/ meals for tolerance. Lab / Micro Data Result Diagrams: 02/17/21 07:50 02/17/21 07:50 Labs: Laboratory Results - last 24 hr 02/13/21 06:15: Diff Path Review Reviewed 02/14/21 07:10: Diff Path Review Reviewed 02/15/21 07:40: Diff Path Review Reviewed 02/16/21 05:45: Diff Path Review Reviewed 02/17/21 07:50: WBC 18.9 H, RBC 3.94 L, Hgb 12.6, Hct 38.3, MCV 97.2, MCH 32.0, MCHC 32.9, RDW Std Deviation 45.7 H, RDW Coeff of Sandra 12.8, Plt Count 898 H*, MPV 9.4, Immature Gran % (Auto) 0.800, Neut % (Auto) 81.8 H, Lymph % (Auto) 7.3 L, [place] % (Auto) 9.0, Eos % (Auto) 0.9, Baso % (Auto) 0.2, Absolute Neuts (auto) 15.4 H, Absolute Lymphs (auto) 1.37, Nucleated RBC % 0, Diff Path Review Reviewed 02/17/21 07:50: Sodium 132 L, Potassium 4.6, Chloride 97 L, Carbon Dioxide 33.0 H, Anion Gap 2 L, BUN 13, Creatinine 0.53 L, Estim Creat Clear Calc 32.77, Est GFR (MDRD) Af Amer 146, Est GFR (MDRD) Non-Af 120, BUN/Creatinine Ratio 24.3 H, Glucose 107 H, Calcium 8.9 02/17/21 07:50: Lactate Dehydrogenase 293 H Micro: Microbiology 02/08/21 12:10 Nasal Secretion SARS-CoV-2 Antigen (Rapid) - Final Radiography Diagnostic Testing: Radiology Impression Chest X-Ray 02/17/21 09:48 IMPRESSION: Tiny residual right apical pneumothorax. Progressive bibasilar atelectasis and/or infiltrates worse on the right lung base. Electronically Signed: Sunny Forde MD at 14:19 EST , Service support , Physical Exam Const alert and oriented x3 General Appearance: cooperative Resp normal respiratory effort Resp Narrative: No obvious air leak at -30 or with coughing or change of position, did get a small air leak going to -40 suction?turned back to -30. Assessment & Plan Assessment/Plan (1) Pneumothorax after biopsy: (2) Lesion of lung: (3) COPD (chronic obstructive pulmonary disease): QUALIFIERS: COPD type: COPD with acute exacerbation Qualified Code(s): J44.1 - Chronic obstructive pulmonary disease with (acute) exacerbation PLAN: Patient continues to have a slow leak. Awaiting bed availability for transfer we will continue to monitor. Danitza Barr M.D. Pager: [phone] [facility] [address] [place] [address], [facility], [address] [place] [address] Office: [phone] Charges/Coding Visit Charges Inpatient E&M: 32968 Subs Hosp L2
[2021-02-18 08:10] LABS: HEPATITIS B SURFACE AG Negative (Negative); Hepatitis B Core Ab Total Negative (Negative); Hepatitis C Ab <0.1 s/co ratio (0.0-0.9)
[2021-02-18] MEDS: Aspirin 81 MG TAB.CHEW PO (08:13)
--- NOTE | 2021-02-18 09:42 | PN.HOSP_ITS ---
Documented by User: Basilia Atwood NP-C 02/18/21 09:45 Subjective Subjective Patient seen and examined. Patient states surgeon was in and states she still continues to have a slow leak. Patient is awaiting transfer to [facility] for further evaluation. Patient in bed resting, no distress noted. Objective Data Objective Data Vital Signs: Vital Signs Temp Pulse Resp BP Pulse Ox 98.1 F 102 H 16 112/70 94 02/18/21 08:10 02/18/21 08:10 02/18/21 08:10 02/18/21 08:10 02/18/21 08:10 Oxygen Flow Rate (L/min) [3] 2 Oxygen Flow Rate (L/min) [2] 2 Oxygen Flow Rate (L/min) [1 ( 2 Initial Baseline)] Oxygen Flow Rate (L/min) [At 2 REST with Oxygen] Oxygen Flow Rate (L/min) 3 Oxygen Delivery Method [3] Nasal Cannula Oxygen Delivery Method [2] Nasal Cannula Oxygen Delivery Method [1 ( Nasal Cannula Initial Baseline)] Oxygen Delivery Method Room Air Weight: 86 lb 3.212 oz Body Mass Index (BMI) 15.3 Intake & Output: Intake and Output for Last 24 Hours 02/16/21 02/17/21 02/18/21 23:59 23:59 23:59 Intake Total 840 / 840 200 / 200 Output Total 154 / 229 95 / 95 Balance 820 / 820 46 / -29 -95 / -95 Medical Nutrition Assessment Dietitian: Malnutrition Criteria Met Start: 02/17/21 14:46 Freq: Status: Active Protocol: Document 02/17/21 14:47 RMA (Rec: 02/17/21 14:47 RMA [id number]) Nutrition Malnutrition Evidence of Malnutrition Exists Yes Malnutrition (severe): Acute Illness/Injury,Chronic Evidenced By Suboptimal Energy Intake ( Severe),Weight Loss (Severe), Physical Changes (Severe) Intake Problem Inadequate Oral Intake Etiology related to increased needs of COPD and pt inability to consume adequate nutrition to meet estimated nutritional needs Signs/Symptoms as 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 Status Active Problem Recommendation Dietitian Recommendations/Changes Will continue liberalized regular diet as ordered. Will continue ensure pudding w / lunch/dinnner and 120 ml ensure enlive 4x/day with medpass as ordered. Will add magic cup BID w/ meals for tolerance. Lab / Micro Data Result Diagrams: 02/17/21 07:50 02/17/21 07:50 Labs: Laboratory Results - last 24 hr 02/13/21 06:15: Diff Path Review Reviewed 02/14/21 07:10: Diff Path Review Reviewed 02/15/21 07:40: Diff Path Review Reviewed 02/16/21 05:45: Diff Path Review Reviewed 02/17/21 07:50: Diff Path Review Reviewed Micro: Microbiology 02/08/21 12:10 Nasal Secretion SARS-CoV-2 Antigen (Rapid) - Final Radiography Diagnostic Testing: Radiology Impression Chest X-Ray 02/17/21 09:48 IMPRESSION: Tiny residual right apical pneumothorax. Progressive bibasilar atelectasis and/or infiltrates worse on the right lung base. Electronically Signed: Sunny Forde MD at 14:19 EST , Service support , Physical Exam Const alert, oriented x3 and no apparent distress HEENT head/scalp atraumatic Eyes conjunctivae normal and no scleral icterus Neck full ROM and supple Resp normal respiratory effort and normal air movement Effort and Inspection: able to speak in complete sentences and symmetric chest movement Auscultation: diminished lung sounds Cardio regular rate, regular rhythm, S1 normal heart sound, S2 normal heart sound and peripheral pulses 2+ throughout GI normal to inspection, nondistended, normoactive bowel sounds, soft to palpation and non-tender Extremity normal to inspection, full ROM and no clubbing, cyanosis or edema Skin no rashes or lesions noted and skin turgor normal Neuro oriented x3, moves all extremities, no focal motor deficits and no sensory deficits noted Sensorium / Orientation: awake and alert Speech: speech normal Psych affect normal Assessment & Plan Assessment/Plan (1) Lymphoma involving lung: (2) Lung nodule: (3) COPD (chronic obstructive pulmonary disease): QUALIFIERS: COPD type: COPD with acute exacerbation Qualified Cod e(s): J44.1 - Chronic obstructive pulmonary disease with (acute) exacerbation PLAN: 1. Acute on chronic COPD exacerbation -Nasal cannula 1 to 2 L, continue to wean oxygen as tolerated -Continue breathing treatments and steroids 2. Pneumothorax of the right lung status post CT-guided biopsy -General surgery managing, -Chest tube exchange 02/12 for a larger tube, patient continues to have air leak, continue chest tube per surgery -Due to continued slow leak patient will be transferred to [facility], awaiting a bed 3. Spiculated lesion in the right lung apex -Biopsy completed, pathology pending -Patient has a 50-year smoking history 4. Hypertension -Continue amlodipine -Vital signs stable -as needed hydralazine ordered 5. Tobacco abuse -Patient is 1 pack/day smoker x50 years -Cessation encouraged -Nicotine patch ordered 6. Thrombocytosis -Likely reactive thrombocytosis, appears that platelet count peaked 02/14 -We will follow up outpatient with . -Continue low-dose aspirin and VTE prophylaxis DVT prophylaxis-subcu Lovenox This patient was seen by SITA LandaverdeC under the supervision of Dr. Whitney. Documented by User: Dr. Ole Whitney MD 02/18/21 11:45 Objective Data Lab / Micro Data Result Diagrams: 02/17/21 07:50 02/17/21 07:50 Charges/Coding Addendum Addendum: Dr. Whitney: I personally reviewed the chart and examined the patient, and agree with the above findings. 70-year-old female presented with acute on chronic COPD exacerbation and was noted to have a right spiculated lesion in her lung apex. She did undergo a lung biopsy of this and developed a post CT-guided pneu mothorax. A chest tube was placed however she has continued to have a slow leak and because she continues to have a slow leak the discussion was had to transfer the patient to a tertiary care facility for management. According to surgery, she still has a slow air leak therefore we will continue to monitor hopefully the air leak will discontinue prior to needing transfer to the outside hospital. According to pathology report, the biopsy does show a B-cell lymphoma and she will need to be followed up as an outpatient for PET scan and then possibly a bone marrow biopsy. She does also have a thrombocytosis that was noted in December 2017 that is being followed by oncology. Visit Charges Inpatient E&M: 44447 Subs Hosp L2
--- NOTE | 2021-02-18 09:47 | NURSING ---
[facility] CALLED THE UNIT, NO BED AT THIS TIME.
[2021-02-18] MEDS: Polyethylene Glycol 3350 17 GM PACKET PO (10:51)
[2021-02-18] MEDS: amLODIPine 5 MG Tablet PO (10:51)
[2021-02-18] MEDS: APIXABAN 2.5 MG TABLET PO ×2 (10:51→20:20)
[2021-02-18] MEDS: Senna/Docusate Sodium 1 Tablet 2 TABLET PO ×2 (10:52→20:20)
[2021-02-18 13:54] LABS: Hep B Surface Antibodies Non Reactive (.)
[2021-02-19] VITALS (9 sets, daily range): BP systolic 109–132; BP diastolic 70–78; PULSE 88–107; RESP 16–24; TEMP 36.6–36.8; O2SAT 93–97
[2021-02-19] MEDS: Ipratropium/Albuterol Sulfate 3 ML AMPUL.NEB INHALATION ×4 (00:57→19:18)
[2021-02-19] MEDS: HYDROcodone Bitartrate/Apap 5/325 Tablet PO ×3 (02:27→18:20)
[2021-02-19 06:47] LABS: Absolute Lymphocyte Count 1.05 X10^3/uL (0.83-4.51); Absolute Neutrophil Count 9.7 X10^3/uL (2.0-7.7); Basophil# 0.01 X10^3/uL; Basophil% 0.1 % (0-1); Eosinophil# 0.24 X10^3/uL; Eosinophils% 1.9 % (0-5); Hematocrit 35.5 % (37-47); Hemoglobin 11.5 g/dL (12.0-15.0); Lymphocyte # 1.05 X10^3/ul (0.83-4.51); Lymphocyte % 8.3 % (19-41); Mean Corp Hgb Conc 32.4 g/dL (32-36); Mean Corpuscular Hgb 31.5 pg (27.0-32.0); Mean Corpuscular Volume 97.3 fL (81-99); Mean Platelet Vol. 9.2 fl (6.2-12.0); Monocyte# 1.55 X10^3/uL; Monocyte% 12.3 % (0-10); NRBC Flagged by Analyzer 0 % (0-5); Neutrophil # 9.68 X10^3/uL (2.7-7.7); Neutrophil % 76.5 % (47-70); POSITIVE COUNT YES; POSITIVE DIFFERENTIAL YES; RBC Distribution Width CV 12.9 % (11.6-14.6); RBC Distribution Width SD 46.3 fl (35.1-43.9); Red Blood Count 3.65 M/mm3 (4.2-5.4); White Blood Count 12.6 K/mm3 (4.4-11.0)
[2021-02-19 06:54] LABS: Differential Indicated SCAN CRITERIA MET; Platelet Count 855 K/mm3 (150-450)
[2021-02-19 07:20] LABS: Differential Comment SCANNED; Platelet Estimate MKD INC (ADEQ)
[2021-02-19 07:24] LABS: Anion Gap 5 (5-15); BUN 13 mg/dL (7-18); BUN/Creat Ratio 34.7 RATIO (10-20); Calcium,Total 9.2 mg/dL (8.5-10.1); Chloride 101 mmol/L (98-107); Creatinine, Serum 0.38 mg/dL (0.55-1.02); EST Glomerular Filtration Rate 181 mL/min (>60); Est Glom Filt Rate - Afr Amer 219 mL/min (>60); Estimated Creatinine Clearance 32.77 ml/min; Glucose 96 mg/dL (74-106); Potassium 4.4 mmol/L (3.5-5.1); Sodium Level 135 mmol/L (136-145)
--- NOTE | 2021-02-19 07:32 | PCM.PN.SRG ---
Subjective Subjective Patient continues to have a small air leak with change of suction to -40, no other changes, awaiting transfer. Objective Data Objective Data Vital Signs: Vital Signs Temp Pulse Resp BP Pulse Ox 97.9 F 95 24 H 131/72 H 95 02/19/21 06:10 02/19/21 07:15 02/19/21 07:15 02/19/21 06:10 02/19/21 07:15 Oxygen Flow Rate (L/min) [3] 2 Oxygen Flow Rate (L/min) [2] 2 Oxygen Flow Rate (L/min) [1 ( 2 Initial Baseline)] Oxygen Flow Rate (L/min) [At 2 REST with Oxygen] Oxygen Flow Rate (L/min) 3 Oxygen Delivery Method [3] Nasal Cannula Oxygen Delivery Method [2] Nasal Cannula Oxygen Delivery Method [1 ( Nasal Cannula Initial Baseline)] Oxygen Delivery Method Nasal Cannula Weight: 86 lb 3.212 oz Body Mass Index (BMI) 15.3 Intake & Output: Intake and Output for Last 24 Hours 02/17/21 02/18/21 02/19/21 23:59 23:59 23:59 Intake Total 200 / 200 600 / 600 700 / 700 Output Total 154 / 229 125 / 525 550 / 550 Balance 46 / -29 475 / 75 150 / 150 Medical Nutrition Assessment Dietitian: Malnutrition Criteria Met Start: 02/17/21 14:46 Freq: Status: Active Protocol: Document 02/17/21 14:47 RMA (Rec: 02/17/21 14:47 RMA [id number]) Nutrition Malnutrition Evidence of Malnutrition Exists Yes Malnutrition (severe): Acute Illness/Injury,Chronic Evidenced By Suboptimal Energy Intake ( Severe),Weight Loss (Severe), Physical Changes (Severe) Intake Problem Inadequate Oral Intake Etiology related to increased needs of COPD and pt inability to consume adequate nutrition to meet estimated nutritional needs Signs/Symptoms 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 Status Active Problem Recommendation Dietitian Recommendations/Changes Will continue liberalized regular diet as ordered. Will continue ensure pudding w / lunch/dinnner and 120 ml ensure enlive 4x/day with medpass as ordered. Will add magic cup BID w/ meals for tolerance. Lab / Micro Data Result Diagrams: 02/19/21 06:24 02/19/21 06:24 Labs: Laboratory Results - last 24 hr 02/17/21 07:50: Hep Bs Antigen Negative, Hep Bs Antibody Non Reactive, Hep B Core Total Ab Negative, Hepatitis C Antibody <0.1, Hep C Ab Comment Comment 02/19/21 06:24: WBC 12.6 H, RBC 3.65 L, Hgb 11.5 L, Hct 35.5 L, MCV 97.3, MCH 31.5, MCHC 32.4, RDW Std Deviation 46.3 H, RDW Coeff of Sandra 12.9, Plt Count 855 H*, MPV 9.2, Immature Gran % (Auto) 0.900, Neut % (Auto) 76.5 H, Lymph % (Auto) 8.3 L, [place] % (Auto) 12.3 H, Eos % (Auto) 1.9, Baso % (Auto) 0.1, Absolute Neuts (auto) 9.7 H, Absolute Lymphs (auto) 1.05, Nucleated RBC % 0, Differential Comment SCANNED, Diff Path Review August anam, Platelet Estimate MKD INC 02/19/21 06:24: Sodium 135 L, Potassium 4.4, Chloride 101, Carbon Dioxide 29.0, Anion Gap 5, BUN 13, Creatinine 0.38 L, Estim Creat Clear Calc 32.77, Est GFR (MDRD) Af Amer 219, Est GFR (MDRD) Non-Af 181, BUN/Creatinine Ratio 34.7 H, Glucose 96, Calcium 9.2 Micro: Microbiology 02/08/21 12:10 Nasal Secretion SARS-CoV-2 Antigen (Rapid) - Final Physical Exam Const alert and oriented x3 General Appearance: cooperative Resp normal respiratory effort Resp Narrative: No obvious air leak at -30 or with coughing or change of position, did get a small air leak going to -40 suction?turned back to -35. Assessment & Plan Assessment/Plan (1) Pneumothorax after biopsy: (2) Lesion of lung: (3) COPD (chronic obstructive pulmonary disease): QUALIFIERS: COPD type: COPD with acute exacerbation Qualified Code(s): J44.1 - Chronic obstructive pulmonary disease with (acute) exacerbation PLAN: Patient continues to have a slow leak, changed suction to -35. Awaiting bed availability for transfer we will continue to monitor. Dr. Siddiqui will be covering starting tomorrow. Danitza Barr M.D. Pager: [phone] [facility] [address] [place] [address], [facility], [address] [place] [address] Office: [phone] Charges/Coding Visit Charges Inpatient E&M: 14298 Subs Hosp L2
--- NOTE | 2021-02-19 09:39 | NURSING ---
female phoned in from [facility]- states her name is Holly. updated on pt provided. Holly states still no bed available yet. States to call [phone] for any changes in pt condition.
[2021-02-19] MEDS: Senna/Docusate Sodium 1 Tablet 2 TABLET PO ×2 (09:47→21:05)
[2021-02-19] MEDS: amLODIPine 5 MG Tablet PO (09:47)
[2021-02-19] MEDS: APIXABAN 2.5 MG TABLET PO ×2 (09:47→21:05)
[2021-02-19] MEDS: Polyethylene Glycol 3350 17 GM PACKET PO (09:47)
[2021-02-19] MEDS: Aspirin 81 MG TAB.CHEW PO (09:47)
--- NOTE | 2021-02-19 12:35 | PCM.PN.HOSP ---
Documented by User: Vinicius BARNEY 02/19/21 12:45 Subjective Subjective Patient is a 70-year-old female lying in bed, alert and oriented x3. Patient reports that shortness of breath is stable at this time, denies development of any new symptoms overnight. Does not appear in acute distress. Objective Data Objective Data Vital Signs: Vital Signs Temp Pulse Resp BP Pulse Ox 98.2 F 107 H 20 H 132/78 H 94 02/19/21 10:00 02/19/21 10:00 02/19/21 10:00 02/19/21 10:00 02/19/21 10:00 Oxygen Flow Rate (L/min) [3] 2 Oxygen Flow Rate (L/min) [2] 2 Oxygen Flow Rate (L/min) [1 ( 2 Initial Baseline)] Oxygen Flow Rate (L/min) [At 2 REST with Oxygen] Oxygen Flow Rate (L/min) 3 Oxygen Delivery Method [3] Nasal Cannula Oxygen Delivery Method [2] Nasal Cannula Oxygen Delivery Method [1 ( Nasal Cannula Initial Baseline)] Oxygen Delivery Method Nasal Cannula Weight: 86 lb 3.212 oz Body Mass Index (BMI) 15.3 Intake & Output: Intake and Output for Last 24 Hours 02/17/21 02/18/21 02/19/21 23:59 23:59 23:59 Intake Total 200 / 200 600 / 600 700 / 700 Output Total 154 / 229 125 / 525 580 / 580 Balance 46 / -29 475 / 75 120 / 120 Medical Nutrition Assessment Dietitian: Malnutrition Criteria Met Start: 02/17/21 14:46 Freq: Status: Active Protocol: Document 02/17/21 14:47 RMA (Rec: 02/17/21 14:47 RMA [id number]) Nutrition Malnutrition Evidence of Malnutrition Exists Yes Malnutrition (severe): Acute Illness/Injury,Chronic Evidenced By Suboptimal Energy Intake ( Severe),Weight Loss (Severe), Physical Changes (Severe) Intake Problem Inadequate Oral Intake Etiology related to increased needs of COPD and pt inability to consume adequate nutrition to meet estimated nutritional needs Signs/Symptoms 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 Status Active Problem Clinical Problem Chronic Disease or Condition Related Malnutrition Etiology Severe protein/calorie malnutrition in the context of acute on chronic disease related to increased energy expenditure and inadequate oral intake Signs/Symptoms as evidenced by poor po at meals ~50% at best or less, ~7 -8% x 6 months, BMI 15.3, inadequate oral intake at meals meeting less than 50% estimated nutrition needs, muscle/fat wasting: very thin w/ sunken orbital/temporal regions, clavicles protruding, fat/muscle loss to arms/legs. Status Active Problem Recommendation Dietitian Recommendations/Changes Will continue liberalized regular diet as ordered. Will continue ensure pudding w / lunch/dinnner and 120 ml ensure enlive 4x/day with medpass as ordered. Will add magic cup BID w/ meals for tolerance. Lab / Micro Data Result Diagrams: 02/19/21 06:24 02/19/21 06:24 Labs: Laboratory Results - last 24 hr 02/17/21 07:50: Hep Bs Antigen Negative, Hep Bs Antibody Non Reactive, Hep B Core Total Ab Negative, Hepatitis C Antibody <0.1, Hep C Ab Comment Comment 02/19/21 06:24: WBC 12.6 H, RBC 3.65 L, Hgb 11.5 L, Hct 35.5 L, MCV 97.3, MCH 31.5, MCHC 32.4, RDW Std Deviation 46.3 H, RDW Coeff of Sandra 12.9, Plt Count 855 H*, MPV 9.2, Immature Gran % (Auto) 0.900, Neut % (Auto) 76.5 H, Lymph % (Auto) 8.3 L, [place] % (Auto) 12.3 H, Eos % (Auto) 1.9, Baso % (Auto) 0.1, Absolute Neuts (auto) 9.7 H, Absolute Lymphs (auto) 1.05, Nucleated RBC % 0, Differential Comment SCANNED, Diff Path Review May anam, Platelet Estimate MKD INC 02/19/21 06:24: Sodium 135 L, Potassium 4.4, Chloride 101, Carbon Dioxide 29.0, Anion Gap 5, BUN 13, Creatinine 0.38 L, Estim Creat Clear Calc 32.77, Est GFR (MDRD) Af Amer 219, Est GFR (MDRD) Non-Af 181, BUN/Creatinine Ratio 34.7 H, Glucose 96, Calcium 9.2 Micro: Microbiology 02/08/21 12:10 Nasal Secretion SARS-CoV-2 Antigen (Rapid) - Final Physical Exam Const alert, oriented x3 and no apparent distress HEENT head/scalp atraumatic and moist oral mucous membranes Head and Scalp: normocephalic Eyes PERRL, EOMs intact bilaterally and conjunctivae normal Neck no lymphadenopathy, supple and no JVD Resp normal respiratory effort, no retractions, no use of accessory muscles and clear to auscultation bilaterally Cardio regular rate, regular rhythm, no murmurs and no JVD GI normal to inspection, nondistended, normoactive bowel sounds, soft to palpation and non-tender Extremity normal to inspection, full ROM and no clubbing, cyanosis or edema Skin no rashes or lesions noted, no wounds, skin turgor normal and no jaundice Neuro CN's II-XII intact bilaterally Psych affect normal Assessment & Plan Assessment/Plan (1) Thrombocytosis: (2) Lymphoma involving lung: (3) Pneumothorax after biopsy: (4) Lung nodule: (5) Lesion of lung: (6) COPD (chronic obstructive pulmonary disease): QUALIFIERS: COPD type: COPD with acute exacerbation Qualified Code(s): J44.1 - Chronic obstructive pulmonary disease with (acute) exacerbation PLAN: Day 10 Discharge planning: Currently awaiting transfer to [facility] for tertiary level of care. 1) Acute on chronic COPD exacerbation Stable, currently satting 94% on 3 L via nasal cannula. Continue breathing treatments and steroids.-Nasal cannula 1 to 2 L, continue to wean oxygen as tolerated 2) pneumothorax of the right lung status post CT-guided biopsy Currently awaiting transfer to [facility] for tertiary level care due to small air leak of chest tube. General surgery managing. 3) B-cell lymphoma Biopsy demonstrated B-cell lymphoma, Dr. Doran consulted and following. 4) thrombocytosis Dr. Dalal following as above, peripheral blood myeloproliferative panel pending. 5) hypertension Stable, continue amlodipine, as needed hydralazine ordered. 6) tobacco abuse Cessation encouraged, nicotine patch ordered. DVT prophylaxis- Lovenox Patient seen by Vinicius Tamayo PA-C, under the supervision of Dr. Whitney. Documented by User: Dr. Ole Whitney MD 02/19/21 16:07 Objective Data Lab / Micro Data Result Diagrams: 02/19/21 06:24 02/19/21 06:24 Charges/Coding Addendum Addendum: Dr. Whitney: I personally reviewed the chart and examined the patient, and agree with the above findings. 70-year-old female presented with acute on chronic COPD exacerbation and was noted to have a right spiculated lesion in her lung apex. She did undergo a lung biopsy of this and developed a post CT-guided pneumothorax. A chest tube was placed however she has continued to have a slow leak and because she continues to have a slow leak the discussion was had to transfer the patient to a tertiary care facility for management. According to surgery, she still has a slow air leak therefore we will continue to monitor hopefully the air leak will discontinue prior to needing transfer to the outside hospital. According to pathology report, the biopsy does show a B-cell lymphoma and she will need to be followed up as an outpatient for PET scan and then possibly a bone marrow biopsy. She does also have a thrombocytosis that was noted in December 2017 that is being followed by oncology. 02/19/2021: Continues with a slow air leak. Still awaiting transfer for definitive management. In the meantime we will continue to wall suction. Visit Charges Inpatient E&M: 12815 Subs Hosp L2
[2021-02-20] VITALS (10 sets, daily range): BP systolic 116–127; BP diastolic 75–81; PULSE 93–102; RESP 16–20; TEMP 36.6–36.9; O2SAT 94–97
[2021-02-20] MEDS: HYDROcodone Bitartrate/Apap 5/325 Tablet PO ×4 (00:20→22:41)
[2021-02-20] MEDS: Ipratropium/Albuterol Sulfate 3 ML AMPUL.NEB INHALATION ×4 (01:48→18:59)
[2021-02-20 07:04] LABS: Absolute Lymphocyte Count 0.98 X10^3/uL (0.83-4.51); Absolute Neutrophil Count 8.1 X10^3/uL (2.0-7.7); Basophil# 0.02 X10^3/uL; Basophil% 0.2 % (0-1); Eosinophil# 0.21 X10^3/uL; Hematocrit 36.4 % (37-47); Hemoglobin 11.5 g/dL (12.0-15.0); Lymphocyte # 0.98 X10^3/ul (0.83-4.51); Lymphocyte % 9.2 % (19-41); Mean Corp Hgb Conc 31.6 g/dL (32-36); Mean Corpuscular Hgb 31.3 pg (27.0-32.0); Mean Corpuscular Volume 98.9 fL (81-99); Mean Platelet Vol. 9.5 fl (6.2-12.0); Monocyte# 1.22 X10^3/uL; Monocyte% 11.5 % (0-10); NRBC Flagged by Analyzer 0 % (0-5); Neutrophil # 8.07 X10^3/uL (2.7-7.7); Neutrophil % 76.2 % (47-70); POSITIVE COUNT YES; RBC Distribution Width SD 47.3 fl (35.1-43.9); Red Blood Count 3.68 M/mm3 (4.2-5.4); White Blood Count 10.6 K/mm3 (4.4-11.0)
[2021-02-20 07:21] LABS: Anion Gap 2 (5-15); BUN 12 mg/dL (7-18); BUN/Creat Ratio 26.2 RATIO (10-20); Calcium,Total 9.4 mg/dL (8.5-10.1); Chloride 97 mmol/L (98-107); Creatinine, Serum 0.46 mg/dL (0.55-1.02); EST Glomerular Filtration Rate 144 mL/min (>60); Est Glom Filt Rate - Afr Amer 174 mL/min (>60); Estimated Creatinine Clearance 32.77 ml/min; Glucose 113 mg/dL (74-106); Potassium 4.2 mmol/L (3.5-5.1); Sodium Level 132 mmol/L (136-145)
[2021-02-20 07:34] LABS: Platelet Count 1002 K/mm3 (150-450)
--- NOTE | 2021-02-20 08:19 | PN.SURG_ITS ---
Subjective Subjective Patient has no changes Objective Data Objective Data Vital Signs: Vital Signs Temp Pulse Resp BP Pulse Ox 97.8 F 98 19 H 127/79 H 94 02/20/21 03:17 02/20/21 07:13 02/20/21 07:13 02/20/21 03:17 02/20/21 07:15 Oxygen Flow Rate (L/min) [3] 2 Oxygen Flow Rate (L/min) [2] 2 Oxygen Flow Rate (L/min) [1 ( 2 Initial Baseline)] Oxygen Flow Rate (L/min) [At 2 REST with Oxygen] Oxygen Flow Rate (L/min) 2 Oxygen Delivery Method [3] Nasal Cannula Oxygen Delivery Method [2] Nasal Cannula Oxygen Delivery Method [1 ( Nasal Cannula Initial Baseline)] Oxygen Delivery Method Nasal Cannula Weight: 86 lb 3.212 oz Body Mass Index (BMI) 15.3 Intake & Output: Intake and Output for Last 24 Hours 02/18/21 02/19/21 02/20/21 23:59 23:59 23:59 Intake Total 600 / 600 940 / 1140 500 / 500 Output Total 125 / 525 580 / 610 30 / 30 Balance 475 / 75 360 / 530 470 / 470 Medical Nutrition Assessment Dietitian: Malnutrition Criteria Met Start: 02/17/21 14:46 Freq: Status: Active Protocol: Document 02/17/21 14:47 RMA (Rec: 02/17/21 14:47 RMA [id number]) Nutrition Malnutrition Evidence of Malnutrition Exists Yes Malnutrition (severe): Acute Illness/Injury,Chronic Evidenced By Suboptimal Energy Intake ( Severe),Weight Loss (Severe), Physical Changes (Severe) Intake Problem Inadequate Oral Intake Etiology related to increased needs of COPD and pt inability to consume adequate nutrition to meet estimated nutritional needs Signs/Symptoms 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 Status Active Problem Recommendation Dietitian Recommendations/Changes Will continue liberalized regular diet as ordered. Will continue ensure pudding w / lunch/dinnner and 120 ml ensure enlive 4x/day with medpass as ordered. Will add magic cup BID w/ meals for tolerance. Lab / Micro Data Result Diagrams: 02/20/21 06:08 02/20/21 06:08 Labs: Laboratory Results - last 24 hr 02/20/21 06:08: WBC 10.6, RBC 3.68 L, Hgb 11.5 L, Hct 36.4 L, MCV 98.9, MCH 31.3, MCHC 31.6 L, RDW Std Deviation 47.3 H, RDW Coeff of Sandra 13.0, Plt Count 1002 H*, MPV 9.5, Immature Gran % (Auto) 0.900, Neut % (Auto) 76.2 H, Lymph % (Auto) 9.2 L, Jay % (Auto) 11.5 H, Eos % (Auto) 2.0, Baso % (Auto) 0.2, Absolute Neuts (auto) 8.1 H, Absolute Lymphs (auto) 0.98, Nucleated RBC % 0 02/20/21 06:08: Sodium 132 L, Potassium 4.2, Chloride 97 L, Carbon Dioxide 33.0 H, Anion Gap 2 L, BUN 12, Creatinine 0.46 L, Estim Creat Clear Calc 32.77, Est GFR (MDRD) Af Amer 174, Est GFR (MDRD) Non-Af 144, BUN/Creatinine Ratio 26.2 H, Glucose 113 H, Calcium 9.4 Micro: Microbiology 02/08/21 12:10 Nasal Secretion SARS-CoV-2 Antigen (Rapid) - Final Physical Exam Const oriented x3 and no apparent distress Resp normal respiratory effort Assessment & Plan Assessment/Plan (1) Pneumothorax after biopsy: PLAN: The patient did not have an air leak that I could tell this morning. I had her cough and speak sentences and I did not see any air leak. I changed her to waterseal and I will repeat an x-ray in 4 hours. If this x-ray is stable I would continue air leak through the night and repeat x-ray tomorrow and possibly remove the chest tube tomorrow. If the patient is short of breath or if the repeat x-ray shows recurrent pneumothorax I will place the patient back to suction and continue to await transfer to tertiary center. Devin Siddiqui MD Pager: [facility] [address] [place] [address] [address] [place] [phone] Office:
[2021-02-20 09:46] LABS: Pathologist Review Reviewed
[2021-02-20] MEDS: Senna/Docusate Sodium 1 Tablet 2 TABLET PO (10:28)
[2021-02-20] MEDS: Polyethylene Glycol 3350 17 GM PACKET PO (10:28)
[2021-02-20] MEDS: Aspirin 81 MG TAB.CHEW PO (10:28)
[2021-02-20] MEDS: APIXABAN 2.5 MG TABLET PO ×2 (10:28→22:04)
[2021-02-20] MEDS: amLODIPine 5 MG Tablet PO (10:28)
--- NOTE | 2021-02-20 11:00 | RAD_ITS ---
STUDY: X-RAY CHEST REASON FOR EXAM: Female, 70 years old. Chest tube to water seal TECHNIQUE: Single AP portable view of the chest. COMPARISON: Comparison is made with prior study of 02/17/2021. FINDINGS: A large caliber chest tube is seen with the tip in the medial aspect of the right upper lobe. No evidence of pneumothorax at this time. Stable bibasilar atelectasis and/or infiltrate slightly worse on the right side with blunting of both costophrenic angles. Normal size heart. Normal mediastinum and julius. Normal visualized pulmonary arteries. There is atherosclerotic calcification of the aortic arch with tortuosity. There is a levoscoliosis of the thoracic spine. There is degenerative osteoarthritis of the bilateral shoulders. There is no demonstrated abnormality of the visualized soft tissue structures of the upper abdomen. RAD/Chest 1 View (Portable) IMPRESSION: No evidence of pneumothorax on this examination. Electronically Signed: Sunny Forde MD at 15:20 EST , Service support ,
--- NOTE | 2021-02-20 11:05 | PN.HOSP_ITS ---
Documented by User: Vinicius BARNEY 02/20/21 11:11 Subjective Subjective Patient is a 70-year-old female comfortably resting in a chair, alert and orient x3. Patient reports that her shortness of breath is controlled and that she has no difficulty breathing, denies development of any new symptoms overnight. Does not appear in acute distress. Objective Data Objective Data Vital Signs: Vital Signs Temp Pulse Resp BP Pulse Ox 98.5 F 94 18 123/75 H 95 02/20/21 10:14 02/20/21 10:14 02/20/21 10:14 02/20/21 10:14 02/20/21 10:14 Oxygen Flow Rate (L/min) [3] 2 Oxygen Flow Rate (L/min) [2] 2 Oxygen Flow Rate (L/min) [1 ( 2 Initial Baseline)] Oxygen Flow Rate (L/min) [At 2 REST with Oxygen] Oxygen Flow Rate (L/min) 2 Oxygen Delivery Method [3] Nasal Cannula Oxygen Delivery Method [2] Nasal Cannula Oxygen Delivery Method [1 ( Nasal Cannula Initial Baseline)] Oxygen Delivery Method Nasal Cannula Weight: 86 lb 3.212 oz Body Mass Index (BMI) 15.3 Intake & Output: Intake and Output for Last 24 Hours 02/18/21 02/19/21 02/20/21 23:59 23:59 23:59 Intake Total 600 / 600 940 / 1140 500 / 500 Output Total 125 / 525 580 / 610 30 / 30 Balance 475 / 75 360 / 530 470 / 470 Medical Nutrition Assessment Dietitian: Malnutrition Criteria Met Start: 02/17/21 14:46 Freq: Status: Active Protocol: Document 02/17/21 14:47 RMA (Rec: 02/17/21 14:47 RMA [id number]) Nutrition Malnutrition Evidence of Malnutrition Exists Yes Malnutrition (severe): Acute Illness/Injury,Chronic Evidenced By Suboptimal Energy Intake ( Severe),Weight Loss (Severe), Physical Changes (Severe) Intake Problem Inadequate Oral Intake Etiology related to increased needs of COPD and pt inability to consume adequate nutrition to meet estimated nutritional needs Signs/Symptoms as evidenced by 7.4% wt loss x 6 months 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 and po intake < 50% at meals since in [facility] Status Active Problem Clinical Problem Chronic Disease or Condition Related Malnutrition Etiology Severe protein/calorie malnutrition in the context of acute on chronic disease related to increased energy expenditure and inadequate oral intake Signs/Symptoms as evidenced by poor po at meals ~50% at best or less, ~7 -8% x 6 months, BMI 15.3, inadequate oral intake at meals meeting less than 50% estimated nutrition needs, muscle/fat wasting: very thin w/ sunken orbital/temporal regions, clavicles protruding, fat/muscle loss to arms/legs. Status Active Problem Recommendation Dietitian Recommendations/Changes Will continue liberalized regular diet as ordered. Will continue ensure pudding w / lunch/dinnner and 120 ml ensure enlive 4x/day with medpass as ordered. Will add magic cup BID w/ meals for tolerance. Lab / Micro Data Result Diagrams: 02/20/21 06:08 02/20/21 06:08 Labs: Laboratory Results - last 24 hr 02/19/21 06:24: Diff Path Review Reviewed 02/20/21 06:08: WBC 10.6, RBC 3.68 L, Hgb 11.5 L, Hct 36.4 L, MCV 98.9, MCH 31.3, MCHC 31.6 L, RDW Std Deviation 47.3 H, RDW Coeff of Sandra 13.0, Plt Count 1002 H*, MPV 9.5, Immature Gran % (Auto) 0.900, Neut % (Auto) 76.2 H, Lymph % (Auto) 9.2 L, Mccracken % (Auto) 11.5 H, Eos % (Auto) 2.0, Baso % (Auto) 0.2, Absolute Neuts (auto) 8.1 H, Absolute Lymphs (auto) 0.98, Nucleated RBC % 0 02/20/21 06:08: Sodium 132 L, Potassium 4.2, Chloride 97 L, Carbon Dioxide 33.0 H, Anion Gap 2 L, BUN 12, Creatinine 0.46 L, Estim Creat Clear Calc 32.77, Est GFR (MDRD) Af Amer 174, Est GFR (MDRD) Non-Af 144, BUN/Creatinine Ratio 26.2 H, Glucose 113 H, Calcium 9.4 Micro: Microbiology 02/08/21 12:10 Nasal Secretion SARS-CoV-2 Antigen (Rapid) - Final Physical Exam Const alert, oriented x3 and no apparent distress HEENT head/scalp atraumatic, moist oral mucous membranes and oropharynx normal Head and Scalp: normocephalic Eyes PERRL, EOMs intact bilaterally and conjunctivae normal Neck no lymphadenopathy, supple and no JVD Resp normal respiratory effort, no retractions and no use of accessory muscles Cardio regular rate, regular rhythm, no murmurs and no JVD GI normal to inspection, nondistended, normoactive bowel sounds, soft to palpation, non-tender and non-distended Extremity normal to inspection, full ROM and no clubbing, cyanosis or edema Peripheral Pulses: Yes pulses 2+ throughout Skin no rashes or lesions noted, no wounds, skin turgor normal and no jaundice Neuro CN's II-XII intact bilaterally Psych affect normal Assessment & Plan Assessment/Plan (1) Lymphoma involving lung: (2) Thrombocytosis: (3) Pneumothorax after biopsy: (4) Lung nodule: (5) Lesion of lung: PLAN: Day 11 Discharge planning: Currently awaiting transfer to [facility] for tertiary level of care. 1) Acute on chronic COPD exacerbation Stable, currently satting 95% on 2 L via nasal cannula. Continue breathing treatments and steroids. Nasal cannula 1 to 2 L, continue to wean oxygen as tolerated 2) pneumothorax of the right lung status post CT-guided biopsy Currently awaiting transfer to [facility] for tertiary level care due to small air leak of chest tube. General surgery managing, chest tub may be removed tomorrow pending course of patients pneumothorax throughout today, subsequently transfer would be canceled if this were to take place. 3) B-cell lymphoma Biopsy demonstrated B-cell lymphoma, Dr. Doran consulted and following. 4) thrombocytosis Dr. Dalal following as above, peripheral blood myeloproliferative panel pending. 5) hypertension Stable, continue amlodipine, as needed hydralazine ordered. 6) tobacco abuse Cessation encouraged, nicotine patch ordered. DVT prophylaxis- Lovenox Patient seen by Vinicius Tamayo PA-C, under the supervision of Dr. Whitney. Documented by User: Dr. Ole Whitney MD 02/20/21 13:42 Objective Data Lab / Micro Data Result Diagrams: 02/20/21 06:08 02/20/21 06:08 Charges/Coding Addendum Addendum: Dr. Whitney: I personally reviewed the chart and examined the patient, and agree with the above findings. 70-year-old female presented with acute on chronic COPD exacerbation and was noted to have a right spiculated lesion in her lung apex. She did undergo a lung biopsy of this and developed a post CT-guided pneumothorax. A chest tube was placed however she has continued to have a slow leak and because she continues to have a slow leak the discussion was had to transfer the patient to a tertiary care facility for management. According to surgery, she still has a slow air leak therefore we will continue to monitor hopefully the air leak will discontinue prior to needing transfer to the outside hospital. According to pathology report, the biopsy does show a B-cell lymphoma and she will need to be followed up as an outpatient for PET scan and then possibly a bone marrow biopsy. She does also have a thrombocytosis that was noted in December 2017 that is being followed by oncology. 02/19/2021: Continues with a slow air leak. Still awaiting transfer for definitive management. In the meantime we will continue to wall suction. 02/20/2021: Chest tube taken down to waterseal by general surgery today we will repeat a chest x-ray in a few hours. If the chest x-ray shows an increased size of the pneumothorax we will place her back on suction otherwise we will continue waterseal for the rest of the day and recheck a chest x-ray in the morning. She is feeling well otherwise and is hopeful about going home soon if possible. Visit Charges Inpatient E&M: 36384 Subs Hosp L2
--- NOTE | 2021-02-20 17:24 | NURSING ---
spoke with Kelvin at [facility]. update provided.
[2021-02-21] MEDS: Ipratropium/Albuterol Sulfate 3 ML AMPUL.NEB INHALATION ×3 (01:53→13:18)
[2021-02-21 01:54] VITALS: PULSE 90; RESP 24
[2021-02-21 04:52] VITALS: BP 148/90; PULSE 93; RESP 20; TEMP 36.9; O2SAT 97
[2021-02-21] MEDS: HYDROcodone Bitartrate/Apap 5/325 Tablet PO ×2 (04:56→13:14)
--- NOTE | 2021-02-21 05:55 | RAD_ITS ---
STUDY: X-RAY CHEST REASON FOR EXAM: Female, 70 years old. Chest pain and cough, history of pneumothorax with chest tube TECHNIQUE: 2 PA and lateral views of the chest. COMPARISON: Yesterday FINDINGS: Stable appearance of the large caliber right-sided chest tube. Lungs remain mildly hyperexpanded with chronic interstitial changes and stable bibasilar atelectasis. No demonstrated pneumothorax or mediastinal shift. Normal size heart. Normal mediastinum and julius. Normal visualized pulmonary arteries. There is atherosclerotic calcification of the aortic arch with tortuosity. There are diffuse degenerative changes of the visualized thoracic spine. There is degenerative osteoarthritis of the bilateral shoulders. There is no demonstrated abnormality of the visualized soft tissue structures of the upper abdomen. RAD/Chest 2 V w/ Apical/Lordotic IMPRESSION: Stable appearance of the large caliber right-sided chest tube. No demonstrated pneumothorax. No interval change Electronically Signed: Burton Johnson MD at 8:11 EST , Service support ,
[2021-02-21 07:04] VITALS: PULSE 95; RESP 18; O2SAT 94
[2021-02-21] MEDS: Aspirin 81 MG TAB.CHEW PO (08:23)
[2021-02-21] MEDS: APIXABAN 2.5 MG TABLET PO (08:23)
[2021-02-21] MEDS: amLODIPine 5 MG Tablet PO (08:24)
[2021-02-21 09:39] LABS: Absolute Lymphocyte Count 1.13 X10^3/uL (0.83-4.51); Absolute Neutrophil Count 5.3 X10^3/uL (2.0-7.7); Basophil# 0.02 X10^3/uL; Basophil% 0.3 % (0-1); Eosinophil# 0.11 X10^3/uL; Eosinophils% 1.5 % (0-5); Hematocrit 36.8 % (37-47); Hemoglobin 11.8 g/dL (12.0-15.0); Lymphocyte # 1.13 X10^3/ul (0.83-4.51); Lymphocyte % 15.4 % (19-41); Mean Corp Hgb Conc 32.1 g/dL (32-36); Mean Corpuscular Hgb 31.3 pg (27.0-32.0); Mean Corpuscular Volume 97.6 fL (81-99); Mean Platelet Vol. 9.2 fl (6.2-12.0); Monocyte# 0.76 X10^3/uL; Monocyte% 10.3 % (0-10); NRBC Flagged by Analyzer 0 % (0-5); Neutrophil # 5.29 X10^3/uL (2.7-7.7); Neutrophil % 71.8 % (47-70); POSITIVE COUNT YES; RBC Distribution Width SD 46.5 fl (35.1-43.9); Red Blood Count 3.77 M/mm3 (4.2-5.4); White Blood Count 7.4 K/mm3 (4.4-11.0)
[2021-02-21 09:46] LABS: Differential Indicated SCAN CRITERIA MET; Platelet Count 942 K/mm3 (150-450)
--- NOTE | 2021-02-21 09:59 | PCM.PN.SRG ---
Subjective Subjective Patient is doing well with no shortness of breath Objective Data Objective Data Vital Signs: Vital Signs Temp Pulse Resp BP Pulse Ox 98.4 F 95 18 148/90 H 94 02/21/21 04:52 02/21/21 07:04 02/21/21 07:04 02/21/21 04:52 02/21/21 07:04 Oxygen Flow Rate (L/min) [3] 2 Oxygen Flow Rate (L/min) [2] 2 Oxygen Flow Rate (L/min) [1 ( 2 Initial Baseline)] Oxygen Flow Rate (L/min) [At 2 REST with Oxygen] Oxygen Flow Rate (L/min) 2 Oxygen Delivery Method [3] Nasal Cannula Oxygen Delivery Method [2] Nasal Cannula Oxygen Delivery Method [1 ( Nasal Cannula Initial Baseline)] Oxygen Delivery Method Nasal Cannula Weight: 86 lb 3.212 oz Body Mass Index (BMI) 15.3 Intake & Output: Intake and Output for Last 24 Hours 02/19/21 02/20/21 02/21/21 23:59 23:59 23:59 Intake Total 940 / 1140 1450 / 1650 250 / 250 Output Total 580 / 610 30 / 30 Balance 360 / 530 1420 / 1620 250 / 250 Medical Nutrition Assessment Dietitian: Malnutrition Criteria Met Start: 02/17/21 14:46 Freq: Status: Active Protocol: Document 02/17/21 14:47 RMA (Rec: 02/17/21 14:47 RMA [id number]) Nutrition Malnutrition Evidence of Malnutrition Exists Yes Malnutrition (severe): Acute Illness/Injury,Chronic Evidenced By Suboptimal Energy Intake ( Severe),Weight Loss (Severe), Physical Changes (Severe) Intake Problem Inadequate Oral Intake Etiology related to increased needs of COPD and pt inability to consume adequate nutrition to meet estimated nutritional needs Signs/Symptoms as evidenced by 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 Status Active Problem Recommendation Dietitian Recommendations/Changes Will continue liberalized regular diet as ordered. Will continue ensure pudding w / lunch/dinnner and 120 ml ensure enlive 4x/day with medpass as ordered. Will add magic cup BID w/ meals for tolerance. Lab / Micro Data Result Diagrams: 02/21/21 08:55 02/20/21 06:08 Labs: Laboratory Results - last 24 hr 02/20/21 06:08: Diff Path Review August02/21/21 08:55: WBC 7.4, RBC 3.77 L, Hgb 11.8 L, Hct 36.8 L, MCV 97.6, MCH 31.3, MCHC 32.1, RDW Std Deviation 46.5 H, RDW Coeff of Sandra 13.0, Plt Count 942 H*, MPV 9.2, Immature Gran % (Auto) 0.700, Neut % (Auto) 71.8 H, Lymph % (Auto) 15.4 L, Bullock % (Auto) 10.3 H, Eos % (Auto) 1.5, Baso % (Auto) 0.3, Absolute Neuts (auto) 5.3, Absolute Lymphs (auto) 1.13, Nucleated RBC % 0 Micro: Microbiology 02/08/21 12:10 Nasal Secretion SARS-CoV-2 Antigen (Rapid) - Final Radiography Diagnostic Testing: Radiology Impression Chest X-Ray 02/20/21 11:00 IMPRESSION: No evidence of pneumothorax on this examination. Electronically Signed: Sunny Forde MD at 15:20 EST , Service support , Apical Lordotic X-Ray 02/21/21 05:55 IMPRESSION: Stable appearance of the large caliber right-sided chest tube. No demonstrated pneumothorax. No interval change Electronically Signed: Burton Johnson MD at 8:11 EST , Service support , Assessment & Plan Assessment/Plan (1) Pneumothorax after biopsy: PLAN: Patient has been on waterseal for 24 hours. This morning's x-ray showed no pneumothorax. Chest tube was removed this morning at the bedside. I will repeat a chest x-ray in 4 hours as long as there is no reaccumulation of pneumothorax she is okay to discharge home from my standpoint. She may follow-up with . Devin Siddiqui MD Pager: [facility] [address] [place] [address], [address] [place] [address] Office:
[2021-02-21 10:06] LABS: Anion Gap 6 (5-15); BUN 10 mg/dL (7-18); BUN/Creat Ratio 21.5 RATIO (10-20); Calcium,Total 9.6 mg/dL (8.5-10.1); Chloride 97 mmol/L (98-107); Creatinine, Serum 0.47 mg/dL (0.55-1.02); EST Glomerular Filtration Rate 141 mL/min (>60); Est Glom Filt Rate - Afr Amer 171 mL/min (>60); Estimated Creatinine Clearance 32.77 ml/min; Glucose 122 mg/dL (74-106); Potassium 4.2 mmol/L (3.5-5.1); Sodium Level 135 mmol/L (136-145)
[2021-02-21 10:22] LABS: Differential Comment SCANNED; Platelet Estimate MKD INC (ADEQ)
[2021-02-21 11:00] VITALS: BP 120/60; PULSE 90; RESP 16; TEMP 36.7; O2SAT 92
[2021-02-21 13:19] VITALS: PULSE 102; RESP 18
--- NOTE | 2021-02-21 14:00 | RAD_ITS ---
STUDY: X-RAY CHEST REASON FOR EXAM: Female, 70 years old. Chest tube removal TECHNIQUE: Single frontal view of the chest. COMPARISON: Earlier same day. FINDINGS: Status post removal of right chest tube. No large residual pneumothorax. Heterogeneous right base opacity most likely represents atelectasis and small effusion. Superimposed pneumonia should be excluded clinically. Right upper lobe/suprahilar nodule. Right base nodule most likely represents a nipple shadow. Normal size heart. Normal mediastinum and julius. Normal visualized pulmonary arteries. There is atherosclerotic calcification of the aortic arch with tortuosity. Normal visualized thoracic spine. Normal visualized ribs, clavicles, and shoulders. There is no demonstrated abnormality of the visualized soft tissue structures of the upper abdomen. RAD/Chest 1 View (Portable) IMPRESSION: Status post removal of right chest tube. No large residual pneumothorax. Heterogeneous right base opacity most likely represents atelectasis and small effusion. Superimposed pneumonia should be excluded clinically. Pulmonary nodule/lesion better assessed on recent chest CT. Electronically Signed: Valdez Siegel MD at 14:58 EST Tel , Service support ,
[2021-02-21 14:33] VITALS: O2SAT 85; O2SAT 90; O2SAT 92
--- NOTE | 2021-02-21 14:34 | PCM.DC ---
Discharge Instructions Diet Discharge Diet: No restrictions Activity Discharge Activity: Return to Normal Activity Weight Bearing Status: Weight bearing as tolerated Dressing / Incision Call your doctor if you observe: Fever of 101 or Higher, Numbness or Tingling, Shortness of breath, Dizziness, Chest pain, Increased palpitations (irregular heartbeat) and Calf discomfort Follow Up Care Please Follow Up With: Primary care provider When: Within the next two weeks. Test Results: Test results from this visit will be discussed in further detail at your follow-up appointment, if applicable. Discharge Plan Admission Admit Date/Time: 02/09/21 11:01 Attending Provider: Ole Whitney Primary Care Provider: Larry Rich Consulting Providers: Garfield Weber ; Keegan Preston ; Chen Covington TIME STUDY ENGINEER ; Andreea Cross Instructions Patient Instructions: Discharge Instructions Needle Biopsy: Lung, Procedural Sedation Discharge Orders/Prescriptions Prescriptions: New ipratropium-albuterol 0.5 mg-3 mg(2.5 mg base)/3 mL solution for nebulization 3 ml inhalation Q6H Qty: 360 RF: 0 albuterol sulfate 2.5 mg /3 mL (0.083 %) solution for nebulization 2.5 mg inhalation Q6H PRN (Reason: shortness of breath or wheezing) Qty: 360 RF: 0 Continued aspirin 81 MG tablet,chewable 81 mg PO DAILY@0800 RF: 0 amlodipine 5 MG tablet 5 mg PO DAILY RF: 0 Referrals / Follow Up: Keegan Preston DO [STAFF PHYSICIAN] - Within 2 Weeks Andreea Cross MD [STAFF PHYSICIAN] - 02/17/21 3:30 pm Danitza Barr MD [STAFF PHYSICIAN] - Within 2 Weeks (Follow up for chest tube placement/removal. ) Larry Rich MD [Primary Care Provider] - Disposition Disposition (needs filled in before D/C Order can be placed): Home, Self Care
--- NOTE | 2021-02-21 15:21 | DS.PCM_ITS ---
Documented by User: Vinicius BARNEY 02/21/21 15:33 Providers Date of Admission: 02/09/21 Primary Care Physician: Dr. Larry Rich MD Consultations 02/08/21 18:52 Consult: Lab Aid / Pulmonary Medicine Routine Consulting Provider: Pulmonary Medicine edilson [facility] Reason for Consult: COPD, lung lesion EMERGENT Consult: No Notified: Yes Date Notified: 02/09/21 Time Notified: 06:14 Method of Notification: Text 02/10/21 15:56 Consult: Oncology/Hematology Routine Consulting Provider: Andreea Cross Reason for Consult: Thrombocytosis - Platelets currenlty 940,000 EMERGENT Consult: No Notified: Yes Date Notified: 02/10/21 Time Notified: 15:57 Method of Notification: Answering Service Reason For Visit: EXACERBATION OF COPD Diagnosis Discharge Diagnosis (1) Pneumothorax after biopsy: Status: Acute Code(s): J95.811 - Postprocedural pneumothorax Medications at Discharge Home Medications aspirin 81 mg PO DAILY@0800 12/24/17 amlodipine 5 mg PO DAILY tablet 12/27/17 albuterol sulfate 2.5 mg INHALATION Q6H PRN #360 ml 02/21/21 ipratropium-albuterol 3 ml INHALATION Q6H #360 ml 02/21/21 Hospital Course Operations - (Chest tube placement ) Summary of Care Provided Minutes Spent on Discharge: 35 Hospital Course: Patient is a 70-year-old female who was admitted to the [facility] on 02/08/2021 for management of acute COPD exacerbation and was placed on steroids and breathing treatments. Her course was complicated by a pneumothorax which developed status post CT-guided biopsy. It was noted on imaging that there was a spiculated lesion in the apices of the right lung. Lesion was appropriately biopsied and was determined to be B-cell lymphoma, however a subsequent pneumothorax developed after procedure. General surgery was consulted and a chest tube was placed, which proved difficult to treat due to difficulty of residual pneumothorax. Residual pneumothorax eventually resolved and chest tube was removed. During her admission it was also noted that patient had a pretty significant thrombocytosis, Dr. Doran was consulted who ordered a peripheral blood myeloproliferative panel and agreed to follow patient as an outpatient. Patient also was seen by pulmonary and will follow up as an outpatient. Patient is also to follow-up with Dr. Barr for follow-up after chest tube placement and removal. Patient was walked prior to discharge and qualified for home oxygen due to oxygen saturations following below 88%. Patient was also discharged with duo nebs and albuterol for her initial COPD exacerbation. No steroids were given on discharge due to prolonged duration of admission. Patient is to follow-up with primary care provider for following management. Patient seen by Vinicius Tamayo PA-C, under the supervision of Dr. Whitney. Physical Exam Narrative Patient is a 70-year-old female comfortably resting in bed, alert and orient x3. She reports that shortness of breath is stable and denies development of any new complaints overnight. Does not appear in acute distress. Const alert, oriented x3 and no apparent distress HEENT normocephalic, head/scalp atraumatic and hearing grossly normal bilaterally Eyes PERRL, EOMs intact bilaterally and conjunctivae normal Neck no lymphadenopathy, supple and no JVD Resp normal respiratory effort, no retractions and no use of accessory muscles Resp Narrative: Currently satting 92% on 2 L via nasal cannula. Auscultation: diminished lung sounds Cardio regular rate, regular rhythm, no murmurs and no JVD GI normal to inspection, nondistended, normoactive bowel sounds, soft to palpation and non-tender Extremity normal to inspection, full ROM and no clubbing, cyanosis or edema Skin no rashes or lesions noted, no wounds and skin turgor normal Neuro CN's II-XII intact bilaterally Psych affect normal Medical Records Data Medical Nutrition Assessment Dietitian: Malnutrition Criteria Met Start: 02/17/21 14:46 Freq: Status: Active Protocol: Document 02/17/21 14:47 RMA (Rec: 02/17/21 14:47 RMA [id number]) Nutrition Malnutrition Evidence of Malnutrition Exists Yes Malnutrition (severe): Acute Illness/Injury,Chronic Evidenced By Suboptimal Energy Intake ( Severe),Weight Loss (Severe), Physical Changes (Severe) Intake Problem Inadequate Oral Intake Etiology related to increased needs of COPD and pt inability to consume adequate nutrition to meet estimated nutritional needs Signs/Symptoms as evidenced 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 and po intake < 50% at meals since in [facility] Status Active Problem Clinical Problem Chronic Disease or Condition Related Malnutrition Etiology Severe protein/calorie malnutrition in the context of acute on chronic disease related to increased energy expenditure and inadequate oral intake Signs/Symptoms as evidenced by poor po at meals ~50% at best or less, ~7 -8% x 6 months, BMI 15.3, inadequate oral intake at meals meeting less than 50% estimated nutrition needs, muscle/fat wasting: very thin w/ sunken orbital/temporal regions, clavicles protruding, fat/muscle loss to arms/legs. Status Active Problem Recommendation Dietitian Recommendations/Changes Will continue liberalized regular diet as ordered. Will continue ensure pudding w / lunch/dinnner and 120 ml ensure enlive 4x/day with medpass as ordered. Will add magic cup BID w/ meals for tolerance. Weight / BMI Weight Weight: 86 lb 3.212 oz Body Mass Index (BMI) 15.3 ABG / Lab / Microbiology Data Result Diagrams: 02/21/21 08:55 02/21/21 08:55 Laboratory: Laboratory Results - last 24 hr 02/20/21 06:08: Diff Path Review August anam 02/21/21 08:55: WBC 7.4, RBC 3.77 L, Hgb 11.8 L, Hct 36.8 L, MCV 97.6, MCH 31.3, MCHC 32.1, RDW Std Deviation 46.5 H, RDW Coeff of Sandra 13.0, Plt Count 942 H*, MPV 9.2, Immature Gran % (Auto) 0.700, Neut % (Auto) 71.8 H, Lymph % (Auto) 15.4 L, [place] % (Auto) 10.3 H, Eos % (Auto) 1.5, Baso % (Auto) 0.3, Absolute Neuts (auto) 5.3, Absolute Lymphs (auto) 1.13, Nucleated RBC % 0, Differential Comment SCANNED, Diff Path Review August anam, Platelet Estimate [employer] INC 02/21/21 08:55: Sodium 135 L, Potassium 4.2, Chloride 97 L, Carbon Dioxide 32.0, Anion Gap 6, BUN 10, Creatinine 0.47 L, Estim Creat Clear Calc 32.77, Est GFR (MDRD) Af Amer 171, Est GFR (MDRD) Non-Af 141, BUN/Creatinine Ratio 21.5 H, Glucose 122 H, Calcium 9.6 Microbiology: Microbiology 02/08/21 12:10 Nasal Secretion SARS-CoV-2 Antigen (Rapid) - Final Radiography Diagnostic Testing: Radiology Impression Chest X-Ray 02/20/21 11:00 IMPRESSION: No evidence of pneumothorax on this examination. Electronically Signed: Sunyn Forde MD at 15:20 EST , Service support , Apical Lordotic X-Ray 02/21/21 05:55 IMPRESSION: Stable appearance of the large caliber right-sided chest tube. No demonstrated pneumothorax. No interval change Electronically Signed: Burton Johnson MD at 8:11 EST , Service support , Chest X-Ray 02/21/21 14:00 IMPRESSION: Status post removal of right chest tube. No large residual pneumothorax. Heterogeneous right base opacity most likely represents atelectasis and small effusion. Superimposed pneumonia should be excluded clinically. Pulmonary nodule/lesion better assessed on recent chest CT. Electronically Signed: Valdez Siegel MD at 14:58 EST Tel , Service support , D/C Instructions Discharge Diet: No restrictions Weight Bearing Status: Weight bearing as tolerated Call your doctor if you observe: Fever of 101 or Higher, Numbness or Tingling, Shortness of breath, Dizziness, Chest pain, Increased palpitations (irregular heartbeat) and Calf discomfort Please Follow Up With: Primary care provider When: Within the next two weeks. Meaningful Use Info Meaningful Use Diagnoses (Choose all that apply): None applicable Discharge Plan Admission Admit Date/Time: 02/09/21 11:01 Attending Provider: Ole Whitney Primary Care Provider: Larry Rich Consulting Providers: Garfield Weber ; Keegan Preston ; Chen Covington MECHATRONICS TECHNOLOGIST ; Andreea Burk Instructions Patient Instructions: Discharge Instructions Needle Biopsy: Lung, Procedural Sedation Discharge Orders/Prescriptions Prescriptions: New ipratropium-albuterol 0.5 mg-3 mg(2.5 mg base)/3 mL solution for nebulization 3 ml inhalation Q6H Qty: 360 RF: 0 albuterol sulfate 2.5 mg /3 mL (0.083 %) solution for nebulization 2.5 mg inhalation Q6H PRN (Reason: shortness of breath or wheezing) Qty: 360 RF: 0 Continued aspirin 81 MG tablet,chewable 81 mg PO DAILY@0800 RF: 0 amlodipine 5 MG tablet 5 mg PO DAILY RF: 0 Referrals / Follow Up: Keegan Preston DO [STAFF PHYSICIAN] - Within 2 Weeks Andreea Cross MD [STAFF PHYSICIAN] - 02/17/21 3:30 pm Danitza Barr MD [STAFF PHYSICIAN] - Within 2 Weeks (Follow up for chest tube placement/removal. ) Larry Rich MD [Primary Care Provider] - Disposition Disposition (needs filled in before D/C Order can be placed): Home, Self Care Documented by User: Dr. Ole Whitney MD 02/21/21 15:50 Providers Date of Admission: 02/09/21 Reason For Visit: EXACERBATION OF COPD Medications at Discharge Home Medications aspirin 81 mg PO DAILY@0800 12/24/17 amlodipine 5 mg PO DAILY tablet 12/27/17 albuterol sulfate 2.5 mg INHALATION Q6H PRN #360 ml 02/21/21 ipratropium-albuterol 3 ml INHALATION Q6H #360 ml 02/21/21 ABG / Lab / Microbiology Data Result Diagrams: 02/21/21 08:55 02/21/21 08:55 Discharge Plan Admission Admit Date/Time: 02/09/21 11:01 Attending Provider: Ole Whitney Primary Care Provider: Larry Rich Consulting Providers: Garfield Weber ; Keegan Preston ; Chen Covington MECHATRONICS TECHNOLOGIST ; Andreea Cross Instructions Patient Instructions: Discharge Instructions Needle Biopsy: Lung, Procedural Sedation Discharge Orders/Prescriptions Prescriptions: New ipratropium-albuterol 0.5 mg-3 mg(2.5 mg base)/3 mL solution for nebulization 3 ml inhalation Q6H Qty: 360 RF: 0 albuterol sulfate 2.5 mg /3 mL (0.083 %) solution for nebulization 2.5 mg inhalation Q6H PRN (Reason: shortness of breath or wheezing) Qty: 360 RF: 0 Continued aspirin 81 MG tablet,chewable 81 mg PO DAILY@0800 RF: 0 amlodipine 5 MG tablet 5 mg PO DAILY RF: 0 Referrals / Follow Up: Keegan Preston DO [STAFF PHYSICIAN] - Within 2 Weeks Andreea Cross MD [STAFF PHYSICIAN] - 02/17/21 3:30 pm Danitza Barr MD [STAFF PHYSICIAN] - Within 2 Weeks (Follow up for chest tube placement/removal. ) Larry Rich MD [Primary Care Provider] - Disposition Disposition (needs filled in before D/C Order can be placed): Home, Self Care Charges/Coding Addendum Addendum: Dr. Whitney: I personally reviewed the chart and examined the patient, and agree with the above findings. 70-year-old female presented with acute on chronic COPD exacerbation and was noted to have a right spiculated lesion in her lung apex. She did undergo a lung biopsy of this and developed a post CT-guided pneumothorax. A chest tube was placed however she has continued to have a slow leak and because she continues to have a slow leak the discussion was had to tra nsfer the patient to a tertiary care facility for management. According to surgery, she still has a slow air leak therefore we will continue to monitor hopefully the air leak will discontinue prior to needing transfer to the outside hospital. According to pathology report, the biopsy does show a B-cell lymphoma and she will need to be followed up as an outpatient for PET scan and then possibly a bone marrow biopsy. She does also have a thrombocytosis that was noted in December 2017 that is being followed by oncology. 02/19/2021: Continues with a slow air leak. Still awaiting transfer for definitive management. In the meantime we will continue to wall suction. 02/20/2021: Chest tube taken down to waterseal by general surgery today we will repeat a chest x-ray in a few hours. If the chest x-ray shows an increased size of the pneumothorax we will place her back on suction otherwise we will continue waterseal for the rest of the day and recheck a chest x-ray in the morning. She is feeling well otherwise and is hopeful about going home soon if possible. 02/21/2021: She had resolution of her pneumothorax with waterseal yesterday so the chest tube was removed this morning and repeat chest x-ray 4 hours later still demonstrated resolution of her pneumothorax therefore she was discharged home. The plan for discharge was discussed with her and she expressed understanding the risk benefits of going home and wants to go home today. She will still need to follow-up with hematology secondary to her thrombocytosis as well as B-cell lymphoma from the biopsy of the spiculated lesion in her right lung apex. Visit Charges Inpatient E&M: 14490 Disch Hosp
--- NOTE | 2021-02-21 20:27 | NURSING ---
PT'S FAMILY MEMBER KEIRY CALLS IN [facility] TO STATE THAT [facility] [place] HER [place], THEY GOT THE RX FOR DUO-NEBS FILLED, BUT [facility] [place]POR[place] THEY DID NOT HAVE AN ORDER FOR NEBULIZER. THIS RN SPOKE TO [facility] WHO CONFIRMED THERE WAS NO ORDER FOR A NEBULIZER. THIS RN ALSO REVIEWED PT'S DC PAPERWORK, WHICH SHOWED THAT THE PT DID NOT HAVE AN ORDER FOR A NEBULIZER. THIS RN CONTACTED DR MACKEY WHO, AFTER REVIEWING THE PT'S INFORMATION COMPLETED PAPERWORK TO ORDER NEBULIZER. THIS RN FAXED THE ORDER TO [facility] PER THE INSTRUCTIONS ON THE DOCUMENT. THIS RN THEN CALLED KEIRY TO INFORM HER THAT AN ORDER FOR THE NEBULIZER HAS BEEN PLACED W/[facility]. KEIRY EXPRESSED APPRECIATION.
[2021-02-23 10:09] LABS: Pathologist Review Reviewed
[2021-02-23 13:10] LABS: Pathologist Review Reviewed
--- NOTE | 2021-02-23 13:13 | CASEMGMT ---
ALICIA LEMUS Discharge Follow-up Phone Call: KIRTI: Panfilo Strata: 4 Call Date: 02/23/21 Discharge Date: 02/21/21 Time of Call: 1310 Duration: 3 min Admitting Diagnosis: COPD exacerbation ALICIA LEMUS completed follow-up phone call after recent hospitalization. Patient states she is doing alright. Patient had no questions or concerns regarding discharge instructions. Patient states she was able to fill prescriptions without any issues. Patient states she is wearing her oxygen and everthing was delivered without difficulty. Patient aware to schedule follow-up appts as directed in discharge plans. Patient had no further questions or concerns at this time.
== END 2021-02-21 16:45 | disposition home or self-care (01) | DRG 190 ==
LOC: ED 17:09 → PCU 17:28 → MS2 02-10 07:46
PROVIDERS: Internal Medicine; Internal Medicine Critical Care Medicine; Internal Medicine Hematology & Oncology; Nurse Practitioner Family; Physician Assistant; Admitting Provider Internal Medicine; Emergency Provider Student in an Organized Health Care Education/Training Program; PCP Family Medicine; Visit Provider Family Medicine
DX: J44.1 Chronic obstructive pulmonary disease with (acute) exacerbation (principal); C85.10 Unspecified B-cell lymphoma, unspecified site; E43 Unspecified severe protein-calorie malnutrition; J96.01 Acute respiratory failure with hypoxia; J84.10 Pulmonary fibrosis, unspecified; J95.811 Postprocedural pneumothorax; Z68.1 Body mass index [BMI] 19.9 or less, adult; E87.1 Hypo-osmolality and hyponatremia; Z66 Do not resuscitate; I10 Essential (primary) hypertension; D75.839 Thrombocytosis, unspecified; Z23 Encounter for immunization; F17.210 Nicotine dependence, cigarettes, uncomplicated; Z79.82 Long term (current) use of aspirin; Z79.01 Long term (current) use of anticoagulants; Z68.33 Body mass index [BMI] 33.0-33.9, adult; Z79.899 Other long term (current) drug therapy
CPT/HCPCS: 32551; 32550; 0031A; 36415; 71045; 71046; 71047; 71275; 77012; 80048; 80053; 83615; 83880; 84484; 85025; 85379; 85610; 86704; 86705; 86706; 86707; 86803; 87340; 87350; 87426; 87635; 88172; 88305; 88313; 88341; 88342; 91303; 93005; 94640; 94762; 96361; 96374; 96375; 96376; 99156; 99218; 99251; 99285; 99406; J7040; Q9967; U0005; A4216; C2613; G0378; G0463; U0003

== ENCOUNTER 2021-05-13 15:32 | Outpatient (CLI) | payer MEDICARE, MEDICAID, SELFPAY ==
--- NOTE | 2021-05-13 15:36 | CT_ITS ---
STUDY: CT CHEST WITH CONTRAST REASON FOR EXAM: Female, 70 years old. F/U LUNG NODULES (3) RADIATION DOSAGE (If Supplied By Facility): CTDIvol = ( 9.18 ) mGy, DLP = ( 177.79 ) mGycm TECHNIQUE: Transaxial imaging was performed following intravenous administration of IV 75mL Isovue-370. Individualized dose optimization techniques were used for this CT. COMPARISON: 02/08/2021 FINDINGS: Moderate emphysema. Mild bilateral apical scarring. No change in the 1.57 nodular appearance of the scarring in the right lung apex. There is no demonstrated pleural abnormality. Normal heart and pericardium. Normal mediastinum. Normal hilar regions. Normal enhanced pulmonary arteries. Normal aorta arch and descending thoracic aorta. Moderate chronic compression fractures of the thoracic spine with kyphotic deformity to the chest. There is no demonstrated abnormality of the visualized upper abdomen. CT/Chest WITH Contrast IMPRESSION: Moderate emphysema with no change in bilateral apical scarring including 1.5 cm nodular scar in the apex the right lung. Electronically Signed: Brad Lino MD at 16:35 EST ,
== END 2021-05-13 23:59 | disposition short-term general hospital (02) ==
LOC: CT 15:35
PROVIDERS: PCP Family Medicine; Referring Provider Internal Medicine Hematology & Oncology; Visit Provider Internal Medicine Hematology & Oncology
DX: R91.1 Solitary pulmonary nodule (principal); J43.9 Emphysema, unspecified
CPT/HCPCS: 71260; Q9967

== ENCOUNTER 2021-06-01 10:44 | Outpatient (CLI) | payer MEDICARE, MEDICAID, SELFPAY ==
--- NOTE | 2021-06-01 13:47 | PFT ---
INTRODUCTION: The patient is a 70-year-old female that presents for pulmonary function studies secondary to a diagnosis of COPD. Respiratory therapy reported good patient effort. Bronchodilators were used during testing. INTERPRETATION: Forced expiration spirometry demonstrates the presence of a severe large airways obstructive ventilatory defect. There was a significant response to aerosolized bronchodilators. Spirograms are of fair quality but do not plateau indicating slow emptying of the lungs. Body plethysmography was performed and revealed an elevated TLC and RV, indicative of underlying hyperinflation and air trapping. Diffusing capacity by single breath CO is reduced at 39% of predicted. IMPRESSION: Partially reversible severe large airways obstructive ventilatory defect with associated hyperinflation, air trapping and symmetric reduction in diffusing capacity.
== END 2021-06-01 23:59 | disposition home or self-care (01) ==
LOC: PSN 10:50
PROVIDERS: PCP Family Medicine; Referring Provider Nurse Practitioner Acute Care; Visit Provider Nurse Practitioner Acute Care
DX: J44.1 Chronic obstructive pulmonary disease with (acute) exacerbation (principal)
CPT/HCPCS: 94060; 94726; 94729

== ENCOUNTER → 2021-08-26 | Outpatient (CLI) | payer MEDICARE, MEDICAID, SELFPAY ==
--- NOTE | 2021-08-26 07:34 | CT_ITS ---
EXAM: CT CHEST WITH INTRAVENOUS CONTRAST CLINICAL INDICATION: F/U LUNG NODULES TECHNIQUE: Helically acquired images were obtained of the chest with intravenous contrast. This CT exam was performed using one or more of the following dose reduction techniques: automated exposure control, adjustment of the mA and/or kV according to patient size, and/or use of iterative reconstruction technique. This report was created using [employer] report generation technology. CONTRAST: IV 100mL Isovue-300 COMPARISON: 05/13/2021 FINDINGS: LUNGS AND PLEURAL SPACES: The lungs are hyperinflated. There are emphysematous changes in the lung apices. There is no focal consolidation. No mass. No pleural effusion or thickening. No pneumothorax. HEART: Unremarkable. Heart size is normal. No pericardial effusion. No significant coronary artery calcifications. MEDIASTINUM: Unremarkable. No mediastinal or hilar adenopathy. Esophagus is unremarkable. No hiatal hernia. THYROID: Unremarkable. No thyroid lesions. BONES/JOINTS: Unremarkable. No suspicious lytic or blastic abnormality. VASCULATURE: Unremarkable. Thoracic aorta is non-dilated. No thoracic aortic dissection. No obvious central pulmonary embolism although this study was not performed with the pulmonary embolism protocol. OTHER FINDINGS: There is again a nodular density in the right apex and measures 1.2 x 1.2 cm of today''s exam and is not significantly changed from the reference exam. There is minimal scarring also present in the left apex. CT/Chest WITH Contrast IMPRESSION: Persistent nodular opacity in the right apex which may represent an area of scarring and is unchanged from reference exam. There is also scarring in the left apex. The lungs are hyperinflated with emphysematous change. There is no focal consolidation. Electronically Signed: Juan Carlos An MD at 13:18 EDT ,
[2021-08-26 07:51] LABS: CREATININE FINGERSTICK < 0.9 mg/dL (0.55-1.02); EGFR FINGERSTICK > 60.0000 mL/min (>60)
== END | disposition home or self-care (01) ==
LOC: CT 07:32
PROVIDERS: PCP Family Medicine; Visit Provider Internal Medicine Hematology & Oncology
DX: R91.8 Other nonspecific abnormal finding of lung field (principal)
CPT/HCPCS: 71260; Q9967

== ENCOUNTER → 2021-12-16 | Outpatient (CLI) | payer MEDICARE, MEDICAID, SELFPAY ==
[2021-12-16 13:01] VITALS: PULSE 103; PULSE 104; PULSE 105; PULSE 109; PULSE 113; PULSE 115; PULSE 88; PULSE 92; O2SAT 86; O2SAT 91; O2SAT 94; O2SAT 95; O2SAT 97; O2SAT 98
--- NOTE | 2021-12-16 13:05 | CPS ---
Patient arrived on 2L NC pulse dose. Patient's RA Pulse ox was 97%. Patients SpO2 dropped at the 2 min carlos to 86%. And 2L pulse dose was added for the remainder of the test.
--- NOTE | 2021-12-17 08:02 | PCM.PSN.6M ---
PSN 6 Minute Walk Test 6 Minute Walk Test 6 Minute Walk Test: 6 Minute Walk Test PSN:6-Minute Walk Test Start: 12/16/21 13:01 Freq: Status: Active Protocol: RESP.6MINW Document 12/16/21 13:01 BRYAN (Rec: 12/16/21 13:05 BRYAN [id number]) 6 Minute Walk Test Date Performed 12/16/21 Time Performed 12:30 Height 5 ft 4 in Weight: 84 lb Weight in Pounds 84.[address]: Keegan Preston Assistive device used: None Pre-test Oxygen Delivery Method Room Air Pulse Ox (%) 97 Pulse Rate (60-100 beats/min) 88 Dyspnea Capo Scale (0-10) 0 Exertion Capo Scale (6-20) 6 1st minute Oxygen Delivery Method Room Air Pulse Ox (%) 91 Pulse Rate (60-100 beats/min) 103 H 2nd minute Oxygen Delivery Method Room Air Pulse Ox (%) 86 Pulse Rate (60-100 beats/min) 104 H Dyspnea Capo Scale (0-10) 0 3rd minute Oxygen Flow Rate (L/min) (L/min) 2 Oxygen Delivery Method Nasal Cannula Pulse Ox (%) 98 Pulse Rate (60-100 beats/min) 105 H 4th minute Oxygen Flow Rate (L/min) (L/min) 2 Oxygen Delivery Method Nasal Cannula Pulse Ox (%) 98 Pulse Rate (60-100 beats/min) 109 H 5th minute Oxygen Flow Rate (L/min) (L/min) 2 Oxygen Delivery Method Nasal Cannula Pulse Ox (%) 97 Pulse Rate (60-100 beats/min) 115 H 6th minute Oxygen Flow Rate (L/min) (L/min) 2 Oxygen Delivery Method Nasal Cannula Pulse Ox (%) 95 Pulse Rate (60-100 beats/min) 113 H Dyspnea Capo Scale (0-10) 0.5 Exertion Capo Scale (6-20) 11 Post-test Oxygen Flow Rate (L/min) (L/min) 2 Oxygen Delivery Method Nasal Cannula Pulse Ox (%) 94 Pulse Rate (60-100 beats/min) 92 Full Laps Walked 10 Partial Lap, Number of Tiles Walked 20 Total Distance Walked (ft) 610 Interpretation Interpretation: The patient ambulated 610 feet over the course of 6 minutes beginning on room air without assistive devices. Pretesting oxygen saturation was noted to be 97% on room air. With ambulation, the carol oxygen saturation was 86%. 2 L/min of pulsed dose oxygen was applied and the patient was able to complete the remainder of the test while maintaining appropriate oxygen saturations. Recommendations Recommendations: 2 L/min of pulsed dose supplemental oxygen should be utilized with exertion.
== END | disposition home or self-care (01) ==
LOC: PSN 12:27
PROVIDERS: PCP Family Medicine; Referring Provider Internal Medicine Critical Care Medicine; Visit Provider Internal Medicine Critical Care Medicine
DX: J96.11 Chronic respiratory failure with hypoxia (principal)
CPT/HCPCS: 94618

== ENCOUNTER 2022-03-23 12:24 | Outpatient (CLI) | payer MEDICARE, MEDICAID, SELFPAY ==
--- NOTE | 2022-03-23 12:27 | CT_ITS ---
INDICATION: F/U LUNG NODULES ([place]MPH[place]) EXAMINATION: CT CHEST WITH CONTRAST - CT Chest W/ Contrast Injection TECHNIQUE: Helically acquired images were obtained of the chest following IV contrast. A radiation dose optimization technique was used for this scan. IV Contrast dosage and agent: 100 mL Isovue-300 COMPARISON: August 26, 2021, May 13, 2021 CT chest, February 24, 2021 PET/CT. FINDINGS: LUNGS, PLEURA AND LARGE AIRWAYS: Diffuse emphysematous change. No focal consolidation, effusion, or pneumothorax. Biapical nodular scarring 1.3 x 1.1 cm, unchanged from February 24, 2021. Linear scarring in the left lung apex is also unchanged. No new or enlarging pulmonary nodule. THYROID: No thyroid lesions. HEART AND PERICARDIUM: Heart size is normal. No pericardial effusion. Mild coronary atherosclerosis. VESSELS: Aortic atherosclerosis and tortuosity. Thoracic aorta is not dilated. No aortic dissection. No obvious central pulmonary embolism although this study was not performed with the pulmonary embolism protocol. MEDIASTINUM AND KATHY: No mediastinal or hilar adenopathy. Esophagus is unremarkable. No hiatal hernia. UPPER ABDOMEN: No acute pathology. BONES: No suspicious lytic or blastic abnormality. Chronic anterior compression deformities throughout the thoracic and imaged lumbar spine. CT/Chest WITH Contrast IMPRESSION: Continued stability of right apical nodular scarring, stable as far back as February 24, 2021. Mild left apical scarring. No evidence of new or enlarging pulmonary nodule. Emphysematous change, most prominent in the upper lungs. Electronically Signed: Irving Marquez MD at 4:52 EST ,
[2022-03-23 12:56] LABS: CREATININE FINGERSTICK < 0.9 mg/dL (0.55-1.02); EGFR FINGERSTICK > 60.0000 mL/min (>60)
== END 2022-03-23 23:59 | disposition home or self-care (01) ==
LOC: CT 12:26
PROVIDERS: PCP Family Medicine; Visit Provider Internal Medicine Hematology & Oncology
DX: R91.8 Other nonspecific abnormal finding of lung field (principal); C88.4 Extranodal marginal zone B-cell lymphoma of mucosa-associated lymphoid tissue [MALT-lymphoma]; I70.0 Atherosclerosis of aorta; I77.1 Stricture of artery; I25.10 Atherosclerotic heart disease of native coronary artery without angina pectoris; J98.4 Other disorders of lung
CPT/HCPCS: 36415; 71260; 85025; Q9967

== ENCOUNTER → 2022-08-19 | Outpatient (CLI) | payer MEDICARE, MEDICAID, SELFPAY ==
--- NOTE | 2022-08-19 13:10 | CT_ITS ---
STUDY: LOW DOSE CT LUNG CANCER SCREENING REASON FOR EXAM: Female, 71 years old. smoker and gt; 40 pack years RADIATION DOSAGE (If Supplied By Facility): CTDIvol = ( 2.01 ) mGy, DLP = ( 64.69 ) mGycm TECHNIQUE: No contrast was administered. Low dose technique was utilized (average mAS-38 and kVp 120). 1.25 mm axial source images with a slice interval of 1.25-mm were reconstructed in lung windows. 2.5 mm axial source images with a slice interval of 2.5-mm were reconstructed in lung windows. 5.0 mm axial source images with a slice interval of 5.0-mm were reconstructed in soft tissue windows. COMPARISON: Comparison is made with prior study dated March 23, 2022. NODULES: Stable 1.3 cm x 1.4 cm spiculated nodule in the right lung apex. This most likely represents an area of scarring. Emphysema: Hyperinflation. Diffuse emphysematous changes with bullous formation more prominent in the upper lobes. Endobronchial lesion: Unremarkable Aorta: Atherosclerotic plaque formation of the aortic arch. CORONARY ARTERIES: Coronary artery calcification is seen. Heart: Unremarkable. Pulmonary artery: Unremarkable. Mediastinal nodes: Other chest and abdominal findings: CT/Low Dose CT Lung Screening IMPRESSION: Lung-RADS category 2 - Continue annual screening with LDCT in 12 months. IMPORTANT NOTES FOR USE: ACR Lung-RADS Version 1.1 Assessment Categories Release Date: 2018 Category: Coded 0-4 bases on nodule(s) with highest degree of suspicion. Negative screen is defined as categories 1 and 2; a positive screen is defined as categories 3 and 4. Category 3 and 4A nodules that are unchanged on interval CT should be coded as category 2, and individuals returned to screening in 12 months. Category 4X: Category 3 or 4 nodules with additional imaging findings that increase the suspicion of lung cancer, such as spiculation, GGN that doubles in size in 1 year, enlarged lymph notes, etc. Category Modifiers: S (significant finding unrelated to lung cancer) Electronically Signed: Sunny Forde MD at 15:35 EDT ,
== END | disposition home or self-care (01) ==
LOC: CT 13:07
PROVIDERS: PCP Physician Assistant; Referring Provider Nurse Practitioner Acute Care; Visit Provider Nurse Practitioner Acute Care
DX: F17.210 Nicotine dependence, cigarettes, uncomplicated (principal)
CPT/HCPCS: 71271

== ENCOUNTER 2023-03-23 16:20 | Emergency (ER) | payer MEDICARE, MEDICAID, SELFPAY ==
[2023-03-23 16:21] VITALS: BP 156/87; PULSE 93; RESP 25; O2SAT 95
[2023-03-23 16:23] VITALS: BMI 19.3
--- NOTE | 2023-03-23 16:23 | EKG12_ITS ---
Test Reason : STROKE TEAM Blood Pressure : / mmHG Vent. Rate : 108 BPM Atrial Rate : 108 BPM P-R Int : 116 ms QRS Dur : 070 ms QT Int : 338 ms P-R-T Axes : 056 -29 069 degrees QTc Int : 452 ms Sinus tachycardia Cannot rule out Anterior infarct , age undetermined Abnormal ECG Confirmed by PADILLA GIVENS, MICHI ([id number]), digital editor ANMOL NORMAN ([id number]) on 03/28/2023 1:51:32 P M Referred By: Confirmed By:WHITLEY CAUSEY MD
--- NOTE | 2023-03-23 16:23 | CT_ITS ---
We are attempting to reach an attending provider to discuss findings. An addendum with communication details will be sent when the communication is complete. INDICATION: Neuro deficit, acute EXAMINATION: CT BRAIN - CT Head or Brain W/O Contrast Injection TECHNIQUE: Multiple axial images were obtained of the head without intravenous contrast. A radiation dose optimization technique was used for this scan. IV Contrast dosage and agent: None. COMPARISON: 12/29/2017 FINDINGS: BRAIN PARENCHYMA: Acute parenchymal hematoma right parietal lobe, 5.3 x 5.0 x 4.5 cm, adjacent edema and extension into the lateral ventricles with hemorrhagic products in the bilateral occipital horns. Mass effect on the right lateral ventricle with 3 mm midline shift right to left. There is preservation of the gutierrez/white matter interface. Posterior fossa structures are unremarkable. CSF SPACES: Stable. No hydrocephalus. Basal cisterns are patent. CALVARIUM, SKULL BASE, PARANASAL SINUSES AND MASTOID AIR CELLS: Clear. No discrete lytic or blastic abnormalities. ORBITS: Both globes, extraocular muscles, optic nerves and retrobulbar fat appear unremarkable. CT/STROKE Brain/Head without Cont IMPRESSION: Right parietal acute parenchymal hematoma with intraventricular extension, surrounding edema with mass effect on the right lateral ventricle and 3 mm midline shift leftward. Electronically Signed: Dejan Black MD at 16:50 EST ,
[2023-03-23 16:24] VITALS: BP 142/78; PULSE 96; RESP 16; O2SAT 96
--- NOTE | 2023-03-23 16:25 | ED.VIS.STROK ---
HPI History of Present Illness Chief Complaint: Stroke Alert Informant: patient and EMS Onset/Context/Timing Onset: Today Timing: Continuous Onset: Unknown Worsened by: Nothing Relieved by: Nothing Associated Symptoms Associated Symptoms: Negative for Headache, Nausea, Vomiting or Chest Pain Narrative Narrative: Presents with altered mental status that was noticed tonight. EMS reports that the patient's last known well was sometime last night. EMS noted the patient was laying on her left side. EMS states that patient had been laying on her left side since last night. Patient denies any headaches. Patient denies any nausea or vomiting. Patient denies any chest pain or shortness of breath. Prehospital stroke alert was called. [facility] Medical History COPD (chronic obstructive pulmonary disease) Essential thrombocythemia Hip fracture, right HTN (hypertension) Humerus fracture Hypertension Lesion of lung Lung nodule Lung nodule, multiple Lymphoma involving lung MALT lymphoma S/P right hip fracture Smoking greater than 40 pack years Thrombocytosis Home Medications aspirin 81 mg chewable tablet 81 mg PO DAILY@0800 TO PREVENT BLOOD CLOTS 12/24/17 [History Last Taken 02/08/21 06:30] amlodipine 5 mg tablet 5 mg PO DAILY 12/27/17 [Rx Last Taken 02/08/21 06:30] acetaminophen 325 mg tablet (Tylenol) 325 mg PO Q6H PRN 03/23/21 [History Last Taken Unknown] ipratropium 0.5 mg-albuterol 3 mg (2.5 mg base)/3 mL nebulization soln 3 ml inhalation Q6H #360 mL 05/13/22 [Rx Last Taken Unknown] cholecalciferol (vitamin D3) 50 mcg (2,000 unit) capsule 50 mcg PO DAILY 07/20/22 [History Last Taken Unknown] albuterol sulfate 90 mcg/actuation aerosol inhaler (Ventolin HFA) 2 puff inhalation Q4H PRN shortness of breath or wheezing #8.5 grams 10/21/22 [Rx Last Taken Unknown] hydroxyurea 500 mg capsule 500 mg PO .COMPLEX #90 caps 01/17/23 [Rx Last Taken Unknown] albuterol sulfate 2.5 mg/3 mL (0.083 %) solution for nebulization 2.5 mg (3 mL) inhalation Q6H PRN shortness of breath or wheezing #360 mL 03/22/23 [Rx Last Taken Unknown] Allergy/AdvReac Type Severity Reaction Status Date / Time nicotine AdvReac Hallucinati Verified 01/11/23 14:05 ons oxycodone AdvReac hallucinati Verified 01/11/23 14:05 ons Family History Father Heart disease Cancer Mother Hypertension Surgical History History of hip surgery History of hysterectomy Social History Smoking Status: Former smoker quit date: 11/16/22 Tobacco: How many years used: 50 how long ago did patient quit smoking: last day 11/16/22. second hand exposure: No alcohol intake: current alcohol intake frequency: a few times a month Alcohol type: beer details: socially substance use type: does not use lissett/evangelical: None seatbelt use: never do you feel safe at home: Yes ROS ROS ED Review of Systems ROS Unobtainable: due to mental condition and due to mental status EXAM Physical Exam Const Positive cachectic General Appearance ED: cachectic Nutritional Appearance: cachectic HEENT Reports moist mucous membranes Eyes PERRL Eyes Narrative: Eyes are deviated to the right. Neck supple and no JVD Resp normal respiratory effort and clear to auscultation bilaterally Cardio Rate: regular rate Rhythm: regular rhythm GI soft to palpation, non-tender and non-distended Neuro Sensorium / Orientation: alert Speech: speech normal MDM MDM MDM Narrative Medical decision making narrative: Differential diagnosis includes intracranial bleeding, stroke, electrolyte abnormality, dehydration, rhabdomyolysis, and urinary tract infection. CT scan of the brain will be obtained to assess for stroke and intracranial bleeding. EKG will be obtained to assess for cardiac dysrhythmia and cardiac ischemia. Chest x-ray will be obtained to assess for pneumonia and pneumothorax. CBC will be obtained to assess for leukocytosis and anemia. Basic metabolic profile will be gained to assess for electrolyte abnormality and renal function. Total CPK will be obtained to assess for rhabdomyolysis. PT with INR and PTT will be obtained to assess for coagulopathy. High-sensitivity troponin will be obtained to assess for cardiac ischemia. Radiography Diagnostic Testing: CT scan of the brain was obtained. There is a large intraparenchymal bleed in the right temporal and parietal lobes. Interpreted by the radiologist and was also independently reviewed by myself. EKG Initial EKG: Interpretation: No Acute Injury Pattern and Sinus Tachycardia (108) Comments: EKG was obtained. On my independent interpretation, it showed a sinus tachycardia with a rate of 108. WI interval, QRS interval, and QTc intervals were all normal. There is left axis deviation at -29. There are no acute ST or T wave changes. Management Discussion w/another healthcare provider: Preparation Plant Supervisor and Radiologist Treatment and Re-Evaluation Narrative: Case was discussed with Dr. Cano, stroke neurologist from [facility]. Patient will be transferred to the emergency department there is an acute hemorrhagic stroke. Family understood and was agreeable with the plan. All questions were answered. 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, Discussing w/Consultants, Arranging Admission or Transfer and Performing Direct Patient Care at Bedside Discharge Plan Triage Chief Complaint: Stroke Alert ED Provider: Aydin Carrasquillo Dx/Rx/DC Orders Clinical Impression: Hemorrhagic stroke, COPD (chronic obstructive pulmonary disease), Hypertension Prescriptions: No Action acetaminophen [Tylenol] 325 mg tablet 325 mg PO Q6H PRN cholecalciferol (vitamin D3) 50 mcg (2,000 unit) capsule 50 mcg PO DAILY aspirin 81 MG tablet,chewable 81 mg PO DAILY@0800 amlodipine 5 MG tablet 5 mg PO DAILY 0RF ipratropium-albuterol 0.5 mg-3 mg(2.5 mg base)/3 mL solution for nebulization 3 ml inhalation Q6H Qty: 360 6RF albuterol sulfate [Ventolin HFA] 90 mcg/actuation HFA aerosol inhaler 2 puff inhalation Q4H PRN (Reason: shortness of breath or wheezing) Qty: 8.5 6RF hydroxyurea 500 mg capsule 500 mg PO .COMPLEX Qty: 90 4RF Rx Instructions: Take 500 mg orally daily 6 days/week, and 1000 mg 1 daily per week; total 8 tablets/week and future adjustments as directed. albuterol sulfate 2.5 mg /3 mL (0.083 %) solution for nebulization 2.5 mg inhalation Q6H PRN (Reason: shortness of breath or wheezing) Qty: 360 3RF Primary Care Provider: Carlton Youssef Referrals: Carlton Youssef, ECTOR [Primary Care Provider] - Disposition Disposition: Acute Care Hospital Discharge Location: [facility]
[2023-03-23] MEDS: Labetalol (Prefilled) 20 MG/4 ML 10 MG IV (16:41)
--- OUTSIDE RECORDS SUMMARY | 2023-03-23 16:41 | XMS RPT_ITS | CCD ---
Author Name Unknown Address [address] [place] [address] Organization [facility] Care Team Providers Care Pattern Developer Name Role Phone Chaka iRch MD Primary Care Provider CHAKA RICH Primary Care Unavailable RYAN YOUSSEF Attending Unavailable RYAN YOUSSEF Referring Unavailable CHAKA RICH Primary Care Unavailable RYAN YOUSSEF Attending Unavailable CHAKA RICH Primary Care Unavailable Allergies Allergy Classification Reported Allergen(s) Allergy Type Date of Onset Reaction(s) Facility (9 sources) oxyCODONE; Translations: [OXYCODONE HCL] Drug Allergy 02-01-2018 Intolerance [facility] Work Phone: Medications Current Medications Medication Drug Class(es) Dates Sig (Normalized) Sig (Original) amLODIPine 5 mg oral tablet (9 sources) Dihydropyridine Calcium Channel Elisabeth Start: 04-07-2022 End: 06-15-2023 take 1 tablet by mouth once daily amLODIPine (NORVASC) 5 mg tablet Indications: Essential hypertension Take 1 tablet by mouth once daily. 90 tablet 1 12/17/2022 06/15/2023 Active Completed/Discontinued Medications Medication Drug Class(es) Dates Sig (Normalized) Sig (Original) acetaminophen 325 mg oral tablet (4 sources) End: 06-25-2022 take 2 tablets by mouth every six hours as needed acetaminophen (TYLENOL) 325 mg tablet Take 650 mg by mouth every 6 hours as needed. 0 06/25/2022 Discontinued (Discontinued by Patient) Problems Active Problems Problem Classification Problem Date Documented Da te Episodic/Chronic Acute cerebrovascular disease (10 sources) Lacunar infarction; Translations: [Other cerebral infarction due to occlusion or stenosis of small artery] Onset: 02-01-2018 02-01-2018 Chronic Aortic; peripheral; and visceral artery aneurysms (11 sources) Ectasia of thoracic aorta; Translations: [Thoracic aortic ectasia] Onset: 08-10-2019 08-10-2019 Chronic Chronic obstructive pulmonary disease and bronchiectasis (9 sources) Pulmonary emphysema; Translations: [Emphysema, unspecified] Onset: 06-25-2022 Chronic Disorders of lipid metabolism (11 sources) Mixed hyperlipidemia; Translations: [Mixed hyperlipidemia] Onset: 02-01-2018 02-01-2018 Chronic Essential hypertension (12 sources) Essential hypertension; Translations: [Essential (primary) hypertension] Onset: 11-05-2014 11-05-2014 Chronic Non-Hodgkin`s lymphoma (11 sources) Malignant tumor of lung; Translations: [Non-Hodgkin lymphoma, unspecified, extranodal and solid organ sites] Onset: 04-17-2021 06-12-2021 Chronic Nutritional deficiencies (2 sources) Vitamin D deficiency; Translations: [Vitamin D deficiency, unspecified] Onset: 07-06-2022 Chronic Other hereditary and degenerative nervous system conditions (6 sources) Restless legs; Translations: [Restless legs syndrome] Onset: 06-25-2022 Chronic Other hereditary and degenerative nervous system conditions (1 source) Restless legs syndrome; Translations: [Restless leg syndrome] Onset: 06-25-2022 Chronic Other lower respiratory disease (1 source) Lung mass; Translations: [Other nonspecific abnormal finding of lung field] Episodic Residual codes; unclassified (2 sources) Genetic mutation; Translations: [Genetic susceptibility to other disease] Episodic Residual codes; unclassified (1 source) Genetic susceptibility to other disease; Translations: [JAK2 gene mutation] Onset: 12-28-2022 Episodic Respiratory failure; insufficiency; arrest (adult) (4 sources) Chronic hypoxemic respiratory failure; Translations: [Chronic respiratory failure with hypoxia] Onset: 12-28-2022 12-28-2022 Chronic Substance-related disorders (11 sources) Tobacco user; Translations: [Nicotine dependence, unspecified, uncomplicated] Onset: 05-05-2015 05-05-2015 Chronic Past or Other Problems Problem Classification Problem Date Documented Date Episodic/Chronic Administrative/socia l admission (11 sources) Patient encounter status; Translations: [Persons encountering health services in other specified circumstances] Onset: 1 03-10-2021 Episodic Neoplasms of unspecified nature or uncertain behavior (13 sources) Myeloproliferative disorder; Translations: [Chronic myeloproliferative disease] Onset: 2 06-12-2021 Episodic Other acquired deformities (9 sources) Compression fracture of vertebral column; Translations: [Deforming dorsopathy, unspecified] Onset: 0 08-10-2019 Episodic Other acquired deformities (1 source) Deforming dorsopathy, unspecified; Translations: [Compression deformity of vertebra] Onset: 0 Episodic Other diseases of kidney and ureters (8 sources) Hydroureter; Translations: [Hydroureter] Onset: 0 08-10-2019 Episodic Other female genital disorders (8 sources) Mass of uterine adnexa; Translations: [Other specified conditions associated with female genital organs and menstrual cycle] Onset: 0 08-10-2019 Episodic Other lower respiratory disease (8 sources) Nodule of lung; Translations: [Solitary pulmonary nodule] Onset: 0 08-10-2019 Episodic Other screening for suspected conditions (not mental disorders or infectious disease) (1 source) Encounter for screening for lipoid disorders; Translations: [Screening for lipid disorders] Onset: 3 Episodic Results Test Name Value Interpretation Reference Range Facil ity Vital Signs Date Time Vital Sign Value Performing Clinician Xiomara iniguez 12-28-2022 14:11-0400 Body weight 41.28 kg NA Youssef PA-C Work Phone: [facility] 12-28-2022 14:11-0400 Diastolic blood pressure 68 mm[Hg] NA Youssef PA-C Work Phone: [facility] 12-28-2022 14:11-0400 Heart rate 94 /min NA Youssef PA-C Work Phone: [facility] 12-28-2022 14:11-0400 Respiratory rate 16 /min NA Youssef PA-C Work Phone: [facility] 12-28-2022 14:11-0400 SaO2% (BldA) [Mass fraction] 100 % NA Youssef PA-C Work Phone: [facility] 12-28-2022 14:11-0400 Systolic blood pressure 110 mm[Hg] NA Youssef PA-C Work Phone: [facility] 06-25-2022 14:59-0400 Body weight 43.09 kg NA Youssef PA-C Work Phone: [facility] 06-25-2022 14:59-0400 Diastolic blood pressure 62 mm[Hg] NA Youssef PA-C Work Phone: [facility] 06-25-2022 14:59-0400 Heart rate 101 /min NA Youssef PA-C Work Phone: [facility] 06-25-2022 14:59-0400 SaO2% (BldA) [Mass fraction] 99 % NA Youssef PA-C Work Phone: [facility] 06-25-2022 14:59-0400 Systolic blood pressure 118 mm[Hg] NA Youssef PA-C Work Phone: [facility] Encounters Encounter Date Encounter Type Care Provider Facility Start: 12-30-2022 Telephone encounter Carlton Bradley Youssef PA-C Work Phone: [facility] Procedures Date Procedure Procedure Detail Performing Clinician Start: 07-06-2022 Lipid 1996 panel - S abelardo or Plasma NA Youssef PA-C Work Phone: Start: 04-19-2019 Mammography Glendy Mueller RN Work Phone: Plan of Treatment Date Care Activity Detail Author Start: 07-07-2027 Lipid 1996 panel - S abelardo or Plasma Lipid Screening [facility] Start: 07-07-2027 LIPID SCREEN LIPID SCREEN [facility] Start: 07-06-2025 DIABETES SCREEN [facility] Start: 07-06-2025 Diabetes Screening Diabetes Screenin g [facility] Start: 03-19-2024 LIPID SCREEN LIPID SCREEN [facility] Start: 12-29-2023 Annual PCP Team Video And Sound Recorder rahul Disease Visit Annual PCP Team Chronic Disease Visit [facility] Start: 12-29-2023 BP Controlled (<130/80) BP Controlle d (<130/80) [facility] Start: 12-29-2023 Shingrix Vaccine (1 of 2) Shingrix V accine (1 of 2) [facility] Immunizations Immunization Date Immunization Notes Care Provider Erin nascimento 10-05-2013 tetanus and diphther ia toxoids, adsorbed, preservative free, for adult use (2 Lf of tetanus toxoid and 2 Lf of diphtheria toxoid) Glendy Muleler RN Work Phone: [facility] 10-05-2013 tetanus toxoid, redu jairo diphtheria toxoid, and acellular pertussis vaccine, adsorbed NA Mikael MATHUR Work Phone: [facility] 06-28-2013 pneumococcal polysaccharide vaccine, 23 valent Glendy Mueller RN Work Phone: [facility] Payers Date Payer Category Payer Medicare HU[employer]NA MEDICARE [employer] GOLD PLUS [id number] 2021-Present [phone] [address] [address] [place] [address] O [id number] 2021 Private Health Insurance [id number] 2021 Medicaid MEDICAID [facility] MEDICAID [id number] 2021-Present [phone] [address] [place] [address] Medicaid [id number] 2021 Medicaid MEDICAID [facility] MEDICAID [id number] 2021-Present [phone] [address] [place] [address] Medicaid [id number] 2021 Medicaid [id number] 2017 Unknown ANTHEM BLUE CROS S AND BLUE SHIELD ANTHEM MEDIBLUE O [id number] 2017-Present [phone] [address] [place] [address] O [id number] Social History Date Type Detail Facility Start: 06-28-2013 End: 06-25-2022 Tobacco smoking status NHIS Smokes tobacco daily [facility] History of tobacco use Cigarette Smoker [facility] Start: 06-28-2013 End: 12-28-2022 Cigarettes smoked current (pack per day) - Reported 1 [facility] Start: 06-28-2013 End: 06-25-2022 Tobacco use and exposure Smokeless tobacco non-user [facility] Start: 03-10-2021 End: 12-28-2022 Alcohol intake Current drinker of alcohol (finding) [facility] Start: 06-28-2013 History SDOH Alcohol Comment three four cans a week, six pack on the weekend. [facility] Start: 1950 Sex Assigned At Not on file [facility] Start: 06-25-2022 End: 12-28-2022 Tobacco use panel [facility] National Score (1-10 0), lower number is lower risk 96 [facility] Clinical Notes 08-06-2021 to 01-06-2023 Telephone Encounter - Shireen Cruz - 01/06/2023 3:33 PM EDTTelephone Encounter - Gin Henao - 01/03/2023 10:09 AM EDTTelephone Encounter - Gin Henao - 12/30/2022 1:53 PM EDT Note Date & Type Note Facility 01-06-2023 Miscellaneous Notes 3rd Attempt.. Called pt to schedule CT.. Pt does not want to schedule now, she will call when she is ready. 2nd attempt 1st attempt lvm Images from the original note were not included. Carlton Youssef PA-C P Wstr Georgina Nicholson Please schedule CT chest IVC to follow aortic aneurysm- identified need for follow up on chart review after visit. Thanks, Devyn Youssef PA-C documented in this encounter [facility] 12-28-2022 Note HNO ID: [id number] Author: Carlton Youssef PA-C Service: ? Author Type: Physician Manufacturing Maintenance Technician Type: Progress Notes Filed: 12/29/2022 3:41 PM Note Text: 72 year old female with c/o here for follow up Chronic respiratory failure with hypoxia (hcc) (primary encounter diagnosis) Pulmonary emphysema, unspecified emphysema type (hcc) Lymphoma involving lung (hcc) Tobacco use diMyeloproliferative disorder (hcc) Jak2 gene mutationsorder Tourist Information Assistant: [place] [facility]. Interval history: 06/22/2022 last visit with Keegan Preston automotive general manager 10/19/2022 last visit with oncology visit with Dr. Yamini Becerril: From records: Data: #1 Lymphoma involving lun02/08/2021 CT chest: IMPRESSION: 1. No evidence of pulmonary embolus. 2. Pulmonary hyperinflation with emphysematous changes. There is a spiculated lesion in the right apex which may represent scar however malignancy cannot be excluded. 02/10/2021 CT-guided core needle biopsy right apical nodule: Lung, right upper lobe, needle core biopsy:Limited specimen showing multiple atypical B-cell rich lymphoid aggregates. Findings are worrisome for involvement by B-cell lymphoproliferative disorder.Lung tissue showing marked fibrosis and elastosis.See microscopic description and comment. SJ:jose 02/13/2021J:jose 04/16/2021 COMMENT: The specimen is evaluated at the time of biopsy by Dr. Mancera. Immediate Evaluation = Numerous lymphocytes are noted.Immunohistochemistry ([id number]) supports the above diagnosis. Flow cytometry study from [facility] was cancelled due to no viable cells present. The specimen is sent to [facility] for expert opinion, reviewed by Dr. Morgan and the above diagnosis is rendered. The complete report is viewable in the patient's EMR. Dr. Morgan commented that ???subsequent PCR (IgH) testing reveals molecular evidence of a clonal B-cell gene rearrangement. This positive result, in conjunction withthe morphology, supports a diagnosis of a B-cell neoplasm. 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 There are no features to suggest a high grade or large cell lymphoma in the sample. Recommend clinical correlation.??? --Following the CT-guided lung biopsy patient developed a pneumothorax that required 10 days hospitalization and chest tube placement. She finally recovered. 02/24/2021 PET/CT: IMPRESSION: 1. The increase in radiopharmaceutical concentration observed in the right upper lung-right upper lobe presumably is accounting representative of the site of the patient?s histologically confirmed primary lymphoma. (Estrella et al, Journal of Clinical Oncology 32:3059, 2014). 2. Enhanced tracer uptake noted in the two additional locations within the right lower lobe demonstrates similar metabolic behavior to the aforementioned right upper lobe hypermetabolic abnormality. 3. Facilitated labeled GLUCOSE noted in the fourth thoracic vertebra is most consistent with trauma-compression fracture. (Andrew et al, [employer]osis International 13:755, 2002). 2021 CT chest: IMPRESSION: Moderate emphysema with no change in bilateral apical scarring including 1.5 cm nodular scar in the apex the right lung. 08/26/2021 CT chest: IMPRESSION: Persistent nodular opacity in the right apex which may represent an area of scarring and is unchanged from reference exam. There is also scarring in the left apex. The lungs are hyperinflated with emphysematous change. There is no focal consolidation. 05/21/2021 Hydrea was started 03/23/2022 CT chest: IMPRESSION: Continued stability of right apical nodular scarring, stable as far back as February 24, 2021.??? Mild left apical scarring.??? No evidence of new or enlarging pulmonary nodule. Emphysematous change, most prominent in the upper lungs. 08/19/2022 CT lung IMPRESSION: Lung-RADS category 2 - Continue annual screening with LDCT in 12 months. 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 Further work-up in February 2022 during the hospitalization revealed positive JAK2, V6 17F mutation. Treatment summary and response from notes: Essential thrombocythemia: Hydrea was prescribed to start April 2021, however the patient was hesitant, till May 21, 2021 02/10/2021: Oncology consult: Dr. Andreea Jordan: Thrombocytosis: Differential diagnosis being treatment reactive versus primary myeloproliferative neoplasm, no history of arterial or venous thrombotic disease. Plan continue low-dose aspirin, VTE prophylaxis with Lovenox, myeloproliferative reflex panel Current medications: Albuterol HFA 90 mcg per actuation 2 puffs every 4 hours as needed Ipratropium-albuterol 0. 5-3 mg per 3 mL nebulizer every 6 hours as needed Albuterol 2.5 (more content not included)... [facility] 12-28-2022 Instructions Carlton Youssef PA-C - 12/28/2022 2:56 PM EDT BONE MINERAL DENSITY PATIENT INSTRUCTIONS ======= Bone mineral density testing measures the amount of calcium in certain parts of your bones. This information determines how strong your bones are. The test is used to detect osteoporosis, a disease in which the bone's mineral content and density are low, increasing a person's risk of fractures. The lumbar spine (lower back) and the hip are the skeletal sites usually examined. For the test, remember that: 1. You cannot take this test if you are . 2. Eat a normal diet on the day of the test. 3. Take your medications as you normally would. 4. DO NOT take calcium supplements (such as Tums) for 24 hours before the test. 5. On the day of the test, leave valuables (jewelry or credit cards) at home. 6. The test should be performed prior to oral, rectal or IV contrast studies, or at least 7 days after any of these studies. For the test, you may be asked to wear a hospital gown. You will lie on your back, on a padded table, in a comfortable position. Generally, you can resume your usual activities immediately. documented in this encounter [facility] 12-28-2022 History of Present illness Narrative 72 year old female with c/o here for follow up Chronic respiratory failure with hypoxia (hcc) (primary encounter diagnosis) Pulmonary emphysema, unspecified emphysema type (hcc) Lymphoma involving lung (hcc) Tobacco use diMyeloproliferative disorder (hcc) Jak2 gene mutationsorder Tourist Information Assistant: [place] [facility]. Interval history: 06/22/2022 last visit with Keegan Preston automotive general manager 10/19/2022 last visit with oncology visit with Dr. Yamini Becerril: From records: Data: #1 Lymphoma involving lun02/08/2021 CT chest: IMPRESSION: 1. No evidence of pulmonary embolus. 2. Pulmonary hyperinflation with emphysematous changes. There is a spiculated lesion in the right apex which may represent scar however malignancy cannot be excluded. 02/10/2021 CT-guided core needle biopsy right apical nodule: Lung, right upper lobe, needle core biopsy:Limited specimen showing multiple atypical B-cell rich lymphoid aggregates. Findings are worrisome for involvement by B-cell lymphoproliferative disorder.Lung tissue showing marked fibrosis and elastosis.See microscopic description and comment. SJ:jose 02/13/2021J:jose 04/16/2021 COMMENT: The specimen is evaluated at the time of biopsy by Dr. Mancera. Immediate Evaluation = Numerous lymphocytes are noted.Immunohistochemistry ([id number]) supports the above diagnosis. Flow cytometry study from [facility] was cancelled due to no viable cells present. The specimen is sent to [facility] for expert opinion, reviewed by Dr. Morgan and the above diagnosis is rendered. The complete report is viewable in the patient's EMR. Dr. Morgan commented that ???subsequent PCR (IgH) testing reveals molecular evidence of a clonal B-cell gene rearrangement. This positive result, in conjunction withthe morphology, supports a diagnosis of a B-cell neoplasm. 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 There are no features to suggest a high grade or large cell lymphoma in the sample. Recommend clinical correlation.??? --Following the CT-guided lung biopsy patient developed a pneumothorax that required 10 days hospitalization and chest tube placement. She finally recovered. 02/24/2021 PET/CT: IMPRESSION: 1. The increase in radiopharmaceutical concentration observed in the right upper lung-right upper lobe presumably is accounting representative of the site of the patient?s histologically confirmed primary lymphoma. (Estrella et al, Journal of Clinical Oncology 32:3059, 2014). 2. Enhanced tracer uptake noted in the two additional locations within the right lower lobe demonstrates similar metabolic behavior to the aforementioned right upper lobe hypermetabolic abnormality. 3. Facilitated labeled GLUCOSE noted in the fourth thoracic vertebra is most consistent with trauma-compression fracture. (Andrew et al, Osteoporosis International 13:755, 2002). 2021 CT chest: IMPRESSION: Moderate emphysema with no change in bilateral apical scarring including 1.5 cm nodular scar in the apex the right lung. 08/26/2021 CT chest: IMPRESSION: Persistent nodular opacity in the right apex which may represent an area of scarring and is unchanged from reference exam. There is also scarring in the left apex. The lungs are hyperinflated with emphysematous change. There is no focal consolidation. 05/21/2021 Hydrea was started 03/23/2022 CT chest: IMPRESSION: Continued stability of right apical nodular scarring, stable as far back as February 24, 2021.??? Mild left apical scarring.??? No evidence of new or enlarging pulmonary nodule. Emphysematous change, most prominent in the upper lungs. 08/19/2022 CT lung IMPRESSION: Lung-RADS category 2 - Continue annual screening with LDCT in 12 months. 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 Further work-up in February 2022 during the hospitalization revealed positive JAK2, V6 17F mutation. Treatment summary and response from notes: Essential thrombocythemia: Hydrea was prescribed to start April 2021, however the patient was hesitant, till May 21, 2021 02/10/2021: Oncology consult: Dr. Andreea Jordan: Thrombocytosis: Differential diagnosis being treatment reactive versus primary myeloproliferative neoplasm, no history of arterial or venous thrombotic disease. Plan continue low-dose aspirin, VTE prophylaxis with Lovenox, myeloproliferative reflex panel Current medications: Albuterol HFA 90 mcg per actuation 2 puffs every 4 hours as needed Ipratropium-albuterol 0. 5-3 mg per 3 mL nebulizer every 6 hours as needed Albuterol 2.5 per 3 mL nebulizer every 6 hours as needed Worsening shortness of breath: No. Cough: Yes. Intermittently productive thick white to yellow. No blood. No chest pain. No recent respiratory illnesses or hospital admissions. Wheezing: Yes. Smoking: Yes. 1PPD- no intentions to quit Compliant with medications: Yes. Using rescue inhaler: 1-3 times a days as needed. Lacunar infarction (hcc) Essential hypertension Mixed hyperlipidemia Ectatic thoracic aorta (hcc) Cardiovascular interval hx: 02/08/2021 EKG demonstrated sinus rhythm with short RI, septal NJ age undetermined cannot be excluded, inferior NJ age undetermined cannot be excluded. 08/10/2019 CT chest IV contrast demonstrated mildly ectatic ascending aorta measuring 4 cm widest diameter. 02/24/2018 echocardiogram: CONCLUSIONS: - Technically difficult exam due to body habitus. - Exam indication: Stroke - The left ventricle is normal in size. Left ventricular systolic function is normal. EF = 65 5% (2D biplane) Grade I left ventricular diastolic dysfunction. - The right ventricle is normal in size. Right ventricular systolic function is normal. - There are no significant valvular abnormalities. - Mid ascending aorta 3.2 cm - The patient has not had a prior CC echocardiographic exam for comparison. 01/24/2018 carotid duplex ultrasound: RIGHT SIDE Internal carotid artery: 20-39% stenosis. Vertebral artery: Patent and antegrade flow noted. Subclavian artery: Plaque visualized without evidence of hemodynamically significant stenosis. LEFT SIDE Common carotid artery: Plaque visualized without evidence of hemodynamically significant stenosis. Internal carotid artery: 20-39% stenosis. Vertebral artery: Patent and antegrade flow noted. Current meds: Amlodipine 5 mg daily Use of NTG: No Chest pain, arm, jaw pain, neck, or upper back pain suggestive of angina: No. SOB: Yes, chornic Dyspnea with exertion: Yes orthopnea: No Cough : Yes racing or irregular heartbeats: No palpitations: No syncopal sx: No Headache: No Unexplainable fatigue No Leg swelling: No Nausea: No diaphoresis: No Heartburn: No Claudication: No Smoking: Yes Following Low cholesterol, high fiber diet? No If on statin: muscle aches? N/a If on statin: GI sx or diarrhea? N/a Additional history none. Lab review: Compression deformity of vertebra HTN: Current meds: Amlodipine 5mg daily Patient is compliant with meds Yes Monitors bp at home: 120/ . If yes, readings: Denies side effects: No. Chest pain: No. Dyspnea: if exerting or off O2 gets out of breath Edema: No. Palpitations: No. Syncope: No. Headache: No. Dizziness: No. Last 3 Encounter BP Readings: Date: BP: 03/10/2021 128/72 06/11/2020 118/72 08/06/2019 110/64 Last 2 Encounter Wt Readings: Date: Wt: 03/10/2021 40.4 kg (89 lb) 06/11/2020 39.9 kg (88 lb) Complaining of restless leg, worse in afternoon and evening. Legs will jump at night and wakes her up. Feet ache every now and then, then legs hurt. Component Latest Ref Rng & Units 04/19/2019 07/23/2019 07/06/2022 WBC 3.70 - 11.00 k/uL 7.73 5.40 RBC 3.90 - 5.20 m/uL 4.40 3.64 (L) Hemoglobin 11.5 - 15.5 g/dL 14.6 13.1 Hematocrit 36.0 - 46.0 % 44.1 39.9 MCV 80.0 - 100.0 fL 100.2 (H) 109.6 (H) MCH 26.0 - 34.0 pg 33.2 36.0 (H) MCHC 30.5 - 36.0 g/dL 33.1 32.8 RDW-CV 11.5 - 15.0 % 12.9 11.9 Platelet Count 150 - 400 k/uL 758 (H) 437 (H) MPV 9.0 - 12.7 fL 10.0 10.0 Neut% % 66.6 47.4 Abs Neut (ANC) 1.45 - 7.50 k/uL 5.15 2.56 Lymph% % 22.9 37.8 Abs Lymph 1.00 - 4.00 k/uL 1.77 2.04 [place]% % 9.2 12.0 Abs [place] <0.87 k/uL 0.71 0.65 Eosin% % 1.0 1.9 Abs Eosin <0.46 k/uL 0.08 0.10 Baso% % 0.3 0.7 Abs Baso <0.11 k/uL <0.03 0.04 Immature Gran % % 0.2 IMMATURE GRANS (ABS) <0.10 k/uL <0.03 NRBC /100 WBC 0.0 Absolute nRBC <0.01 k/uL <0.01 <0.01 DTYPE Auto Nucleated Reds 0 /100 WBC 0.0 Diff Type Auto Diff Iron 41 - 186 ug/dL 170 TIBC 232 - 386 ug/dL 373 Transferrin Saturation 15.0 - 57.0 % 45.6 Ferritin 14.7 - 205.1 ng/mL 88.2 97.6 HISTORIES FAMILY HISTORY Problem Relation Age of Onset Cancer Father facial cancer of some type Cancer Brother unknown Cancer Sister brain Stroke Mother Heart Son PAST MEDICAL HISTORY Diagnosis Date Hypertension PAST SURGICAL HISTORY Procedure Laterality Date PAST SURGICAL HISTORY OF 2018 hip nail, right TREATMENT OF HEEL FRACTURE 2018 left VAGINAL HYSTERECTOMY UTERUS 250 GM/< 1980's Hysterectomy, vaginal-after delivery, no cancer Social History Tobacco Use Smoking status: Every Day Packs/day: 0.25 Years: 50.00 Additional pack years: 0.00 Total pack years: 12.50 Types: Cigarettes Smokeless tobacco: Never Vaping Use Vaping Use: Never used Substance Use Topics Alcohol use: Yes Comment: three four cans a week, six pack on the weekend. Drug use: No ACTIVE PROBLEM LIST Essential Hypertension Tobacco Use Disorder Mixed Hyperlipidemia Lacunar Infarction (Hcc) Ectatic Thoracic Aorta (Hcc) Lung Nodule Compression Deformity of Vertebra Adnexal Mass Hydroureter Encounter for Support and Coordination of Transition of Care Lymphoma Involving Lung (Hcc) Myeloproliferative Disorder (Hcc) Pulmonary Emphysema (Hcc) Restless Leg Syndrome Chronic Respiratory Failure With Hypoxia (Hcc) Current Outpatient Medications Medication Sig Dispense Refill amLODIPine (NORVASC) 5 mg tablet Take 1 tablet by mouth once daily. 90 tablet 1 hydroxyurea (HYDREA) 500 mg capsule TAKE 1 CAPSULE BY MOUTH ONCE DAILY TUESDAY THROUGH TUESDAY. NONE ON THE WEEKENDS Cholecalciferol, Vitamin D3, 50 mcg (2,000 unit) cap Take 1 capsule by mouth once daily. 90 capsule 3 albuterol HFA (VENTOLIN HFA) 90 mcg/actuation inhaler Inhale 2 Puffs as instructed every 4 hours as needed for wheezing/shortness of breath. 18 g 11 ipratropium-albuterol (DUONEB) 0.5 mg-3 mg(2.5 mg base)/3 mL nebu Inhale 3 mL as instructed every 6 hours. albuterol (PROVENTIL) 2.5 mg /3 mL (0.083 %) nebulizer solution Inhale 2.5 mL as instructed every 6 hours. No current facility-administered medications for this visit. Spirometry Never done Shingrix Vaccine(1 of 2) Never done Alpha-1 Antitrypsin Deficiency Screening Never done Colorectal Cancer Screening due on 01/21/2016 Bone Density Screening Never done Mammogram Screening due on 04/19/2020 Depression Assessment Never done Influenza Vaccine(1) due on 12/10/2022 EXAM: BP 110/68 Pulse 94 Resp 16 Wt 41.3 kg (91 lb) SpO2 100% BMI 17.52 kg/m Pleasant somewhat frail-appearing older woman in no acute distress. Alert and oriented all spheres. Normal affect and cognition. Speech normal. No deficits to learning or comprehension. Skin warm, dry, pink to lips and nailbeds. Normal turgor. Respirations regular and unlabored. HEENT: NCAT. No scleral icterus or conjunctival injection. TM's clear. Nose and oropharynx free from injection or lesion. Oral membranes moist and pink. No cervical lymph nodes. Thyroid non-tender, no masses, or enlargement. Carotids pulses 2+/4+ without bruits. No JVD with HOB at 30 degrees. Chest is normal shape. Lungs are diminished in bases, no dullness, there is increased vibration at the upper portion of bilateral lower lobes. HRRR without murmur or gallop. No lifts, heaves, or rubs. Extrem: no clubbing or cyanosis. Edema: None. Extremities are warm and pink with prompt capillary refill. Dorsal pedal pulses are 2 out of 4 plus, patient's toes are bright red but have prompt capillary refill. Normal nails. ASSESSMENT/PLAN: 1. Chronic respiratory failure with hypoxia (HCC) - ICD9: 518.83, 799.02, ICD10: J96.11 (primary diagnosis) 2. Pulmonary emphysema, unspecified emphysema type (HCC) - ICD9: 492.8, ICD10: J43.9 Patient is at baseline, managing with inhalers and oxygen. Follows with Dr. Keegan Preston [facility]. 3. Tobacco use disorder - ICD9: 305.1, ICD10: F17.200 - Cessation encouraged. Patient is not ready. - Physiologic and physical aspects of tobacco addiction as well as strategies for quitting were discussed. - Counseling was given focusing on the harmful effects of this addiction especially given the patient's medical condition(s) which will be worsened because of the chemicals in tobacco. 4. Lymphoma involving lung (HCC) - ICD9: 202.82, ICD10: C85.99 5. Myeloproliferative disorder (HCC) - ICD9: 238.79, ICD10: D47.1 Following with [place] [facility]-on[facility] Dr. Jordan 6. Lacunar infarction (HCC) - ICD9: 434.91, ICD10: I63.81 Old, discovered on CT in 2018. No active symptoms. 7. Ectatic thoracic aorta (HCC) - ICD9: 447.71, ICD10: I77.810 Last record 08/10/2019 Chest CTA 4cm Should be rechecked 8. Essential hypertension - ICD9: 401.9, ICD10: I10 - Controlled - Continue current medications - Recommend home blood pressure monitoring, to bring results to next visit - Encouraged sodium restriction, DASH or Mediterranean diet - Recommend regular aerobic exercise 9. Mixed hyperlipidemia - ICD9: 272.2, ICD10: E78.2 - Controlled - Continue current medications - Counseled on healthy diet and regular exercise 10. Compression deformity of vertebra - ICD9: 738.5, ICD10: M43.9 Clinical osteoporosis - DXA-AXIAL SKELETON 11. JAK2 gene mutation - ICD9: V84.89, ICD10: Z15.89 As above following with hemonc on Hydrea. F/u 6 months M Kirk Youssef PA-C documented in this encounter [facility] 12-16-2022 Miscellaneous Notes Patient has been identified by name and date of : Yes Last office visit in this department: Visit date not found RX INSTRUCTIONS: Patient aware RX will be sent to pharmacy. No need to notify patient. Patient phones requesting refills as follows: Requested Prescriptions Pending Prescriptions Disp Refills amLODIPine (NORVASC) 5 mg tablet 90 tablet 1 Sig: Take 1 tablet by mouth once daily. Please review and advise. Lisy Kothari documented in this encounter [facility] 09-08-2022 Note Patient Outreach (IN [facility]) SILVIA PIERRE ([id number]) 1950 F Date Time Provider Department 09/08/22 CHAKA RICH During your visit today, we recorded the following information about you: Allergies As of Date: 09/08/2022 Noted Allergy Reaction OXYCONTIN (OXYCODONE HCL) 02/01/2018 5 - Intolerance Comments: Confusion Date Reviewed: 06/11/2020 Reviewed by: Elizabeth Farr LPN - Fully Assessed Visit Diagnosis:Encounter for screening mammogram for breast cancer [Z12.31] Order(s):[facility] [[id number]] Order #: [id number] FUTURE Prescriptions as of 09/13/2022 - hydroxyurea (HYDREA) 500 mg capsule TAKE 1 CAPSULE BY MOUTH ONCE DAILY TUESDAY THROUGH TUESDAY. NONE ON THE WEEKENDS - amLODIPine (NORVASC) 5 mg tablet Take 1 tablet by mouth once daily. - Cholecalciferol, Vitamin D3, 50 mcg (2,000 unit) cap Take 1 capsule by mouth once daily. - albuterol HFA (VENTOLIN HFA) 90 mcg/actuation inhaler Inhale 2 Puffs as instructed every 4 hours as needed for wheezing/shortness of breath. - ipratropium-albuterol (DUONEB) 0.5 mg-3 mg(2.5 mg base)/3 mL nebu Inhale 3 mL as instructed every 6 hours. - albuterol (PROVENTIL) 2.5 mg /3 mL (0.083 %) nebulizer solution Inhale 2.5 mL as instructed every 6 hours. Problem List As Of Date 09/08/2022 Noted Resolved Essential hypertension [I10] 11/05/2014 Tobacco use disorder [F17.200] 05/05/2015 Mixed hyperlipidemia [E78.2] 02/01/2018 Lacunar infarction [I63.81] 02/01/2018 Ectatic thoracic aorta (HCC) [I77.810] 08/10/2019 Lung nodule [R91.1] 08/10/2019 Compression deformity of vertebra [M43.9] 08/10/2019 Adnexal mass [N94.89] 08/10/2019 Hydroureter [N13.4] 08/10/2019 Encounter for support and coordination of trans*03/05/2021 Lymphoma involving lung (HCC) [C85.99] 04/17/2021 Myeloproliferative disorder (HCC) [D47.1] 06/12/2021 Pulmonary emphysema (HCC) [J43.9] 06/25/2022 Restless leg syndrome [G25.81] 06/25/2022 Encounter Status:Closed by [employer], PRODUSER on 09/13/22 [facility] 06-25-2022 Note HNO ID: [id number] Author: Carlton Youssef PA-C Service: ? Author Type: Physician Manufacturing Maintenance Technician Type: Progress Notes Filed: 06/25/2022 4:30 PM Note Text: 71 year old female with hx c/o here for follow up on blood pressure follow up HTN: Current meds: Amlodipine 5mg daily Patient is compliant with meds Yes Monitors bp at home: No. If yes, readings: Denies side effects: No. Chest pain: No. Dyspnea: if exerting or off O2. Edema: No. Palpitations: No. Syncope: No. Headache: No. Dizziness: No. Last 3 Encounter BP Readings: Date: BP: 03/10/2021 128/72 06/11/2020 118/72 08/06/2019 110/64 Last 2 Encounter Wt Readings: Date: Wt: 03/10/2021 40.4 kg (89 lb) 06/11/2020 39.9 kg (88 lb) Complaining of restless leg, worse in afternoon and evening. Aortic ectasia: 08/10/2019 CTA mild Wears O2 chronically. Breathing has been pretty good. Compliant with medications. Follows with pulmonary Dr. Preston. Last visit 06/22/2022. Data update: 03/23/2022 CT chest Continued stability of right apical nodular scarring, stable as far back as February 24, 2021. No evidence of new or enlarging pulmonary nodule. Emphysematous change, most prominent in the upper lungs. 08/26/2021 CT chest: 05/13/2021 CT chest: Moderate emphysema, no change in bilateral apical scarring including 1.5 cm nodules, and the apex of the right lung. 02/24/2021 PET/CT increased concentration right upper lobe consistent with confirmed primary lymphoma, additional 2 locations in the right lower lobe demonstrate similar metabolic behavior, 4 thoracic vertebrae glucose uptake most consistent with trauma-compression fracture. 02/10/2021 CT-guided core needle biopsy right apical nodule: Limited specimen showing multiple atypical B-cell rich lymphoid aggregates, worrisome for involvement of B-cell lymphoproliferative disorder. Lung tissue shows marked fibrosis and elastosis. Supports diagnosis of B-cell lymphoma. 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 Andreea Cross 05/13/2021 CT chest: Moderate emphysema, no change in bilateral apical scarring including 1.5 cm nodules, and the apex of the right lung. 02/24/2021 PET/CT increased concentration right upper lobe consistent with confirmed primary lymphoma, additional 2 locations in the right lower lobe demonstrate similar metabolic behavior, 4 thoracic vertebrae glucose uptake most consistent with trauma-compression fracture. 02/10/2021 CT-guided core needle biopsy right apical nodule: Limited specimen showing multiple atypical B-cell rich lymphoid aggregates, worrisome for involvement of B-cell lymphoproliferative disorder. Lung tissue shows marked fibrosis and elastosis. Supports diagnosis of B-cell lymphoma. 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 Andreea Cross Myeloproliferative disorder likely essential thrombocythemia: From Dr. Preston: Patient was noted to have a chronic unexplained thrombocytosis at least since 2017. Further work-up in February 2022 during the hospitalization revealed positive JAK2, V6 17F mutation. Currently on Hydrea 1000mg aily Mon thru Fri: d/c 04/16/2021, restarted 06/10/2021 HISTORIES FAMILY HISTORY Problem Relation Age of Onset Cancer Father facial cancer of some type Cancer Brother unknown Cancer Sister brain Stroke Mother Heart Son PAST MEDICAL HISTORY Diagnosis Date Hypertension PAST SURGICAL HISTORY Procedure Laterality Date PAST SURGICAL HISTORY OF 2018 hip nail, right TREATMENT OF HEEL FRACTURE 2018 left VAGINAL HYSTERECTOMY Hysterectomy, vaginal-after delivery, no cancer Social History Tobacco Use Smoking status: Every Day Packs/day: 1.00 Years: 50.00 Pack years: 50.00 Types: Cigarettes Smokeless tobacco: Never Vaping Use Vaping Use: Never used Substance Use Topics Alcohol use: Yes Comment: three four cans a week, six pack on the weekend. Drug use: No ACTIVE PROBLEM LIST Essential Hypertension Tobacco Use Disorder Mixed Hyperlipidemia Lacunar Infarction (Hcc) Ectatic Thoracic Aorta (Hcc) Lung Nodule Compression Deformity of Vertebra Adnexal Mass Hydroureter Encounter for Support and Coordination of Transition of Care Lymphoma Involving Lung (Hcc) Myeloproliferative Disorder (Hcc) Current Outpatient Medications Medication Sig Dispense Refill amLODIPine (NORVASC) 5 mg tablet Take 1 tablet by mouth once daily. 30 tablet 0 albuterol HFA (VENTOLIN HFA) 90 mcg/actuation inhaler Inhale 2 Puffs a (more content not included)... [facility] 06-25-2022 History of Present illness Narrative 71 year old female with hx c/o here for follow up on blood pressure follow up HTN: Current meds: Amlodipine 5mg daily Patient is compliant with meds Yes Monitors bp at home: No. If yes, readings: Denies side effects: No. Chest pain: No. Dyspnea: if exerting or off O2. Edema: No. Palpitations: No. Syncope: No. Headache: No. Dizziness: No. Last 3 Encounter BP Readings: Date: BP: 03/10/2021 128/72 06/11/2020 118/72 08/06/2019 110/64 Last 2 Encounter Wt Readings: Date: Wt: 03/10/2021 40.4 kg (89 lb) 06/11/2020 39.9 kg (88 lb) Complaining of restless leg, worse in afternoon and evening. Aortic ectasia: 08/10/2019 CTA mild Wears O2 chronically. Breathing has been pretty good. Compliant with medications. Follows with pulmonary Dr. Preston. Last visit 06/22/2022. Data update: 03/23/2022 CT chest Continued stability of right apical nodular scarring, stable as far back as February 24, 2021. No evidence of new or enlarging pulmonary nodule. Emphysematous change, most prominent in the upper lungs. 08/26/2021 CT chest: 05/13/2021 CT chest: Moderate emphysema, no change in bilateral apical scarring including 1.5 cm nodules, and the apex of the right lung. 02/24/2021 PET/CT increased concentration right upper lobe consistent with confirmed primary lymphoma, additional 2 locations in the right lower lobe demonstrate similar metabolic behavior, 4 thoracic vertebrae glucose uptake most consistent with trauma-compression fracture. 02/10/2021 CT-guided core needle biopsy right apical nodule: Limited specimen showing multiple atypical B-cell rich lymphoid aggregates, worrisome for involvement of B-cell lymphoproliferative disorder. Lung tissue shows marked fibrosis and elastosis. Supports diagnosis of B-cell lymphoma. 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 Andreea Cross 05/13/2021 CT chest: Moderate emphysema, no change in bilateral apical scarring including 1.5 cm nodules, and the apex of the right lung. 02/24/2021 PET/CT increased concentration right upper lobe consistent with confirmed primary lymphoma, additional 2 locations in the right lower lobe demonstrate similar metabolic behavior, 4 thoracic vertebrae glucose uptake most consistent with trauma-compression fracture. 02/10/2021 CT-guided core needle biopsy right apical nodule: Limited specimen showing multiple atypical B-cell rich lymphoid aggregates, worrisome for involvement of B-cell lymphoproliferative disorder. Lung tissue shows marked fibrosis and elastosis. Supports diagnosis of B-cell lymphoma. 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 Andreea Cross Myeloproliferative disorder likely essential thrombocythemia: From Dr. Preston: Patient was noted to have a chronic unexplained thrombocytosis at least since 2018. Further work-up in February 2022 during the hospitalization revealed positive JAK2, V6 17F mutation. Currently on Hydrea 1000mg aily Mon thru Fri: d/c 04/16/2021, restarted 06/10/2021 HISTORIES FAMILY HISTORY Problem Relation Age of Onset Cancer Father facial cancer of some type Cancer Brother unknown Cancer Sister brain Stroke Mother Heart Son PAST MEDICAL HISTORY Diagnosis Date Hypertension PAST SURGICAL HISTORY Procedure Laterality Date PAST SURGICAL HISTORY OF 2018 hip nail, right TREATMENT OF HEEL FRACTURE 2018 left VAGINAL HYSTERECTOMY Hysterectomy, vaginal-after delivery, no cancer Social History Tobacco Use Smoking status: Every Day Packs/day: 1.00 Years: 50.00 Pack years: 50.00 Types: Cigarettes Smokeless tobacco: Never Vaping Use Vaping Use: Never used Substance Use Topics Alcohol use: Yes Comment: three four cans a week, six pack on the weekend. Drug use: No ACTIVE PROBLEM LIST Essential Hypertension Tobacco Use Disorder Mixed Hyperlipidemia Lacunar Infarction (Hcc) Ectatic Thoracic Aorta (Hcc) Lung Nodule Compression Deformity of Vertebra Adnexal Mass Hydroureter Encounter for Support and Coordination of Transition of Care Lymphoma Involving Lung (Hcc) Myeloproliferative Disorder (Hcc) Current Outpatient Medications Medication Sig Dispense Refill amLODIPine (NORVASC) 5 mg tablet Take 1 tablet by mouth once daily. 30 tablet 0 albuterol HFA (VENTOLIN HFA) 90 mcg/actuation inhaler Inhale 2 Puffs as instructed every 4 hours as needed for wheezing/shortness of breath. 18 g 11 ipratropium-albuterol (DUONEB) 0.5 mg-3 mg(2.5 mg base)/3 mL nebu Inhale 3 mL as instructed every 6 hours. albuterol (PROVENTIL) 2.5 mg /3 mL (0.083 %) nebulizer solution Inhale 2.5 mL as instructed every 6 hours. ergocalciferol 50,000 unit capsule (VITAMIN D2, DRISDOL) Take 1 capsule by mouth one time a week. (Patient not taking: Reported on 03/10/2021 ) 12 capsule 0 acetaminophen (TYLENOL) 325 mg tablet Take 650 mg by mouth every 6 hours as needed. (Patient not taking: Reported on 03/10/2021 ) ASPIR-LOW 81 mg EC tablet Take 81 mg by mouth once daily. 0 No current facility-administered medications for this visit. BP CONTROLLED (<130/80) Never done SHINGRIX VACCINE(1 of 2) Never done DTAP,TDAP,TD(1 - Tdap) due on 10/06/2013 PNEUMOCOCCAL: 65+(2 - PCV) due on 06/28/2014 COLORECTAL CANCER SCREENING due on 01/21/2016 BONE DENSITY Never done MAMMOGRAM due on 04/19/2020 COVID-19 VACCINE(2 - [place] risk series) due on 03/08/2021 INFLUENZA(1) Never done ANNUAL PCP TEAM CHRONIC DISEASE VISIT due on 03/10/2022 ADVANCE DIRECTIVE DISCUSSION Never done DEPRESSION ASSESSMENT Never done DIABETES SCREEN due on 07/22/2022 EXAM: BP 118/62 Pulse 101 Wt 43.1 kg (95 lb) SpO2 99% BMI 18.29 kg/m Pleasant older frail appearing adult woman in no acute distress. Alert and oriented all spheres. Normal affect and cognition. Speech normal. No deficits to learning or comprehension. Skin warm, dry, pink to lips and nailbeds. Normal turgor. Respirations regular and unlabored. HEENT: NCAT. No scleral icterus or conjunctival injection. TM's clear. Nose and oropharynx free from injection or lesion. Oral membranes moist and pink. No cervical lymph nodes. Thyroid non-tender, no masses, or enlargement. Carotids pulses 2+/4+ without bruits. No JVD with HOB at 30 degrees. Chest is normal shape. Lungs are clear to all [place] with good air exchange through out. No dullness to percussion. Wearing O2. HRRR without murmur or gallop. No lifts, heaves, or rubs. Extrem: no clubbing or cyanosis. Edema: none. Extremities are warm and pink with prompt capillary refill. ASSESSMENT/PLAN: 1. Restless leg syndrome - ICD9: 333.94, ICD10: G25.81 (primary diagnosis) Will check iron levels. - CBC + DIFF - IRON + TIBC - FERRITIN BLD 2. Essential hypertension - ICD9: 401.9, ICD10: I10 - good control - Recommended regular aerobic exercise. - Recommend home blood pressure monitoring, to bring results in on next visit - Goal of BP <130/80 - AMLODIPINE 5 MG TABLET - CBC + DIFF - COMP METABOLIC PANEL 3. Vitamin D deficiency - ICD9: 268.9, ICD10: E55.9 - CHOLECALCIFEROL (VITAMIN D3) 50 MCG (2,000 UNIT) CAPSULE - VITAMIN D 25 HYDROXY - PTH INTACT BLD 4. Mixed hyperlipidemia - ICD9: 272.2, ICD10: E78.2\ 5. Screening for lipid disorders - ICD9: V77.91, ICD10: Z13.220 - COMP METABOLIC PANEL - LIPID PANEL BASIC 6. Ectatic thoracic aorta (HCC) - ICD9: 447.71, ICD10: I77.810 Mild- may need recheck 7. Myeloproliferative disorder (HCC) - ICD9: 238.79, ICD10: D47.1 [place] with hemonc 8. Pulmonary emphysema, unspecified emphysema type (HCC) - ICD9: 492.8, ICD10: J43.9 9. Acute exacerbation of chronic obstructive airways disease (HCC) - ICD9: 491.21, ICD10: J44.1 Stable compliant with meds Follows with Dr. Keegan Preston. 10. Thrombocytosis - ICD9: 238.71, ICD10: D75.839 11. JAK2 gene mutation - ICD9: V84.89, ICD10: Z15.89 12. B-cell lymphoproliferative disorder (HCC) - ICD9: 238.79, ICD10: D47.9 13. Mass of upper lobe of right lung - ICD9: 786.6, ICD10: R91.8 14. Lymphoma involving lung (HCC) - ICD9: 202.82, ICD10: C85.99 Following with hemo/onc and pulm ? Still on Hydrea- notes are not clear. 15. Tobacco use disorder - ICD9: 305.1, ICD10: F17.200 - Cessation encouraged. - Physiologic and physical aspects of tobacco addiction as well as strategies for quitting were discussed. - Counseling was given focusing on the harmful effects of this addiction especially given the patient's medical condition(s) which will be worsened because of the chemicals in tobacco. F/u 6 months Carlton Youssef PA-C documented in this encounter [facility] 08-10-2021 History of Present illness Narrative [facility] Enrollment Provider Action/FYI: CallApp introduction message sent- not read. Last login on IS[employer]- 03/10/21 Mailbox full- unable to leave message x2 Patient referred by: [facility] [place] Contact made with patient: No - Unable to leave message: (Keep encounter open and attempt 2nd outreach in two business days from today). END OUTREACH documented in this encounter [facility] 08-06-2021 History of Present illness Narrative [facility] Enrollment Provider Action/FYI: CallApp introduction message sent- not read. Last login on ISBX- 03/10/21 Mailbox full- unable to leave message Patient referred by: [facility] [place] Contact made with patient: No - Unable to leave message: (Keep encounter open and attempt 2nd outreach in two business days from today). [facility] OUTREACH [facility] [facility] Diagnosis Restless leg syndrome- Primary Restless legs syndrome (RLS) Essential hypertension Unspecified essential hypertension Vitamin D deficiency Unspecified vitamin D deficiency Mixed hyperlipidemia Screening for lipid disorders Ectatic thoracic aorta (HCC) Thoracic aortic ectasia 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 Pulmonary emphysema, unspecified emphysema type (HCC) Acute exacerbation of chronic obstructive airways disease (HCC) Obstructive chronic bronchitis with exacerbation Thrombocytosis Essential thrombocythemia 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) Neoplasm of uncertain behavior of other lymphatic and hematopoietic tissues Mass of upper lobe of right lung Lymphoma involving lung (HCC) Other malignant lymphomas of intrathoracic lymph nodes Tobacco use disorder [facility] Diagnosis Encounter for screening mammogram for breast cancer [facility] Diagnosis Essential hypertension Unspecified essential hypertension [facility] Diagnosis Chronic respiratory failure with hypoxia (HCC)- Primary Chronic respiratory failure Pulmonary emphysema, unspecified emphysema type (HCC) Tobacco use disorder Lymphoma involving lung (HCC) Other malignant lymphomas of intrathoracic lymph nodes 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 Lacunar infarction (HCC) Unspecified cerebral artery occlusion with cerebral infarction Ectatic thoracic aorta (HCC) Thoracic aortic ectasia Essential hypertension Unspecified essential hypertension Mixed hyperlipidemia Compression deformity of vertebra Other acquired deformity of back or spine JAK2 gene mutation documented in this encounter [facility] for referral (narrative)* Diagnostic Procedure Only (Routine) - Pending Review Specialty Diagnoses / Procedures Referred By Kena pacheco Referred To Contact [facility] Diagnoses Encounter for screening mammogram for breast cancer Procedures RYLIE SCREENING SCREENING MAMMOGRAPHY BI 2-VIEW BREAST INC Chaka Cortes MD [address] [place] [address] [facility] [address] [place] [address] Referral ID Status Reason Start Date Expiration Date Visits Requested Visits Authorized [id number] Pending Review Auto-Generat ed Referral 10/07/2021 11/06/2022 1 1 T [facility] for referral (narrative)* Diagnostic Procedure Only (Routine) - Pending Review Specialty Diagnoses / Procedures Referred By Kena pacheco Referred To Contact [facility] Diagnoses Encounter for screening mammogram for breast cancer Procedures RYLIE SCREENING SCREENING MAMMOGRAPHY BI 2-VIEW BREAST INC Chaka Cortes MD [address] [place] [address] [facility] [address] Referral ID Status Reason Start Date Expiration Date Visits Requested Visits Authorized [id number] Pending Review Auto-Generat ed Referral 09/08/2022 10/08/2023 1 1 T [facility] Summary Purpose Family History No Family History Records FoundNo Family History Records FoundNo Family History Records FoundNo Family History Records Found Advance Directives No Advanced Directives Records FoundNo Advanced Directives Records FoundNo Advanced Directives Records FoundNo Advanced Directives Records Found Reason for Referral Specialty Diagnoses / Procedures Referred By Kena pacheco Referred To Contact CT IMAGING Diagnoses Ectatic thoracic aorta (HCC) Procedures CT CHEST W IVCON DIAGNOSTIC COMPUTED TOMOGRAPHY THORAX W/CONTRAST Carlton Youssef PA-C [address] [place] [address] Ct Imaging [facility] Referral ID Status Reason Start Date Expiration Date Visits Requested Visits Authorized [id number] Pending Review Auto-Generat ed Referral 12/29/2022 01/28/2024 1 1 Medications Administered Section Administered Medications Medication Order MAR Action Action Date Dose Rate Site tuberculin skin test, unspecified formulation Given 01/03/2018 0.1 ml tuberculin skin test, unspecified formulation Given 01/10/2018 0.1 ml Additional Source Comments INFORMATION SOURCE (unrecogn ized section and content) DATE CREATED AUTHOR AUTHOR'S ORGANIZ ATION 08/30/2019 [facility] DATE CREATED AUTHOR AUTHOR'S ORGANIZ ATION 02/18/2021 [facility] DATE CREATED AUTHOR AUTHOR'S ORGANIZ ATION 03/17/2023 [facility] Source Comments (unrecognize d section and content) In the event this informatio n is protected by the Federal Confidentiality of Alcohol and Drug Abuse Patient Records regulations: The Federal rules restrict any use of the information to criminally investigate or prosecute any alcohol or drug abuse patient.[facility] the event this information is protected by the Federal Confidentiality of Alcohol and Drug Abuse Patient Records regulations: The Federal rules restrict any use of the information to criminally investigate or prosecute any alcohol or drug abuse patient.[facility] the event this information is protected by the Federal Confidentiality of Alcohol and Drug Abuse Patient Records regulations: The Federal rules restrict any use of the information to criminally investigate or prosecute any alcohol or drug abuse patient.[facility] the event this information is protected by the Federal Confidentiality of Alcohol and Drug Abuse Patient Records regulations: The Federal rules restrict any use of the information to criminally investigate or prosecute any alcohol or drug abuse patient.[facility] the event this information is protected by the Federal Confidentiality of Alcohol and Drug Abuse Patient Records regulations: The Federal rules restrict any use of the information to criminally investigate or prosecute any alcohol or drug abuse patient.[facility] the event this information is protected by the Federal Confidentiality of Alcohol and Drug Abuse Patient Records regulations: The Federal rules restrict any use of the information to criminally investigate or prosecute any alcohol or drug abuse patient.[facility] the event this information is protected by the Federal Confidentiality of Alcohol and Drug Abuse Patient Records regulations: The Federal rules restrict any use of the information to criminally investigate or prosecute any alcohol or drug abuse patient.[facility] Center[facility] the event this information is protected by the Federal Confidentiality of Alcohol and Drug Abuse Patient Records regulations: The Federal rules restrict any use of the information to criminally investigate or prosecute any alcohol or drug abuse patient.[facility] Reason for Visit (unrecogniz ed section and content) Reason Onset Date Comments Community Monitoring Outreach 08/10/2021 In sight CDM 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 Reason Comments Hypertension Reason Onset Date Comments Refill Request 12/16/2022 Reason Comments 6 Month Exam Reason Comments Orders Care Teams (unrecognized sec tion and content) Pattern Developer Relationship Specialty Start Date End Date Chaka Rich MD [address] [place], [place] [id number] PCP - General Family Practice 02/01/18 Pattern Developer Relationship Specialty Start Date End Date Chaka Rich MD [address] [place], [place] [id number] PCP - General Family Medicine 02/01/18 Pattern Developer Relationship Specialty Start Date End Date Chaka Rich MD [address] [place], [place] [id number] PCP - General Family Medicine 02/01/18 Pattern Developer Relationship Specialty Start Date End Date Chaka Rich MD [address] [place], [place] [id number] PCP - General Family Medicine 02/01/18 Pattern Developer Relationship Specialty Start Date End Date Chaka Rich MD [address] [place], [place] [id number] PCP - General Family Medicine 02/01/18 Pattern Developer Relationship Specialty Start Date End Date Chaka Rich MD [address] [place], [place] [id number] PCP - General Family Medicine 02/01/18 FOR RECORDS PERTAINING TO PATIENTS WHO ARE OR HAVE BEEN ENROLLED IN A CHEMICAL DEPENDENCY/SUBSTANCEABUSE PROGRAM, SOME INFORMATION MAY BE OMITTED. This clinical summary was aggregated from multiple sources. Caution should be exercised in using it in the provision of clinical care. This summary normalizes information from multiple sources, and as a consequence, information in this document may materially change the coding, format and clinical context of patient data. In addition, data may be omitted in some cases. CLINICAL DECISIONS SHOULD BE BASED ON THE PRIMARY CLINICAL RECORDS. [facility]. provides no warranty or guarantee of the accuracy or completeness of information in this document.
[2023-03-23 16:43] VITALS: BMI 19.3
--- NOTE | 2023-03-23 16:45 | NURSING ---
CALLED [facility], TALKED TO JEAN. THEY ARE COMING FOR PATIENT. ETA IS 15 TO 20 MIN
[2023-03-23 16:50] LABS: Absolute Lymphocyte Count 0.67 X10^3/uL (0.83-4.51); Absolute Neutrophil Count 10.8 X10^3/uL (2.0-7.7); Basophil# 0.04 X10^3/uL; Basophil% 0.3 % (0-1); Hematocrit 39.7 % (37-47); Hemoglobin 13.5 g/dL (12.0-15.0); Lymphocyte # 0.67 X10^3/ul (0.83-4.51); Lymphocyte % 5.4 % (19-41); Mean Corpuscular Hgb 36.8 pg (27.0-32.0); Mean Corpuscular Volume 108.2 fL (81-99); Mean Platelet Vol. 9.2 fl (6.2-12.0); Monocyte# 0.87 X10^3/uL; NRBC Flagged by Analyzer 0 % (0-5); Neutrophil # 10.75 X10^3/uL (2.7-7.7); Neutrophil % 86.9 % (47-70); Platelet Count 411 K/mm3 (150-450); RBC Distribution Width CV 12.1 % (11.6-14.6); RBC Distribution Width SD 47.5 fl (35.1-43.9); Red Blood Count 3.67 M/mm3 (4.2-5.4); White Blood Count 12.4 K/mm3 (4.4-11.0)
[2023-03-23 16:53] VITALS: BP 153/98; PULSE 85; RESP 24; O2SAT 99
[2023-03-23] MEDS: Labetalol (Prefilled) 20 MG/4 ML IV (16:56)
--- NOTE | 2023-03-23 16:58 | NURSING ---
[id number] STROKE ALERT CALLED
[2023-03-23] MEDS: 0.9% Normal Saline (1000mL) 1,000 ML 999 ML IV (17:00)
[2023-03-23 17:02] LABS: International Normalized Ratio 0.9; Prothrombin Time (Protime)PT. 12.6 SECONDS (11.7-14.9)
[2023-03-23 17:03] LABS: Partial Thromboplast Time 28.2 Seconds (24.1-36.2)
[2023-03-23 17:09] VITALS: BP 139/85; PULSE 82; RESP 20; O2SAT 100
[2023-03-23 17:11] LABS: Anion Gap 7 (5-15); BUN 11 mg/dL (7-18); CPK Total, Creatine Kinase 537 U/L (26-192); Chloride 100 mmol/L (98-107); Creatinine, Serum 0.52 mg/dL (0.55-1.02); EST Glomerular Filtration Rate 122 mL/min (>60); Est Glom Filt Rate - Afr Amer 148 mL/min (>60); Estimated Creatinine Clearance 39.02 ml/min; Glucose 113 mg/dL (74-106); Potassium 4.1 mmol/L (3.5-5.1); Sodium Level 135 mmol/L (136-145); Troponin-I HS 35 pg/mL (3.0-54.0)
[2023-03-23 17:20] VITALS: BP 142/78; PULSE 96; RESP 16; TEMP 36.3; O2SAT 100; O2SAT 96; BMI 19.3
== END 2023-03-23 17:28 | disposition short-term general hospital (02) ==
PROVIDERS: Emergency Provider Emergency Medicine; PCP Physician Assistant; Visit Provider Emergency Medicine
DX: I61.9 Nontraumatic intracerebral hemorrhage, unspecified (principal); J44.9 Chronic obstructive pulmonary disease, unspecified; Z87.891 Personal history of nicotine dependence; I10 Essential (primary) hypertension; Z79.899 Other long term (current) drug therapy; Z79.82 Long term (current) use of aspirin; Z90.710 Acquired absence of both cervix and uterus
CPT/HCPCS: 70450; 80048; 82550; 84484; 85025; 85610; 85730; 93005; 96374; 99285; J7030; A4216